=== PATIENT | male | born 1960 | race Two or more races ===

== ENCOUNTER → 2019-12-28 14:04 | Outpatient (BNVA) | payer MEDICARE, MEDICAID, SELFPAY | PROVIDERS: PCP Internal Medicine; Referring Provider Internal Medicine; Visit Provider Nurse Practitioner Family | DX: K58.2 Mixed irritable bowel syndrome (principal); K21.9 Gastro-esophageal reflux disease without esophagitis; K64.4 Residual hemorrhoidal skin tags; R14.0 Abdominal distension (gaseous) | CPT/HCPCS: 99214 ==

== ENCOUNTER 2020-02-08 14:23 | Outpatient (REF) | payer MEDICARE, MEDICAID, SELFPAY ==
--- NOTE | 2020-02-08 15:26 | XR_ITS ---
EXAMINATION: XR KNEE, RIGHT CLINICAL INFORMATION: Right knee pain. COMPARISON: None TECHNIQUE: Four views of the right knee. FINDINGS: Bones and soft tissues are normal. No fracture or joint effusion. Alignment is anatomic. Joint spaces are well maintained. No abnormal soft tissue calcification. XR/XR knee RT 4V IMPRESSION: Unremarkable right knee.
--- NOTE | 2020-02-08 15:26 | XR_ITS ---
EXAMINATION: XR KNEE, LEFT CLINICAL INFORMATION: Left knee pain. COMPARISON: None TECHNIQUE: Four views of the left knee. FINDINGS: Bones and soft tissues are normal. No fracture or joint effusion. Alignment is anatomic. Joint spaces are well maintained. No abnormal soft tissue calcification. XR/XR knee LT 4V IMPRESSION: Unremarkable left knee.
== END 2020-02-08 14:24 | disposition home or self-care (01) ==
LOC: HO.XRAY 14:23
PROVIDERS: PCP Internal Medicine; Referring Provider Internal Medicine; Visit Provider Student in an Organized Health Care Education/Training Program
DX: M19.012 Primary osteoarthritis, left shoulder (principal); M19.011 Primary osteoarthritis, right shoulder; M25.562 Pain in left knee; M25.561 Pain in right knee
CPT/HCPCS: 20610; 73564; 99212

== ENCOUNTER 2020-02-22 13:31 | Outpatient (REF) | payer MEDICARE, MEDICAID, SELFPAY ==
[2020-02-28 12:27] LABS: Testosterone, Free 51.9 pg/mL (35.0-155.0); Testosterone, Total 358 ng/dL (250-1100)
== END 2020-02-22 13:32 | disposition home or self-care (01) ==
LOC: HO.LAB 13:31
PROVIDERS: PCP Internal Medicine; Visit Provider Internal Medicine
DX: F11.90 Opioid use, unspecified, uncomplicated (principal); R61 Generalized hyperhidrosis; M54.5 Low back pain; G89.29 Other chronic pain; F41.8 Other specified anxiety disorders
CPT/HCPCS: 84402; 84403

== ENCOUNTER → 2020-04-11 13:51 | Outpatient (BNVA) | payer MEDICARE, MEDICAID, SELFPAY | PROVIDERS: PCP Internal Medicine; Visit Provider Nurse Practitioner | DX: Z13.89 Encounter for screening for other disorder (principal) | CPT/HCPCS: 99212 ==

== ENCOUNTER 2020-04-23 09:43 | Outpatient (REF) | payer MEDICARE, MEDICAID, SELFPAY ==
--- NOTE | 2020-04-23 09:47 | US_ITS ---
EXAMINATION: US ABDOMEN COMPLETE CLINICAL INFORMATION: Periumbilical pain. COMPARISON: Previous CT of the abdomen and pelvis March 2019 TECHNIQUE: Real-time imaging of the abdominal viscera. FINDINGS: PANCREAS: Normal. ABDOMINAL AORTA: The proximal, mid, and distal segments are normal in caliber. INFERIOR VENA CAVA: Visualized portions are normal. LIVER: Normal. The liver is normal in size. The liver contour is normal. Parenchymal echogenicity is normal. No focal hepatic lesion. There is no intrahepatic biliary duct dilatation seen. GALLBLADDER: There are gallstones in the gallbladder. The gallbladder is normal in size. The gallbladder wall is normal-appearing. There is no pericholecystic fluid. COMMON BILE DUCT: Normal in caliber measuring 0.3 cm in diameter. RIGHT KIDNEY: Normal. No hydronephrosis. No renal calculi or focal parenchymal lesions. The kidney measures 10.9 cm in maximum dimension. LEFT KIDNEY: There are 2 stones measuring 4 x 3 x 8 mm in the midpole and 3 x 3 x 5 mm in the lower pole. No hydronephrosis. No focal parenchymal lesions. The kidney measures 12.7 cm in maximum dimension. SPLEEN: Normal. The spleen measures 10.2 cm in maximum dimension. FREE FLUID: None. Ultrasound of the periumbilical region demonstrates a small umbilical hernia containing peristalsing bowel. US/US abdomen complete IMPRESSION: Gallstones. Left renal stones. Small umbilical hernia containing peristalsing bowel.
== END 2020-04-23 09:44 | disposition home or self-care (01) ==
LOC: HO.US 09:43
PROVIDERS: Visit Provider Nurse Practitioner
DX: R10.13 Epigastric pain (principal); R10.33 Periumbilical pain
CPT/HCPCS: 76700

== ENCOUNTER → 2020-05-02 14:15 | Outpatient (BNVA) | payer MEDICARE, MEDICAID, SELFPAY | PROVIDERS: PCP Internal Medicine; Visit Provider Nurse Practitioner | DX: Z76.89 Persons encountering health services in other specified circumstances (principal) | CPT/HCPCS: Q3014 ==

== ENCOUNTER 2020-05-13 08:29 | Outpatient (REF) | payer MEDICARE, MEDICAID, SELFPAY ==
[2020-05-13 09:54] LABS: Cholesterol 124 mg/dL; HDL Cholesterol 36 mg/dL; LDL Cholesterol Calculated 63 mg/dl; Triglycerides 125 mg/dL
[2020-05-13 10:13] LABS: Estimated Average Glucose 103 mg/dL; Hemoglobin A1c % 5.2 %
== END 2020-05-13 08:30 | disposition home or self-care (01) ==
LOC: HO.LAB 08:29
PROVIDERS: PCP Internal Medicine; Visit Provider Psychiatry & Neurology Psychiatry
DX: Z79.899 Other long term (current) drug therapy (principal)
CPT/HCPCS: 36415; 80061; 83036

== ENCOUNTER → 2020-06-12 12:27 | Outpatient (BNVA) | payer MEDICARE, MEDICAID, SELFPAY | PROVIDERS: PCP Internal Medicine; Referring Provider Internal Medicine; Visit Provider Student in an Organized Health Care Education/Training Program | DX: M19.012 Primary osteoarthritis, left shoulder (principal); M25.561 Pain in right knee; M25.562 Pain in left knee | CPT/HCPCS: 20610; 99212 ==

== ENCOUNTER 2020-06-16 15:28 | Outpatient (REF) | payer MEDICARE, MEDICAID, SELFPAY ==
--- NOTE | ~2020-06-16 | MR_ITS ---
EXAMINATION: MR KNEE WITHOUT CONTRAST, RIGHT CLINICAL INFORMATION: X-ray the right knee January 2020. COMPARISON: X-rays of the right knee most recent January 2020. TECHNIQUE: MRI of the knee without contrast was performed using routine sequences on a high-field scanner. FINDINGS: MENISCI: Medial Meniscus: Intact Lateral Meniscus: Intact LIGAMENTS: Cruciate: Intact Collateral: Intact EXTENSOR MECHANISM: Intact ARTICULAR CARTILAGE/BONE: Patellofemoral Compartment: There is a focal area of cartilage heterogeneity with associated subchondral cystic change in the central trochlea sulcus. This measures 9 mm craniocaudal and 11 mm transverse. There is some mild surrounding edema. There is mild heterogeneity of the medial trochlea. Overall mild Medial Compartment: Normal Lateral Compartment: Normal JOINT FLUID AND BURSAE: There is a slightly lobulated focus of abnormal signal within or just overlying the prepatellar bursa at the level of the lateral aspect of the proximal patella tendon. See sagittal image 21 series 4. See axial image 12 series 2. The periphery of this focus is low signal on both the T1 and T2-weighted sequences with mildly hyperintense signal on T1 and T2-weighted sequences. There is no immediately surrounding soft tissue abnormality. This area measures up to 16 mm transverse, 6 mm AP and 16 mm craniocaudal. Otherwise is minimal scattered edema in the subcutaneous soft tissues. MR/MR knee RT wo con IMPRESSION: 1. Patellofemoral arthrosis overall relatively mild and focal. 2. Abnormal signal abnormality focus within or just superficial to the prepatellar bursa. On the most recent radiographs there is no evidence of calcification or ossification. This finding is most likely posttraumatic likely representing a residual small hematoma. Less likely this reflects an area of dystrophic calcification or ossification which may have developed since the most recent x-ray January 2020.
== END 2020-06-16 15:29 | disposition home or self-care (01) ==
LOC: HO.MRI 15:28
PROVIDERS: Visit Provider Student in an Organized Health Care Education/Training Program
DX: M25.561 Pain in right knee (principal)
CPT/HCPCS: 73721

== ENCOUNTER 2020-07-11 09:37 | Emergency (ER) | payer MEDICARE, MEDICAID, SELFPAY ==
--- NOTE | ~2020-07-11 | XR_ITS ---
EXAMINATION: XR CHEST CLINICAL INFORMATION: Chest pain COMPARISON: Chest radiographs 04/19/2019, 04/04/2019 TECHNIQUE: Portable upright AP view of the chest is performed. FINDINGS: There is no pneumothorax or pleural reaction or effusion. No airspace consolidation or groundglass opacity. The heart is normal in size. The hilar and mediastinal contours and visualized bony structures are unremarkable. XR/XR chest 2V IMPRESSION: Unremarkable examination.
--- NOTE | ~2020-07-11 | CT_ITS ---
EXAMINATION: CT ANGIOGRAM OF THE CHEST WITH AND WITHOUT CONTRAST (CT PULMONARY ANGIOGRAM FOR PE) CLINICAL INFORMATION: Reason for Exam chest pain elevated ddimer r/o PE COMPARISON: 04/04/2019 TECHNIQUE: Prior to contrast administration, noncontrast localization images were obtained. Subsequently, multidetector volumetric imaging was performed from the thoracic inlet to below the diaphragms following the administration of 65 mL Omnipaque 350 intravenous contrast. No contrast reaction reported Sagittal, coronal, and MIP oblique sagittal reformatted images were obtained on the CT workstation, uploaded to PACS, and reviewed. This CT examination was performed using dose optimization techniques as appropriate, variously including the following: *Automated exposure control *Adjustment of mA and/or kV according to patient size (this includes techniques or standardized protocols for targeted exams where dose is matched to indication/reason for exam; i.e. extremities or head) *Use of iterative reconstruction technique Total exam dose-length product 454 mGy-cm FINDINGS: QUALITY OF STUDY/CONTRAST BOLUS: Suboptimal due to bolus timing. The concentration of contrast material within the main pulmonary arteries is relatively low. Much of the contrast bolus has already reached the distal descending thoracic aorta at the time of the scan. PULMONARY ARTERIES: No central or proximal lobar pulmonary emboli. THORACIC AORTA: No aneurysm or dissection. LUNG: No focal consolidation, nodules or masses. Subtle subpleural opacities in the posterior aspects of the lower lobes likely correspond to dependent atelectasis. Pleural parenchymal scarring is also possible. Central airways are clear. PLEURA: No pleural effusion or pneumothorax. MEDIASTINUM: Normal heart size. No pericardial effusion. No hilar or mediastinal lymphadenopathy. No evidence of septal bowing or right heart strain. CHEST WALL/AXILLA: No axillary or internal mammary lymphadenopathy. OSSEOUS STRUCTURES: No acute or suspicious osseous abnormality. [id number] multilevel degenerative disc disease. UPPER ABDOMEN: Unremarkable. No reflux of contrast into the hepatic veins to suggest elevated right heart pressures. CT/CT angio chest PE protocol IMPRESSION: No acute pulmonary findings. Assessment for pulmonary emboli is indeterminate distal to the lobar branches as a result of technical limitations of the study. A repeat attempt at the scanning can be attempted if there is a high clinical concern for pulmonary emboli. VTE: indeterminate
--- NOTE | ~2020-07-11 | US_ITS ---
EXAMINATION: US VENOUS ULTRASOUND WITH DOPPLER LOWER EXTREMITY, BILATERAL CLINICAL INFORMATION: elevated d-dimer, r/o dvt COMPARISON: 11/27/2019 TECHNIQUE: Ultrasound of the deep veins is performed from the hip to the calf with compression sonography and color and pulse Doppler assessment. Spectral analysis with color-flow imaging is performed. FINDINGS: RIGHT: There is normal venous compression and respiratory variation and augmented flow. The visualized common femoral vein, superficial femoral vein, profunda femoral vein, popliteal vein, and the trifurcation region shows no evidence of deep venous thrombosis. There is no significant popliteal fossa cyst. LEFT: There is normal venous compression and respiratory variation and augmented flow. The visualized common femoral vein, superficial femoral vein, profunda femoral vein, popliteal vein, and the trifurcation region shows no evidence of deep venous thrombosis. There is no significant popliteal fossa cyst. If the patient's symptoms persist, followup ultrasound in 5 days 7 days might be of value to exclude proximal propagation from a non-visualized calf vein. US/US venous duplex LE BI IMPRESSION: No DVT demonstrated in the bilateral lower extremities.
--- NOTE | ~2020-07-11 | NM_ITS ---
EXAMINATION: PULMONARY PERFUSION STUDY CLINICAL INFORMATION: Chest pain, elevated d-dimer. COMPARISON: No previous lung scan is available for comparison. CT angiogram of the chest dated 07/11/2020, the same date as this lung scan, is available for comparison. TECHNIQUE: Following the intravenous injection of 4.0 mCi Tc-99m MAA, an 8-view perfusion study was performed using a gamma scintillation camera. FINDINGS: No segmental perfusion defects are present. There is homogeneous distribution of activity bilaterally. There are no focal anatomic appearing perfusion defects present. NM/NM pul perfusion IMPRESSION: Normal radionuclide lung perfusion scan.
[2020-07-11 10:09] VITALS: BP 139/86; PULSE 87; RESP 18; TEMP 36.7; O2SAT 96; BMI 32.5
--- NOTE | 2020-07-11 11:28 | ECG_ITS ---
Test Reason : CHEST PAIN Blood Pressure : / mmHG Vent. Rate : 072 BPM Atrial Rate : 072 BPM P-R Int : 166 ms QRS Dur : 098 ms QT Int : 392 ms P-R-T Axes : 063 -03 038 degrees QTc Int : 429 ms Normal sinus rhythm Normal ECG No previous ECGs available Referred By: Sona Serrnao Electronically Signed By:SRIDHAR MEDEIROS MD
--- NOTE | 2020-07-11 11:47 | ED.CHESTPAIN ---
HPI - Chest Pain General Chief Complaint: Chest Pain Stated Complaint: Chest pain Time Seen by Provider: 07/11/20 11:24 Source: patient Mode of arrival: ambulatory Limitations: no limitations History of Present Illness HPI narrative: 59-year-old male with a past medical history of hypertension, former substance and alcohol abuse, IBS, obesity, depression, osteoarthritis, anxiety, insomnia, GERD, here with complaints of left-sided chest pain x3 days which radiates down the left arm with intermittent numbness as well as to his left upper back x3 days. Today continued symptoms now feeling dizzy and diaphoretic. Pain is worsened with deep breathing and movement. No shortness of breath, cough, leg swelling or pain. Patient has made a history of a superficial thrombophlebitis due to varicose veins which was treated with aspirin. No recent travel or sick contacts. Has not had his COVID vaccine. Related Data Home Medications Medication Instructions Recorded Confirmed aspirin 81 mg tablet,delayed 81 mg PO DAILY 02/08/20 06/16/20 release quetiapine 100 mg tablet 100 mg PO DAILY 02/08/20 06/16/20 Previous Rx's Medication Instructions Recorded pantoprazole 40 mg tablet,delayed 40 mg PO DAILY 30 Days #30 tab 04/11/20 release sennosides 8.6 mg capsule 17.2 mg PO BEDTIME 30 Days #60 cap 04/11/20 docusate sodium 100 mg capsule 100 mg PO BID 30 Days #60 cap 05/02/20 hydrocortisone 2.5 % topical cream See Rx Instructions WA BID PRN #30 05/02/20 with perineal applicator g [id number] 1 cap PO QID 30 Days #120 cap 05/02/20 24,000-76,000-120,000 unit capsule,delayed rel simethicone 180 mg capsule 180 mg PO QID PRN #120 cap 05/02/20 propranolol 20 mg tablet 20 mg PO BID #180 tab 05/05/20 clonidine HCl 0.1 mg tablet 0.1 mg PO BID PRN #180 tab 06/10/20 clonazepam 0.5 mg tablet 0.5 mg PO DAILY 30 Days #30 tab 06/13/20 clonazepam 1 mg tablet 1 mg PO DAILY PRN 30 Days #30 tab 06/15/20 zolpidem 12.5 mg tablet,extended 12.5 mg PO BEDTIME PRN 30 Days #30 06/15/20 release,multiphase tab diclofenac sodium 1 % topical gel 2 g TOPICAL QID #100 g 06/18/20 tizanidine 4 mg tablet 4 mg PO TID PRN 30 Days #90 tab 06/20/20 tamsulosin 0.4 mg capsule 0.4 mg PO DAILY #30 cap 07/02/20 tramadol 50 mg tablet See Rx Instructions PO BID 28 Days 07/02/20 #112 tab cyclobenzaprine 10 mg PO TID PRN #10 tab 07/11/20 naproxen 500 mg PO BID PRN #10 tab 07/11/20 prednisone 40 mg PO DAILY #10 tab 07/11/20 Allergies Allergy/AdvReac Type Severity Reaction Status Date / Time seafood Allergy Severe anaphylaxis Verified 07/11/20 10:13 duloxetine Allergy Intermediate nausea/vomiting/diarrhea, Verified 07/11/20 10:13 feeling shaky - withdrawal sympto gabapentin Allergy Intermediate confusion/memory Verified 07/11/20 10:13 loss/hallucination lactase [LACTASE] Allergy Intermediate NAUSEA Verified 07/11/20 10:13 Review of Systems Review of Systems: Yes all other systems are reviewed and are negative Constitutional: Constitutional: Reports no additional constitutional complaints, Denies body ache(s), Denies chills, Denies fever(s), Denies headache(s) and Denies weakness Eyes: Eyes: Reports no additional eye complaints and Denies change in vision ENT: Reports system reviewed and no additional complaints, except as documented, Denies dizziness, Denies headache(s), Denies nasal congestion, Denies nasal discharge and Denies neck pain Cardiovascular: Cardiovascular: Reports no additional cardiovascular complaints, Reports chest pain, Denies leg edema and Denies dyspnea Respiratory: Respiratory: Reports no additional respiratory complaints, Denies cough and Denies dyspnea Gastrointestinal: Gastrointestinal: Reports no additional gastrointestinal complaints, Denies abdominal pain, Denies diarrhea, Denies nausea and Denies vomiting Genitourinary: Genitourinary: Denies urinary incontinence Musculoskeletal: Musculoskeletal: Reports no additional musculoskeletal complaints, Reports back pain, Denies arthralgias, Denies joint swelling, Denies neck pain, Reports numbness and Denies tingling Integumentary/Breasts: Skin/Breast: Reports system reviewed and no additional complaints, except as docu and Denies rash Neurologic: Reports system reviewed and no additional complaints, except as documented, Denies Abnormal speech present, Denies dizziness, Denies headache(s), Reports numbness, Denies tingling and Denies weakness PMFSH Past Medical History Attestation statement: The following information was validated with the patient. Source: old records reviewed and nursing notes reviewed Medical History Constipation Depression Elevated blood pressure reading Excessive sweating IBS (irritable bowel syndrome) Overweight (BMI 25.0-29.9) Tubular adenoma of colon Surgical History H/O colonoscopy H/O esophagogastroduodenoscopy H/O inguinal hernia repair History of varicose vein ligation and stripping S/P tendon repair Status post pericardial cyst excision (~02/13/19) Family History Family History Father Stomach cancer Mother AIDS Sister NIDKENZIE (non-insulin dependent diabetes mellitus in young) Hypertension Social History Social History Household Members: Children Alcohol intake: never Smoking Status: Unknown if ever smoked Tobacco Type: Cigarette Years Smoked: quit greater than 10 years ago Use of substances other than those prescribed or required for medical reasons: No Advance Directives: Yes Advance Directives on File: Yes Advance Directives Date on File: 07/11/20 Physical Exam Vital Signs: Vital Signs: Last Vital Signs Temp 99.0 F 07/11/20 12:01 Pulse 77 07/11/20 14:26 Resp 14 07/11/20 15:12 BP 153/90 H 07/11/20 14:26 Pulse Ox 97 07/11/20 14:26 Body Mass Index 32.5 Const: General: cooperative, healthy appearing, comfortable and no acute distress Orientation/consciousness: patient oriented x3 Limitations: no limitations HENMT: Head: Yes normal to inspection Ears: hearing grossly normal bilaterally General nose exam: Normal external nose present Face and sinus: Yes normal facial exam Mouth: Normal oral and palatal mucosa present Throat: Yes posterior oropharynx normal Eyes: General: appearance normal, both eyes and all related structures Pupils: Equal, round and reactive pupils present Neck: Other: Left trapezius tenderness and palpable muscle spasm. No midline tenderness, step-offs or deformities Neck: Yes normal visual inspection Chest: Chest palpation & inspection: normal inspection of the chest Resp: Effort & Inspection: normal respiratory effort Auscultation: clear to auscultation bilaterally Cardio: Other: Left chest tender to palpate, worsen with left arm movement, deep breathing Rate: regular rate Rhythm: regular rhythm Peripheral pulses: Peripheral pulses 2+ throughout GI: Inspection: Yes normal to inspection Palpation (GI): Soft to palpation and nontender Auscultation: normal bowel sounds Back/Spine/Pelvis: Other: Left upper back pain with palpable muscle spasm. No midline tenderness. Thoracic/Lumbar Spine: thoracic and lumbar spine normal to inspection Skin: General skin exam: no rashes or lesions noted Neuro: General: patient oriented x3, no focal motor deficits and normal sensation to monofilament Cranial nerves: Yes CN's II-XII intact bilaterally, Yes Equal, round and reactive pupils present, Yes Bilaterally intact EOM present, Yes Nystagmus not present, Yes Normal facial strength present and Yes Midline tongue present Cognition (Neuro): normal cognition Speech: No Abnormal speech present Gait exam (Neuro): Normal gait present Motor exam (neuro): 5/5 motor strength present throughout Sensory Exam: Normal double simultaneous stimulation for sensation Extrem: General: Yes normal to inspection, Yes no pedal edema and Yes no calf tenderness Course Course Course Narrative: 59-year-old male here with pleuritic left-sided chest pain with associated left arm pain with numbness which radiates down left arm x3 days. Pain is persistent now having dizziness and diaphoresis. Will need labs, EKG, chest x-ray. 1345-Elevated d dimer. CTA ordered to r/o PE. 1456-CT indeterminate for PE. Will order V/Q scan and bilateral Doppler ultrasound 1700-V/Q scan negative for PE. Ultrasound negative for DVT. Pain is very musculoskeletal exam is likely more chest wall strain. There is also component of cervical radiculopathy on exam. Labs unremarkable including troponin. EKG shows no ischemic changes though less likely ACS. Pain is improved with Toradol here. Reviewed findings with the patient. Reviewed worrisome signs and symptoms of when to return to the emergency department. Comfortable discharge home. MDM - Chest Pain MDM Narrative Medical decision making narrative: pe, pneumo, asc, cervical radiculopathy, ms pain Less likely PE with negative VQ, no hypoxia/no tachycardia. Less likely pneumonia with negative imaging Less likely ACS with symptoms greater than 3 days with negative troponin and EKG Medical Records Data Attestation: I reviewed the patient's medical records. Lab Data Attestation: I reviewed the patient's lab results. Result diagrams: 07/11/20 12:30 07/11/20 12:30 Labs: Lab Results 07/11/20 07/11/20 07/11/20 Range/Units 12:30 12:30 12:30 WBC 7.0 (4.8-10.8) X10*3/uL RBC 5.32 (4.60-5.80) X10*6/uL Hgb 14.9 (14.0-18.0) g/dl Hct 44.9 (42-52) % MCV 84.4 (80-98) fL MCH 28.0 (27.0-33.0) pg MCHC 33.2 (31.0-36.0) g/dl RDW 12.9 (11.0-16.0) % Plt Count 250 (160-400) X10*3/uL MPV 10.4 (9.4-12.4) fL Immature Gran % (Auto) 0.1 (0.0-0.4) % Neut % (Auto) 53.3 (45-73) % Lymph % (Auto) 32.5 (20-40) % [place] % (Auto) 9.5 (2-11) % Eos % (Auto) 3.9 (0-4) % Baso % (Auto) 0.7 (0-2) % Lymph # (Auto) 2.3 (1.2-4.9) X10*3/uL [place] # (Auto) 0.7 (0.1-1.2) X10*3/uL Eos # (Auto) 0.3 (0.0-0.4) X10*3/uL Baso # (Auto) 0.1 (0.0-0.2) X10*3/uL Abs Immat Gran (auto) 0.01 (0.00-0.03) X10*3/uL Absolute Neuts (auto) 3.7 (2.0-8.3) X10*3/uL Absolute Nucleated RBC 0.000 (0.0-0.012) X10*3/uL Nucleated RBC % (auto) 0.0 (0.0-0.2) /100WBC PT (10.8-13.0) SEC INR (0.9-1.1) APTT (24.1-38.0) SEC D-Dimer NG/ML Sodium 138 (135-145) mmol/L Potassium 5.1 (3.3-5.1) mmol/L Chloride 104 (96-108) mmol/L Carbon Dioxide 27 (22-29) mmol/L Anion Gap 12 (12-20) BUN 11 (9-16) mg/dL Creatinine 0.89 (0.5-1.4) mg/dL Estim Creat Clear Calc 116.7 Estimated GFR > 60 Random Glucose 89 (60-115) mg/dL Calcium 9.0 (8.4-10.2) mg/dL Magnesium 2.2 (1.6-2.6) mg/dL Total Bilirubin 0.4 (0.0-1.0) mg/dL Direct Bilirubin < 0.2 (0.0-0.5) mg/dL AST 26 (5-37) U/L ALT 28 (0-40) U/L Alkaline Phosphatase 97 (39-117) U/L Troponin I High Sens < 3.5 (<3.5-35.0) ng/L Total Protein 7.2 (6.5-8.0) g/dL Albumin 4.0 (3.5-5.0) g/dL 07/11/20 Range/Units 12:30 WBC (4.8-10.8) X10*3/uL RBC (4.60-5.80) X10*6/uL Hgb (14.0-18.0) g/dl Hct (42-52) % MCV (80-98) fL MCH (27.0-33.0) pg MCHC (31.0-36.0) g/dl RDW (11.0-16.0) % Plt Count (160-400) X10*3/uL MPV (9.4-12.4) fL Immature Gran % (Auto) (0.0-0.4) % Neut % (Auto) (45-73) % Lymph % (Auto) (20-40) % [place] % (Auto) (2-11) % Eos % (Auto) (0-4) % Baso % (Auto) (0-2) % Lymph # (Auto) (1.2-4.9) X10*3/uL [place] # (Auto) (0.1-1.2) X10*3/uL Eos # (Auto) (0.0-0.4) X10*3/uL Baso # (Auto) (0.0-0.2) X10*3/uL Abs Immat Gran (auto) (0.00-0.03) X10*3/uL Absolute Neuts (auto) (2.0-8.3) X10*3/uL Absolute Nucleated RBC (0.0-0.012) X10*3/uL Nucleated RBC % (auto) (0.0-0.2) /100WBC PT 10.9 (10.8-13.0) SEC INR 0.9 (0.9-1.1) APTT 38.6 H (24.1-38.0) SEC D-Dimer 2551 NG/ML Sodium (135-145) mmol/L Potassium (3.3-5.1) mmol/L Chloride (96-108) mmol/L Carbon Dioxide (22-29) mmol/L Anion Gap (12-20) BUN (9-16) mg/dL Creatinine (0.5-1.4) mg/dL Estim Creat Clear Calc Estimated GFR Random Glucose (60-115) mg/dL Calcium (8.4-10.2) mg/dL Magnesium (1.6-2.6) mg/dL Total Bilirubin (0.0-1.0) mg/dL Direct Bilirubin (0.0-0.5) mg/dL AST (5-37) U/L ALT (0-40) U/L Alkaline Phosphatase (39-117) U/L Troponin I High Sens (<3.5-35.0) ng/L Total Protein (6.5-8.0) g/dL Albumin (3.5-5.0) g/dL Imaging Data Chest x-ray: Attestation: I personally reviewed and interpreted this imaging study as follows: Radiologist's impression: EXAMINATION: XR CHEST CLINICAL INFORMATION: Chest pain COMPARISON: Chest radiographs 04/19/2019, 04/04/2019 TECHNIQUE: Portable upright AP view of the chest is performed. FINDINGS: There is no pneumothorax or pleural reaction or effusion. No airspace consolidation or groundglass opacity. The heart is normal in size. The hilar and mediastinal contours and visualized bony structures are unremarkable. XR/XR chest 2V IMPRESSION: Unremarkable examination. VQ scan: Attestation: I personally reviewed and interpreted this imaging study as follows: Radiologist's impression: CLINICAL INFORMATION: Chest pain, elevated d-dimer. COMPARISON: No previous lung scan is available for comparison. CT angiogram of the chest dated 07/11/2020, the same date as this lung scan, is available for comparison. TECHNIQUE: Following the intravenous injection of 4.0 mCi Tc-99m MAA, an 8-view perfusion study was performed using a gamma scintillation camera. FINDINGS: No segmental perfusion defects are present. There is homogeneous distribution of activity bilaterally. There are no focal anatomic appearing perfusion defects present. NM/NM pul perfusion IMPRESSION: Normal radionuclide lung perfusion scan. CT scan - chest: Attestation: I personally reviewed and interpreted this imaging study as follows: Radiologist's impression: IMPRESSION: No acute pulmonary findings. Assessment for pulmonary emboli is indeterminate distal to the lobar branches as a result of technical limitations of the study. A repeat attempt at the scanning can be attempted if there is a high clinical concern for pulmonary emboli. VTE: indeterminate Venous US: Attestation: I personally reviewed and interpreted this imaging study as follows: Radiologist's impression: EXAMINATION: US VENOUS ULTRASOUND WITH DOPPLER LOWER EXTREMITY, BILATERAL CLINICAL INFORMATION: elevated d-dimer, r/o dvt COMPARISON: 11/27/2019 TECHNIQUE: Ultrasound of the deep veins is performed from the hip to the calf with compression sonography and color and pulse Doppler assessment. Spectral analysis with color-flow imaging is performed. FINDINGS: RIGHT: There is normal venous compression and respiratory variation and augmented flow. The visualized common femoral vein, superficial femoral vein, profunda femoral vein, popliteal vein, and the trifurcation region shows no evidence of deep venous thrombosis. There is no significant popliteal fossa cyst. LEFT: There is normal venous compression and respiratory variation and augmented flow. The visualized common femoral vein, superficial femoral vein, profunda femoral vein, popliteal vein, and the trifurcation region shows no evidence of deep venous thrombosis. There is no significant popliteal fossa cyst. If the patient's symptoms persist, followup ultrasound in 5 days 7 days might be of value to exclude proximal propagation from a non-visualized calf vein. US/US venous duplex LE BI IMPRESSION: No DVT demonstrated in the bilateral lower extremities. ECG Data ECG #1: Attestation: I personally reviewed and interpreted this ECG as follows: ECG interpretation date: 07/11/20 ECG interpretation time: 11:54 Interpretation: Normal sinus rhythm with a rate of 72, normal WA, normal QRS, QTC Discharge Plan Discharge Clinical Impression: Chest wall pain, Radiculopathy of arm Patient Disposition: Home, Self-Care Instructions: Cervical Radiculopathy (ED), Chest Wall Pain (ED) Additional Instructions: Heat or ice Gentle stretching Follow-up by the primary care on Tuesday if continuing to have symptoms Prescriptions: New naproxen 500 mg tablet 500 mg PO BID PRN (Reason: pain) Qty: 10 RF: 0 cyclobenzaprine 10 mg tablet 10 mg PO TID PRN (Reason: muscle spasm) Qty: 10 RF: 0 prednisone 20 mg tablet 40 mg PO DAILY Qty: 10 RF: 0 No Action propranolol 20 mg tablet 20 mg PO BID Qty: 180 RF: 1 clonidine HCl 0.1 mg tablet 0.1 mg PO BID PRN (Reason: for anxiety) Qty: 180 RF: 1 clonazepam 0.5 mg tablet 0.5 mg PO DAILY 30 Days Qty: 30 RF: 0 clonazepam 1 mg tablet 1 mg PO DAILY PRN (Reason: anxiety) 30 Days Qty: 30 RF: 0 zolpidem 12.5 mg tablet,ext release multiphase 12.5 mg PO BEDTIME PRN (Reason: insomnia) 30 Days Qty: 30 RF: 0 diclofenac sodium [Voltaren] 1 % gel 2 g topical QID Qty: 100 RF: 4 tizanidine 4 mg tablet 4 mg PO TID PRN (Reason: muscle spasticity) 30 Days Qty: 90 RF: 1 tamsulosin 0.4 mg capsule 0.4 mg PO DAILY Qty: 30 RF: 3 tramadol 50 mg tablet See Rx Instructions PO BID 28 Days Qty: 112 RF: 0 quetiapine [Seroquel] 100 mg tablet 100 mg PO DAILY RF: 0 aspirin 81 mg tablet,delayed release (DR/EC) 81 mg PO DAILY RF: 0 senna 8.6 mg capsule 17.2 mg PO BEDTIME 30 Days Qty: 60 RF: 6 pantoprazole [Protonix] 40 mg tablet,delayed release (DR/EC) 40 mg PO DAILY 30 Days Qty: 30 RF: 6 docusate sodium [DOK] 100 mg capsule 100 mg PO BID 30 Days Qty: 60 RF: 6 Creon 24,000-76,000 -120,000 unit capsule,delayed release(DR/EC) 1 cap PO QID 30 Days Qty: 120 RF: 6 simethicone [Gas Relief (simethicone)] 180 mg capsule 180 mg PO QID PRN (Reason: abdominal distention) Qty: 120 RF: 6 hydrocortisone [Anusol-HC] 2.5 % cream with perineal applicator See Rx Instructions WA BID PRN (Reason: hemorrhoids) Qty: 30 RF: 6 Referrals: Marcial David MD [Primary Care Provider] - 2 days Interventions: ED Discharge Assessment Last Done: 07/11/20 17:14 Discharge Date/Time: 07/11/20 17:14
[2020-07-11 12:01] VITALS: BP 132/90; PULSE 71; RESP 14; TEMP 37.2; O2SAT 96
--- NOTE | 2020-07-11 12:28 | PC.NURSE ---
Pt romeo pace, this rn unble to obtain labs/iv access. Another rn at bedside.
[2020-07-11 12:32] VITALS: RESP 16
[2020-07-11] MEDS: Cyclobenzaprine HCl 10 MG TABLET PO (12:32)
[2020-07-11] MEDS: Morphine Sulfate 4 MG/ML CARTRIDGE IVPUSH ×2 (12:32→15:12)
[2020-07-11 12:35] LABS: MANUAL DIFF FLAG NO
[2020-07-11 12:37] VITALS: PULSE 76
[2020-07-11 12:40] LABS: Basophils Absolute Auto 0.1 X10*3/uL (0.0-0.2); Basophils Percent Auto 0.7 % (0-2); Eosinophils Absolute Auto 0.3 X10*3/uL (0.0-0.4); Eosinophils Percent Auto 3.9 % (0-4); Hematocrit 44.9 % (42-52); Hemoglobin 14.9 g/dl (14.0-18.0); Imm Gran Abs Auto 0.01 X10*3/uL (0.00-0.03); Imm Gran Pct Auto 0.1 % (0.0-0.4); Lymphocytes Absolute Auto 2.3 X10*3/uL (1.2-4.9); Lymphocytes Percent Auto 32.5 % (20-40); Mean Corpuscular HGB Conc 33.2 g/dl (31.0-36.0); Mean Corpuscular Volume 84.4 fL (80-98); Mean Platelet Volume 10.4 fL (9.4-12.4); Monocytes Absolute Auto 0.7 X10*3/uL (0.1-1.2); Monocytes Percent Auto 9.5 % (2-11); Neutrophils Absolute Auto 3.7 X10*3/uL (2.0-8.3); Neutrophils Percent Auto 53.3 % (45-73); Platelet Count 250 X10*3/uL (160-400); Red Blood Count 5.32 X10*6/uL (4.60-5.80); Red Cell Distribution Width 12.9 % (11.0-16.0)
[2020-07-11 13:08] LABS: D Dimer 2551 NG/ML
[2020-07-11 13:18] LABS: Troponin-I High Sensitivity < 3.5 ng/L (<3.5-35.0)
[2020-07-11 13:19] LABS: Alanine Aminotransferase 28 U/L (0-40); Alkaline Phosphatase 97 U/L (39-117); Anion Gap 12 (12-20); Aspartate Amino Transferase 26 U/L (5-37); Bilirubin Direct < 0.2 mg/dL (0.0-0.5); Bilirubin Total 0.4 mg/dL (0.0-1.0); Blood Urea Nitrogen 11 mg/dL (9-16); Carbon Dioxide 27 mmol/L (22-29); Chloride 104 mmol/L (96-108); Creatinine Clr Calc Pharmacy 116.7; Estimated Glomerular Filt Rate > 60; Glucose Random 89 mg/dL (60-115); Magnesium 2.2 mg/dL (1.6-2.6); Potassium 5.1 mmol/L (3.3-5.1); Sodium 138 mmol/L (135-145); Total Protein 7.2 g/dL (6.5-8.0)
[2020-07-11 13:25] LABS: INTERNATIONAL NORM RATIO 0.9 (0.9-1.1); Prothrombin Time 10.9 SEC (10.8-13.0)
[2020-07-11 13:37] LABS: Partial Thromboplastin Time 38.6 SEC (24.1-38.0)
[2020-07-11] MEDS: iohexoL 350 MG/ML 100 ML INFUS..BTL IV (14:14)
[2020-07-11 14:26] VITALS: BP 153/90; PULSE 77; RESP 16; O2SAT 97
--- NOTE | 2020-07-11 14:42 | PC.NURSE ---
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
--- NOTE | 2020-07-11 14:43 | MHC.CM.ED ---
Received notification from BREANNE Hernandez that patient is requesting to complete a new HCP. New HCP completed, signed and witnessed. Original given to patient. Copy placed in chart. Continue to monitor for d/c needs.
[2020-07-11 15:12] VITALS: RESP 14
[2020-07-11] MEDS: Ketorolac Tromethamine 30 MG/ML VIAL IVPUSH (15:12)
== END 2020-07-11 17:14 | disposition home or self-care (01) ==
PROVIDERS: Nurse Practitioner Family; Emergency Provider Emergency Medicine; PCP Internal Medicine
DX: R07.89 Other chest pain (principal); M54.12 Radiculopathy, cervical region; I10 Essential (primary) hypertension; K21.9 Gastro-esophageal reflux disease without esophagitis; F11.20 Opioid dependence, uncomplicated; F10.21 Alcohol dependence, in remission; Z79.82 Long term (current) use of aspirin
CPT/HCPCS: 36415; 71046; 71275; 78580; 80048; 80076; 83735; 84484; 85025; 85379; 85610; 85730; 93005; 93970; 96374; 96375; 96376; 99284; 99285; A9540; J1885; J2270; Q9967

== ENCOUNTER 2020-07-23 19:40 | Emergency (ER) | payer MEDICARE, MEDICAID, SELFPAY ==
--- NOTE | ~2020-07-23 | XR_ITS ---
EXAMINATION: XR CHEST CLINICAL INFORMATION: Chest pain. COMPARISON: 07/11/2020 chest radiographs and chest CTA. TECHNIQUE: Frontal view of the chest was obtained. FINDINGS: Mild left basilar linear atelectasis versus scarring. Scattered mild parenchymal scarring as well without significant change. The lungs are clear. The heart and mediastinal structures are unremarkable. XR/XR chest 1V IMPRESSION: Stable chest with chronic changes. No acute cardiopulmonary process.
--- NOTE | ~2020-07-23 | US_ITS ---
EXAMINATION: US VENOUS WITH DOPPLER UPPER EXTREMITY, LEFT CLINICAL INFORMATION: Pain, mild swelling COMPARISON: None TECHNIQUE: Ultrasound of the left upper extremity is performed using compression sonography and color and pulse Doppler flow with assessment of augmentation of flow. There is also imaging and Doppler assessment of the jugular and subclavian veins. Spectral analysis with color-flow imaging is performed. FINDINGS: Respiratory variation, normal compression, and augmented flow are noted throughout the upper extremity including the axillary, brachial, cubital, and radial and ulnar veins. There is normal flow in the internal jugular and subclavian veins. There is no visible deep or superficial thrombophlebitis. If the patient's symptoms progress, a followup ultrasound in 5 -7 days might be of value to exclude proximal propagation from a nonvisualized distal arm vein. US/US venous duplex UE LT IMPRESSION: No DVT demonstrated in the left upper extremity.
--- NOTE | ~2020-07-23 | XR_ITS ---
EXAMINATION: XR ELBOW, LEFT CLINICAL INFORMATION: Pain without swelling COMPARISON: None TECHNIQUE: AP, lateral, and oblique views of the left elbow. FINDINGS: Osseous alignment is anatomic. No acute fracture is seen. No appreciable effusion. There is mild soft tissue swelling posteriorly. XR/XR elbow LT min 3V IMPRESSION: No acute osseous findings.
[2020-07-23 20:29] VITALS: BP 168/94; PULSE 86; RESP 18; TEMP 36.8; O2SAT 97; BMI 33.9
--- NOTE | 2020-07-23 22:26 | ECG_ITS ---
Test Reason : CHEST PAIN Blood Pressure : / mmHG Vent. Rate : 090 BPM Atrial Rate : 090 BPM P-R Int : 168 ms QRS Dur : 098 ms QT Int : 346 ms P-R-T Axes : 066 -10 040 degrees QTc Int : 423 ms Normal sinus rhythm Normal ECG When compared with ECG of 11-JUL-2020 11:54, No significant change was found Referred By: Radha Alas Electronically Signed By:ROGER BRUCE
[2020-07-23 22:56] LABS: MANUAL DIFF FLAG NO
[2020-07-23 22:58] LABS: Basophils Percent Auto 0.1 % (0-2); Eosinophils Percent Auto 0.3 % (0-4); Hematocrit 48.1 % (42-52); Hemoglobin 15.8 g/dl (14.0-18.0); Imm Gran Abs Auto 0.06 X10*3/uL (0.00-0.03); Imm Gran Pct Auto 0.4 % (0.0-0.4); Lymphocytes Absolute Auto 3.4 X10*3/uL (1.2-4.9); Lymphocytes Percent Auto 22.1 % (20-40); Mean Corpuscular HGB Conc 32.8 g/dl (31.0-36.0); Mean Corpuscular Hemoglobin 27.4 pg (27.0-33.0); Mean Corpuscular Volume 83.4 fL (80-98); Mean Platelet Volume 10.1 fL (9.4-12.4); Monocytes Absolute Auto 1.3 X10*3/uL (0.1-1.2); Monocytes Percent Auto 8.5 % (2-11); Neutrophils Absolute Auto 10.6 X10*3/uL (2.0-8.3); Neutrophils Percent Auto 68.6 % (45-73); Platelet Count 281 X10*3/uL (160-400); Red Blood Count 5.77 X10*6/uL (4.60-5.80); Red Cell Distribution Width 13.3 % (11.0-16.0); White Blood Count 15.5 X10*3/uL (4.8-10.8)
[2020-07-23] MEDS: Lidocaine HCl Viscous 2 % 15 ML SOLUTION 10 ML MUCOUS MEM (23:00)
[2020-07-23] MEDS: Magnesium Hydrox/Alum Hydrox 30 ML ORAL.SUSP PO (23:00)
--- NOTE | 2020-07-23 23:00 | ED.CHESTPAIN ---
HPI - Chest Pain General Chief Complaint: Chest Pain Stated Complaint: chest pain, arm numbness Time Seen by Provider: 07/23/20 22:26 Source: patient Mode of arrival: ambulatory History of Present Illness HPI narrative: 59-year-old male who presents with complaints left lateral chest wall pain that he states has been radiating into the left upper extremity since Tuesday and has completed 2 different courses steroids to control inflammation. Patient denies any fevers or chills, GI symptoms, or symptoms. Patient denies any association with respiration but states movement and lying on the left side bothers him a lot. Related Data Home Medications Medication Instructions Recorded Confirmed aspirin 81 mg tablet,delayed 81 mg PO DAILY 02/08/20 06/16/20 release quetiapine 100 mg tablet 100 mg PO DAILY 02/08/20 06/16/20 Previous Rx's Medication Instructions Recorded pantoprazole 40 mg tablet,delayed 40 mg PO DAILY 30 Days #30 tab 04/11/20 release sennosides 8.6 mg capsule 17.2 mg PO BEDTIME 30 Days #60 cap 04/11/20 docusate sodium 100 mg capsule 100 mg PO BID 30 Days #60 cap 05/02/20 hydrocortisone 2.5 % topical cream See Rx Instructions NC BID PRN #30 05/02/20 with perineal applicator g [id number] 1 cap PO QID 30 Days #120 cap 05/02/20 24,000-76,000-120,000 unit capsule,delayed rel simethicone 180 mg capsule 180 mg PO QID PRN #120 cap 05/02/20 propranolol 20 mg tablet 20 mg PO BID #180 tab 05/05/20 clonidine HCl 0.1 mg tablet 0.1 mg PO BID PRN #180 tab 06/10/20 clonazepam 0.5 mg tablet 0.5 mg PO DAILY 30 Days #30 tab 06/13/20 diclofenac sodium 1 % topical gel 2 g TOPICAL QID #100 g 06/18/20 tamsulosin 0.4 mg capsule 0.4 mg PO DAILY #30 cap 07/02/20 tramadol 50 mg tablet See Rx Instructions PO BID 28 Days 07/02/20 #112 tab clonazepam 1 mg tablet 1 mg PO DAILY PRN 30 Days #30 tab 07/14/20 zolpidem 12.5 mg tablet,extended 12.5 mg PO BEDTIME PRN 30 Days #30 07/14/20 release,multiphase tab cyclobenzaprine 10 mg tablet 10 mg PO TID PRN 10 Days #30 tab 07/20/20 naproxen 500 mg tablet 500 mg PO BID PRN 30 Days #60 tab 07/20/20 prednisone 20 mg tablet 40 mg PO DAILY 5 Days #10 tab 07/20/20 tizanidine 4 mg tablet 4 mg PO TID PRN 30 Days #90 tab 07/23/20 Allergies Allergy/AdvReac Type Severity Reaction Status Date / Time seafood Allergy Severe anaphylaxis Verified 07/18/20 01:18 duloxetine Allergy Intermediate nausea/vomiting/diarrhea, Verified 07/18/20 01:18 feeling shaky - withdrawal sympto gabapentin Allergy Intermediate confusion/memory Verified 07/18/20 01:18 loss/hallucination lactase [LACTASE] Allergy Intermediate NAUSEA Verified 07/18/20 01:18 Review of Systems Review of Systems: Pertinent positives and negatives as stated in HPI and 10 point review of systems is otherwise negative. [facility] Past Medical History Source: nursing notes reviewed Medical History Constipation Depression Elevated blood pressure reading Elevated d-dimer Excessive sweating IBS (irritable bowel syndrome) Left elbow tendinitis Left-sided chest wall pain Overweight (BMI 25.0-29.9) Tubular adenoma of colon Surgical History H/O colonoscopy H/O esophagogastroduodenoscopy H/O inguinal hernia repair History of varicose vein ligation and stripping S/P tendon repair Status post pericardial cyst excision (~02/13/19) Family History Family History Father Stomach cancer Mother AIDS Sister NIDDY (non-insulin dependent diabetes mellitus in young) Hypertension Social History Social History Household Members: Children Alcohol intake: never Smoking Status: Unknown if ever smoked Tobacco Type: Cigarette Years Smoked: quit greater than 10 years ago Advance Directives: Yes Advance Directives on File: Yes Advance Directives Date on File: 07/11/20 Physical Exam Vital Signs: Vital Signs: Last Vital Signs Temp 98.2 F 07/23/20 20:29 Pulse 86 07/23/20 20:29 Resp 18 07/23/20 20:29 BP 168/94 H 07/23/20 20: Pulse Ox 97 07/23/20 20:29 Body Mass Index 33.9 VITAL SIGNS: Reviewed. GENERAL: Well developed, well nourished, in no acute distress. HEAD: Normocephalic/atraumatic EYES: PERRLA, EOMI NOSE: Nares patent bilateral OROPHARYNX: no oral lesions noted, posterior pharynx clear NECK: Supple, no adenopathy LUNGS: Normal breath sounds. No adventitious sounds or accessory muscle use. SpO2<97>, no palpable chest wall tenderness CARDIOVASCULAR: Regular rate and rhythm without noted murmurs ABDOMEN: Soft, non-tender, non-distended with bowel sounds. LEFT UPPER EXTREMITY: There is no evidence of erythema, swelling, palpable cords and patient has full range of motion at the shoulder, elbow, wrist NEUROLOGIC: Alert and oriented x 4. Strength and sensation to light touch were grossly intact x 4. Course Course Course Narrative: 59-year-old male with history and clinical presentation suggestive of muscle spasm, or possible tendonitis/pinched nerve and patient had recent extensive workup which ruled out PE, cardiac ischemia, or pneumonia review of all investigations negative for any acute findings, venous duplex as well as x-rays obtained for further investigation but returned as negative and ESR is negative as well. Patient received combination analgesics and was informed of all results and instructed to follow-up with his primary care provider for further re-evaluation and possible physical therapy. MDM - Chest Pain Lab Data Result diagrams: 07/23/20 22:52 07/23/20 22:52 Labs: Lab Results 07/23/20 07/23/20 07/23/20 Range/Units 22:51 22:51 22:52 WBC 15.5 H (4.8-10.8) X10*3/uL RBC 5.77 (4.60-5.80) X10*6/uL Hgb 15.8 (14.0-18.0) g/dl Hct 48.1 (42-52) % MCV 83.4 (80-98) fL MCH 27.4 (27.0-33.0) pg MCHC 32.8 (31.0-36.0) g/dl RDW 13.3 (11.0-16.0) % Plt Count 281 (160-400) X10*3/uL MPV 10.1 (9.4-12.4) fL Immature Gran % (Auto) 0.4 (0.0-0.4) % Neut % (Auto) 68.6 (45-73) % Lymph % (Auto) 22.1 (20-40) % Glasscock % (Auto) 8.5 (2-11) % Eos % (Auto) 0.3 (0-4) % Baso % (Auto) 0.1 (0-2) % Lymph # (Auto) 3.4 (1.2-4.9) X10*3/uL Glasscock # (Auto) 1.3 H (0.1-1.2) X10*3/uL Eos # (Auto) 0.0 (0.0-0.4) X10*3/uL Baso # (Auto) 0.0 (0.0-0.2) X10*3/uL Abs Immat Gran (auto) 0.06 H (0.00-0.03) X10*3/uL Absolute Neuts (auto) 10.6 H (2.0-8.3) X10*3/uL Absolute Nucleated RBC 0.000 (0.0-0.012) X10*3/uL Nucleated RBC % (auto) 0.0 (0.0-0.2) /100WBC ESR (0-15) MM/HR PT 11.3 (10.8-13.0) SEC INR 1.0 (0.9-1.1) Sodium (135-145) mmol/L Potassium (3.3-5.1) mmol/L Chloride (96-108) mmol/L Carbon Dioxide (22-29) mmol/L Anion Gap (12-20) BUN (9-16) mg/dL Creatinine (0.5-1.4) mg/dL Estim Creat Clear Calc Estimated GFR Random Glucose (60-115) mg/dL Calcium (8.4-10.2) mg/dL Total Bilirubin (0.0-1.0) mg/dL AST (5-37) U/L ALT (0-40) U/L Alkaline Phosphatase (39-117) U/L Troponin I High Sens < 3.5 (<3.5-35.0) ng/L Total Protein (6.5-8.0) g/dL Albumin (3.5-5.0) g/dL Lipase (8-78) U/L 07/23/20 07/23/20 Range/Units 22:52 22:52 WBC (4.8-10.8) X10*3/uL RBC (4.60-5.80) X10*6/uL Hgb (14.0-18.0) g/dl Hct (42-52) % MCV (80-98) fL MCH (27.0-33.0) pg MCHC (31.0-36.0) g/dl RDW (11.0-16.0) % Plt Count (160-400) X10*3/uL MPV (9.4-12.4) fL Immature Gran % (Auto) (0.0-0.4) % Neut % (Auto) (45-73) % Lymph % (Auto) (20-40) % Glasscock % (Auto) (2-11) % Eos % (Auto) (0-4) % Baso % (Auto) (0-2) % Lymph # (Auto) (1.2-4.9) X10*3/uL Glasscock # (Auto) (0.1-1.2) X10*3/uL Eos # (Auto) (0.0-0.4) X10*3/uL Baso # (Auto) (0.0-0.2) X10*3/uL Abs Immat Gran (auto) (0.00-0.03) X10*3/uL Absolute Neuts (auto) (2.0-8.3) X10*3/uL Absolute Nucleated RBC (0.0-0.012) X10*3/uL Nucleated RBC % (auto) (0.0-0.2) /100WBC ESR 10 (0-15) MM/HR PT (10.8-13.0) SEC INR (0.9-1.1) Sodium 140 (135-145) mmol/L Potassium 4.0 D (3.3-5.1) mmol/L Chloride 103 (96-108) mmol/L Carbon Dioxide 28 (22-29) mmol/L Anion Gap 13 (12-20) BUN 14 (9-16) mg/dL Creatinine 0.97 (0.5-1.4) mg/dL Estim Creat Clear Calc 109.2 Estimated GFR > 60 Random Glucose 93 (60-115) mg/dL Calcium 9.3 (8.4-10.2) mg/dL Total Bilirubin 0.4 (0.0-1.0) mg/dL AST 15 D (5-37) U/L ALT 20 (0-40) U/L Alkaline Phosphatase 113 (39-117) U/L Troponin I High Sens (<3.5-35.0) ng/L Total Protein 7.6 (6.5-8.0) g/dL Albumin 4.4 (3.5-5.0) g/dL Lipase < 4 L (8-78) U/L ECG Data ECG #1: Attestation: I personally reviewed and interpreted this ECG as follows: Prior ECG tracings: available for review (07/11/2020 no acute changes on comparison) Interpretation: Normal sinus rhythm, HR -90, no evidence of acute ischemia, NC/QRS/QTC are within normal limits. Discharge Plan Discharge Clinical Impression: Tendinitis, Costochondritis Patient Disposition: Home, Self-Care Instructions: Tendinitis (ED), Costochondritis (ED) Additional Instructions: 1. Resume all home medications as prescribed. 2. Recommend using [id number] Tylenol/ibuprofen/lidocaine patch as needed for pain control. 3. Please follow up with the primary care provider for re-evaluation and possible referral. Do not hesitate to return to the emergency department should you experience any acute worsening of your symptoms. Prescriptions: No Action propranolol 20 mg tablet 20 mg PO BID Qty: 180 RF: 1 clonidine HCl 0.1 mg tablet 0.1 mg PO BID PRN (Reason: for anxiety) Qty: 180 RF: 1 clonazepam 0.5 mg tablet 0.5 mg PO DAILY 30 Days Qty: 30 RF: 0 diclofenac sodium [Voltaren] 1 % gel 2 g topical QID Qty: 100 RF: 4 tamsulosin 0.4 mg capsule 0.4 mg PO DAILY Qty: 30 RF: 3 tramadol 50 mg tablet See Rx Instructions PO BID 28 Days Qty: 112 RF: 0 clonazepam 1 mg tablet 1 mg PO DAILY PRN (Reason: anxiety) 30 Days Qty: 30 RF: 0 zolpidem 12.5 mg tablet,ext release multiphase 12.5 mg PO BEDTIME PRN (Reason: insomnia) 30 Days Qty: 30 RF: 0 naproxen 500 mg tablet 500 mg PO BID PRN (Reason: pain) 30 Days Qty: 60 RF: 1 prednisone 20 mg tablet 40 mg PO DAILY 5 Days Qty: 10 RF: 0 cyclobenzaprine 10 mg tablet 10 mg PO TID PRN (Reason: muscle spasm) 10 Days Qty: 30 RF: 0 tizanidine 4 mg tablet 4 mg PO TID PRN (Reason: muscle spasticity) 30 Days Qty: 90 RF: 1 quetiapine [Seroquel] 100 mg tablet 100 mg PO DAILY RF: 0 aspirin 81 mg tablet,delayed release (DR/EC) 81 mg PO DAILY RF: 0 senna 8.6 mg capsule 17.2 mg PO BEDTIME 30 Days Qty: 60 RF: 6 pantoprazole [Protonix] 40 mg tablet,delayed release (DR/EC) 40 mg PO DAILY 30 Days Qty: 30 RF: 6 docusate sodium [DOK] 100 mg capsule 100 mg PO BID 30 Days Qty: 60 RF: 6 Creon 24,000-76,000 -120,000 unit capsule,delayed release(DR/EC) 1 cap PO QID 30 Days Qty: 120 RF: 6 simethicone [Gas Relief (simethicone)] 180 mg capsule 180 mg PO QID PRN (Reason: abdominal distention) Qty: 120 RF: 6 hydrocortisone [Anusol-HC] 2.5 % cream with perineal applicator See Rx Instructions NC BID PRN (Reason: hemorrhoids) Qty: 30 RF: 6 Referrals: Marcial David MD [Primary Care Provider] - 2 days (Re-evaluation and treatment for patient's chronic chest wall/left upper extremity tendinitis.)
[2020-07-23 23:06] LABS: Prothrombin Time 11.3 SEC (10.8-13.0)
[2020-07-23 23:26] LABS: Alanine Aminotransferase 20 U/L (0-40); Albumin Level 4.4 g/dL (3.5-5.0); Alkaline Phosphatase 113 U/L (39-117); Anion Gap 13 (12-20); Aspartate Amino Transferase 15 U/L (5-37); Bilirubin Total 0.4 mg/dL (0.0-1.0); Blood Urea Nitrogen 14 mg/dL (9-16); Calcium 9.3 mg/dL (8.4-10.2); Carbon Dioxide 28 mmol/L (22-29); Chloride 103 mmol/L (96-108); Creatinine Clr Calc Pharmacy 109.2; Estimated Glomerular Filt Rate > 60; Glucose Random 93 mg/dL (60-115); Lipase < 4 U/L (8-78); Sodium 140 mmol/L (135-145); Total Protein 7.6 g/dL (6.5-8.0)
[2020-07-23 23:33] LABS: Troponin-I High Sensitivity < 3.5 ng/L (<3.5-35.0)
[2020-07-24] MEDS: Acetaminophen 325 MG TABLET 975 MG PO (00:59)
[2020-07-24] MEDS: Ketorolac Tromethamine 15 MG/ML VIAL IM (01:02)
[2020-07-24] MEDS: Lidocaine 4 % Patch ADH..PATCH 1 PATCH TRANSDERMA (01:52)
[2020-07-24 03:18] LABS: Erythrocyte Sedimentation Rate 10 MM/HR (0-15)
[2020-07-24 03:59] VITALS: BP 163/107; PULSE 91; RESP 15; O2SAT 97
== END 2020-07-24 04:11 | disposition home or self-care (01) ==
PROVIDERS: Emergency Provider Student in an Organized Health Care Education/Training Program; PCP Internal Medicine
DX: M94.0 Chondrocostal junction syndrome [Tietze] (principal); M77.8 Other enthesopathies, not elsewhere classified; M79.622 Pain in left upper arm
CPT/HCPCS: 36415; 71045; 73080; 80053; 83690; 84484; 85025; 85610; 85652; 93005; 93971; 96372; 99284; J1885

== ENCOUNTER 2020-08-06 14:00 | Outpatient (RCR) | payer MEDICARE, MEDICAID, SELFPAY ==
--- NOTE | 2020-07-02 15:06 | MHC.PT.EP ---
[facility] [place] Office [place] Office [place] Office [address] Esme Horn [address] [phone] F: [phone] F: [phone] F: [phone] F: [phone] Physical Therapy Plan of Care Date of Evaluation: 07/02/20 Date of Surgery: n/a Diagnosis: right knee pain Assessment: The patient arrived reporting right knee pain. He has a calcification in the patellar tendon that limits knee mobility. His MRI also showed bursitis in his knee. I used ionto today over the lateral patella tendon near the joint line. The patient has limited knee flexion ROM, strength, functional mobility. He also has significant back pain that limits his knee ROM. Pt was given initial mat exercises to promote improvement of knee ROM and strength. He is a good candidate for skilled PT. Frequency and Duration: The patient will be seen 2x/week x 4 weeks. Short Term Goals: 4 weeks. - to improve activity tolerance to help community ambulation distances demonstrated by tolerating at least 30 minutes of therapeutic activity with less than 3 resting breaks. Halfway Goals: 4 weeks - the patient will have no limiting pain in her knees during gait with community ambulation to show improved activity tolerance. 4 weeks - pt will have more quad control with TKE demonstrated by no medial collapse during a curb height step. 4 weeks -patient to be able to return to all functional movements and ADL's without limiting knee pain to show return to PLOF. Treatment Plan: Modalities to reduce pain, spasms and effusion. Manual therapy to restore motion and function. Therapeutic exercise to improve strength and flexibility. Neuromuscular re-education for posture and balance. Therapeutic activities to return to functional activities of daily living. Electronically signed by: Abby Puente PT DPT Please sign and return to therapist. Thank you for your referral.
--- NOTE | 2020-08-06 15:31 | MHC.PT.DC ---
[facility] [place] Office [place] [facility] [place] [facility] [address] Esme Horn [address] [phone] F: [phone] F: [phone] F: [phone] F: [phone] Physical Therapy Discharge Report Diagnosis: right knee pain Date of Surgery: n/a Date of Evaluation: 07/02/20 Date of Discharge: 08/06/20 Treatments to Date: 7 Cancellations to Date: 0 No Shows to Date: 0 Discharge Status: Achieved Goals Improved Function Independent with HEP Discharge Summary: Pt has reached maximum potential. His knee ROM has improved since initial evaluation although he still reports discomfort. He shows improved activity tolerance. He is d/c with his HEP and theraband. Electronically signed by: Abby Puente PT DPT Please sign and return to therapist. Thank you for your referral.
== END 2021-05-15 14:00 | disposition home or self-care (01) ==
LOC: HO.PT 14:00
PROVIDERS: PCP Internal Medicine; Visit Provider Student in an Organized Health Care Education/Training Program
DX: M25.561 Pain in right knee (principal)
CPT/HCPCS: 97033; 97110; 97140; 97162; 97530

== ENCOUNTER 2020-08-28 20:55 | Emergency (ER) | payer MEDICARE, MEDICAID, SELFPAY ==
--- NOTE | ~2020-08-28 | XR_ITS ---
EXAMINATION: XR ANKLE, RIGHT CLINICAL INFORMATION: Status post twisting injury. COMPARISON: None TECHNIQUE: AP, lateral, and mortise views of the right ankle. FINDINGS: The ankle mortise and subtalar joints are normal. There is no visible acute fracture, dislocation or subluxation seen. There is mild lateral malleolar soft tissue swelling. XR/XR ankle RT min 3V IMPRESSION: Mild lateral malleolar soft tissue swelling. No visible acute fracture or dislocation seen.
[2020-08-28 21:08] VITALS: BP 145/93; PULSE 105; RESP 18; TEMP 36.6; O2SAT 94; BMI 33.9
[2020-08-29 01:08] VITALS: BP 151/100; PULSE 93; O2SAT 96
--- NOTE | 2020-08-29 01:12 | ED_ITS ---
HPI - Extremity Injury (Lower) General Chief Complaint: Extremity Injury, Lower Stated Complaint: ANKLE INJ Time Seen by Provider: 08/29/20 01:12 Source: patient Mode of arrival: ambulatory History of Present Illness HPI Narrative: Patient is a 60-year-old male with a past medical history of IBS, depression and constipation who presents after twisting his ankle just prior to arrival. Patient states he was walking out of his sister's house to his car when he got to the grass, there is a divot in the grass and he twisted his right ankle outward. He was unable to ambulate on it immediately came to the emergency department. Do not apply ice or try to take any medications to make it feel better. Patient states it is painful and he lives on the 2nd floor and he would like a walking boot to help him ambulate up the stairs. Related Data Home Medications Medication Instructions Recorded Confirmed aspirin 81 mg tablet,delayed 81 mg PO DAILY 02/08/20 06/16/20 release quetiapine 100 mg tablet 100 mg PO DAILY 02/08/20 06/16/20 Previous Rx's Medication Instructions Recorded pantoprazole 40 mg tablet,delayed 40 mg PO DAILY 30 Days #30 tab 04/11/20 release sennosides 8.6 mg capsule 17.2 mg PO BEDTIME 30 Days #60 cap 04/11/20 docusate sodium 100 mg capsule 100 mg PO BID 30 Days #60 cap 05/02/20 hydrocortisone 2.5 % topical cream See Rx Instructions TN BID PRN #30 05/02/20 with perineal applicator g [id number] 1 cap PO QID 30 Days #120 cap 05/02/20 24,000-76,000-120,000 unit capsule,delayed rel simethicone 180 mg capsule 180 mg PO QID PRN #120 cap 05/02/20 propranolol 20 mg tablet 20 mg PO BID #180 tab 05/05/20 clonidine HCl 0.1 mg tablet 0.1 mg PO BID PRN #180 tab 06/10/20 diclofenac sodium 1 % topical gel 2 g TOPICAL QID #100 g 06/18/20 tamsulosin 0.4 mg capsule 0.4 mg PO DAILY #30 cap 07/02/20 cyclobenzaprine 10 mg tablet 10 mg PO TID PRN 10 Days #30 tab 07/20/20 naproxen 500 mg tablet 500 mg PO BID PRN 30 Days #60 tab 07/20/20 prednisone 20 mg tablet 40 mg PO DAILY 5 Days #10 tab 07/20/20 tizanidine 4 mg tablet 4 mg PO TID PRN 30 Days #90 tab 07/23/20 tramadol 50 mg tablet See Rx Instructions PO BID 28 Days 08/03/20 #112 tab clonazepam 0.5 mg tablet 0.5 mg PO DAILY 30 Days #30 tab 08/12/20 zolpidem 12.5 mg tablet,extended 12.5 mg PO BEDTIME PRN 30 Days #30 08/12/20 release,multiphase tab clonazepam 1 mg tablet 1 mg PO DAILY PRN 30 Days #30 tab 08/13/20 Allergies Allergy/AdvReac Type Severity Reaction Status Date / Time seafood Allergy Severe anaphylaxis Verified 07/18/20 01:18 duloxetine Allergy Intermediate nausea/vomiting/diarrhea, Verified 07/18/20 01:18 feeling shaky - withdrawal sympto gabapentin Allergy Intermediate confusion/memory Verified 07/18/20 01:18 loss/hallucination lactase [LACTASE] Allergy Intermediate NAUSEA Verified 07/18/20 01:18 Review of Systems Review of Systems: Yes all other systems are reviewed and are negative PMFSH Past Medical History Medical History Constipation Depression Elevated blood pressure reading Elevated d-dimer Excessive sweating IBS (irritable bowel syndrome) Left elbow tendinitis Left-sided chest wall pain Overweight (BMI 25.0-29.9) Tubular adenoma of colon Surgical History H/O colonoscopy H/O esophagogastroduodenoscopy H/O inguinal hernia repair History of varicose vein ligation and stripping S/P tendon repair Status post pericardial cyst excision (~02/13/19) Family History Family History Father Stomach cancer Mother AIDS Sister PALMER (non-insulin dependent diabetes mellitus in young) Hypertension Social History Social History Household Members: Children Alcohol intake: never Years Smoked: quit greater than 10 years ago Advance Directives: Yes Advance Directives on File: Yes Advance Directives Date on File: 07/11/20 Physical Exam Vital Signs: Vital Signs: Last Vital Signs Temp 97.8 F 08/28/20 21:08 Pulse 93 08/29/20 01:08 Resp 18 08/28/20 21:08 BP 151/100 H 08/29/20 01:08 Pulse Ox 96 08/29/20 01:08 Body Mass Index 33.9 Const: General: cooperative, healthy appearing, comfortable and no acute distress Nutritional Appearance: obese Orientation/consciousness: patient oriented x3 Limitations: no limitations HENMT: Head: Yes normal to inspection, Yes No palpable skull fracture present, Yes normocephalic and Yes atraumatic Eyes: General: appearance normal, both eyes and all related structures Neck: Neck: Yes normal visual inspection and Yes full ROM Neuro: General: patient oriented x3 Extrem: Other: Right lower extremity, swelling to lateral malleolus, slight ecchymosis on the area, no signs of infection noted, no lacerations. Full range of motion with pain, NVI at toes, no tenderness to palpation of the bones of the foot or toes. Course Course Course Narrative: 60-year-old male who twisted his right ankle, pain and swelling, x-ray negative for fracture or dislocation. Patient declined crutches and is asking for a walking boot as he lives on the 2nd floor. States he can ambulate safely with a walking boot. MDM - Extremity Injury (Lower) Medical Records Attestation: I reviewed the patient's medical records. Imaging Data right ankle x-ray: Attestation: I personally reviewed and interpreted this imaging study as follows: Radiologist's impression: [address] [id number] ReportSigned Patient: Paul EspitiaMR#: [id number]: 1960Acct:[id number]/Sex: 60 / MADM Date: 08/28/20Loc: EDAttending Dr: Ordering Physician: Generic ED Physician Date of Service: 08/28/20 Procedure(s): XR ankle RT min 3V Accession Number(s): [id number] cc: Generic ED Physician~ EXAMINATION: XR ANKLE, RIGHT CLINICAL INFORMATION: Status post twisting injury. COMPARISON: None TECHNIQUE: AP, lateral, and mortise views of the right ankle. FINDINGS: The ankle mortise and subtalar joints are normal. There is no visible acute fracture, dislocation or subluxation seen. There is mild lateral malleolar soft tissue swelling. XR/XR ankle RT min 3V IMPRESSION: Mild lateral malleolar soft tissue swelling. No visible acute fracture or dislocation seen. Dictated By:BETTE CHRIS MDSigned By:<Electronically signed by BETTE CHRIS MD in OV>08/28/202129 DD/ 20TD/TT: [employer] Tester: [facility] [place] Discharge Plan Discharge Clinical Impression: Right ankle sprain Qualifiers: Encounter type: initial encounter Involved ligament of ankle: calcaneofibular ligament Qualified Code(s): S93.411A - Sprain of calcaneofibular ligament of right ankle, initial encounter Patient Disposition: Home, Self-Care Instructions: Ankle Sprain (ED) Additional Instructions: As requested, I have given you a walking boot so you can ambulate more safely on your sprained ankle. Your ankle should feel little bit better each day please be sure to rest it, use ice, keep it wrapped with the Babak wrap and elevated it frequently. If your pain does not improve over the next 4-5 days, please follow-up with your primary care doctor next week. Prescriptions: No Action propranolol 20 mg tablet 20 mg PO BID Qty: 180 RF: 1 clonidine HCl 0.1 mg tablet 0.1 mg PO BID PRN (Reason: for anxiety) Qty: 180 RF: 1 diclofenac sodium [Voltaren] 1 % gel 2 g topical QID Qty: 100 RF: 4 tamsulosin 0.4 mg capsule 0.4 mg PO DAILY Qty: 30 RF: 3 naproxen 500 mg tablet 500 mg PO BID PRN (Reason: pain) 30 Days Qty: 60 RF: 1 prednisone 20 mg tablet 40 mg PO DAILY 5 Days Qty: 10 RF: 0 cyclobenzaprine 10 mg tablet 10 mg PO TID PRN (Reason: muscle spasm) 10 Days Qty: 30 RF: 0 tizanidine 4 mg tablet 4 mg PO TID PRN (Reason: muscle spasticity) 30 Days Qty: 90 RF: 1 tramadol 50 mg tablet See Rx Instructions PO BID 28 Days Qty: 112 RF: 0 zolpidem 12.5 mg tablet,ext release multiphase 12.5 mg PO BEDTIME PRN (Reason: insomnia) 30 Days Qty: 30 RF: 0 clonazepam 0.5 mg tablet 0.5 mg PO DAILY 30 Days Qty: 30 RF: 0 clonazepam 1 mg tablet 1 mg PO DAILY PRN (Reason: anxiety) 30 Days Qty: 30 RF: 0 quetiapine [Seroquel] 100 mg tablet 100 mg PO DAILY RF: 0 aspirin 81 mg tablet,delayed release (DR/EC) 81 mg PO DAILY RF: 0 senna 8.6 mg capsule 17.2 mg PO BEDTIME 30 Days Qty: 60 RF: 6 pantoprazole [Protonix] 40 mg tablet,delayed release (DR/EC) 40 mg PO DAILY 30 Days Qty: 30 RF: 6 docusate sodium [DOK] 100 mg capsule 100 mg PO BID 30 Days Qty: 60 RF: 6 Creon 24,000-76,000 -120,000 unit capsule,delayed release(DR/EC) 1 cap PO QID 30 Days Qty: 120 RF: 6 simethicone [Gas Relief (simethicone)] 180 mg capsule 180 mg PO QID PRN (Reason: abdominal distention) Qty: 120 RF: 6 hydrocortisone [Anusol-HC] 2.5 % cream with perineal applicator See Rx Instructions TN BID PRN (Reason: hemorrhoids) Qty: 30 RF: 6 Referrals: Marcial David MD [Primary Care Provider] - 3 days (ankle sprain)
[2020-08-29] MEDS: Ketorolac Tromethamine 30 MG/ML VIAL IM (01:21)
== END 2020-08-29 01:39 | disposition home or self-care (01) ==
PROVIDERS: Emergency Provider Emergency Medicine Emergency Medical Services; PCP Internal Medicine
DX: S93.411A Sprain of calcaneofibular ligament of right ankle, initial encounter (principal); X50.1XXA Overexertion from prolonged static or awkward postures, initial encounter; Y93.01 Activity, walking, marching and hiking; Y92.89 Other specified places as the place of occurrence of the external cause; Y99.9 Unspecified external cause status
CPT/HCPCS: 73610; 96372; 99283; 99284; J1885

== ENCOUNTER → 2020-09-02 15:16 | Outpatient (BNVA) | payer MEDICARE, MEDICAID, SELFPAY | PROVIDERS: PCP Internal Medicine; Visit Provider Student in an Organized Health Care Education/Training Program | DX: M19.011 Primary osteoarthritis, right shoulder (principal); R03.0 Elevated blood-pressure reading, without diagnosis of hypertension | CPT/HCPCS: 20610; 99212 ==

== ENCOUNTER → 2020-10-30 12:34 | Outpatient (BNVA) | payer MEDICARE, MEDICAID, SELFPAY | PROVIDERS: PCP Internal Medicine; Referring Provider Internal Medicine; Visit Provider Nurse Practitioner | DX: K58.2 Mixed irritable bowel syndrome (principal); K21.9 Gastro-esophageal reflux disease without esophagitis; K64.4 Residual hemorrhoidal skin tags; K42.9 Umbilical hernia without obstruction or gangrene; R14.0 Abdominal distension (gaseous); R10.33 Periumbilical pain; Z80.0 Family history of malignant neoplasm of digestive organs | CPT/HCPCS: 99212 ==

== ENCOUNTER → 2020-11-13 15:23 | Outpatient (BNVA) | payer MEDICARE, MEDICAID, SELFPAY | PROVIDERS: PCP Internal Medicine; Visit Provider Nurse Practitioner | CPT/HCPCS: Q3014 ==

== ENCOUNTER 2020-12-08 14:46 | Outpatient (REF) | payer MEDICARE, MEDICAID, SELFPAY ==
--- NOTE | ~2020-12-08 | US_ITS ---
EXAMINATION: US ABDOMEN LIMITED CLINICAL INFORMATION: Umbilical hernia without obstruction. COMPARISON: Ultrasound abdomen complete 04/23/2020. CT abdomen and pelvis 04/04/2019. TECHNIQUE: Real-time imaging of the abdominal wall in the umbilical area. FINDINGS: There is a 3.7 x 2.1 x 3.1 cm umbilical hernia. This has a 2.3 cm neck. US/US abdomen limited IMPRESSION: 3.7 x 2.1 x 3.1 cm umbilical hernia.
== END 2020-12-08 14:47 | disposition home or self-care (01) ==
LOC: HO.US 14:46
PROVIDERS: PCP Internal Medicine; Visit Provider Nurse Practitioner
DX: R10.33 Periumbilical pain (principal)
CPT/HCPCS: 76705

== ENCOUNTER → 2021-01-30 12:37 | Outpatient (BNVA) | payer MEDICARE, MEDICAID, SELFPAY | PROVIDERS: PCP Internal Medicine; Visit Provider Nurse Practitioner | DX: K80.20 Calculus of gallbladder without cholecystitis without obstruction (principal); K58.2 Mixed irritable bowel syndrome; K21.9 Gastro-esophageal reflux disease without esophagitis; D12.6 Benign neoplasm of colon, unspecified | CPT/HCPCS: Q3014 ==

== ENCOUNTER 2021-02-04 07:45 | Outpatient (REF) | payer MEDICARE, MEDICAID, SELFPAY ==
--- NOTE | ~2021-02-04 | XR_ITS ---
EXAMINATION: XR CHEST CLINICAL INFORMATION: Dyspnea COMPARISON: Previous chest x-ray July 2020 TECHNIQUE: 2 views of the chest were obtained. FINDINGS: The cardiac and mediastinal contours are stable. There is linear scarring or subsegmental atelectasis in the upper lungs. The lungs are otherwise clear. There is no pleural effusion or pneumothorax. There are degenerative changes of the spine. XR/XR chest 2V IMPRESSION: Linear scarring or subsegmental atelectasis in the bilateral upper lungs. No evidence for acute disease in the chest.
[2021-02-04 08:02] LABS: MANUAL DIFF FLAG NO
[2021-02-04 08:41] LABS: Basophils Percent Auto 0.6 % (0-2); Eosinophils Absolute Auto 0.4 X10*3/uL (0.0-0.4); Eosinophils Percent Auto 5.8 % (0-4); Hematocrit 47.2 % (42.0-52.0); Hemoglobin 15.3 g/dl (14.0-18.0); Imm Gran Abs Auto 0.01 X10*3/uL (0.00-0.03); Imm Gran Pct Auto 0.1 % (0.0-0.4); Lymphocytes Absolute Auto 2.5 X10*3/uL (1.2-4.9); Lymphocytes Percent Auto 36.8 % (20-40); Mean Corpuscular HGB Conc 32.4 g/dl (31.0-36.0); Mean Corpuscular Hemoglobin 26.6 pg (27.0-33.0); Mean Corpuscular Volume 81.9 fL (80.0-98.0); Mean Platelet Volume 10.6 fL (9.4-12.4); Monocytes Absolute Auto 0.7 X10*3/uL (0.1-1.2); Monocytes Percent Auto 10.3 % (2-11); Neutrophils Absolute Auto 3.1 x10*3/uL (2.0-8.3); Neutrophils Percent Auto 46.4 % (45-73); Platelet Count 253 X10*3/uL (160-400); Red Blood Count 5.76 X10*6/uL (4.60-5.80); Red Cell Distribution Width 12.7 % (11.0-16.0); White Blood Count 6.7 X10*3/uL (4.8-10.8)
[2021-02-04 08:45] LABS: Estimated Average Glucose 111 mg/dL; Hemoglobin A1C 148.3613 umol/L; Hemoglobin A1c % 5.5 %
[2021-02-04 08:47] LABS: Appearance Urine HAZY; Color Urine YELLOW; Glucose Urine UA NEG (NEG); Leukocyte Esterase Urine NEG (NEG); Nitrite Urine NEG (NEG); Specific Gravity - Urine >= 1.030 (1.005-1.025); Urine Blood NEG (NEG); Urine Ketones NEG (NEG); Urine Protein NEG (NEG-TRACE)
[2021-02-04 09:10] LABS: Alanine Aminotransferase 26 U/L (0-40); Alkaline Phosphatase 106 U/L (39-117); Anion Gap 10 (12-20); Aspartate Amino Transferase 18 U/L (5-37); Bilirubin Total 0.6 mg/dL (0.0-1.0); Blood Urea Nitrogen 10 mg/dL (9-16); Calcium 9.1 mg/dL (8.4-10.2); Carbon Dioxide 28 mmol/L (22-29); Chloride 105 mmol/L (96-108); Cholesterol 113 mg/dL; Estimated Glomerular Filt Rate > 60; Glucose Fasting 94 mg/dL (60-99); HDL Cholesterol 30 mg/dL; LDL Cholesterol Calculated 62 mg/dl; Potassium 4.4 mmol/L (3.3-5.1); Sodium 139 mmol/L (135-145); Triglycerides 106 mg/dL
[2021-02-04 09:24] LABS: Prostate Specific Antigen 2.25 ng/mL (<0.05-4.0)
[2021-02-10 09:22] LABS: Testosterone, Total 472 ng/dL (250-1100)
== END 2021-02-04 07:46 | disposition home or self-care (01) ==
LOC: HO.XRAY 07:45
PROVIDERS: PCP Internal Medicine; Visit Provider Internal Medicine
DX: Z12.5 Encounter for screening for malignant neoplasm of prostate (principal); R06.00 Dyspnea, unspecified; I10 Essential (primary) hypertension; E55.9 Vitamin D deficiency, unspecified; R73.9 Hyperglycemia, unspecified; N40.0 Benign prostatic hyperplasia without lower urinary tract symptoms; R53.83 Other fatigue; E78.00 Pure hypercholesterolemia, unspecified
CPT/HCPCS: 36415; 71046; 80053; 80061; 81003; 82306; 83036; 84153; 84403; 84443; 85025

== ENCOUNTER 2021-04-15 10:38 | Outpatient (REF) | payer MEDICARE, MEDICAID, SELFPAY ==
[2021-04-15 11:52] LABS: Alanine Aminotransferase 25 U/L (0-40); Albumin Level 4.1 g/dL (3.5-5.0); Alkaline Phosphatase 106 U/L (39-117); Aspartate Amino Transferase 17 U/L (5-37); Bilirubin Direct 0.2 mg/dL (0.0-0.5); Bilirubin Total 0.3 mg/dL (0.0-1.0); Total Protein 7.2 g/dL (6.5-8.0)
== END 2021-04-15 10:39 | disposition home or self-care (01) ==
LOC: HO.LAB 10:38
PROVIDERS: Absent Provider Internal Medicine; PCP Internal Medicine; Visit Provider Podiatrist
DX: B35.1 Tinea unguium (principal)
CPT/HCPCS: 36415; 80076

== ENCOUNTER → 2021-04-30 12:04 | Outpatient (BNVA) | payer MEDICARE, MEDICAID, SELFPAY | PROVIDERS: PCP Internal Medicine; Referring Provider Internal Medicine; Visit Provider Nurse Practitioner | DX: K58.2 Mixed irritable bowel syndrome (principal); K21.9 Gastro-esophageal reflux disease without esophagitis; K80.20 Calculus of gallbladder without cholecystitis without obstruction; R10.13 Epigastric pain; R19.7 Diarrhea, unspecified | CPT/HCPCS: 99212 ==

== ENCOUNTER 2021-05-01 12:54 | Outpatient (REF) | payer MEDICARE, MEDICAID, SELFPAY | END 2021-05-01 12:55 | disposition home or self-care (01) | LOC: HO.LNP 12:54 | PROVIDERS: Visit Provider Nurse Practitioner | DX: R10.13 Epigastric pain (principal); R19.7 Diarrhea, unspecified | CPT/HCPCS: 87045; 87046; 87338 ==

== ENCOUNTER → 2021-05-28 07:45 | Outpatient (REF) | payer MEDICARE, MEDICAID, SELFPAY ==
--- NOTE | ~2021-05-28 | NM_ITS ---
EXAMINATION: NM BILIARY TRACT WITH ORAL FATTY MEAL CLINICAL INFORMATION: Epigastric pain. COMPARISON: No previous biliary scan is available for comparison. CT scan of the abdomen and pelvis dated 04/04/2019 there is available for comparison. TECHNIQUE: Serial gamma scintillation camera images were obtained over the abdomen for a total observation period of 128 minutes following the intravenous administration of 5.0 mCi Tc-99m Mebrofenin. FINDINGS: There is good concentration of activity in the liver by 5 minutes post injection. Biliary activity is visualized by 10 minutes in the gallbladder is well visualized by 15 minutes. Some small bowel activity is visualized by 30 minutes. At 60 minutes post Mebrofenin injection, 8 ounces of Ensure-plus Brand was administered orally and an additional 60 minutes of images were obtained. There is only minimal gallbladder emptying following ingestion of the fatty meal. At the end of the study diffuse small bowel activity is visualized and there is almost complete clearance of activity from the liver but abnormal retention of activity in the gallbladder is noted. The calculated gallbladder ejection fraction is 30% (normal gallbladder ejection fraction using Ensure supplement orally is greater than 33%). NM/NM hepatobiliary wo pharm IMPRESSION: 1. Visualization of the gallbladder is evidence of a patent cystic duct and strong evidence against the diagnosis of acute cholecystitis. The common bile duct is patent. Liver function appears normal. 2. Poor gallbladder emptying and a low gallbladder ejection fraction are evidence of impaired gallbladder contractility and most likely due to chronic cholecystitis.
== END ==
LOC: HO.NUCMED 07:45
PROVIDERS: PCP Internal Medicine; Visit Provider Nurse Practitioner
DX: R10.13 Epigastric pain (principal)
CPT/HCPCS: 78226; A9537

== ENCOUNTER → 2021-07-30 13:34 | Outpatient (BNVA) | payer MEDICARE, MEDICAID, SELFPAY | PROVIDERS: PCP Internal Medicine; Referring Provider Internal Medicine; Visit Provider Nurse Practitioner | DX: K58.2 Mixed irritable bowel syndrome (principal); K21.9 Gastro-esophageal reflux disease without esophagitis; K81.1 Chronic cholecystitis; K64.4 Residual hemorrhoidal skin tags; R10.13 Epigastric pain | CPT/HCPCS: 99212 ==

== ENCOUNTER 2021-10-26 07:24 | Outpatient (REF) | payer MEDICARE, MEDICAID, SELFPAY ==
[2021-10-26 08:53] LABS: Anion Gap 16 (12-20); Blood Urea Nitrogen 12 mg/dL (9-16); Calcium 8.4 mg/dL (8.4-10.2); Carbon Dioxide 22 mmol/L (22-29); Chloride 105 mmol/L (96-108); Estimated Glomerular Filt Rate > 60; Glucose Fasting 111 mg/dL (60-99); Sodium 139 mmol/L (135-145)
== END 2021-10-26 07:25 | disposition home or self-care (01) ==
LOC: HO.LAB 07:24
PROVIDERS: PCP Internal Medicine; Visit Provider Nurse Practitioner Family
DX: Z13.1 Encounter for screening for diabetes mellitus (principal)
CPT/HCPCS: 36415; 80048

== ENCOUNTER 2021-10-28 15:11 | Outpatient (REF) | payer MEDICARE, MEDICAID, SELFPAY ==
[2021-10-28 15:37] LABS: Estimated Average Glucose 105 mg/dL; Hemoglobin A1c % 5.3 %
== END 2021-10-28 15:12 | disposition home or self-care (01) ==
LOC: HO.LAB 15:11
PROVIDERS: PCP Internal Medicine; Visit Provider Nurse Practitioner Family
DX: R73.01 Impaired fasting glucose (principal)
CPT/HCPCS: 36415; 83036

== ENCOUNTER 2021-12-07 07:37 | Outpatient (REF) | payer MEDICARE, MEDICAID, SELFPAY ==
[2021-12-07 07:44] LABS: MANUAL DIFF FLAG NO
[2021-12-07 08:15] LABS: Basophils Absolute Auto 0.1 X10*3/uL (0.0-0.2); Basophils Percent Auto 0.7 % (0-2); Eosinophils Absolute Auto 0.3 X10*3/uL (0.0-0.4); Eosinophils Percent Auto 4.6 % (0-4); Hematocrit 44.5 % (42.0-52.0); Hemoglobin 14.5 g/dl (14.0-18.0); Imm Gran Abs Auto 0.01 X10*3/uL (0.00-0.03); Imm Gran Pct Auto 0.1 % (0.0-0.4); Lymphocytes Absolute Auto 2.9 X10*3/uL (1.2-4.9); Lymphocytes Percent Auto 39.5 % (20-40); Mean Corpuscular HGB Conc 32.6 g/dl (31.0-36.0); Mean Corpuscular Hemoglobin 27.1 pg (27.0-33.0); Mean Platelet Volume 10.3 fL (9.4-12.4); Monocytes Absolute Auto 0.7 X10*3/uL (0.1-1.2); Monocytes Percent Auto 9.1 % (2-11); Neutrophils Absolute Auto 3.4 x10*3/uL (2.0-8.3); Platelet Count 231 X10*3/uL (160-400); Red Blood Count 5.36 X10*6/uL (4.60-5.80); Red Cell Distribution Width 13.1 % (11.0-16.0); White Blood Count 7.4 X10*3/uL (4.8-10.8)
[2021-12-07 08:16] LABS: Appearance Urine Clear; Color Urine Yellow; Glucose Urine UA Negative (Negative); Leukocyte Esterase Urine Trace (Negative); Nitrite Urine Negative (Negative); UMIC TRIGGER UACC YES; Urine Blood Negative (Negative); Urine Ketones Negative (Negative); Urine Protein Negative (Neg-Trace)
[2021-12-07 08:21] LABS: Bacteria Urine None Seen (None Seen); Hyaline Casts Urine 0-2 /LPF (0-2); RBC Urine 0-2 /HPF (0-2); Squamous Epithelial Cell Urine 0-2 /HPF (0-2); WBC Urine 0-5 /HPF (0-5)
[2021-12-07 08:43] LABS: Alanine Aminotransferase 19 U/L (0-40); Albumin Level 3.8 g/dL (3.5-5.0); Alkaline Phosphatase 104 U/L (39-117); Anion Gap 12 (12-20); Aspartate Amino Transferase 17 U/L (5-37); Bilirubin Total 0.6 mg/dL (0.0-1.0); Blood Urea Nitrogen 11 mg/dL (9-16); Carbon Dioxide 30 mmol/L (22-29); Chloride 104 mmol/L (96-108); Cholesterol 117 mg/dL; Estimated Glomerular Filt Rate > 60; Glucose Fasting 101 mg/dL (60-99); HDL Cholesterol 37 mg/dL; LDL Cholesterol Calculated 62 mg/dl; Potassium 4.7 mmol/L (3.3-5.1); Sodium 141 mmol/L (135-145); Total Protein 6.6 g/dL (6.5-8.0); Triglycerides 91 mg/dL
[2021-12-07 09:04] LABS: TSH reflex Free T4 1.25 uIU/mL (0.32-4.0); Vitamin D 25-OH Total 29.9 ng/mL (>30)
== END 2021-12-07 07:38 | disposition home or self-care (01) ==
LOC: HO.LAB 07:37
PROVIDERS: PCP Internal Medicine; Visit Provider Internal Medicine
DX: Z00.00 Encounter for general adult medical examination without abnormal findings (principal); I10 Essential (primary) hypertension; K81.1 Chronic cholecystitis; E66.9 Obesity, unspecified; E78.00 Pure hypercholesterolemia, unspecified; E55.9 Vitamin D deficiency, unspecified
CPT/HCPCS: 36415; 80053; 80061; 81001; 82306; 84443; 85025

== ENCOUNTER → 2021-12-08 07:01 | Outpatient (BNVA) | payer MEDICARE, MEDICAID, SELFPAY | PROVIDERS: PCP Internal Medicine; Visit Provider Student in an Organized Health Care Education/Training Program | DX: M19.011 Primary osteoarthritis, right shoulder (principal); M17.0 Bilateral primary osteoarthritis of knee | CPT/HCPCS: 20610; 99212 ==

== ENCOUNTER 2021-12-16 07:42 | Outpatient (REF) | payer MEDICARE, MEDICAID, SELFPAY ==
[2021-12-16 08:28] LABS: Estimated Average Glucose 105 mg/dL; Hemoglobin A1c % 5.3 %
[2021-12-16 09:05] LABS: Cholesterol 112 mg/dL; HDL Cholesterol 37 mg/dL; LDL Cholesterol Calculated 58 mg/dl; Triglycerides 88 mg/dL
[2021-12-16 09:23] LABS: Appearance Urine Clear; Color Urine Yellow; Glucose Urine UA Negative (Negative); Leukocyte Esterase Urine Trace (Negative); Nitrite Urine Negative (Negative); PH 7.5 (5.0-9.0); UMIC TRIGGER UACC YES; Urine Blood Negative (Negative); Urine Ketones Negative (Negative); Urine Protein Negative (Neg-Trace)
[2021-12-16 09:31] LABS: Bacteria Urine None Seen (None Seen); Hyaline Casts Urine 0-2 /LPF (0-2); RBC Urine 0-2 /HPF (0-2); Squamous Epithelial Cell Urine 0-2 /HPF (0-2); WBC Urine 0-5 /HPF (0-5)
== END 2021-12-16 07:43 | disposition home or self-care (01) ==
LOC: HO.LAB 07:42
PROVIDERS: PCP Internal Medicine; Visit Provider Nurse Practitioner
DX: Z79.899 Other long term (current) drug therapy (principal)
CPT/HCPCS: 36415; 80061; 81001; 83036

== ENCOUNTER → 2021-12-17 13:38 | Outpatient (BNVA) | payer MEDICARE, MEDICAID, SELFPAY | PROVIDERS: PCP Internal Medicine; Visit Provider Surgery | DX: K80.20 Calculus of gallbladder without cholecystitis without obstruction (principal) | CPT/HCPCS: 99202 ==

== ENCOUNTER → 2021-12-30 13:09 | Outpatient (BNVA) | payer MEDICARE, MEDICAID, SELFPAY | PROVIDERS: PCP Internal Medicine; Visit Provider Student in an Organized Health Care Education/Training Program | DX: M19.012 Primary osteoarthritis, left shoulder (principal); M19.011 Primary osteoarthritis, right shoulder; M17.0 Bilateral primary osteoarthritis of knee | CPT/HCPCS: 20610; 99212 ==

== ENCOUNTER 2022-01-01 09:26 | Outpatient (REF) | payer MEDICARE, MEDICAID, SELFPAY ==
--- NOTE | ~2022-01-01 | CT_ITS ---
EXAMINATION: CT ABDOMEN AND PELVIS WITH CONTRAST CLINICAL INFORMATION: Calculus of gallbladder without cholecystitis without obstruction. COMPARISON: None TECHNIQUE: Multidetector volumetric images were obtained from the superior aspect of the liver through the pubic symphysis following administration 85 mL of Omnipaque 350 intravenous contrast. Sagittal and coronal reformatted images were obtained on the technologist's workstation. Oral contrast: No. This CT examination was performed using dose optimization techniques as appropriate, variously including the following: *Automated exposure control *Adjustment of mA and/or kV according to patient size (this includes techniques or standardized protocols for targeted exams where dose is matched to indication/reason for exam; i.e. extremities or head) *Use of iterative reconstruction technique DLP: 568 mGy-cm FINDINGS: LUNG BASES: The lung bases are clear. The heart size is normal. LIVER, GALLBLADDER, AND BILIARY TREE: The liver is normal in size, shape, and attenuation. No focal hepatic lesion or biliary ductal dilatation is present. The gallbladder is unremarkable with no evidence of radiopaque gallstones, gallbladder wall thickening, or obvious pericholecystic inflammatory changes. PANCREAS: Unremarkable. SPLEEN: Unremarkable. ADRENAL GLANDS: Unremarkable. KIDNEYS AND URETERS: The kidneys are normal in size, shape, and attenuation. There is a 5 mm nonobstructive radiopaque calculus upper pole and a 2 mm calculus lower pole left kidney. No additional radiopaque calculi are seen. There is no caliectasis or hydronephrosis. The right kidney is unremarkable. BLADDER: Unremarkable. GASTROINTESTINAL TRACT: There is scattered stool and gas seen throughout the colon without distention. The small bowel loops are normal caliber. The appendix is normal caliber. No free air or free fluid. ABDOMINAL WALL: There is a small umbilical hernia containing fat. The neck is 2.5 cm wide. LYMPH NODES: Normal. VASCULAR: Unremarkable. PELVIC VISCERA: Small prostate gland with peripheral calcification is noted. OSSEOUS STRUCTURES: There are degenerative disc changes with vacuum disc phenomena and ventral spondylosis at every lumbar disc level. No visible acute fracture, dislocation or subluxation seen. CT/CT abdomen pelvis w IV con IMPRESSION: Nonobstructing left renal calculi. Mild constipation. Normal appendix. Degenerative disc changes with vacuum disc phenomena and ventral spondylosis at every lumbar disc level. Fleischner guidelines were followed.
[2022-01-01] MEDS: iohexoL 350 MG/ML 100 ML INFUS..BTL 85 ML IV (10:38)
== END 2022-01-01 09:27 | disposition home or self-care (01) ==
LOC: HO.CT 09:26
PROVIDERS: PCP Internal Medicine; Visit Provider Surgery
DX: K80.20 Calculus of gallbladder without cholecystitis without obstruction (principal)
CPT/HCPCS: 74177; Q9967

== ENCOUNTER → 2022-01-25 14:35 | Outpatient (BNVA) | payer MEDICARE, MEDICAID, SELFPAY | PROVIDERS: PCP Internal Medicine; Visit Provider Surgery | DX: R10.9 Unspecified abdominal pain (principal); G89.29 Other chronic pain | CPT/HCPCS: 99212 ==

== ENCOUNTER → 2022-01-29 13:32 | Outpatient (BNVA) | payer MEDICARE, MEDICAID, SELFPAY | PROVIDERS: PCP Internal Medicine; Referring Provider Internal Medicine; Visit Provider Nurse Practitioner | DX: K81.1 Chronic cholecystitis (principal); K58.2 Mixed irritable bowel syndrome; K21.9 Gastro-esophageal reflux disease without esophagitis; R19.7 Diarrhea, unspecified | CPT/HCPCS: 99212 ==

== ENCOUNTER 2022-02-04 05:40 | Emergency (ER) | payer MEDICARE, MEDICAID, SELFPAY ==
--- NOTE | ~2022-02-04 | CT_ITS ---
EXAMINATION: CT ABDOMEN AND PELVIS WITH CONTRAST CLINICAL INFORMATION: Nausea and vomiting, rule out hernia. COMPARISON: CT scan of the abdomen and pelvis dated 01/01/2022. TECHNIQUE: Multidetector volumetric images were obtained from the superior aspect of the liver through the pubic symphysis following administration 85 mL of Omnipaque 350 intravenous contrast. Sagittal and coronal reformatted images were obtained on the technologist's workstation. Oral contrast: No This CT examination was performed using dose optimization techniques as appropriate, variously including the following: *Automated exposure control *Adjustment of mA and/or kV according to patient size (this includes techniques or standardized protocols for targeted exams where dose is matched to indication/reason for exam; i.e. extremities or head) *Use of iterative reconstruction technique DLP: 823 mGy-cm FINDINGS: LUNG BASES: The visualized lung bases are unremarkable. LIVER, GALLBLADDER, AND BILIARY TREE: Unremarkable. PANCREAS: Unremarkable. SPLEEN: Unremarkable. ADRENAL GLANDS: Unremarkable. KIDNEYS AND URETERS: Left intrarenal calculi measuring up to 0.7 cm. Increased mild left ureterectasis without obstructing abnormality. No significant right renal or ureteral abnormality. BLADDER: Minimally distended with associated mild mural thickening, but no focal mural or intraluminal abnormality. GASTROINTESTINAL TRACT: The stomach, small bowel and appendix are unremarkable. The colon and rectum are unremarkable. ABDOMINAL WALL: Small to moderate fat-containing umbilical hernia with probable involvement omentum. Mid ileal loops are seen subjacent to the neck. Small fat-containing inguinal hernias, right greater than left LYMPH NODES: No lymphadenopathy. VASCULAR: Unremarkable. PELVIC VISCERA: Mild prostatomegaly. OSSEOUS STRUCTURES: Mild to moderate multilevel degenerative changes in the thoracolumbar spine. Mild lumbar levoscoliosis. No suspicious abnormality. CT/CT abdomen pelvis w IV con IMPRESSION: 1. Small to moderate fat-containing umbilical hernia with probable involvement of the omentum. Mid ileal loops are seen subjacent to the neck of the hernia without evidence for obstruction. Small fat-containing inguinal hernias, right greater than left without significant change. 2. Nonobstructing left intrarenal calculi. Increased mild left ureterectasis without obstructing abnormality. This could represent sequelae of previous obstructing calculus which is not visualized.
[2022-02-04 05:54] VITALS: BP 156/91; PULSE 73; RESP 18; TEMP 36.8; O2SAT 97; BMI 31.8
--- NOTE | 2022-02-04 06:07 | PC.NURSE ---
Pt states he has tests remaining prior to scheduling cholecystectomy. He was unable to make his last appt d/t being sick wih a cold. Onset of n/v/d today. Pt c/o pain due to umbilical hernia increasing in intensity. Pt states he had chest pain two days ago. CT [place] [facility] [place]
--- NOTE | 2022-02-04 06:20 | ECG_ITS ---
Test Reason : abd pain Blood Pressure : / mmHG Vent. Rate : 067 BPM Atrial Rate : 067 BPM P-R Int : 180 ms QRS Dur : 092 ms QT Int : 388 ms P-R-T Axes : 077 -14 028 degrees QTc Int : 409 ms Normal sinus rhythm Intra-ventricular conduction delay Otherwise normal ECG When compared with ECG of 23-JUL-2020 20:26, No significant change was found Heart rate has decreased Referred By: Brandon Oden Electronically Signed By:JOSE RUFF MD
[2022-02-04 06:35] LABS: Basophils Percent Auto 0.4 % (0-2); Eosinophils Absolute Auto 0.3 X10*3/uL (0.0-0.4); Eosinophils Percent Auto 3.6 % (0-4); Hematocrit 45.5 % (42.0-52.0); Hemoglobin 14.8 g/dl (14.0-18.0); Imm Gran Abs Auto 0.02 X10*3/uL (0.00-0.03); Imm Gran Pct Auto 0.3 % (0.0-0.4); Lymphocytes Absolute Auto 2.2 X10*3/uL (1.2-4.9); MANUAL DIFF FLAG NO; Mean Corpuscular HGB Conc 32.5 g/dl (31.0-36.0); Mean Corpuscular Hemoglobin 26.9 pg (27.0-33.0); Mean Corpuscular Volume 82.7 fL (80.0-98.0); Mean Platelet Volume 10.2 fL (9.4-12.4); Monocytes Absolute Auto 0.7 X10*3/uL (0.1-1.2); Monocytes Percent Auto 9.9 % (2-11); Neutrophils Absolute Auto 4.1 x10*3/uL (2.0-8.3); Neutrophils Percent Auto 55.8 % (45-73); Platelet Count 241 X10*3/uL (160-400); Red Cell Distribution Width 13.3 % (11.0-16.0); White Blood Count 7.3 X10*3/uL (4.8-10.8)
[2022-02-04 06:55] LABS: Alanine Aminotransferase 31 U/L (0-40); Albumin Level 4.1 g/dL (3.5-5.0); Alkaline Phosphatase 90 U/L (39-117); Anion Gap 12 (12-20); Aspartate Amino Transferase 21 U/L (5-37); Bilirubin Total 0.5 mg/dL (0.0-1.0); Blood Urea Nitrogen 12 mg/dL (9-16); Calcium 9.5 mg/dL (8.4-10.2); Carbon Dioxide 29 mmol/L (22-29); Chloride 105 mmol/L (96-108); Creatinine Clr Calc Pharmacy 122.3; Estimated Glomerular Filt Rate > 60; Glucose Random 97 mg/dL (60-115); Potassium 4.8 mmol/L (3.3-5.1); Sodium 141 mmol/L (135-145)
[2022-02-04 06:57] LABS: Troponin-I High Sensitivity < 3.5 ng/L (<3.5-35.0)
[2022-02-04] MEDS: iohexoL 350 MG/ML 100 ML INFUS..BTL IV (08:09)
[2022-02-04 08:25] VITALS: BP 142/79; PULSE 70; RESP 14; O2SAT 97
[2022-02-04] MEDS: ondansetron HCL 4 MG/2 ML VIAL IVPUSH (08:27)
[2022-02-04] MEDS: 0.9 % Sodium Chloride 1,000 ML 999 ML IV (08:27)
[2022-02-04 08:46] LABS: Appearance Urine Clear; Color Urine Yellow; Glucose Urine UA Negative (Negative); Leukocyte Esterase Urine Negative (Negative); Nitrite Urine Negative (Negative); Specific Gravity - Urine 1.015 (1.005-1.025); Urine Blood Negative (Negative); Urine Ketones Negative (Negative); Urine Protein Negative (Neg-Trace)
[2022-02-04 08:48] LABS: Prothrombin Time 11.8 SEC (10.0-13.1)
[2022-02-04] MEDS: Ketorolac Tromethamine 15 MG/ML VIAL IVPUSH (08:55)
[2022-02-04 08:57] LABS: COVID-19 Test Negative (Negative); IDNOW Serial# 16C4AD1C
[2022-02-04 09:01] LABS: IDNOW Serial# BCCEAD1C; Influenza A Negative (Negative); Influenza B2 Negative (Negative)
[2022-02-04 10:25] LABS: Lipase 9 U/L (8-78)
--- NOTE | 2022-02-04 10:46 | ED_ITS ---
HPI - Abdominal Pain General Chief Complaint: Abdominal Pain Stated Complaint: stomach pain Time Seen by Provider: 02/04/22 06:11 Source: patient Mode of arrival: ambulatory Limitations: no limitations History of Present Illness HPI narrative: 59-year-old male who presents emergency department for evaluation of abdominal pain. The patient states that he has been having abdominal pain for approximately 3-4 months. He states that his doctors are concerned that his gallbladder has been causing his pain. The patient states that he has had multiple tests without a clear etiology for his pain. He states that at midnight he began to feel ill. He had nausea and had multiple episodes of vomiting. He also states that he had 1 large watery diarrheal stool. He states that after vomiting his abdominal pain got worse. He also developed new abdominal pain in his umbilical area. He states that he has a pill hernia and that the area where he has is hernia is not painful. He describes his pain is a constant, tightness which is 10/10. He is also complaining of pain any points to his right upper and epigastric pain. He states this is pain these have for 3 months and this also got worse since midnight. He denied fever but he states he did have chills. He denied chest pain shortness of breath. He states that did not look at his emesis so he does not know if there is any blood in either. Related Data Home Medications Medication Instructions Recorded Confirmed prazosin 2 mg capsule 2 mg PO BID 09/17/20 01/25/22 bupropion HCl 150 mg 24 hr tablet, 150 mg PO QAM 07/30/21 01/25/22 extended release ropinirole 0.25 mg tablet 0.25 mg PO BEDTIME 10/22/21 01/25/22 clonazepam 1 mg tablet 1 mg PO BEDTIME PRN anxiety 12/08/21 01/25/22 quetiapine 100 mg tablet (Seroquel) 100 mg PO BEDTIME 12/08/21 01/25/22 ropinirole 0.5 mg tablet 0.5 mg PO BEDTIME 12/17/21 01/25/22 tamsulosin 0.4 mg capsule 0.4 mg PO DAILY 01/29/22 Previous Rx's Medication Instructions Recorded propranolol 20 mg tablet 20 mg PO BID #180 tabs 03/30/21 [id number] 1 cap PO QID #120 caps 07/30/21 24,000-76,000-120,000 unit capsule,delayed rel (Creon) pantoprazole 40 mg tablet,delayed 40 mg PO DAILY 30 days #30 tabs 07/30/21 release (Protonix) losartan 25 mg tablet 25 mg PO DAILY 90 days #90 tabs 08/05/21 sennosides 8.6 mg tablet (senna) 8.6 mg PO BEDTIME PRN for 08/14/21 constipation #30 tabs ondansetron 4 mg disintegrating 4 mg PO Q8H PRN nausea and 08/18/21 tablet vomiting 30 days #90 tabs simethicone 180 mg capsule (Gas 180 mg PO QID PRN abdominal 10/05/21 Relief (simethicone)) distention #120 caps tizanidine 4 mg tablet 4 mg PO TID PRN muscle spasticity 11/12/21 30 days #90 tabs amitriptyline 25 mg tablet 25 mg PO BEDTIME 30 days #30 tabs 12/03/21 acetaminophen 500 mg tablet 500 mg PO TID PRN pain 30 days #90 12/08/21 tabs diclofenac sodium 1 % topical gel 2 g topical BID #100 grams 12/08/21 hydrocortisone 2.5 % topical cream 1 appl MI BID hemorrhoids #30 grams 12/17/21 with perineal applicator (Proctosol HC) clonidine HCl 0.1 mg tablet 0.1 mg PO BID PRN for anxiety #180 12/23/21 tabs aspirin 81 mg tablet,delayed 81 mg PO DAILY #30 tabs 01/19/22 release docusate sodium 100 mg capsule 100 mg PO BID #60 caps 01/20/22 sucralfate 1 gram tablet (Carafate) 2 g PO QNOON #60 tabs 01/29/22 clonazepam 0.5 mg tablet 0.5 mg PO DAILY 30 days #30 tabs 02/01/22 clonazepam 1 mg tablet 1 mg PO DAILY PRN anxiety 30 days 02/01/22 #30 tabs tramadol 50 mg tablet See Rx Instructions PO BID pain 28 02/01/22 days #112 tabs zolpidem 12.5 mg tablet,extended 12.5 mg PO BEDTIME #30 tabs 02/01/22 release,multiphase Allergies Allergy/AdvReac Type Severity Reaction Status Date / Time seafood Allergy Severe anaphylaxis Verified 02/04/22 05:56 duloxetine Allergy Intermediate nausea/vomiting/diarrhea, Verified 02/04/22 05:56 feeling shaky - withdrawal sympto gabapentin Allergy Intermediate confusion/memory Verified 02/04/22 05:56 loss/hallucination lactase [LACTASE] Allergy Intermediate NAUSEA Verified 02/04/22 05:56 Review of Systems Review of Systems Yes all other systems are reviewed and are negative [facility] Past Medical History [facility] Narrative: Social history: He denies tobacco use. He denies alcohol use. He states that he smokes marijuana once or twice a month. Medical History Abdominal pain Benign essential hypertension Chronic abdominal pain Constipation Depression Elevated blood pressure reading Elevated d-dimer Excessive sweating IBS (irritable bowel syndrome) Left elbow tendinitis Left-sided chest wall pain Obesity (BMI 30-39.9) Overweight (BMI 25.0-29.9) Primary osteoarthritis of shoulders, bilateral Primary osteoarthritis, left shoulder Primary osteoarthritis, right shoulder Tubular adenoma of colon Surgical History H/O colonoscopy H/O esophagogastroduodenoscopy H/O inguinal hernia repair History of varicose vein ligation and stripping S/P tendon repair Status post pericardial cyst excision (~02/13/19) Family History Family History Father Stomach cancer Mental health problem Mother AIDS Sister NIDDY (non-insulin dependent diabetes mellitus in young) Hypertension Other Substance abuse Social History Social History Household Members: Children Housing: Apartment Alcohol intake: never Patient Tobacco Use Status: Former Tobacco user Cigarettes Per Day: 40 Years Smoked: quit greater than 10 years ago Smoked in Last 30 Days: No e-Cigarette/Vaping Use: Never Used Second Hand Smoke Exposure: No Use of substances other than those prescribed or required for medical reasons: No Advance Directives: Yes Advance Directives on File: Yes Advance Directives Date on File: 07/11/20 Current occupational status: disabled Cognitive needs: No Hearing needs: No Vision needs: Yes Physical Exam ED Vital Signs: Vital Signs - 24 hr 02/04/22 05:54 02/04/22 08:25 Temperature 98.2 F Pulse Rate 73 70 Respiratory Rate 18 14 Blood Pressure 156/91 H 142/79 H Pulse Oximetry 97 97 Oxygen Delivery Method Room Air Room Air BMI result Body Mass Index 31.8 Const General: cooperative and no acute distress Orientation/consciousness: oriented to person and oriented to place Limitations: no limitations HENMT Head: Yes normal to inspection, Yes normocephalic and Yes atraumatic Ears: external ears normal General nose exam: Normal external nose present Face and sinus: Yes normal facial exam Mouth: Normal oral and palatal mucosa present Throat: Yes posterior oropharynx normal Eyes General: appearance normal, both eyes and all related structures Pupils: Equal, round and reactive pupils present Neck Neck: Yes normal visual inspection, Yes no lymphadenopathy, Yes trachea midline and Yes supple Chest Chest palpation & inspection: normal inspection of the chest and normal palpation of entire chest wall Resp Effort & Inspection: normal respiratory effort and able to speak in complete sentences Auscultation: clear to auscultation bilaterally Cardio Rate: regular rate Rhythm: regular rhythm Heart sounds: S1 normal heart sound present, S2 normal heart sound present and no murmurs GI Inspection: Yes normal to inspection Palpation (GI): Soft to palpation, Tenderness to palpation present (GI) in the RUQ (moderate) and periumbilically (moderate) and no guarding Auscultation: normal bowel sounds General: Yes no CVA tenderness Back/Spine/Pelvis Back: no CVA tenderness Skin General skin exam: no rashes or lesions noted Neuro General: oriented to person and oriented to place Cranial nerves: Yes CN's II-XII intact bilaterally and Yes Equal, round and reactive pupils present Cognition (Neuro): normal cognition Motor exam (neuro): 5/5 motor strength present throughout Extrem General: Yes normal to inspection Psych Appearance: grossly normal Speech and movement: Normal speech and movement present Affect: normal affect Attitude: cooperative Thought process: Normal thought process present Thought content: Normal thought content present Course Course Course Narrative: 61-year-old male who presents emergency department for evaluation of nausea and vomiting which started at midnight and abdominal pain. Patient has abdominal pain for 3-5 months which is being evaluated by his provider's patient states that this pain got worse after vomiting but also had increased pain in his umbilical area. Physical exam did reveal right upper quadrant epigastric and umbilical pain with small umbilical hernia which was soft and reducible. Patient's laboratory evaluation was unremarkable. CT scan of the abdomen pelvis revealed a fat containing umbilical hernia with no evidence of incarceration or obstruction. Patient was treated Toradol and Zofran IV with improvement of his pain. He was given printed and verbal instructions discharged home Medications Administered Discontinued Medications Generic Name Dose Route Start Last Admin Trade Name Jeffq PRN Reason Stop Dose Admin Sodium Chloride 1,000 mls @ 999 mls/hr 02/04/22 06:50 02/04/22 09:53 Ns IV 02/04/22 07:50 Infused .Q1H1M STA Infusion Iohexol 100 ml 02/04/22 08:08 02/04/22 08:09 Iohexol 350 Mg/Ml 100 Ml Infus..Btl IV 02/04/22 08:09 100 ml ONCE ONE Administration Ketorolac Tromethamine 15 mg 02/04/22 08:38 02/04/22 08:55 Ketorolac Tromethamine 15 Mg/Ml Vial IVPUSH 02/04/22 08:39 15 mg ONCE STA Administration Ondansetron HCl 4 mg 02/04/22 06:50 02/04/22 08:27 Ondansetron Hcl 4 Mg/2 Ml Vial IVPUSH 02/04/22 06:51 4 mg ONCE ONE Administration MDM - Abdominal Pain Medical Records Attestation: I reviewed the patient's medical records. Lab Data Attestation: I reviewed the patient's lab results. Result diagrams: 02/04/22 06:27 02/04/22 06:27 Labs: Lab Results 02/04/22 02/04/22 02/04/22 Range/Units 06:27 06:27 06:30 WBC 7.3 (4.8-10.8) X10*3/uL RBC 5.50 (4.60-5.80) X10*6/uL Hgb 14.8 (14.0-18.0) g/dl Hct 45.5 (42.0-52.0) % MCV 82.7 (80.0-98.0) fL MCH 26.9 L (27.0-33.0) pg MCHC 32.5 (31.0-36.0) g/dl RDW 13.3 (11.0-16.0) % Plt Count 241 (160-400) X10*3/uL MPV 10.2 (9.4-12.4) fL Immature Gran % (Auto) 0.3 (0.0-0.4) % Neut % (Auto) 55.8 (45-73) % Lymph % (Auto) 30.0 (20-40) % [place] % (Auto) 9.9 (2-11) % Eos % (Auto) 3.6 (0-4) % Baso % (Auto) 0.4 (0-2) % Lymph # (Auto) 2.2 (1.2-4.9) X10*3/uL [place] # (Auto) 0.7 (0.1-1.2) X10*3/uL Eos # (Auto) 0.3 (0.0-0.4) X10*3/uL Baso # (Auto) 0.0 (0.0-0.2) X10*3/uL Abs Immat Gran (auto) 0.02 (0.00-0.03) X10*3/uL Absolute Neuts (auto) 4.1 (2.0-8.3) x10*3/uL Absolute Nucleated RBC 0.000 (0.0-0.012) X10*3/uL Nucleated RBC % (auto) 0.0 (0.0-0.2) /100WBC PT (10.0-13.1) SEC INR (0.9-1.1) APTT (26.0-36.4) SEC Sodium 141 (135-145) mmol/L Potassium 4.8 (3.3-5.1) mmol/L Chloride 105 (96-108) mmol/L Carbon Dioxide 29 (22-29) mmol/L Anion Gap 12 (12-20) BUN 12 (9-16) mg/dL Creatinine 0.82 (0.5-1.4) mg/dL Estim Creat Clear Calc 122.3 Estimated GFR > 60 Random Glucose 97 (60-115) mg/dL Calcium 9.5 (8.4-10.2) mg/dL Total Bilirubin 0.5 (0.0-1.0) mg/dL AST 21 (5-37) U/L ALT 31 (0-40) U/L Alkaline Phosphatase 90 (39-117) U/L Troponin I High Sens < 3.5 (<3.5-35.0) ng/L Total Protein 7.0 (6.5-8.0) g/dL Albumin 4.1 (3.5-5.0) g/dL Lipase (8-78) U/L Urine Color Urine Appearance Urine pH (5.0-9.0) Ur Specific [place] (1.005-1.025) Urine Protein (Neg-Trace) mg/dL Urine Glucose (UA) (Negative) mg/dL Urine Ketones (Negative) mg/dL Urine Blood (Negative) Urine Nitrite (Negative) Ur Leukocyte Esterase (Negative) COVID-19 (PHILL) (Negative) COVID-19 Clin Com Influenza Type A (SUSIE) (Negative) Influenza Type B (SUSIE) (Negative) Influenza A & B Note 02/04/22 02/04/22 02/04/22 Range/Units 08:30 08:32 08:32 WBC (4.8-10.8) X10*3/uL RBC (4.60-5.80) X10*6/uL Hgb (14.0-18.0) g/dl Hct (42.0-52.0) % MCV (80.0-98.0) fL MCH (27.0-33.0) pg MCHC (31.0-36.0) g/dl RDW (11.0-16.0) % Plt Count (160-400) X10*3/uL MPV (9.4-12.4) fL Immature Gran % (Auto) (0.0-0.4) % Neut % (Auto) (45-73) % Lymph % (Auto) (20-40) % [place] % (Auto) (2-11) % Eos % (Auto) (0-4) % Baso % (Auto) (0-2) % Lymph # (Auto) (1.2-4.9) X10*3/uL [place] # (Auto) (0.1-1.2) X10*3/uL Eos # (Auto) (0.0-0.4) X10*3/uL Baso # (Auto) (0.0-0.2) X10*3/uL Abs Immat Gran (auto) (0.00-0.03) X10*3/uL Absolute Neuts (auto) (2.0-8.3) x10*3/uL Absolute Nucleated RBC (0.0-0.012) X10*3/uL Nucleated RBC % (auto) (0.0-0.2) /100WBC PT 11.8 (10.0-13.1) SEC INR 1.0 (0.9-1.1) APTT 31.0 (26.0-36.4) SEC Sodium (135-145) mmol/L Potassium (3.3-5.1) mmol/L Chloride (96-108) mmol/L Carbon Dioxide (22-29) mmol/L Anion Gap (12-20) BUN (9-16) mg/dL Creatinine (0.5-1.4) mg/dL Estim Creat Clear Calc Estimated GFR Random Glucose (60-115) mg/dL Calcium (8.4-10.2) mg/dL Total Bilirubin (0.0-1.0) mg/dL AST (5-37) U/L ALT (0-40) U/L Alkaline Phosphatase (39-117) U/L Troponin I High Sens (<3.5-35.0) ng/L Total Protein (6.5-8.0) g/dL Albumin (3.5-5.0) g/dL Lipase 9 (8-78) U/L Urine Color Yellow Urine Appearance Clear Urine pH 7.0 (5.0-9.0) Ur Specific [place] 1.015 (1.005-1.025) Urine Protein Negative (Neg-Trace) mg/dL Urine Glucose (UA) Negative (Negative) mg/dL Urine Ketones Negative (Negative) mg/dL Urine Blood Negative (Negative) Urine Nitrite Negative (Negative) Ur Leukocyte Esterase Negative (Negative) COVID-19 (PHILL) (Negative) COVID-19 Clin Com Influenza Type A (SUSIE) (Negative) Influenza Type B (SUSIE) (Negative) Influenza A & B Note 02/04/22 02/04/22 Range/Units 08:36 08:36 WBC (4.8-10.8) X10*3/uL RBC (4.60-5.80) X10*6/uL Hgb (14.0-18.0) g/dl Hct (42.0-52.0) % MCV (80.0-98.0) fL MCH (27.0-33.0) pg MCHC (31.0-36.0) g/dl RDW (11.0-16.0) % Plt Count (160-400) X10*3/uL MPV (9.4-12.4) fL Immature Gran % (Auto) (0.0-0.4) % Neut % (Auto) (45-73) % Lymph % (Auto) (20-40) % [place] % (Auto) (2-11) % Eos % (Auto) (0-4) % Baso % (Auto) (0-2) % Lymph # (Auto) (1.2-4.9) X10*3/uL [place] # (Auto) (0.1-1.2) X10*3/uL Eos # (Auto) (0.0-0.4) X10*3/uL Baso # (Auto) (0.0-0.2) X10*3/uL Abs Immat Gran (auto) (0.00-0.03) X10*3/uL Absolute Neuts (auto) (2.0-8.3) x10*3/uL Absolute Nucleated RBC (0.0-0.012) X10*3/uL Nucleated RBC % (auto) (0.0-0.2) /100WBC PT (10.0-13.1) SEC INR (0.9-1.1) APTT (26.0-36.4) SEC Sodium (135-145) mmol/L Potassium (3.3-5.1) mmol/L Chloride (96-108) mmol/L Carbon Dioxide (22-29) mmol/L Anion Gap (12-20) BUN (9-16) mg/dL Creatinine (0.5-1.4) mg/dL Estim Creat Clear Calc Estimated GFR Random Glucose (60-115) mg/dL Calcium (8.4-10.2) mg/dL Total Bilirubin (0.0-1.0) mg/dL AST (5-37) U/L ALT (0-40) U/L Alkaline Phosphatase (39-117) U/L Troponin I High Sens (<3.5-35.0) ng/L Total Protein (6.5-8.0) g/dL Albumin (3.5-5.0) g/dL Lipase (8-78) U/L Urine Color Urine Appearance Urine pH (5.0-9.0) Ur Specific [place] (1.005-1.025) Urine Protein (Neg-Trace) mg/dL Urine Glucose (UA) (Negative) mg/dL Urine Ketones (Negative) mg/dL Urine Blood (Negative) Urine Nitrite (Negative) Ur Leukocyte Esterase (Negative) COVID-19 (PHILL) Negative (Negative) COVID-19 Clin Com See Note Influenza Type A (SUSIE) Negative (Negative) Influenza Type B (SUSIE) Negative (Negative) Influenza A & B Note See Note Discharge Plan Discharge Clinical Impression: Abdominal pain Patient Disposition: Home, Self-Care Instructions: Abdominal Pain (ED) Additional Instructions: Your blood work today was normal. The CT scan of your abdomen pelvis without IV contrast revealed a normal- appearing gallbladder and liver. You do have a umbilical (bellybutton) hernia which contains fat only which is reassuring. There is no intestine/bowel in the hernia. Most likely, from your vomiting, more fat got pushed out into the hernia this caused your pain. Take ibuprofen 200 mg pills, 2 pills every 6 hours as needed for pain. Apply ice to her belly button for 15 minutes 4 to 6 times a day that should reduce the pain as well. Follow-up with your doctor in 2 days. Please return to the emergency department if your symptoms get worse or if you develop any symptoms that are concerning to you. Prescriptions: No Action propranolol 20 mg tablet 20 mg PO BID Qty: 180 1RF losartan 25 mg tablet 25 mg PO DAILY 90 Days Qty: 90 1RF sennosides [senna] 8.6 mg tablet 8.6 mg PO BEDTIME PRN (Reason: for constipation) Qty: 30 0RF simethicone [Gas Relief (simethicone)] 180 mg capsule 180 mg PO QID PRN (Reason: abdominal distention) Qty: 120 6RF tizanidine 4 mg tablet 4 mg PO TID PRN (Reason: muscle spasticity) 30 Days Qty: 90 2RF amitriptyline 25 mg tablet 25 mg PO BEDTIME 30 Days Qty: 30 2RF hydrocortisone [Proctosol HC] 2.5 % cream with perineal applicator 1 appl MI BID Qty: 30 6RF clonidine HCl 0.1 mg tablet 0.1 mg PO BID PRN (Reason: for anxiety) Qty: 180 0RF aspirin 81 mg tablet,delayed release (DR/EC) 81 mg PO DAILY Qty: 30 3RF docusate sodium 100 mg capsule 100 mg PO BID Qty: 60 0RF Hold Instructions: Doctor's Order clonazepam 0.5 mg tablet 0.5 mg PO DAILY 30 Days Qty: 30 1RF Rx Instructions: Take 1 tablet orally daily in the MORNING zolpidem 12.5 mg tablet,ext release multiphase 12.5 mg PO BEDTIME Qty: 30 1RF tramadol 50 mg tablet See Rx Instructions PO BID 28 Days Qty: 112 0RF Rx Instructions: 1 to 2 tablets PO 2 times a day; clonazepam 1 mg tablet 1 mg PO DAILY PRN (Reason: anxiety) 30 Days Qty: 30 1RF prazosin 2 mg capsule 2 mg PO BID ondansetron 4 mg tablet,disintegrating 4 mg PO Q8H PRN (Reason: nausea and vomiting) 30 Days Qty: 90 1RF ropinirole 0.25 mg tablet 0.25 mg PO BEDTIME quetiapine [Seroquel] 100 mg tablet 100 mg PO BEDTIME bupropion HCl 150 mg tablet extended release 24 hr 150 mg PO QAM Creon 24,000-76,000 -120,000 unit capsule,delayed release(DR/EC) 1 cap PO QID Qty: 120 6RF Hold Instructions: Doctor's Order pantoprazole [Protonix] 40 mg tablet,delayed release (DR/EC) 40 mg PO DAILY 30 Days Qty: 30 6RF tamsulosin 0.4 mg capsule 0.4 mg PO DAILY sucralfate [Carafate] 1 gram tablet 2 g PO QNOON Qty: 60 3RF clonazepam 1 mg tablet 1 mg PO BEDTIME PRN (Reason: anxiety) acetaminophen 500 mg tablet 500 mg PO TID PRN (Reason: pain) 30 Days Qty: 90 2RF diclofenac sodium 1 % gel 2 g topical BID Qty: 100 4RF Rx Instructions: Apply 2 g to painful joint twice daily as needed. ropinirole 0.5 mg tablet 0.5 mg PO BEDTIME Interventions: ED Discharge Assessment Last Done: 02/04/22 11:11 Discharge Date/Time: 02/04/22 11:13
== END 2022-02-04 11:13 | disposition home or self-care (01) ==
PROVIDERS: Emergency Provider Emergency Medicine Emergency Medical Services; PCP Internal Medicine
DX: R10.9 Unspecified abdominal pain (principal); R11.2 Nausea with vomiting, unspecified; R07.89 Other chest pain; Z79.899 Other long term (current) drug therapy; Z87.891 Personal history of nicotine dependence; Z20.822 Contact with and (suspected) exposure to COVID-19
CPT/HCPCS: 36415; 74177; 80053; 81003; 83690; 84484; 85025; 85610; 85730; 87502; 87635; 93005; 96361; 96374; 96375; 99284; 99285; J1885; J2405; Q9967

== ENCOUNTER 2022-02-11 14:15 | Emergency (ER) | payer MEDICARE, MEDICAID, SELFPAY ==
--- NOTE | ~2022-02-11 | CT_ITS ---
EXAMINATION: CT ANGIOGRAM OF THE CHEST WITH AND WITHOUT CONTRAST (CT PULMONARY ANGIOGRAM FOR PE) CLINICAL INFORMATION: SOB, chest pain, elevated DDIMER COMPARISON: Chest x-ray 02/11/2022. CTA chest 07/11/2020 TECHNIQUE: Prior to contrast administration, noncontrast localization images were obtained. Subsequently, multidetector volumetric imaging was performed from the thoracic inlet to below the diaphragms following the administration of 75 mL Omnipaque 350 intravenous contrast. No contrast reaction reported Sagittal, coronal, and MIP oblique sagittal reformatted images were obtained on the CT workstation, uploaded to PACS, and reviewed. This CT examination was performed using dose optimization techniques as appropriate, variously including the following: *Automated exposure control *Adjustment of mA and/or kV according to patient size (this includes techniques or standardized protocols for targeted exams where dose is matched to indication/reason for exam; i.e. extremities or head) *Use of iterative reconstruction technique Total exam dose-length product 375 mGy-cm FINDINGS: QUALITY OF STUDY/CONTRAST BOLUS: Suboptimal. There is contrast underfilling in the lower lobes and extensive respiratory motion artifact. PULMONARY ARTERIES: No central pulmonary embolus seen. Unfortunately, because of contrast underfilling and extensive respiratory motion artifact, there is limited evaluation for segmental and subsegmental pulmonary emboli. THORACIC AORTA: No aneurysm or dissection. LUNG: There is diffuse mosaic lung attenuation. The findings are worsened from the prior CTA 07/11/2020. Central bronchial wall thickening. No focal consolidation or mass. PLEURA: No pleural effusion or pneumothorax. MEDIASTINUM: Mild cardiomegaly. No pericardial effusion. No hilar or mediastinal lymphadenopathy. No evidence of septal bowing or right heart strain. CHEST WALL/AXILLA: No axillary or internal mammary lymphadenopathy. OSSEOUS STRUCTURES: No acute or suspicious osseous abnormality. UPPER ABDOMEN: Unremarkable. No reflux of contrast into the hepatic veins to suggest elevated right heart pressures. CT/CT angio chest PE protocol IMPRESSION: The study is significantly limited by patient respiratory motion artifact. No central pulmonary embolus seen. Consider lower extremity duplex examinations and/or perfusion scintigraphy as clinically indicated. Diffuse mosaic lung attenuation and central bronchial wall thickening consistent with small airways disease. The findings are worsened since the 2020 CTA. VTE: indeterminate
--- NOTE | ~2022-02-11 | XR_ITS ---
EXAMINATION: XR CHEST CLINICAL INFORMATION: Chest pain COMPARISON: None TECHNIQUE: Frontal view of the chest was obtained. FINDINGS: The lungs are well-expanded and clear of acute process. The heart size and pulmonary vascularity is normal. There is mild spondylosis dorsal spine. No aggressive lytic or sclerotic process seen XR/XR chest 1V IMPRESSION: Unremarkable chest examination.
--- NOTE | ~2022-02-11 | US_ITS ---
EXAMINATION: US VENOUS ULTRASOUND WITH DOPPLER LOWER EXTREMITY, BILATERAL CLINICAL INFORMATION: Positive d-dimer COMPARISON: Left lower extremity venous duplex on 08/03/2020 TECHNIQUE: Ultrasound of the deep veins is performed from the hip to the calf with compression sonography and color and pulse Doppler assessment. Spectral analysis with color-flow imaging is performed. FINDINGS: RIGHT: There is normal venous compression and respiratory variation and augmented flow. The visualized common femoral vein, superficial femoral vein, profunda femoral vein, popliteal vein, and the trifurcation region shows no evidence of deep venous thrombosis. There is no significant popliteal fossa cyst. LEFT: There is normal venous compression and respiratory variation and augmented flow. The visualized common femoral vein, superficial femoral vein, profunda femoral vein, popliteal vein, and the trifurcation region shows no evidence of deep venous thrombosis. There is no significant popliteal fossa cyst. If the patient's symptoms persist, followup ultrasound in 5 days 7 days might be of value to exclude proximal propagation from a non-visualized calf vein. US/US venous duplex LE BI IMPRESSION: No DVT demonstrated in the bilateral lower extremities.
--- NOTE | 2022-02-11 14:16 | ECG_ITS ---
Test Reason : chest pain Blood Pressure : / mmHG Vent. Rate : 109 BPM Atrial Rate : 109 BPM P-R Int : 164 ms QRS Dur : 094 ms QT Int : 322 ms P-R-T Axes : 051 -22 046 degrees QTc Int : 433 ms Sinus tachycardia Left axis deviation Borderline ECG When compared with ECG of 04-FEB-2022 06:20, Vent. rate has increased BY 42 BPM Referred By: Generic ED Physician Electronically Signed By:JOSE RUFF MD
[2022-02-11 14:17] VITALS: BP 154/108; PULSE 108; RESP 18; TEMP 36.6; O2SAT 100; BMI 30.2
--- NOTE | 2022-02-11 14:23 | ED_ITS ---
HPI - Chest Pain General Chief Complaint: Chest Pain <MIKAYLA Jones - Last Filed: 02/11/22 16:16> Stated Complaint: CP, headache <MIKAYLA Jones - Last Filed: 02/11/22 16:16> Time Seen by Provider: 02/11/22 14:23 <MIKAYLA Jones - Last Filed: 02/11/22 16:16> Source: patient <MIKAYLA Jones - Last Filed: 02/11/22 16:16> Mode of arrival: ambulatory <MIKAYLA Jones - Last Filed: 02/11/22 16:16> Limitations: no limitations <MIKAYLA Jones - Last Filed: 02/11/22 16:16> History of Present Illness HPI narrative: 61-year-old male with history of anxiety, GERD, irritable bowel syndrome, polyarthralgia, gallstones, osteoarthritis, who presents to the ER for evaluation of intermittent central chest pains, SOB, headache that started yesterday along with and dizziness that started today. He states his blood pressure has been elevated and he has been taking it several times per day. Readings anywhere from 130-170s systolic. He reports the chest pains are intermittent, and described as sharp and aching. Worse with exertion during which he is also experiencing SOB/ALCALA. His dizziness is worse with movement and position changes. No fevers, no chills, no N/V/D or abdominal pain. He denies weakness, numbness or tingling, no LE edema. He has been more anxious about his BP. <MIKAYLA Jones - Last Filed: 02/11/22 16:16> MD complaint: chest pain and other (headache, dizziness) <MIKAYLA Jones - Last Filed: 02/11/22 16:16> Onset (ago): day(s) <MIKAYLA Jones - Last Filed: 02/11/22 16:16> Prior episodes: Yes <MIKAYLA Jones - Last Filed: 02/11/22 16:16> Onset: during exertion <MIKAYLA Jones Last Filed: 02/11/22 16:16> Pain location: parasternal <MIKAYLA Jones - Last Filed: 02/11/22 16:16> Pain radiation: none <MIKAYLA Jones - Last Filed: 02/11/22 16:16> Severity: moderate <MIKAYLA Jones - Last Filed: 02/11/22 16:16> Quality: aching, sharp and shooting <MIKAYLA Jones - Last Filed: 02/11/22 16:16> Relieving factors: nothing <MIKAYLA Jones - Last Filed: 02/11/22 16:16> Exacerbating factors: nothing <MIKAYLA Jones - Last Filed: 02/11/22 16:16> Context: recent illness <MIKAYLA Jones - Last Filed: 02/11/22 16:16> Associated symptoms: dyspnea <MIKAYLA Jones - Last Filed: 02/11/22 16:16> Treatment prior to arrival: none <MIKAYLA Jones - Last Filed: 02/11/22 16:16> Risk Factors Coronary artery disease risk factors: hypertension <MIKAYLA Jones - Last Filed: 02/11/22 16:16> Thoracic aortic dissection risk factors: none <MIKAYLA Jones - Last Filed: 02/11/22 16:16> Related Data Home Medications: Home Medications Medication Instructions Recorded Confirmed prazosin 2 mg capsule 2 mg PO BID 09/17/20 01/25/22 bupropion HCl 150 mg 24 hr tablet, 150 mg PO QAM 07/30/21 01/25/22 extended release ropinirole 0.25 mg tablet 0.25 mg PO BEDTIME 10/22/21 01/25/22 clonazepam 1 mg tablet 1 mg PO BEDTIME PRN anxiety 12/08/21 01/25/22 quetiapine 100 mg tablet (Seroquel) 100 mg PO BEDTIME 12/08/21 01/25/22 ropinirole 0.5 mg tablet 0.5 mg PO BEDTIME 12/17/21 01/25/22 tamsulosin 0.4 mg capsule 0.4 mg PO DAILY 01/29/22 Previous Rx's Medication Instructions Recorded propranolol 20 mg tablet 20 mg PO BID #180 tabs 03/30/21 [id number] 1 cap PO QID #120 caps 07/30/21 24,000-76,000-120,000 unit capsule,delayed rel (Creon) pantoprazole 40 mg tablet,delayed 40 mg PO DAILY 30 days #30 tabs 07/30/21 release (Protonix) losartan 25 mg tablet 25 mg PO DAILY 90 days #90 tabs 08/05/21 sennosides 8.6 mg tablet (senna) 8.6 mg PO BEDTIME PRN for 08/14/21 constipation #30 tabs ondansetron 4 mg disintegrating 4 mg PO Q8H PRN nausea and 08/18/21 tablet vomiting 30 days #90 tabs simethicone 180 mg capsule (Gas 180 mg PO QID PRN abdominal 10/05/21 Relief (simethicone)) distention #120 caps tizanidine 4 mg tablet 4 mg PO TID PRN muscle spasticity 11/12/21 30 days #90 tabs amitriptyline 25 mg tablet 25 mg PO BEDTIME 30 days #30 tabs 12/03/21 acetaminophen 500 mg tablet 500 mg PO TID PRN pain 30 days #90 12/08/21 tabs diclofenac sodium 1 % topical gel 2 g topical BID #100 grams 12/08/21 hydrocortisone 2.5 % topical cream 1 appl [place] BID hemorrhoids #30 grams 12/17/21 with perineal applicator (Proctosol HC) clonidine HCl 0.1 mg tablet 0.1 mg PO BID PRN for anxiety #180 12/23/21 tabs aspirin 81 mg tablet,delayed 81 mg PO DAILY #30 tabs 01/19/22 release docusate sodium 100 mg capsule 100 mg PO BID #60 caps 01/20/22 sucralfate 1 gram tablet (Carafate) 2 g PO QNOON #60 tabs 01/29/22 clonazepam 0.5 mg tablet 0.5 mg PO DAILY 30 days #30 tabs 02/01/22 clonazepam 1 mg tablet 1 mg PO DAILY PRN anxiety 30 days 02/01/22 #30 tabs tramadol 50 mg tablet See Rx Instructions PO BID pain 28 02/01/22 days #112 tabs zolpidem 12.5 mg tablet,extended 12.5 mg PO BEDTIME #30 tabs 02/01/22 release,multiphase <MIKAYLA Jones - Last Filed: 02/11/22 16:16> Allergies/Adverse Reactions: Allergies Allergy/AdvReac Type Severity Reaction Status Date / Time seafood Allergy Severe anaphylaxis Verified 02/04/22 05:56 duloxetine Allergy Intermediate nausea/vomiting/diarrhea, Verified 02/04/22 05:56 feeling shaky - withdrawal sympto gabapentin Allergy Intermediate confusion/memory Verified 02/04/22 05:56 loss/hallucination lactase [LACTASE] Allergy Intermediate NAUSEA Verified 02/04/22 05:56 <MIKAYLA Jones - Last Filed: 02/11/22 16:16> Review of Systems Review of Systems: Constitutional: No Fever, No Chills ENT/Mouth: No sore throat, No Rhinorrhea, No Swallowing Difficulty Eyes: No Eye Pain, No Swelling, No Redness, No vision changes Cardiovascular: + Chest Pain, + SOB, No Orthopnea, No Edema Respiratory: No Cough, No Sputum, No Wheezing, + dyspnea Gastrointestinal: No Nausea, No Vomiting, No Diarrhea, No abdominal Pain Genitourinary: No Dysuria, No Urinary Frequency, No Hematuria Musculoskeletal: No joint pain, No Myalgias Skin: No Skin Lesions, No rash Neuro: No Weakness, No Numbness, +Dizziness, + Headache Psych: + Anxiety/Panic, No Depression Heme/Lymph: No Bruising, No Lymphadenopathy Endocrine: No Polyuria, No Polydipsia <MIKAYLA Jones - Last Filed: 02/11/22 16:16> [facility] Past Medical History Medical History: Medical History Abdominal pain Benign essential hypertension Chronic abdominal pain Constipation Depression Elevated blood pressure reading Elevated d-dimer Excessive sweating IBS (irritable bowel syndrome) Left elbow tendinitis Left-sided chest wall pain Obesity (BMI 30-39.9) Overweight (BMI 25.0-29.9) Primary osteoarthritis of shoulders, bilateral Primary osteoarthritis, left shoulder Primary osteoarthritis, right shoulder Tubular adenoma of colon <MIKAYLA Jones Last Filed: 02/11/22 16:16> Surgical History: Surgical History H/O colonoscopy H/O esophagogastroduodenoscopy H/O inguinal hernia repair History of varicose vein ligation and stripping S/P tendon repair Status post pericardial cyst excision (~02/13/19) <MIKAYLA Jones - Last Filed: 02/11/22 16:16> Family History Family History: Family History Father Stomach cancer Mental health problem Mother AIDS Sister PALMER (non-insulin dependent diabetes mellitus in young) Hypertension Other Substance abuse <MIKAYLA Jones - Last Filed: 02/11/22 16:16> Social History Social History: Social History Household Members: Children Housing: Apartment Alcohol intake: never Patient Tobacco Use Status: Former Tobacco user Cigarettes Per Day: 40 Years Smoked: quit greater than 10 years ago Smoked in Last 30 Days: No e-Cigarette/Vaping Use: Never Used Second Hand Smoke Exposure: No Use of substances other than those prescribed or required for medical reasons: No Advance Directives: Yes Advance Directives on File: Yes Advance Directives Date on File: 07/11/20 Current occupational status: disabled Cognitive needs: No Hearing needs: No Vision needs: Yes <MIKAYLA Jones - Last Filed: 02/11/22 16:16> Physical Exam Vital Signs: Vital Signs: Last Vital Signs Temp 98.3 F 02/11/22 14:30 Pulse 102 H 02/11/22 14:37 Resp 15 02/11/22 14:30 BP 134/96 H 02/11/22 14:37 Pulse Ox 100 02/11/22 14:30 O2 Del Method 02/11/22 14:30 BMI result Body Mass Index 30.2 <MIKAYLA Jones - Last Filed: 02/11/22 16:16> Vital Signs: Last Vital Signs Temp 98.3 F 02/11/22 14:30 Pulse 102 H 02/11/22 14:37 Resp 15 02/11/22 14:30 BP 134/96 H 02/11/22 14:37 Pulse Ox 100 02/11/22 14:30 O2 Del Method 02/11/22 14:30 BMI result Body Mass Index 30.2 <MIKAYLA Deleon - Last Filed: 02/11/22 17:44> Appearance: Alert. Oriented X3. No acute distress. Eyes: Pupils equal, round and reactive to light. EOMI, no nystagmus ENT: Pharynx normal. Neck: Normal inspection. Neck supple. CVS: Normal heart rate and rhythm. Pulses normal. No anterior chest wall tenderness. Respiratory: No respiratory distress. Breath sounds normal. Abdomen: Soft and nontender. +BS x4 Skin: Skin warm and dry. Normal skin color. Normal skin turgor. No rashes. Extremities: No lower extremity edema. No calf tenderness. Neuro: Oriented X 3. No motor deficit. No sensory deficit. <MIKAYLA Jones - Last Filed: 02/11/22 16:16> Course Course Course Narrative: 61 yo male with history of obesity, GERD, depression/anxiety, osteoarthritis,HTN, polyarthralgia who is presenting with headaches and intermi ttent chest pains that started yesterday, worse with exertion. Had some dizziness with position changes and exertion today. BP has been elevated at home. On arrival to the ER BP 150/108 w/ HR 108. SpO2 100% on RA. Exam unremarkable. EKG without STEMI. Will check basic labs, trop and ddimer. No current chest pain at this time. <MIKAYLA Jones - Last Filed: 02/11/22 16:16> Reevaluation(s) Reevaluation #1: Orthostatic VS are negative. CBC normal. CMP normal. Troponin <3.5 but DDIMER 2037 (was 2500 in the past). Will get CTA chest to r/o PE. Pt updated on plan of care. VSS. <MIKAYLA Jones - Last Filed: 02/11/22 16:16> Reevaluation #2: IV infiltrated 30cc of contrast. ice applied. CTA pending. <MIKAYLA Jones - Last Filed: 02/11/22 16:16> Reevaluation #3: I took over care for this patient, CTA was obtained which showed no large pulmonary embolism however scan was limited secondary to motion. Small airway disease noted on CTA. I also added a lower extremity duplex that showed no signs of DVT. Therefore low suspicion for PE and DVT. Upon my evaluation patient with nonfocal neuro exam. Cerebellar intact. Normal pewvwm-di-dmsp, ttoj-hr-pgeh, steady tandem gait normal coordination. Negative pronator drift. Extraocular movements intact. Patient feeling better. To note patient's blood pressure was noted to be elevated he takes Cozaar 25 mg p.o. daily, he will receive his medication prior to discharge Discussed this case my attending who agrees with my diagnosis and treatment plan. At this time patient will be discharged home. <MIKAYLA Deleon - Last Filed: 02/11/22 17:44> Medications Administered Discontinued Medications Generic Name Dose Route Start Last Admin Trade Name Freq PRN Reason Stop Dose Admin Iohexol 100 ml 02/11/22 16:12 02/11/22 16:12 Iohexol 350 Mg/Ml 100 Ml Infus..Btl IV 02/11/22 16:13 75 ml ONCE ONE Administration <MIKAYLA Jones - Last Filed: 02/11/22 16:16> Medications Administered Discontinued Medications Generic Name Dose Route Start Last Admin Trade Name Freq PRN Reason Stop Dose Admin Iohexol 100 ml 02/11/22 16:12 02/11/22 16:12 Iohexol 350 Mg/Ml 100 Ml Infus..Btl IV 02/11/22 16:13 75 ml ONCE ONE Administration <MIKAYLA Deleon - Last Filed: 02/11/22 17:44> MDM - Chest Pain Medical Records Data Attestation: I reviewed the patient's medical records. <MIKAYLA Jones - Last Filed: 02/11/22 16:16> Lab Data Attestation: I reviewed the patient's lab results. <MIKAYLA Jones - Last Filed: 02/11/22 16:16> Result diagrams: : 02/11/22 14:56 02/11/22 14:56 <MIKAYLA Jones - Last Filed: 02/11/22 16:16> Labs: Lab Results 02/11/22 02/11/22 02/11/22 Range/Units 14:56 14:56 14:56 WBC 9.8 (4.8-10.8) X10*3/uL RBC 5.69 (4.60-5.80) X10*6/uL Hgb 15.4 (14.0-18.0) g/dl Hct 45.9 (42.0-52.0) % MCV 80.7 (80.0-98.0) fL MCH 27.1 (27.0-33.0) pg MCHC 33.6 (31.0-36.0) g/dl RDW 13.2 (11.0-16.0) % Plt Count 258 (160-400) X10*3/uL MPV 10.2 (9.4-12.4) fL Immature Gran % (Auto) 0.2 (0.0-0.4) % Neut % (Auto) 58.4 (45-73) % Lymph % (Auto) 29.8 (20-40) % [place] % (Auto) 8.7 (2-11) % Eos % (Auto) 2.5 (0-4) % Baso % (Auto) 0.4 (0-2) % Lymph # (Auto) 2.9 (1.2-4.9) X10*3/uL [place] # (Auto) 0.9 (0.1-1.2) X10*3/uL Eos # (Auto) 0.2 (0.0-0.4) X10*3/uL Baso # (Auto) 0.0 (0.0-0.2) X10*3/uL Abs Immat Gran (auto) 0.02 (0.00-0.03) X10*3/uL Absolute Neuts (auto) 5.7 (2.0-8.3) x10*3/uL Absolute Nucleated RBC 0.000 (0.0-0.012) X10*3/uL Nucleated RBC % (auto) 0.0 (0.0-0.2) /100WBC D-Dimer High Sensitivty NG/ML Sodium 140 (135-145) mmol/L Potassium 4.2 (3.3-5.1) mmol/L Chloride 104 (96-108) mmol/L Carbon Dioxide 23 (22-29) mmol/L Anion Gap 17 (12-20) BUN 12 (9-16) mg/dL Creatinine 0.88 (0.5-1.4) mg/dL Estim Creat Clear Calc 111.1 Estimated GFR > 60 Random Glucose 80 (60-115) mg/dL Calcium 9.1 (8.4-10.2) mg/dL Magnesium 2.1 (1.6-2.6) mg/dL Total Bilirubin 0.5 (0.0-1.0) mg/dL Direct Bilirubin 0.2 (0.0-0.5) mg/dL AST 18 (5-37) U/L ALT 21 (0-40) U/L Alkaline Phosphatase 87 (39-117) U/L Troponin I High Sens < 3.5 (<3.5-35.0) ng/L Total Protein 7.2 (6.5-8.0) g/dL Albumin 4.3 (3.5-5.0) g/dL COVID-19 (PHILL) (Negative) COVID-19 Clin Com 02/11/22 02/11/22 Range/Units 14:56 14:56 WBC (4.8-10.8) X10*3/uL RBC (4.60-5.80) X10*6/uL Hgb (14.0-18.0) g/dl Hct (42.0-52.0) % MCV (80.0-98.0) fL MCH (27.0-33.0) pg MCHC (31.0-36.0) g/dl RDW (11.0-16.0) % Plt Count (160-400) X10*3/uL MPV (9.4-12.4) fL Immature Gran % (Auto) (0.0-0.4) % Neut % (Auto) (45-73) % Lymph % (Auto) (20-40) % [place] % (Auto) (2-11) % Eos % (Auto) (0-4) % Baso % (Auto) (0-2) % Lymph # (Auto) (1.2-4.9) X10*3/uL [place] # (Auto) (0.1-1.2) X10*3/uL Eos # (Auto) (0.0-0.4) X10*3/uL Baso # (Auto) (0.0-0.2) X10*3/uL Abs Immat Gran (auto) (0.00-0.03) X10*3/uL Absolute Neuts (auto) (2.0-8.3) x10*3/uL Absolute Nucleated RBC (0.0-0.012) X10*3/uL Nucleated RBC % (auto) (0.0-0.2) /100WBC D-Dimer High Sensitivty 2038 NG/ML Sodium (135-145) mmol/L Potassium (3.3-5.1) mmol/L Chloride (96-108) mmol/L Carbon Dioxide (22-29) mmol/L Anion Gap (12-20) BUN (9-16) mg/dL Creatinine (0.5-1.4) mg/dL Estim Creat Clear Calc Estimated GFR Random Glucose (60-115) mg/dL Calcium (8.4-10.2) mg/dL Magnesium (1.6-2.6) mg/dL Total Bilirubin (0.0-1.0) mg/dL Direct Bilirubin (0.0-0.5) mg/dL AST (5-37) U/L ALT (0-40) U/L Alkaline Phosphatase (39-117) U/L Troponin I High Sens (<3.5-35.0) ng/L Total Protein (6.5-8.0) g/dL Albumin (3.5-5.0) g/dL COVID-19 (PHILL) Negative (Negative) COVID-19 Clin Com See Note <MIKAYLA Jones - Last Filed: 02/11/22 16:16> Lab Results 02/11/22 02/11/22 02/11/22 Range/Units 14:56 14:56 14:56 WBC 9.8 (4.8-10.8) X10*3/uL RBC 5.69 (4.60-5.80) X10*6/uL Hgb 15.4 (14.0-18.0) g/dl Hct 45.9 (42.0-52.0) % MCV 80.7 (80.0-98.0) fL MCH 27.1 (27.0-33.0) pg MCHC 33.6 (31.0-36.0) g/dl RDW 13.2 (11.0-16.0) % Plt Count 258 (160-400) X10*3/uL MPV 10.2 (9.4-12.4) fL Immature Gran % (Auto) 0.2 (0.0-0.4) % Neut % (Auto) 58.4 (45-73) % Lymph % (Auto) 29.8 (20-40) % [place] % (Auto) 8.7 (2-11) % Eos % (Auto) 2.5 (0-4) % Baso % (Auto) 0.4 (0-2) % Lymph # (Auto) 2.9 (1.2-4.9) X10*3/uL [place] # (Auto) 0.9 (0.1-1.2) X10*3/uL Eos # (Auto) 0.2 (0.0-0.4) X10*3/uL Baso # (Auto) 0.0 (0.0-0.2) X10*3/uL Abs Immat Gran (auto) 0.02 (0.00-0.03) X10*3/uL Absolute Neuts (auto) 5.7 (2.0-8.3) x10*3/uL Absolute Nucleated RBC 0.000 (0.0-0.012) X10*3/uL Nucleated RBC % (auto) 0.0 (0.0-0.2) /100WBC D-Dimer High Sensitivty NG/ML Sodium 140 (135-145) mmol/L Potassium 4.2 (3.3-5.1) mmol/L Chloride 104 (96-108) mmol/L Carbon Dioxide 23 (22-29) mmol/L Anion Gap 17 (12-20) BUN 12 (9-16) mg/dL Creatinine 0.88 (0.5-1.4) mg/dL Estim Creat Clear Calc 111.1 Estimated GFR > 60 Random Glucose 80 (60-115) mg/dL Calcium 9.1 (8.4-10.2) mg/dL Magnesium 2.1 (1.6-2.6) mg/dL Total Bilirubin 0.5 (0.0-1.0) mg/dL Direct Bilirubin 0.2 (0.0-0.5) mg/dL AST 18 (5-37) U/L ALT 21 (0-40) U/L Alkaline Phosphatase 87 (39-117) U/L Troponin I High Sens < 3.5 (<3.5-35.0) ng/L Total Protein 7.2 (6.5-8.0) g/dL Albumin 4.3 (3.5-5.0) g/dL COVID-19 (PHILL) (Negative) COVID-19 Clin Com 02/11/22 02/11/22 Range/Units 14:56 14:56 WBC (4.8-10.8) X10*3/uL RBC (4.60-5.80) X10*6/uL Hgb (14.0-18.0) g/dl Hct (42.0-52.0) % MCV (80.0-98.0) fL MCH (27.0-33.0) pg MCHC (31.0-36.0) g/dl RDW (11.0-16.0) % Plt Count (160-400) X10*3/uL MPV (9.4-12.4) fL Immature Gran % (Auto) (0.0-0.4) % Neut % (Auto) (45-73) % Lymph % (Auto) (20-40) % [place] % (Auto) (2-11) % Eos % (Auto) (0-4) % Baso % (Auto) (0-2) % Lymph # (Auto) (1.2-4.9) X10*3/uL [place] # (Auto) (0.1-1.2) X10*3/uL Eos # (Auto) (0.0-0.4) X10*3/uL Baso # (Auto) (0.0-0.2) X10*3/uL Abs Immat Gran (auto) (0.00-0.03) X10*3/uL Absolute Neuts (auto) (2.0-8.3) x10*3/uL Absolute Nucleated RBC (0.0-0.012) X10*3/uL Nucleated RBC % (auto) (0.0-0.2) /100WBC D-Dimer High Sensitivty 2038 NG/ML Sodium (135-145) mmol/L Potassium (3.3-5.1) mmol/L Chloride (96-108) mmol/L Carbon Dioxide (22-29) mmol/L Anion Gap (12-20) BUN (9-16) mg/dL Creatinine (0.5-1.4) mg/dL Estim Creat Clear Calc Estimated GFR Random Glucose (60-115) mg/dL Calcium (8.4-10.2) mg/dL Magnesium (1.6-2.6) mg/dL Total Bilirubin (0.0-1.0) mg/dL Direct Bilirubin (0.0-0.5) mg/dL AST (5-37) U/L ALT (0-40) U/L Alkaline Phosphatase (39-117) U/L Troponin I High Sens (<3.5-35.0) ng/L Total Protein (6.5-8.0) g/dL Albumin (3.5-5.0) g/dL COVID-19 (PHILL) Negative (Negative) COVID-19 Clin Com See Note <MIKAYLA Deleon - Last Filed: 02/11/22 17:44> ECG Data ECG #1: Attestation: I personally reviewed and interpreted this ECG as follows: <MIKAYLA Jones - Last Filed: 02/11/22 16:16> ECG interpretation date: 02/11/22 <MIKAYLA Jones - Last Filed: 02/11/22 16:16> ECG interpretation time: 14:29 <MIKAYLA Jones - Last Filed: 02/11/22 16:16> Prior ECG tracings: available for review <MIKAYLA Jones - Last Filed: 02/11/22 16:16> Interpretation: Sinus tachycardia, heart rate 109 bpm, normal [place] interval, normal QTc, no ST segment elevations or depressions <MIKAYLA Jones Last Filed: 02/11/22 16:16> Discharge Plan Discharge Clinical Impression: Chest pain, Hypertension <MIKAYLA Jones Last Filed: 02/11/22 16:16> Patient Disposition: Still a Patient <MIKAYLA Jones Last Filed: 02/11/22 16:16> Instructions: Chest Pain (DC), Hypertension (ED) <MIKAYLA Jones - Last Filed: 02/11/22 16:16> Additional Instructions: Your lab workup today was normal. Your EKG did not show any strain on your heart. Your chest x-ray was normal. Your CT scan did not show any blood clots. Recommend following up with your doctor next week. If you develop new or worsening symptoms call 911 or come back to the ER for f urther evaluation. CT/CT angio chest PE protocol IMPRESSION: The study is significantly limited by patient respiratory motion artifact. No central pulmonary embolus seen. Consider lower extremity duplex examinations and/or perfusion scintigraphy as clinically indicated. ? Diffuse mosaic lung attenuation and central bronchial wall thickening consistent with small airways disease. The findings are worsened since the 2020 CTA. ? VTE: indeterminate US/US venous duplex LE BI IMPRESSION: No DVT demonstrated in the bilateral lower extremities. <MIKAYLA Jones - Last Filed: 02/11/22 16:16> Prescriptions: No Action propranolol 20 mg tablet 20 mg PO BID Qty: 180 1RF losartan 25 mg tablet 25 mg PO DAILY 90 Days Qty: 90 1RF sennosides [senna] 8.6 mg tablet 8.6 mg PO BEDTIME PRN (Reason: for constipation) Qty: 30 0RF simethicone [Gas Relief (simethicone)] 180 mg capsule 180 mg PO QID PRN (Reason: abdominal distention) Qty: 120 6RF tizanidine 4 mg tablet 4 mg PO TID PRN (Reason: muscle spasticity) 30 Days Qty: 90 2RF amitriptyline 25 mg tablet 25 mg PO BEDTIME 30 Days Qty: 30 2RF hydrocortisone [Proctosol HC] 2.5 % cream with perineal applicator 1 appl [place] BID Qty: 30 6RF clonidine HCl 0.1 mg tablet 0.1 mg PO BID PRN (Reason: for anxiety) Qty: 180 0RF aspirin 81 mg tablet,delayed release (DR/EC) 81 mg PO DAILY Qty: 30 3RF docusate sodium 100 mg capsule 100 mg PO BID Qty: 60 0RF Hold Instructions: Doctor's Order clonazepam 0.5 mg tablet 0.5 mg PO DAILY 30 Days Qty: 30 1RF Rx Instructions: Take 1 tablet orally daily in the MORNING zolpidem 12.5 mg tablet,ext release multiphase 12.5 mg PO BEDTIME Qty: 30 1RF tramadol 50 mg tablet See Rx Instructions PO BID 28 Days Qty: 112 0RF Rx Instructions: 1 to 2 tablets PO 2 times a day; clonazepam 1 mg tablet 1 mg PO DAILY PRN (Reason: anxiety) 30 Days Qty: 30 1RF prazosin 2 mg capsule 2 mg PO BID ondansetron 4 mg tablet,disintegrating 4 mg PO Q8H PRN (Reason: nausea and vomiting) 30 Days Qty: 90 1RF ropinirole 0.25 mg tablet 0.25 mg PO BEDTIME quetiapine [Seroquel] 100 mg tablet 100 mg PO BEDTIME bupropion HCl 150 mg tablet extended release 24 hr 150 mg PO QAM Creon 24,000-76,000 -120,000 unit capsule,delayed release(DR/EC) 1 cap PO QID Qty: 120 6RF Hold Instructions: Doctor's Order pantoprazole [Protonix] 40 mg tablet,delayed release (DR/EC) 40 mg PO DAILY 30 Days Qty: 30 6RF tamsulosin 0.4 mg capsule 0.4 mg PO DAILY sucralfate [Carafate] 1 gram tablet 2 g PO QNOON Qty: 60 3RF clonazepam 1 mg tablet 1 mg PO BEDTIME PRN (Reason: anxiety) acetaminophen 500 mg tablet 500 mg PO TID PRN (Reason: pain) 30 Days Qty: 90 2RF diclofenac sodium 1 % gel 2 g topical BID Qty: 100 4RF Rx Instructions: Apply 2 g to painful joint twice daily as needed. ropinirole 0.5 mg tablet 0.5 mg PO BEDTIME <MIKAYLA Jones - Last Filed: 02/11/22 16:16> Referrals: Marcial David MD [Primary Care Provider] - <MIKAYLA Jones - Last Filed: 02/11/22 16:16>
[2022-02-11 14:30] VITALS: BP 148/87; PULSE 100; RESP 15; TEMP 36.8; O2SAT 100
[2022-02-11 14:32] VITALS: BP 130/84; PULSE 102
[2022-02-11 14:36] VITALS: BP 143/92; PULSE 96
[2022-02-11 14:37] VITALS: BP 134/96; PULSE 102
[2022-02-11 15:03] LABS: MANUAL DIFF FLAG NO
[2022-02-11 15:05] LABS: Basophils Percent Auto 0.4 % (0-2); Eosinophils Absolute Auto 0.2 X10*3/uL (0.0-0.4); Eosinophils Percent Auto 2.5 % (0-4); Hematocrit 45.9 % (42.0-52.0); Hemoglobin 15.4 g/dl (14.0-18.0); Imm Gran Abs Auto 0.02 X10*3/uL (0.00-0.03); Imm Gran Pct Auto 0.2 % (0.0-0.4); Lymphocytes Absolute Auto 2.9 X10*3/uL (1.2-4.9); Lymphocytes Percent Auto 29.8 % (20-40); Mean Corpuscular HGB Conc 33.6 g/dl (31.0-36.0); Mean Corpuscular Hemoglobin 27.1 pg (27.0-33.0); Mean Corpuscular Volume 80.7 fL (80.0-98.0); Mean Platelet Volume 10.2 fL (9.4-12.4); Monocytes Absolute Auto 0.9 X10*3/uL (0.1-1.2); Monocytes Percent Auto 8.7 % (2-11); Neutrophils Absolute Auto 5.7 x10*3/uL (2.0-8.3); Neutrophils Percent Auto 58.4 % (45-73); Platelet Count 258 X10*3/uL (160-400); Red Blood Count 5.69 X10*6/uL (4.60-5.80); Red Cell Distribution Width 13.2 % (11.0-16.0); White Blood Count 9.8 X10*3/uL (4.8-10.8)
[2022-02-11 15:12] LABS: D Dimer High Sensitivity 2038 NG/ML
--- NOTE | 2022-02-11 15:14 | PC.NURSE ---
pt alert and oriented, skin appropriate for ethnicity, pt reports intermitted midsternal chest pain that is resolved at this time, but feeling dizzy like he was on the boat since yesterday, all nuro's intact vs stable and sinus to tachy sinus on the monitor.
[2022-02-11 15:16] LABS: COVID-19 Test Negative (Negative); IDNOW Serial# 16C4AD1C
[2022-02-11 15:30] LABS: Alanine Aminotransferase 21 U/L (0-40); Albumin Level 4.3 g/dL (3.5-5.0); Alkaline Phosphatase 87 U/L (39-117); Anion Gap 17 (12-20); Aspartate Amino Transferase 18 U/L (5-37); Bilirubin Direct 0.2 mg/dL (0.0-0.5); Bilirubin Total 0.5 mg/dL (0.0-1.0); Blood Urea Nitrogen 12 mg/dL (9-16); Calcium 9.1 mg/dL (8.4-10.2); Carbon Dioxide 23 mmol/L (22-29); Chloride 104 mmol/L (96-108); Creatinine Clr Calc Pharmacy 111.1; Estimated Glomerular Filt Rate > 60; Glucose Random 80 mg/dL (60-115); Magnesium 2.1 mg/dL (1.6-2.6); Potassium 4.2 mmol/L (3.3-5.1); Sodium 140 mmol/L (135-145); Total Protein 7.2 g/dL (6.5-8.0)
[2022-02-11 15:36] LABS: Troponin-I High Sensitivity < 3.5 ng/L (<3.5-35.0)
[2022-02-11] MEDS: iohexoL 350 MG/ML 100 ML INFUS..BTL IV (16:12)
[2022-02-11] MEDS: Losartan Potassium 25 MG TABLET PO (17:52)
[2022-02-11 18:26] VITALS: BP 146/88; PULSE 78
== END 2022-02-11 18:34 | disposition still patient (30) ==
PROVIDERS: Physician Assistant; Emergency Provider Emergency Medicine; PCP Internal Medicine
DX: R07.9 Chest pain, unspecified (principal); I10 Essential (primary) hypertension; R79.1 Abnormal coagulation profile; R06.02 Shortness of breath; Z20.822 Contact with and (suspected) exposure to COVID-19; F41.9 Anxiety disorder, unspecified; E66.9 Obesity, unspecified; Z68.30 Body mass index [BMI] 30.0-30.9, adult; Z79.899 Other long term (current) drug therapy; Z87.891 Personal history of nicotine dependence
CPT/HCPCS: 36415; 71045; 71275; 80048; 80076; 83735; 84484; 85025; 85379; 87635; 93005; 93970; 99284; 99285; Q9967

== ENCOUNTER 2022-02-22 06:47 | Outpatient (REF) | payer MEDICARE, MEDICAID, SELFPAY ==
[2022-02-22 07:35] LABS: C Reactive Protein 0.71 mg/dL (< or = 0.50)
[2022-02-25 13:44] LABS: Transglutaminase Ab IgG <1.0 U/mL; Transglutaminase IgA <1.0 U/mL
== END 2022-02-22 06:48 | disposition home or self-care (01) ==
LOC: HO.LAB 06:47
PROVIDERS: PCP Internal Medicine; Visit Provider Nurse Practitioner
DX: R19.7 Diarrhea, unspecified (principal)
CPT/HCPCS: 36415; 86003; 86140; 86364

== ENCOUNTER → 2022-02-23 14:58 | Outpatient (BNVA) | payer MEDICARE, MEDICAID, SELFPAY | PROVIDERS: PCP Internal Medicine; Referring Provider Internal Medicine; Visit Provider Nurse Practitioner | DX: K81.1 Chronic cholecystitis (principal); K58.2 Mixed irritable bowel syndrome; K21.9 Gastro-esophageal reflux disease without esophagitis; R11.2 Nausea with vomiting, unspecified; R14.0 Abdominal distension (gaseous) | CPT/HCPCS: 99212 ==

== ENCOUNTER 2022-03-03 06:59 | Outpatient (REF) | payer MEDICARE, MEDICAID, SELFPAY ==
--- NOTE | ~2022-03-03 | US_ITS ---
EXAMINATION: US ABDOMEN LIMITED CLINICAL INFORMATION: Unspecified abdominal pain. COMPARISON: CT abdomen and pelvis 02/04/2022. Ultrasound abdomen limited 12/08/2020. Ultrasound abdomen complete 04/23/2020. TECHNIQUE: Real-time imaging of the right upper quadrant abdominal viscera. FINDINGS: PANCREAS: Normal. LIVER: The liver is normal in size. The liver contour is normal. Liver echotexture is slightly increased. No focal hepatic lesion. There is no intrahepatic biliary duct dilatation seen. GALLBLADDER: The gallbladder is physiologically distended. Multiple mobile gallstones are present. No evidence of gallbladder wall thickening or pericholecystic fluid. COMMON BILE DUCT: Normal in caliber measuring 0.3 cm in diameter. RIGHT KIDNEY: Normal. No hydronephrosis. No renal calculi or focal parenchymal lesions. The kidney measures 11.2 cm in maximum dimension. FREE FLUID: None. US/US abdomen limited IMPRESSION: Gallstones. Slightly echogenic liver.
== END 2022-03-03 07:00 | disposition home or self-care (01) ==
LOC: HO.US 06:59
PROVIDERS: Visit Provider Surgery
DX: R10.9 Unspecified abdominal pain (principal)
CPT/HCPCS: 76705

== ENCOUNTER → 2022-03-09 13:23 | Outpatient (BNVA) | payer MEDICARE, MEDICAID, SELFPAY | PROVIDERS: PCP Internal Medicine; Visit Provider Student in an Organized Health Care Education/Training Program | DX: M17.0 Bilateral primary osteoarthritis of knee (principal) | CPT/HCPCS: 20610; 99212 ==

== ENCOUNTER → 2022-03-10 10:40 | Outpatient (BNVA) | payer MEDICARE, MEDICAID, SELFPAY | PROVIDERS: PCP Internal Medicine; Visit Provider Surgery | DX: K42.9 Umbilical hernia without obstruction or gangrene (principal); K80.20 Calculus of gallbladder without cholecystitis without obstruction | CPT/HCPCS: 99212 ==

== ENCOUNTER 2022-04-13 07:39 | Day surgery (SDC) | payer MEDICARE, MEDICAID, SELFPAY ==
[2022-03-31 09:20] VITALS: BMI 30.9
--- NOTE | 2022-04-12 09:21 | P.CONAN_ITS ---
Documented by User: Ailyn Jalloh NP 04/12/22 09:28 HPI - Anesthesia Eval Consult details Narrative: 61yo M for Hernia Repair Umbilical possible mesh Plan for lap padilla after recovery from hernia repair. [facility] Active Problems Active Problems: All Active Problems (Updated 03/22/22 @ 22:59 by Marcial David MD) Anxiety (Acute) Insomnia (Acute) GERD (gastroesophageal reflux disease) (Acute) Lumbar degenerative disc disease (Acute) Depression with anxiety (Acute) Chronic low back pain (Acute) Abdominal bloating (Acute) Family history of gastric cancer (Acute) External hemorrhoid (Acute) Bilateral anterior knee pain (Acute) Irritable bowel syndrome with both constipation and diarrhea (Acute) Umbilical pain (Acute) Encounter for Medicare annual wellness exam (Acute) Tubular adenoma of colon (Acute) Umbilical hernia (Acute) Gallstones (Acute) Polyarthralgia (Acute) Fatigue (Acute) Hyperglycemia (Acute) Dyspepsia (Acute) Chronic cholecystitis (Acute) Pain, dental (Acute) Screening for diabetes mellitus (Acute) Elevated fasting glucose (Acute) Annual physical exam (Acute) Bilateral primary osteoarthritis of knee (Acute) Diarrhea (Acute) Nausea and vomiting (Acute) Acute lumbar myofascial strain (Acute) Gallstones (Acute) Umbilical hernia (Acute) Abdominal pain (Acute) Primary osteoarthritis, left shoulder (Acute) Obesity (BMI 30-39.9) (Acute) Primary osteoarthritis of shoulders, bilateral (Acute) Benign essential hypertension (Acute) Elevated d-dimer (Acute) Left-sided chest wall pain (Acute) Left elbow tendinitis (Acute) Elevated blood pressure reading (Acute) Overweight (BMI 25.0-29.9) (Acute) Depression (Acute) Excessive sweating (Acute) Past Medical History Medical History Abdominal pain Benign essential hypertension Chronic abdominal pain Constipation Depression Elevated blood pressure reading Elevated d-dimer Excessive sweating Gallstones IBS (irritable bowel syndrome) Left elbow tendinitis Left-sided chest wall pain Obesity (BMI 30-39.9) Overweight (BMI 25.0-29.9) Primary osteoarthritis of shoulders, bilateral Primary osteoarthritis, left shoulder Primary osteoarthritis, right shoulder Tubular adenoma of colon Umbilical hernia Family History Family History Father Stomach cancer Mental health problem Mother AIDS Sister PALMER (non-insulin dependent diabetes mellitus in young) Hypertension Other Substance abuse Surgical History Surgical History H/O colonoscopy H/O esophagogastroduodenoscopy H/O inguinal hernia repair History of varicose vein ligation and stripping S/P tendon repair Status post pericardial cyst excision (~02/13/19) Social History Social History Household Members: Children Housing: Apartment Are you a primary specialist wound care to a significant other at home: No Do you presently have visiting nurse or other home services: Yes ([employer]) Alcohol intake: never Patient Tobacco Use Status: Former Tobacco user Quit Date: 2006 Tobacco use type: Cigarette Cigarettes Per Day: 40 Years Smoked: quit greater than 10 years ago e-Cigarette/Vaping Use: Never Used Second Hand Smoke Exposure: No Use of substances other than those prescribed or required for medical reasons: Yes Substance Use Frequency: Occasionally Have you been hit, kicked, punched, or otherwise hurt by someone within the past year? If so, by whom?: No Are you DNR?: No Advance Directives: Yes Advance Directives Information Provided: Yes Advance Directives on File: Yes Advance Directives Date on File: 07/11/20 Recently lost weight without trying: No Eating poorly because of decreased appetite: No Nutrition Risks: No Nutritional Risk Poor oral hygiene: Yes (no teeth-upper/missing teeth-lower (no dentures)) Current occupational status: disabled Cognitive needs: No Hearing needs: No Vision needs: Yes Meds Allergies Allergy/AdvReac Type Severity Reaction Status Date / Time seafood Allergy Severe anaphylaxis Verified 03/17/22 14:16 duloxetine Allergy Intermediate N/V, Verified 03/31/22 08:43 diarrhea, shakiness, withdrawal symptoms gabapentin Allergy Intermediate confusion/memory Verified 03/17/22 14:16 loss/hallucination lactase [LACTASE] Allergy Intermediate Nausea Verified 03/31/22 08:43 Home Medications Medication Instructions Recorded Confirmed Last Taken Type bupropion HCl 150 mg 24 hr tablet, 150 mg PO QAM 05/12/22 01/11/23 01/22/23 History extended release quetiapine 50 mg tablet 50 mg PO BID 02/23/22 03/31/22 04/12/22 History Exam Exam Date and Time: April 12, 2022 0921 Height,Weight and Vital Signs: Height 6 ft Weight 103.419 kg Pertinent Lab Results Pertinent Lab Results: Laboratory Tests 02/11/22 02/11/22 14:56 14:56 WBC 9.8 Hgb 15.4 Hct 45.9 Plt Count 258 Sodium 140 Potassium 4.2 Chloride 104 Carbon Dioxide 23 BUN 12 Creatinine 0.88 Narrative Narrative: EKG 01/2022 Vent. Rate : 109 BPM ? ? Atrial Rate : 109 BPM ?? P-R Int : 164 ms? QRS Dur : 094 ms ? ? QT Int : 322 ms ? ? ? P-R-T Axes : 051 -22 046 degrees ?? QTc Int : 433 ms ? Sinus tachycardia Left axis deviation Borderline ECG When compared with ECG of 04-FEB-2022 06:20, Vent. rate has increased BY? 42 BPM Assessment and Plan Assessment Anesthesia Assessment: Chart Reviewed Documented by User: Kevin Katz MD 04/13/22 08:39 PMFSH Past Medical History Medical History Abdominal pain Benign essential hypertension Chronic abdominal pain Constipation Depression Elevated blood pressure reading Elevated d-dimer Excessive sweating Gallstones IBS (irritable bowel syndrome) Left elbow tendinitis Left-sided chest wall pain Obesity (BMI 30-39.9) Overweight (BMI 25.0-29.9) Primary osteoarthritis of shoulders, bilateral Primary osteoarthritis, left shoulder Primary osteoarthritis, right shoulder Tubular adenoma of colon Umbilical hernia Family History Family History Father Stomach cancer Mental health problem Mother AIDS Sister NIDDY (non-insulin dependent diabetes mellitus in young) Hypertension Other Substance abuse Family history of problems with anesthesia: No Surgical History Surgical History H/O colonoscopy H/O esophagogastroduodenoscopy H/O inguinal hernia repair History of varicose vein ligation and stripping S/P tendon repair Status post pericardial cyst excision (~02/13/19) History of Problems with Anesthesia: No Social History Social History Household Members: Children Housing: Apartment Are you a primary specialist wound care to a significant other at home: No Do you presently have visiting nurse or other home services: Yes ([employer]) Alcohol intake: never Patient Tobacco Use Status: Former Tobacco user Quit Date: 2006 Tobacco use type: Cigarette Cigarettes Per Day: 40 Years Smoked: quit greater than 10 years ago e-Cigarette/Vaping Use: Never Used Second Hand Smoke Exposure: No Use of substances other than those prescribed or required for medical reasons: Yes Substance Use Frequency: Occasionally Have you been hit, kicked, punched, or otherwise hurt by someone within the past year? If so, by whom?: No Are you DNR?: No Advance Directives: Yes Advance Directives Information Provided: Yes Advance Directives on File: Yes Advance Directives Date on File: 07/11/20 Recently lost weight without trying: No Eating poorly because of decreased appetite: No Nutrition Risks: No Nutritional Risk Poor oral hygiene: Yes (no teeth-upper/missing teeth-lower (no dentures)) Current occupational status: disabled Cognitive needs: No Hearing needs: No Vision needs: Yes Meds Allergies Allergy/AdvReac Type Severity Reaction Status Date / Time seafood Allergy Severe anaphylaxis Verified 03/17/22 14:16 duloxetine Allergy Intermediate N/V, Verified 03/31/22 08:43 diarrhea, shakiness, withdrawal symptoms gabapentin Allergy Intermediate confusion/memory Verified 03/17/22 14:16 loss/hallucination lactase [LACTASE] Allergy Intermediate Nausea Verified 03/31/22 08:43 Home Medications Medication Instructions Recorded Confirmed Last Taken Type bupropion HCl 150 mg 24 hr tablet, 150 mg PO QAM 07/30/21 03/31/22 04/11/22 History extended release quetiapine 50 mg tablet 50 mg PO BID 02/23/22 03/31/22 04/12/22 History Exam Airway Mallampati Class: III TM Dist: >3cm Neck ROM: Limited Loose/Missing/Broken Teeth: No Heart: rrr Lungs: cta Assessment and Plan Final Anesthetic Review Family History of Problems with Anesthesia: No History of Problems with Anesthesia: No NPO: Yes ASA Class: III Final Preanesthetic Review: No Changes in Pt Med Stat, Meds/Allgs Chart Reviewed, Consent Obtained/Reviewed and Anes Risks/Benef Reviewed Patient Risk: Intermediate Procedure Risk: Low Anesthetic Plan Anesthetic Plan: GA and Agree w/ Assess. and Plan Disposition: Standard PACU
[2022-04-13] VITALS (13 sets, daily range): BP systolic 123–150; BP diastolic 73–89; PULSE 54–71; RESP 7–20; TEMP 36.4–36.8; O2SAT 89–99
[2022-04-13] MEDS: Lactated Ringers 1,000 ML 100 ML IVCONT (08:24)
--- NOTE | 2022-04-13 09:25 | P.OP_ITS ---
Operative Note Operative Note Date of Service: 04/13/22 Narrative: Preop diagnosis: Umbilical hernia Postop diagnosis: Umbilical hernia, reducible partially Procedure: Repair of umbilical hernia with Ventralex mesh Surgeon: Seun Saenz MD legal administrative assistant: MIKAYLA Dee The patient is a 61-year-old male the partially reducible umbilical hernia. He wanted to proceed with repair. He understood the technique of repair with mesh. He was aware of the risks, benefits, and alternatives. He was brought to the operating room and placed supine under general anesthesia via laryngeal mask airway. The abdomen is prepped and draped in the usual sterile fashion. A surgical time-out was done. The patient received cefazolin 2 g IV preoperatively I infiltrated the planned line of incision with lidocaine 1%. The hernia was seen in the mostly in the infraumbilical margin. I made a curvilinear transverse incision in the umbilical margin using a blade 15. This was carried down with electrocautery through the full-thickness of the skin subcutaneous fat. The hernia was then visualized. This was fat containing. I did sharp dissection to separate the entire umbilicus off of the hernia. I then proceeded to continue to sharply dissect the hernia contents off of the rest of the subcutaneous layer down to the fascial defect. I proceeded to divide bands tethering the hernia contents to the fascial edge until I was able to completely reduce the hernia. The fascial defect was about 0.5 cm in diameter. There were clear margins around the fascia so I positioned the small-sized Ventralex mesh under the fascia. This was flattened. I secured the Prolene st raps of the mesh to the fascial layer with Prolene 2 suture. The Prolene straps were then trimmed flush on the fascial level I closed the fascia with a [id number] Maxon 1 stitch. I irrigated. The umbilicus was tacked down to the fascia to recreate the dimple. Subcutaneous layer was reapposed with Dexon 3-0 interrupted sutures. Skin closure was achieved with Dexon 4-0 subcuticular running sutures. The area was infiltrated with Marcaine 0.5 % for postop analgesia. Dressings were applied. The procedure was completed The patient tolerated procedure well. There were no immediate complications. Initial and final counts of sponges and instruments were correct. Estimated blood loss was less than 5 cc. The patient was extubated without difficulty and transferred to the recovery room with stable vital signs.
[2022-04-13] MEDS: Acetaminophen 325 MG TABLET 650 MG PO (10:15)
[2022-04-13] MEDS: fentaNYL citrate/PF 100 MCG/2 ML VIAL 25 MCG IVPUSH ×3 (10:16→10:30)
[2022-04-13] MEDS: oxyCODONE HCl Immed Release 5 MG TABLET PO (10:26)
== END 2022-04-13 11:35 | disposition home or self-care (01) ==
PROVIDERS: PCP Internal Medicine; Visit Provider Surgery
PROC: (CPT 49591; principal; 2022-04-13 10:00)
DX: K42.9 Umbilical hernia without obstruction or gangrene (principal); K58.9 Irritable bowel syndrome, unspecified; K59.00 Constipation, unspecified; I10 Essential (primary) hypertension; K80.20 Calculus of gallbladder without cholecystitis without obstruction; E66.9 Obesity, unspecified; Z68.31 Body mass index [BMI] 31.0-31.9, adult; Z79.82 Long term (current) use of aspirin; Z79.899 Other long term (current) drug therapy; Z88.8 Allergy status to other drugs, medicaments and biological substances; Z87.891 Personal history of nicotine dependence
CPT/HCPCS: 49591; C1781; J0690; J1100; J1885; J2405; J2795; J3010

== ENCOUNTER → 2022-04-20 14:35 | Outpatient (BNVA) | payer MEDICARE, MEDICAID, SELFPAY | PROVIDERS: PCP Internal Medicine; Referring Provider Internal Medicine; Visit Provider Nurse Practitioner | DX: K21.9 Gastro-esophageal reflux disease without esophagitis (principal); K58.2 Mixed irritable bowel syndrome; R14.0 Abdominal distension (gaseous); K80.10 Calculus of gallbladder with chronic cholecystitis without obstruction; R11.2 Nausea with vomiting, unspecified; Z79.899 Other long term (current) drug therapy | CPT/HCPCS: 99212 ==

== ENCOUNTER → 2022-04-26 09:22 | Outpatient (BNVA) | payer MEDICARE, MEDICAID, SELFPAY | PROVIDERS: PCP Internal Medicine; Visit Provider Surgery | DX: Z13.89 Encounter for screening for other disorder (principal) | CPT/HCPCS: 99212 ==

== ENCOUNTER 2022-06-02 12:28 | Outpatient (REF) | payer MEDICARE, MEDICAID, SELFPAY ==
--- NOTE | ~2022-06-02 | XR_ITS ---
EXAMINATION: XR SHOULDER, RIGHT CLINICAL INFORMATION: Right shoulder pain, osteoarthritis COMPARISON: None available. TECHNIQUE: AP external rotation, Grashey, scapular Y, and axillary views of the right shoulder. FINDINGS: There is a moderate subacromial spur. No fracture. Glenohumeral and acromioclavicular alignment is anatomic with normal joint space. No abnormal soft tissue calcifications. XR/XR shoulder RT min 2V IMPRESSION: Moderate subacromial spur. Joint spaces are otherwise well-maintained
--- NOTE | ~2022-06-02 | XR_ITS ---
EXAMINATION: XR SHOULDER, LEFT CLINICAL INFORMATION: Left shoulder pain, osteoarthritis COMPARISON: None available. TECHNIQUE: AP external rotation, Grashey, scapular Y, and axillary views of the left shoulder. FINDINGS: The bones and soft tissues are normal. No fracture. Glenohumeral and acromioclavicular alignment is anatomic with normal joint space. No abnormal soft tissue calcifications. XR/XR shoulder LT min 2V IMPRESSION: Normal left shoulder.
== END 2022-06-02 12:29 | disposition home or self-care (01) ==
LOC: HO.XRAY 12:28
PROVIDERS: PCP Internal Medicine; Visit Provider Student in an Organized Health Care Education/Training Program
DX: M19.011 Primary osteoarthritis, right shoulder (principal); M19.012 Primary osteoarthritis, left shoulder
CPT/HCPCS: 20610; 73030; 99212

== ENCOUNTER 2022-07-20 14:11 | Outpatient (AMB) | payer MEDICARE, MEDICAID, SELFPAY ==
[2022-07-20 14:12] VITALS: BP 124/80; PULSE 76; O2SAT 98
--- NOTE | 2022-07-20 14:12 | MHC.PC.OV ---
Vital Signs 07/20/22 14:12 Height 6 ft Weight 221 lb 8 oz BMI 30.0 BP 124/80 Blood Pressure Location Lt brachial Position Sitting Pulse 76 Pulse Source Pulse Oximeter Pulse Oximetry (%) 98 Oxygen Delivery Method Room Air Intake Visit Reasons: HTN, OA, chronic low back pain, GERD Intake Note: Patient is here to follow up on HTN, OA, chronic low back pain, and GERD. Automated Teller Manager Required: No Accompanied by: Self / Same As Patient Allergies seafood Allergy (Severe, Verified 05/04/23 15:31) Anaphylaxis duloxetine Allergy (Intermediate, Verified 05/04/23 15:31) N/V, diarrhea, shakiness, withdrawal symptoms gabapentin Allergy (Intermediate, Verified 05/04/23 15:31) confusion/memory loss/hallucination lactase [LACTASE] Allergy (Intermediate, Verified 05/04/23 15:31) Nausea Medication List - Last Reconciled 07/20/22 by Marcial David MD acetaminophen 500 mg PO TID PRN amitriptyline 25 mg PO BEDTIME 30 days aspirin 81 mg PO DAILY bupropion HCl 150 mg PO QAM clonazepam 0.5 mg PO DAILY 30 days clonazepam 1 mg PO BEDTIME PRN clonidine HCl 0.1 mg PO BID PRN 90 days diclofenac sodium 1% 2 grams topical BID docusate sodium 100 mg PO BID hydrocortisone 2.5% (Proctosol HC) 1 appl MA BID ksohox-tliiygys-urczlir 24,000-76,000 -120,000 unit (Creon) 1 cap PO QID losartan 25 mg PO DAILY 90 days pantoprazole (Protonix) 40 mg PO DAILY 30 days quetiapine 50 mg PO BID sennosides (senna) 17.2 mg (2 x 8.6 mg) PO BEDTIME simethicone (Gas Relief (simethicone)) 180 mg PO QID PRN sucralfate (Carafate) 2 grams (2 x 1 gram) PO QNOON 90 days tizanidine 4 mg PO TID PRN 30 days tramadol 1 to 2 tablets PO 2 times a day; 28 days zolpidem ER 12.5 mg PO BEDTIME Tobacco use date assessed: 07/20/22 HPI HTN, OA, chronic low back pain, GERD HPI Details Patient comes in today for his follow up visit States that he is now seeing a Dr. Dietrcih at [facility] for his chronic low back pain States that he has received 1 injection into his lower back this year so far Relates that he has noticed that his blood pressure seems to be higher often in the afternoon lately (more or less around 2 pm) States that he has been taking his blood pressure medication (Losartan 25 mg) daily regularly around 7 am in the morning He continues to experiencing on and off brief sensations of palpitations at times in the afternoon lately; he denies any chest pains or increased SOB He denies any headaches or dizziness No nausea/vomiting, no abdominal pain No change in bowel habits noted Needs his Ondansetron Rx refilled today [facility] Medical History (Updated 05/08/23 @ 18:42 by Marcial David MD) Bilateral knee pain Umbilical hernia (04/13/22) Gallstones Diarrhea Chronic abdominal pain Abdominal pain Screening for diabetes mellitus Obesity (BMI 30-39.9) Chronic cholecystitis Dyspepsia Primary osteoarthritis of shoulders, bilateral Benign essential hypertension Encounter for Medicare annual wellness exam Elevated d-dimer Left-sided chest wall pain Left elbow tendinitis Overweight (BMI 25.0-29.9) Excessive sweating Primary osteoarthritis, right shoulder Primary osteoarthritis, left shoulder Constipation Tubular adenoma of colon Surgical History Hx laparoscopic cholecystectomy (~10/08/22) Hx of umbilical hernia repair History of incision and drainage H/O esophagogastroduodenoscopy H/O colonoscopy Status post pericardial cyst excision (~02/13/19) History of varicose vein ligation and stripping H/O inguinal hernia repair S/P tendon repair Family History Father Stomach cancer Mental health problem Mother AIDS Sister NIDDY (non-insulin dependent diabetes mellitus in young) Hypertension Other Substance abuse Social History Household Members: Children Housing: Apartment Are you a primary critical care clinical nurse specialist to a significant other at home: No Do you presently have visiting nurse or other home services: Yes ([employer]) Alcohol intake: never Patient Tobacco Use Status: Former Tobacco user Quit Date: 13 years ago Tobacco use type: Cigarette Cigarettes Per Day: 40 Years Smoked: quit greater than 10 years ago e-Cigarette/Vaping Use: Never Used Second Hand Smoke Exposure: No Advance Directives Date on File: 07/11/20 Current occupational status: disabled Cognitive needs: No Hearing needs: No Vision needs: Yes Questionnaire PHQ-9 Over the last 2 weeks, how often have you been bothered by any of the following problems? 1. Little interest or pleasure in doing things: several days 2. Feeling down, depressed, or hopeless: several days 3. Trouble falling or staying asleep, or sleeping too much: several days 4. Feeling tired or having little energy: several days 5. Poor appetite or overeating: several days 6. Feeling bad about yourself - or that you are a failure or have let yourself or your family down: not at all 7. Trouble concentrating on things, such as reading the newspaper or watching television: several days 8. Moving or speaking so slowly that other people could have noticed. Or the opposite - being so fidgety or restless that you have been moving around a lot more than usual: not at all 9. Thoughts that you would be better off or of hurting yourself in some way: not at all Total score: 6 Depression Screening Interpretation: Positive (on Rx) Depression Screening Follow-up: Existing condition and In treatment 86447 - PHQ-9 Billing: Yes Source: Developed by Drs. Bro Guillermo, Dimple Lawson, Bulmaro Tavares and colleagues, with an educational sofie from [employer]. Thrive Questionnaire Declines Thrive assessment: No Date Thrive assessed: 07/20/22 I am a: Patient What is your living situation today?: I have a steady place to live Within the past 12 months, did the food you bought not last and you didn't have the money to get more?: Never true Within the past 12 months, did you worry whether your food would run out before you got money to buy more?: Never true Do you have trouble paying for medicines?: No Do you have trouble getting transportation to medical appointments?: No Do you have trouble paying your heating and electricity bill?: No Do you have trouble taking care of your child, family member or friend?: No Do you have trouble with day-to-day activities such as bathing, preparing meals, shopping, managing finances, etc.?: No Are you currently unemployed and looking for a job?: No Are you interested in more education?: No Currently or been in a relationship where the following occur: no concerns reported AUDIT C Alcohol Use Questionnaire (AUDIT-C) 1. How often do you have a drink containing alcohol?: Never 3. How often do you have six or more drinks on one occasion?: Never Total Score: 0 Score Reviewed/Action Taken: Yes GANESH-7 AMB Questionnaire GANESH-7 Date GANESH - 7 assessed: 07/20/22 Feeling nervous, anxious, or on edge: 0 = Not at all Not being able to stop or control worryin = Not at all Worrying too much about different things: 0 = Not at all Trouble relaxin = Not at all Being so restless that it is hard to sit still: 0 = Not at all Becoming easily annoyed or irritable: 0 = Not at all Feeling afraid as if something awful might happen: 0 = Not at all Total GANESH-7 score (0-4 normal; 5-9 mild; 10-14 moderate; 15-21 severe): 0 Source: Developed by Drs. Bro Guillermo, Dimple Lawson, Bulmaro Tavares and colleagues, with an educational sofie from [employer]. Review of Systems Const Reports difficulty sleeping (Rx helping), Reports fatigue, Denies fever(s) and Denies headache(s) ENT Denies dysphagia, Denies dizziness, Denies otalgia, Denies headache(s), Denies neck pain, Denies odynophagia and Denies sore throat Card Denies chest pain, Denies palpitations and Reports dyspnea on exertion (mild) Resp Denies cough, Reports dyspnea on exertion (mild) and Denies wheezing GI Denies abdominal pain, Denies constipation (improved with Rx), Denies dysphagia, Denies heartburn, Reports loose stools (occasionally), Denies nausea, Denies odynophagia and Denies vomiting Denies dysuria and Denies urinary frequency Musc Reports back pain (chronic ), Reports arthralgias (involving multiple joints, including both shoulders ; over R knee lately) and Denies neck pain Neuro Denies dizziness and Denies headache(s) Psych Reports anxiety and Reports depression Endo Reports fatigue and Denies palpitations Aller/Immun Denies wheezing Physical exam (Primary Care) Vital Signs: Last Vital Signs Pulse 76 07/20/22 14:12 BP 124/80 07/20/22 14:12 Pulse Ox 98 07/20/22 14:12 Oxygen Delivery Method Room Air 07/20/22 14:12 BMI result Body Mass Index 30.0 Tobacco/Smoking Status: Tobacco use Status Tobacco use date assessed 07/20/22 07/20/22 14:20 Patient Tobacco Use Status Former Tobacco user 07/20/22 14:20 Tobacco use type Cigarette 07/20/22 14:20 e-Cigarette/Vaping Use Never Used 07/20/22 14:20 PHQ-9: PHQ-9 Score PHQ-9: Total score 6 07/20/22 14:52 Depression Screening Interpretation: Positive (on Rx) Depression Screening Follow-up: Existing condition and In treatment Thrive Assessment: Date of Thrive Assessment Date Thrive assessed 07/20/22 07/20/22 14:20 Currently or been in a relationship where the following occur: no concerns reported Const General: no acute distress and alert HENMT Ears: TM's normal bilaterally and EAC's normal Throat: Yes posterior oropharynx normal and Yes tonsils normal (no TP congestion) Neck Neck: Yes no lymphadenopathy and Yes supple Thyroid: Thyroid normal Resp Auscultation: clear to auscultation bilaterally, no rales and no wheezes Cardio Rate: regular rate Rhythm: regular rhythm Heart sounds: no murmurs GI Palpation (GI): Soft to palpation and nontender Auscultation: normal bowel sounds Back/Spine/Pelvis Cervical Spine: No Cervical spine tenderness Thoracic/Lumbar Spine: lumbar spinal tenderness Skin Rashes: no rashes Extrem General: Yes no clubbing, cyanosis or edema Right lower extremity: knee Details: tenderness; no swelling Left lower extremity: knee Details: tenderness; no swelling Assessment and Plan Assessment & Plan (1) Palpitations: Code(s): R00.2 - Palpitations Plan: Will send him for some labs RENALDO for further evaluation Patient is scheduled for a Holter monitor and echocardiogram in a couple of weeks for further evaluation (2) Chronic cholecystitis: Code(s): K81.1 - Chronic cholecystitis Plan: HIDA scan done last year confirmed diagnosis of chronic cholecystitis He will be undergoing laparoscopic cholecystectomy with Dr. Saenz in September 2022 (3) Lumbar degenerative disc disease: Code(s): M51.36 - Other intervertebral disc degeneration, lumbar region Plan: Reinforced activity and weight lifting restrictions Continue Tizanidine 4 mg 3 times a day as needed, Acetaminophen 500 mg TID PRN, Tramadol 50 mg TID PRN and Lidocaine 4% cream apply to painful area on lower back as needed He is now following up with [facility] for his chronic low back pain and is receiving back injections PRN (4) Benign essential hypertension: Code(s): I10 - Essential (primary) hypertension Plan: Reinforced low sodium diet - goal is systolic BP of at least 120 to 130 mm or less Continue Losartan 25 mg QD (5) Primary osteoarthritis of shoulders, bilateral: Code(s): M19.011 - Primary osteoarthritis, right shoulder; M19.012 - Primary osteoarthritis, left shoulder Plan: Follow up with rheumatology in [place] as scheduled; was seeing Dr. Pitt at [facility] in the past until she left the practice last year (6) GERD (gastroesophageal reflux disease): Code(s): K21.9 - Gastro-esophageal reflux disease without esophagitis Qualifiers: Esophagitis presence: without esophagitis Qualified Code(s): K21.9 - Gastro-esophageal reflux disease without esophagitis Plan: Dietary restrictions reinforced Continue Pantoprazole 40 mg QD (7) Irritable bowel syndrome with both constipation and diarrhea: Code(s): K58.2 - Mixed irritable bowel syndrome Plan: Continue Docusate 100 mg BID PRN and Creon QID Follow up with GI as scheduled Stool culture and test for H. pylori done last year came back negative Rx for Ondansetron refilled - to be taken PRN for nausea/vomiting (8) Insomnia: Code(s): G47.00 - Insomnia, unspecified Qualifiers: Insomnia type: unspecified Qualified Code(s): G47.00 - Insomnia, unspecified Plan: Sleep hygiene reinforced Continue Zolpidem ER 12.5 mg Q HS PRN; is also on Quetiapine, which helps with his sleep as well (9) Anxiety: Code(s): F41.9 - Anxiety disorder, unspecified Plan: Continue Clonazepam 1 mg once a day at bedtime as needed, Clonazepam 0.5 mg once a day in AM, Propranolol 20 mg BID and Clonidine 0.1 mg BID PRN (10) Depression: Code(s): F32.9 - Major depressive disorder, single episode, unspecified Qualifiers: Depression Type: major depressive disorder Major depression recurrence: recurrent Active/Remission status: currently active Major depression episode severity: unspecified Qualified Code(s): F33.9 - Major depressive disorder, recurrent, unspecified Plan: Continue Wellbutrin XL 300 mg Q AM, Prazosin 2 mg BID (to help with his nightmares) and Quetiapine 200 mg Q HS Follow-up with Psychiatry as scheduled (11) Obesity (BMI 30-39.9): Code(s): E66.9 - Obesity, unspecified Plan: Reinforced diet/exercise as tolerated/lose weight Plan Follow up in 3 months Orders: Orders Lipid Panel 07/22/22 E78.00 - Pure hypercholesterolemia, unspecified, R00.2 - Palpitations TSH reflex Free T4 07/22/22 E78.00 - Pure hypercholesterolemia, unspecified, R00.2 - Palpitations Magnesium 07/22/22 E83.42 - Hypomagnesemia, R00.2 - Palpitations CA echo transthoracic complete 07/20/22 R00.2 - Palpitations ECG 3 day holter monitor 07/20/22 R00.2 - Palpitations Complete Blood Count Auto Diff 07/22/22 I10 - Essential (primary) hypertension, R00.2 - Palpitations Comprehensive [place]. Panel Fast 07/22/22 E78.00 - Pure hypercholesterolemia, unspecified, R00.2 - Palpitations UA CC w/rflx Micro + Cult 07/22/22 R30.0 - Dysuria, R00.2 - Palpitations Vitamin D 25-OH Total 07/22/22 E55.9 - Vitamin D deficiency, unspecified, R00.2 - Palpitations Medications: Refilled ondansetron 4 mg PO Q8H PRN 90 tabs 1RF nausea and vomiting 30 days Coding Level of Care Code Est Pt Level 4 (72212) Diagnoses Palpitations R00.2 Chronic cholecystitis K81.1 Lumbar degenerative disc disease M51.36 Benign essential hypertension I10 Primary osteoarthritis of shoulders, bilateral M19.011; M19.012 Gastroesophageal reflux disease without esophagitis K21.9 Esophagitis presence: without esophagitis Irritable bowel syndrome with both constipation and diarrhea K58.2 Insomnia, unspecified type G47.00 Insomnia type: unspecified Anxiety F41.9 Episode of recurrent major depressive disorder, unspecified depression episode severity F33.9 Depression Type: major depressive disorder Major depression recurrence: recurrent Active/Remission status: currently active Major depression episode severity: unspecified Obesity (BMI 30-39.9) E66.9
== END 2022-07-20 15:07 | disposition home or self-care (01) ==
LOC: HO.HMGH 14:11
PROVIDERS: PCP Internal Medicine; Visit Provider Internal Medicine
DX: R00.2 Palpitations (principal); K81.1 Chronic cholecystitis; M51.36 Other intervertebral disc degeneration, lumbar region; I10 Essential (primary) hypertension; M19.011 Primary osteoarthritis, right shoulder; M19.012 Primary osteoarthritis, left shoulder; K21.9 Gastro-esophageal reflux disease without esophagitis; K58.2 Mixed irritable bowel syndrome; G47.00 Insomnia, unspecified; F41.9 Anxiety disorder, unspecified; F33.9 Major depressive disorder, recurrent, unspecified; E66.9 Obesity, unspecified
CPT/HCPCS: 99214

== ENCOUNTER 2022-07-22 06:51 | Outpatient (REF) | payer MEDICARE, MEDICAID, SELFPAY ==
[2022-07-22 07:06] LABS: MANUAL DIFF FLAG NO
[2022-07-22 07:21] LABS: Basophils Percent Auto 0.3 % (0-2); Eosinophils Percent Auto 0.4 % (0-4); Hematocrit 46.1 % (42.0-52.0); Hemoglobin 15.2 g/dl (14.0-18.0); Imm Gran Abs Auto 0.03 X10*3/uL (0.00-0.03); Imm Gran Pct Auto 0.3 % (0.0-0.4); Lymphocytes Absolute Auto 2.4 X10*3/uL (1.2-4.9); Lymphocytes Percent Auto 24.9 % (20-40); Mean Corpuscular Hemoglobin 27.5 pg (27.0-33.0); Mean Corpuscular Volume 83.5 fL (80.0-98.0); Mean Platelet Volume 10.4 fL (9.4-12.4); Monocytes Absolute Auto 0.7 X10*3/uL (0.1-1.2); Monocytes Percent Auto 7.2 % (2-11); Neutrophils Absolute Auto 6.5 x10*3/uL (2.0-8.3); Neutrophils Percent Auto 66.9 % (45-73); Platelet Count 265 X10*3/uL (160-400); Red Blood Count 5.52 X10*6/uL (4.60-5.80); Red Cell Distribution Width 13.3 % (11.0-16.0); White Blood Count 9.6 X10*3/uL (4.8-10.8)
[2022-07-22 08:00] LABS: Anion Gap 11 (12-20)
[2022-07-22 08:03] LABS: Appearance Urine Clear; Color Urine Yellow; Glucose Urine UA Negative (Negative); Leukocyte Esterase Urine Negative (Negative); Nitrite Urine Negative (Negative); Specific Gravity - Urine 1.015 (1.005-1.025); Urine Blood Negative (Negative); Urine Ketones Negative (Negative); Urine Protein Negative (Neg-Trace)
[2022-07-22 09:03] LABS: Alanine Aminotransferase 20 U/L (0-40); Albumin Level 4.1 g/dL (3.5-5.0); Alkaline Phosphatase 92 U/L (39-117); Aspartate Amino Transferase 14 U/L (5-37); Bilirubin Total 0.4 mg/dL (0.0-1.0); Blood Urea Nitrogen 12 mg/dL (9-16); Calcium 9.3 mg/dL (8.4-10.2); Carbon Dioxide 27 mmol/L (22-29); Chloride 109 mmol/L (96-108); Cholesterol 119 mg/dL; Estimated Glomerular Filt Rate > 60; Glucose Fasting 100 mg/dL (60-99); HDL Cholesterol 41 mg/dL; LDL Cholesterol Calculated 63 mg/dl; Magnesium 2.3 mg/dL (1.6-2.6); Potassium 4.4 mmol/L (3.3-5.1); Sodium 143 mmol/L (135-145); TSH reflex Free T4 0.34 uIU/mL (0.32-4.0); Total Protein 6.7 g/dL (6.5-8.0); Triglycerides 75 mg/dL; Vitamin D 25-OH Total 30.2 ng/mL (>30)
== END 2022-07-22 06:52 | disposition home or self-care (01) ==
LOC: HO.LAB 06:51
PROVIDERS: PCP Internal Medicine; Visit Provider Internal Medicine
DX: E78.00 Pure hypercholesterolemia, unspecified (principal); R00.2 Palpitations; E55.9 Vitamin D deficiency, unspecified; E83.42 Hypomagnesemia; I10 Essential (primary) hypertension; R30.0 Dysuria
CPT/HCPCS: 36415; 80053; 80061; 81003; 82306; 83735; 84443; 85025

== ENCOUNTER → 2022-08-02 12:22 | Outpatient (REF) | payer MEDICARE, MEDICAID, SELFPAY ==
--- NOTE | 2022-08-02 12:26 | HM_ITS ---
Conclusion: 1. Patient was monitored for total period of 3 days and 1 hour 2. Baseline was normal sinus rhythm with average heart rate of 85 beats per minute 3. No significant pauses or bradycardia noted 4. Total of 3328 PVCs accounting for 0.9% total beats account for occasional PVCs 5. Patient reported multiple events, chest tightness as well as palpitation that correlated either with sinus rhythm or sinus tachycardia with PVCs MTDD
--- NOTE | 2022-08-02 12:26 | CA_ITS ---
Transthoracic Echocardiogram Patient (Last, First, Middle): Paul Espitia, Gender: Male Date of : 1960 Age: 61 Procedure Date: 08/02/2022 Procedure Type: Transthoracic Echocardiogram Location: OP Height: 182.88 cm Weight: 99.79 kg BSA: 2.22 m2 Heart Rate: bpm BP: 144 / 90 mmHg Preschool Principal: BANDAR Referring MD: Marcial David MD Symptoms: R00.2 - Palpitations Study Quality: Adequate with contrast ECG Rhythm: Sinus Conclusions: - The left ventricular systolic function is normal. The calculated ejection fraction is 60% by biplane method. - No obvious valvular pathology seen on this study. Findings Procedure Information Contrast agent, definity, is being given per protocol without apparent complications. Left Ventricle Normal left ventricular cavity size. There is normal left ventricular wall thickness. The left ventricular systolic function is normal. The calculated ejection fraction is 60% by biplane method. There is no evidence of regional wall motion abnormalities. Diastolic function is normal for age. There is mild septal asymmetric hypertrophy. Right Ventricle Mildly increased right ventricular cavity size. There is normal right ventricular systolic function. Atria Both atria are normal in size. Aortic Valve There is a normal trileaflet aortic valve. There is no aortic valve stenosis. There is no aortic valve regurgitation. Mitral Valve The mitral valve appears normal. There is no mitral valve regurgitation. There is no mitral valve stenosis. Pulmonic Valve The pulmonic valve is likely normal. Tricuspid Valve There is trace tricuspid valve regurgitation. There is no evidence of pulmonary hypertension. Great Vessels The asc aorta is normal in size. Venous The inferior vena cava is normal in size and collapses greater than 50% with inspiration. Pericardium/Pleural There is no evidence of pericardial effusion. Prior Study Comparison No prior study available for comparison. Recommendations, Care & Conclusions No obvious valvular pathology seen on this study. Measurements 2D Linear Measurements IVSd: 1.12 0.6-0.9/0.6-1.0 cm LVIDd: 5.34 3.9-5.3/4.2-5.9 cm LVIDd Index: 2.41 2.4-3.2/2.2-3.1 cm/m2 LVIDs: 3.68 2.0-3.6 cm LVPWd: 1.07 0.7-1.1 cm LA Diam: 3.50 2.7-3.8/3.0-4.0 cm LAIDs Index: 1.58 1.5-2.3 cm/m2 LV Mass: 285.67 67-162/88-224 g LV Mass Index: 128.68 43-95/49-115 g/m2 LVOT Diam: 2.40 3.0+(-)1.3 cm 2D Systolic Function EF 4C: 63.50 >55% EF 2C: 56.20 >55% EF BiP: 60.00 >55% Mitral Valve MV Pk E: 0.42 MV PK A: 0.71 MV Decel Time: 489.00 E/A: 0.60 E'Lateral: 10.10 E'Medial: 8.59 E/E' Med: 4.80 E/E' Lat: 4.10 PHT: 143.00 MVA PHT: 1.54 Decel [place]: 0.85 Aortic Valve AoV Pk [place]: 1.16 AoV Mn [place]: 0.86 AoV VTI: 0.26 AoV Pk Grad: 5.00 Aov Mn Grad: 3.00 [place] Cont.VTI: 3.38 LVOT LVOT Pk [place]: 0.90 LVOT Mn [place]: 0.57 LVOT VTI: 0.20 LVOT Pk Grad: 3.00 LVOT Mn Grad: 2.00 LVOT Diam: 2.40 LVOT Area: 4.52 Diastolic Function MV Pk E: 0.42 MV Pk A: 0.71 E/A: 0.60 E'Medial: 8.59 E/E' Med: 4.80 E' Laterial: 10.10 E/E' Lat: 4.10 Right Ventricle TAPSE (mm): 20.70 TVS' [place]: 10.70 Tricuspid Valve TR Pk [place]: 1.90 TR Pk Grad: 14.00 RA Press: 3.00 RVSP: 17.00 Great Vessels Aorta Sinus of Valsalva: 3.80 2.0-3.[address] [place]: 2.79 1.7-3.4 cm Ao Asc: 3.40 2.1-3.4 cm Updated in Other Vendor System with Status of Final Evens Obando MD electronically signed on 08/03/2022 1:14:54 PM with status of Final
== END ==
LOC: HO.CARD 12:22
PROVIDERS: PCP Internal Medicine; Visit Provider Internal Medicine
DX: R00.2 Palpitations (principal)
CPT/HCPCS: 93242; 93306; Q9957

== ENCOUNTER 2022-09-13 10:25 | Outpatient (REF) | payer MEDICARE, MEDICAID, SELFPAY | END 2022-09-13 10:26 | disposition home or self-care (01) | LOC: HO.LNP 10:25 | PROVIDERS: PCP Internal Medicine; Visit Provider Surgery | DX: K64.5 Perianal venous thrombosis (principal); Z79.899 Other long term (current) drug therapy | CPT/HCPCS: 10140; 46320; 88304; 99202 ==

== ENCOUNTER → 2022-09-22 10:54 | Outpatient (BNVA) | payer MEDICARE, MEDICAID, SELFPAY | PROVIDERS: PCP Internal Medicine; Visit Provider Surgery | DX: K64.5 Perianal venous thrombosis (principal) ==

== ENCOUNTER 2022-10-06 10:51 | Outpatient (AMB) | payer MEDICARE, MEDICAID, SELFPAY ==
[2022-10-06 10:53] VITALS: BMI 28.5
--- NOTE | 2022-10-06 10:53 | MHC.OFFVIS ---
Intake Vital Signs 10/06/22 10:53 Height 6 ft Weight 210 lb BMI 28.5 Intake Visit Reasons: symptomatic gallstones Intake Note: This patient presents for an assessment for symptomatic gallstones. Patient c/o; RUQ pain, describes nausea and vomiting, denies diarrhea, avoiding fatty foods. Industrial Relations Manager Required: No Accompanied by: Self / Same As Patient Allergies seafood Allergy (Severe, Verified 10/08/22 09:27) Anaphylaxis duloxetine Allergy (Intermediate, Verified 10/08/22 09:27) N/V, diarrhea, shakiness, withdrawal symptoms gabapentin Allergy (Intermediate, Verified 10/08/22 09:27) confusion/memory loss/hallucination lactase [LACTASE] Allergy (Intermediate, Verified 10/08/22 09:27) Nausea Medication List - Last Reconciled 10/06/22 by Seun Saenz MD acetaminophen 500 mg PO TID PRN amitriptyline 25 mg PO BEDTIME 30 days aspirin 81 mg PO DAILY bupropion HCl 150 mg PO QAM clonazepam 1 mg PO BEDTIME PRN clonazepam 0.5 mg PO DAILY 30 days clonidine HCl 0.1 mg PO BID PRN 90 days diclofenac sodium 1% 2 grams topical BID docusate sodium 100 mg PO BID hydrocodone-acetaminophen 5-325 mg 1 tab PO Q4-6H PRN hydrocodone-acetaminophen 5-325 mg 1 tab PO Q4-6H PRN hydrocodone-acetaminophen 5-325 mg 1 tab PO Q4-6H PRN hydrocortisone 2.5% (Proctosol HC) 1 appl [place] BID [id number] 24,000-76,000 -120,000 unit (Creon) 1 cap PO QID 90 days losartan 25 mg PO DAILY 90 days ondansetron 4 mg PO Q8H PRN 30 days pantoprazole (Protonix) 40 mg PO DAILY 30 days quetiapine 50 mg PO BID sennosides (senna) 17.2 mg (2 x 8.6 mg) PO BEDTIME simethicone (Gas Relief (simethicone)) 180 mg PO QID PRN sucralfate (Carafate) 2 grams (2 x 1 gram) PO QNOON 90 days tizanidine 4 mg PO TID PRN 30 days tramadol 1 to 2 tablets PO 2 times a day; 28 days zolpidem ER 12.5 mg PO BEDTIME HPI symptomatic gallstones HPI Details 62-year-old male with known gallstones, here to schedule for cholecystectomy. He had an ultrasound done last February, showing gallstones without cholecystitis. He describes a long history of chronic vague abdominal pain. He at that time, he had an umbilical hernia which she wanted repaired before any gallbladder surgery. He says that he seems to be having more symptoms for the past 6 months. He describes periodic right sided abdominal pain along with nausea with meals. He wants to proceed with cholecystectomy. He also had surgery for a thrombosed hemorrhoid about 3 weeks ago. He said that this is healing well. FORMERLY [facility] Medical History Abdominal pain Benign essential hypertension Chronic abdominal pain Chronic back pain Constipation Depression Elevated blood pressure reading Elevated d-dimer Excessive sweating Gallstones IBS (irritable bowel syndrome) Left elbow tendinitis Left-sided chest wall pain Obesity (BMI 30-39.9) Overweight (BMI 25.0-29.9) Primary osteoarthritis of shoulders, bilateral Primary osteoarthritis, left shoulder Primary osteoarthritis, right shoulder Tubular adenoma of colon Umbilical hernia Umbilical hernia (04/13/22) Surgical History H/O colonoscopy H/O esophagogastroduodenoscopy H/O inguinal hernia repair History of varicose vein ligation and stripping S/P tendon repair Status post pericardial cyst excision (~02/13/19) Family History Father Stomach cancer Mental health problem Mother AIDS Sister NIDKENZIE (non-insulin dependent diabetes mellitus in young) Hypertension Other Substance abuse Social History Household Members: Children Housing: Apartment Are you a primary emergency care tech to a significant other at home: No Do you presently have visiting nurse or other home services: Yes ([facility]) Alcohol intake: never Patient Tobacco Use Status: Former Tobacco user Quit Date: 2006 Tobacco use type: Cigarette Cigarettes Per Day: 40 Years Smoked: quit greater than 10 years ago e-Cigarette/Vaping Use: Never Used Second Hand Smoke Exposure: No Are you DNR?: No Advance Directives: No Advance Directives Information Provided: Yes Advance Directives Date on File: 07/11/20 Nutrition Risks: No Nutritional Risk Current occupational status: disabled Cognitive needs: No Hearing needs: No Vision needs: Yes Review of Systems Const Denies chills and Denies fever(s) Card Denies chest pain, Denies dyspnea and Denies dyspnea on exertion Resp Denies cough, Denies dyspnea and Denies dyspnea on exertion GI Denies hematochezia and Denies change in bowel habits Denies hematuria and Denies difficulty urinating Musc Reports back pain, Reports arthralgias and Reports limited range of motion Neuro Denies focal weakness and Denies convulsions Psych Denies depression and Denies mood swings Physical Exam Vital Signs: BMI result Body Mass Index 28.5 Const Other: Walks with a cane General: comfortable and no acute distress Orientation/consciousness: patient oriented x3 Neck Neck: Yes no lymphadenopathy Resp Auscultation: clear to auscultation bilaterally Cardio Rhythm: regular rhythm GI Palpation (GI): Soft to palpation, nontender and no guarding Neuro General: patient oriented x3 Assessment & Plan Assessment & Plan (1) Gallstones: Comment: On 04/2020 ultrasound no signs of cholecystitis patient currently asymptomatic Code(s): K80.20 - Calculus of gallbladder without cholecystitis without obstruction Plan: I explained him the technique of laparoscopic cholecystectomy and possible open cholecystectomy. I reviewed with him the risks including but not limited to bleeding, infections, injury to other organs including bowel, liver, bile ducts, bile leak, retained stones, as well as the benefits and alternatives. He understands the risks of anesthesia as well. He has given consent. I also explained to him what to expect postoperatively. Coding Level of Care Code Est Pt Level 3 (21490) Diagnoses Gallstones K80.20
== END 2022-10-06 11:16 | disposition home or self-care (01) ==
PROVIDERS: PCP Internal Medicine; Visit Provider Surgery
DX: K80.20 Calculus of gallbladder without cholecystitis without obstruction (principal)
CPT/HCPCS: 99213

== ENCOUNTER → 2022-10-06 10:51 | Outpatient (BNVA) | payer MEDICARE, MEDICAID, SELFPAY | PROVIDERS: PCP Internal Medicine; Visit Provider Surgery | DX: K80.20 Calculus of gallbladder without cholecystitis without obstruction (principal); R10.31 Right lower quadrant pain | CPT/HCPCS: 99212 ==

== ENCOUNTER 2022-10-08 08:26 | Day surgery (SDC) | payer MEDICARE, MEDICAID, SELFPAY ==
[2022-10-08] VITALS (8 sets, daily range): BP systolic 122–169; BP diastolic 67–98; PULSE 61–79; RESP 11–18; TEMP 36.2–36.7; O2SAT 90–98; BMI 28.5
--- NOTE | 2022-10-08 09:00 | PC.NURSE ---
Patient stated that he didn't have a ride home and wanted to stay over. Dr. Saenz spoke with patient and spoke with patient's daughter, Allison, who stated that she is picking him up today. Patient also stated that daughter is his ROLL UP HELPER.
[2022-10-08] MEDS: Lactated Ringers 1,000 ML 100 ML IVCONT (09:07)
--- NOTE | 2022-10-08 09:20 | P.CONAN_ITS ---
Documented by User: Ailyn Jalloh NP 10/07/22 11:52 HPI - Anesthesia Eval Consult details Narrative: 62yo M for Cholecystectomy Laparoscopic, possible open s/p umbilical hernia repair 03/2022 with GA-LMA 5 PMFSH Active Problems Active Problems: All Active Problems (Updated 10/06/22 @ 11:10 by Seun Saenz MD) Chronic back pain (Acute) Thrombosed external hemorrhoids (Acute) Palpitations (Acute) Anxiety (Acute) Insomnia (Acute) GERD (gastroesophageal reflux disease) (Acute) Lumbar degenerative disc disease (Acute) Depression with anxiety (Acute) Chronic low back pain (Acute) Abdominal bloating (Acute) Family history of gastric cancer (Acute) External hemorrhoid (Acute) Bilateral anterior knee pain (Acute) Irritable bowel syndrome with both constipation and diarrhea (Acute) Umbilical pain (Acute) Encounter for Medicare annual wellness exam (Acute) Tubular adenoma of colon (Acute) Umbilical hernia (Acute) Gallstones (Acute) Polyarthralgia (Acute) Fatigue (Acute) Hyperglycemia (Acute) Dyspepsia (Acute) Chronic cholecystitis (Acute) Pain, dental (Acute) Screening for diabetes mellitus (Acute) Elevated fasting glucose (Acute) Annual physical exam (Acute) Bilateral primary osteoarthritis of knee (Acute) Diarrhea (Acute) Nausea and vomiting (Acute) Acute lumbar myofascial strain (Acute) Gallstones (Acute) Umbilical hernia (Acute) Abdominal pain (Acute) Primary osteoarthritis, left shoulder (Acute) Obesity (BMI 30-39.9) (Acute) Primary osteoarthritis of shoulders, bilateral (Acute) Benign essential hypertension (Acute) Elevated d-dimer (Acute) Left-sided chest wall pain (Acute) Left elbow tendinitis (Acute) Elevated blood pressure reading (Acute) Overweight (BMI 25.0-29.9) (Acute) Depression (Acute) Excessive sweating (Acute) Past Medical History Medical History Abdominal pain Benign essential hypertension Chronic abdominal pain Chronic back pain Constipation Depression Elevated blood pressure reading Elevated d-dimer Excessive sweating Gallstones IBS (irritable bowel syndrome) Left elbow tendinitis Left-sided chest wall pain Obesity (BMI 30-39.9) Overweight (BMI 25.0-29.9) Primary osteoarthritis of shoulders, bilateral Primary osteoarthritis, left shoulder Primary osteoarthritis, right shoulder Tubular adenoma of colon Umbilical hernia Umbilical hernia (04/13/22) Family History Family History Father Stomach cancer Mental health problem Mother AIDS Sister PALMER (non-insulin dependent diabetes mellitus in young) Hypertension Other Substance abuse Family history of problems with anesthesia: No Surgical History Surgical History H/O colonoscopy H/O esophagogastroduodenoscopy H/O inguinal hernia repair History of varicose vein ligation and stripping S/P tendon repair Status post pericardial cyst excision (~02/13/19) History of Problems with Anesthesia: No Social History Social History Household Members: Children Housing: Apartment Are you a primary assistant child care teacher to a significant other at home: No Do you presently have visiting nurse or other home services: Yes ([employer]) Alcohol intake: never Patient Tobacco Use Status: Former Tobacco user Quit Date: 2006 Tobacco use type: Cigarette Cigarettes Per Day: 40 Years Smoked: quit greater than 10 years ago e-Cigarette/Vaping Use: Never Used Second Hand Smoke Exposure: No Are you DNR?: No Advance Directives: No Advance Directives Information Provided: Yes Advance Directives Date on File: 07/11/20 Nutrition Risks: No Nutritional Risk Current occupational status: disabled Cognitive needs: No Hearing needs: No Vision needs: Yes Meds Allergies Allergy/AdvReac Type Severity Reaction Status Date / Time seafood Allergy Severe Anaphylaxis Verified 10/08/22 09:27 duloxetine Allergy Intermediate N/V, Verified 10/08/22 09:27 diarrhea, shakiness, withdrawal symptoms gabapentin Allergy Intermediate confusion/memory Verified 10/08/22 09:27 loss/hallucination lactase [LACTASE] Allergy Intermediate Nausea Verified 10/08/22 09:27 Home Medications Medication Instructions Recorded Confirmed Last Taken Type bupropion HCl 150 mg 24 hr tablet, 150 mg PO QAM 07/30/21 10/06/22 04/11/22 History extended release quetiapine 50 mg tablet 50 mg PO BID 02/23/22 10/06/22 04/12/22 History Exam Exam Date and Time: October 07, 2022 114 Pertinent Lab Results Pertinent Lab Results: Laboratory Tests 07/22/22 07/22/22 07:05 07:05 WBC 9.6 Hgb 15.2 Hct 46.1 Plt Count 265 Sodium 143 Potassium 4.4 Chloride 109 H Carbon Dioxide 27 BUN 12 Creatinine 0.78 Narrative Narrative: EKG 01/2022 Vent. Rate : 109 BPM ? ? Atrial Rate : 109 BPM ?? P-R Int : 164 ms? QRS Dur : 094 ms ? ? QT Int : 322 ms ? ? ? P-R-T Axes : 051 -22 046 degrees ?? QTc Int : 433 ms ? Sinus tachycardia Left axis deviation Borderline ECG When compared with ECG of 04-FEB-2022 06:20, Vent. rate has increased BY? 42 BPM ECHO 07/2022 Conclusions: - The left ventricular systolic function is normal.? The ? calculated ejection fraction is 60% by biplane method. ? - No obvious valvular pathology seen on this study.? Holter 07/2022 Conclusion: 1. Patient was monitored for total period of 3 days and 1 hour 2. Baseline was normal sinus rhythm with average heart rate of 85 beats per minute 3.? No significant pauses or bradycardia noted 4. Total of 3328 PVCs accounting for 0.9% total beats account for occasional PVCs 5. Patient reported multiple events, chest tightness as well as palpitation that correlated either with sinus rhythm or sinus tachycardia with PVCs? Assessment and Plan Assessment Anesthesia Assessment: Chart Reviewed Final Anesthetic Review Family History of Problems with Anesthesia: No History of Problems with Anesthesia: No Documented by User: Roya Tinajero DO 10/08/22 09:33 HPI - Anesthesia Eval Consult details Narrative: 62 yo M for Cholecystectomy Laparoscopic, possible open s/p umbilical hernia repair 03/2022 with GA-LMA 5 PMFSH Past Medical History Medical History Abdominal pain Benign essential hypertension Chronic abdominal pain Chronic back pain Constipation Depression Elevated blood pressure reading Elevated d-dimer Excessive sweating Gallstones IBS (irritable bowel syndrome) Left elbow tendinitis Left-sided chest wall pain Obesity (BMI 30-39.9) Overweight (BMI 25.0-29.9) Primary osteoarthritis of shoulders, bilateral Primary osteoarthritis, left shoulder Primary osteoarthritis, right shoulder Tubular adenoma of colon Umbilical hernia Umbilical hernia (04/13/22) Family History Family History Father Stomach cancer Mental health problem Mother AIDS Sister PALMER (non-insulin dependent diabetes mellitus in young) Hypertension Other Substance abuse Family history of problems with anesthesia: No Surgical History Surgical History H/O colonoscopy H/O esophagogastroduodenoscopy H/O inguinal hernia repair History of varicose vein ligation and stripping S/P tendon repair Status post pericardial cyst excision (~02/13/19) History of Problems with Anesthesia: No Social History Social History Household Members: Children Housing: Apartment Are you a primary assistant child care teacher to a significant other at home: No Do you presently have visiting nurse or other home services: Yes ([employer]) Alcohol intake: never Patient Tobacco Use Status: Former Tobacco user Quit Date: 2006 Tobacco use type: Cigarette Cigarettes Per Day: 40 Years Smoked: quit greater than 10 years ago e-Cigarette/Vaping Use: Never Used Second Hand Smoke Exposure: No Are you DNR?: No Advance Directives: No Advance Directives Information Provided: Yes Advance Directives Date on File: 07/11/20 Nutrition Risks: No Nutritional Risk Current occupational status: disabled Cognitive needs: No Hearing needs: No Vision needs: Yes Meds Allergies Allergy/AdvReac Type Severity Reaction Status Date / Time seafood Allergy Severe Anaphylaxis Verified 10/08/22 09:27 duloxetine Allergy Intermediate N/V, Verified 10/08/22 09:27 diarrhea, shakiness, withdrawal symptoms gabapentin Allergy Intermediate confusion/memory Verified 10/08/22 09:27 loss/hallucination lactase [LACTASE] Allergy Intermediate Nausea Verified 10/08/22 09:27 Home Medications Medication Instructions Recorded Confirmed Last Taken Type bupropion HCl 150 mg 24 hr tablet, 150 mg PO QAM 07/30/21 10/06/22 04/11/22 History extended release quetiapine 50 mg tablet 50 mg PO BID 02/23/22 10/06/22 04/12/22 History Exam Exam Date and Time: October 08, 2022 0930 Height,Weight and Vital Signs: Height 6 ft Weight 95.254 kg Airway Mallampati Class: II TM Dist: >3cm Neck ROM: Full Loose/Missing/Broken Teeth: Yes (a few missing teeth but nothing loose or chipped) Heart: S1S2 Lungs: CTAB Assessment and Plan Assessment Anesthesia Assessment: Anesthesia Plan Discussed and Chart Reviewed Final Anesthetic Review Family History of Problems with Anesthesia: No History of Problems with Anesthesia: No NPO: Yes ASA Class: II Final Preanesthetic Review: No Changes in Pt Med Stat, Meds/Allgs Chart Reviewed, Consent Obtained/Reviewed and Anes Risks/Benef Reviewed Patient Risk: Low Procedure Risk: Low Anesthetic Plan Anesthetic Plan: GA and Agree w/ Assess. and Plan Disposition: Standard PACU
--- NOTE | 2022-10-08 09:38 | MHC.SHP ---
Pre-Procedural Eval Section A Date of Service: 10/08/22 The patient is an INPATIENT: No The History & Physical has been completed within 30 days and I have reviewed it.: Yes Section B Chief Complaint: Calculus of gallbladder without cholecystitis with Allergies: Allergies Allergy/AdvReac Type Severity Reaction Status Date / Time seafood Allergy Severe Anaphylaxis Verified 10/08/22 09:27 duloxetine Allergy Intermediate N/V, Verified 10/08/22 09:27 diarrhea, shakiness, withdrawal symptoms gabapentin Allergy Intermediate confusion/memory Verified 10/08/22 09:27 loss/hallucination lactase [LACTASE] Allergy Intermediate Nausea Verified 10/08/22 09:27 Plan I have reviewed the history and physical and performed a pertinent physical examination on my patient. No changes have occurred unless specified. Time Spent With Patient Time: Total time managing care of this patient today ____ minutes.
--- NOTE | 2022-10-08 10:49 | W.PM.OPN ---
Operative Note Operative Note Date of Service: 10/08/22 Narrative: Preop diagnosis: Gallstones Postop diagnosis: gallstones Procedure: Laparoscopic cholecystectomy Surgeon: Seun Saenz MD pediatric physical therapy assistant: MIKAYLA Dee Patient is a 62-year-old male with periodic right-sided abdominal pain with note of gallstones on imaging studies. His symptoms were suggestive of gallbladder disease and he wanted to proceed with laparoscopic cholecystectomy. He he understood the planned procedure as well as the risks, benefits, and alternatives. He was brought to the operating room and placed supine under general anesthesia via endotracheal tube. The abdomen was prepped and draped in the usual sterile fashion. A surgical time-out was done. The patient received Cefotan 2 g IV preoperatively I made a short supraumbilical incision using blade 15. This was carried down through the full-thickness of the skin and subcutaneous fat down to the fascia. The fascia was incised. The peritoneum was entered. Through this incision on a Geoffrey port was introduced. Pneumoperitoneum was introduced to a pressure of 15 mm hg. From here on the rest of the procedure was done under vision with a mm 0 degree laparoscope. With laparoscopic visualization, I proceeded to then insert a 5/12 mm port in the epigastric area below the subcostal margin. Two 5 mm ports introduced a small incisions below the subcostal margin along the anterior axillary line and the midclavicular line. Graspers were placed through these working ports. The patient was placed in head-up and [id number] position. The gallbladder was seen. The fundus was grasped with a grasper and retracted cephalad. I was able to apply a grasper towards the pouch to retract this laterally. At this point therefore the gallbladder was being retracted in a cephalad and lateral fashion to put the area of the cystic duct on stretch. The gallbladder was not inflamed I proceeded to then gently dissect the neck using the [place] dissector to off the peritoneal lining. By doing so was able to identify the cystic duct. This was further dissected. We were able to clearly define the confluence of the cystic duct with the neck of the gallbladder. We were able to achieve a critical view of the hepatocystic thick triangle and there were no other tubular structures in the area. The cystic artery was seen adjacent to the cystic duct. We applied clips on the cystic duct with 2 clips being applied distally and the cystic duct was transected between clips with Endo scissors. Clips were applied on the cystic artery and this was transected between clips with Endo scissors as well. With traction on the gallbladder away from the liver bed I proceeded to then dissect through the hilum using the electrocautery spatula. I incised the peritoneum of the gallbladder wall and carefully define a plane of dissection between the gallbladder wall and the liver bed. This was achieved using a combination of blunt dissection with the tip of the spatula and electrocautery. We the gallbladder from the liver bed along this well-defined plane all with the fundus until the entire gallbladder was completely . The gallbladder was retrieved through an endobag through the umbilical incision. I reinserted all ports and re-insufflated. I examined all 4 quadrants. There was no other pathology or any evidence of any bowel injury . There was no evidence of any bile leak. There was note of some spillage of bile from the gallbladder a small tear. With therefore irrigated and suction other again fluid until this was clear. Once hemostasis was confirmed, I proceeded then desufflate through the port sites. I removed all ports under vision with the laparoscope. The umbilical port was removed last. The fascia of the umbilical incision was closed with [id number] Dexon 0 stitch. Skin closure was achieved on all incisions using Dexon 4-0 subcuticular running sutures. Steri-Strips and dressings were applied. All incisions were infiltrated with Marcaine 0.5% for postop analgesia. The procedure was then completed The patient tolerated procedure well. There were no immediate complications. Initial and final counts of sponges and instruments were correct. Estimated blood loss was about 15 cc. The patient was extubated without difficulty and transferred to the recovery room with stable vital signs.
[2022-10-08] MEDS: Acetaminophen 1,000 MG/100 ML PIGGYBACK 400 MG IV (11:04)
[2022-10-08] MEDS: ondansetron HCL 4 MG/2 ML VIAL IVPUSH (11:14)
[2022-10-08] MEDS: oxyCODONE HCl Immed Release 5 MG TABLET 10 MG PO (11:15)
[2022-10-08] MEDS: fentaNYL citrate/PF 100 MCG/2 ML VIAL 50 MCG IVPUSH ×2 (11:18→11:35)
== END 2022-10-08 13:08 | disposition home or self-care (01) ==
PROVIDERS: PCP Internal Medicine; Visit Provider Surgery
PROC: 0FT44ZZ Resection of Gallbladder, Percutaneous Endoscopic Approach (ICD-10-PCS; CPT 47562; principal; 2022-10-08 10:40)
DX: K80.10 Calculus of gallbladder with chronic cholecystitis without obstruction (principal); I10 Essential (primary) hypertension; Z88.8 Allergy status to other drugs, medicaments and biological substances
CPT/HCPCS: 47562; 88304; J0131; J2405; J3010

== ENCOUNTER → 2022-10-08 08:26 | Outpatient (BNV) | payer MEDICARE, MEDICAID, SELFPAY | PROVIDERS: PCP Internal Medicine; Visit Provider Surgery | DX: K80.20 Calculus of gallbladder without cholecystitis without obstruction (principal) | CPT/HCPCS: 47562 ==

== ENCOUNTER 2022-10-15 13:52 | Outpatient (AMB) | payer MEDICARE, MEDICAID, SELFPAY ==
--- NOTE | 2022-10-15 13:58 | A.OFFVIS_ITS ---
Intake Vital Signs 10/15/22 14:05 Height 6 ft Weight 206 lb 12.697 oz BMI 28.0 BP 130/86 Blood Pressure Location Rt brachial Position Sitting Pulse 86 Intake Visit Reasons: 6 month follow up Intake Note: This patient presents today in 6 months follow up. CC: Patient reports he underwent cholecystectomy last Tuesday. He reports mild nausea but otherwise reports feeling well. Denies having any GI symptoms today. Audio Experience Expert Required: No Accompanied by: Self / Same As Patient Allergies seafood Allergy (Severe, Verified 10/28/22 15:30) Anaphylaxis duloxetine Allergy (Intermediate, Verified 10/28/22 15:30) N/V, diarrhea, shakiness, withdrawal symptoms gabapentin Allergy (Intermediate, Verified 10/28/22 15:30) confusion/memory loss/hallucination lactase [LACTASE] Allergy (Intermediate, Verified 10/28/22 15:30) Nausea HPI 6 month follow up HPI Details Assessment & Plan (1) GERD (gastroesophageal reflux disease): ?Code(s): K21.9 - Gastro-esophageal reflux disease without esophagitis ?Qualifiers: ?Esophagitis presence:?without esophagitis? Qualified Code(s):?K21.9 - Ga stro-esophageal reflux disease without esophagitis ?Plan: He just had umbilical hernia surgery 04/13! He is having some discomfort r/t this, he shows me the well healing scar. He is considering having a padilla with his surgeon. He wants to watch and wait for now as he has had some relief with the hernia surgery. He is doing well on the carafate for the diarrhea. He did not tolerate the reglan, he seemed to have some possible EPS, but these resolved with cessation of the medicine. BUT, he also has some similar sx with his seroquel and his psych tx'ed this with requip - not the best choice for a pt struggling with chronic nausea. He continues on the creon and the simethicone and his omeprazole. He will still have some diarrhea with greasy foods, but he feels he can live with this. ROV 6 mos. (2) Irritable bowel syndrome with both constipation and diarrhea: ?Code(s): K58.2 - Mixed irritable bowel syndrome (3) Abdominal bloating: ?Code(s): R14.0 - Abdominal distension (gaseous) (4) Gallstones: ?Comment: On 04/2020 ultrasound no signs of cholecystitis patient currently asymptomatic ?Code(s): K80.20 - Calculus of gallbladder without cholecystitis without obstruction (5) Chronic cholecystitis: ?Code(s): K81.1 - Chronic cholecystitis (6) Nausea and vomiting: ?Code(s): R11.2 - Nausea with vomiting, unspecified ? ? ? Medications: Changed From sennosides (senna) 8.6 mg? PO BEDTIME PRN 30 tabs 0RF f or constipation K58.2 - Mixed irri table bowel syndro me ? To sennosides (senna) 17.2 mg (2 x 8.6 m g) PO BEDTIME 30 t abs 6RF for consti pation K58.2 - Mixed irri table bowel syndro me ? Refilled gxefwd-zfigrftf-sw ylase 24,000-76,00 0 -120,000 unit (C reon) 1 cap? PO QID 120 caps 6RF K58.9 - Irritable bowel syndrome wit hout diarrhea ? sucralfate (Carafa te) 2 grams (2 x 1 gra m) PO QNOON 60 tab s 6RF R19.7 - Diarrhea, unspecified ? simethicone (Gas R elief (simethicone )) 180 mg? PO QID PRN 120 caps 6RF abdo yanni distention R14.0 - Abdominal distension (gaseou s) ? CORRESPONDENCE On 04/29/22 @ 10:44 Fabiana Thacker Wrote To Rosen Please cancel GES order per your conversation w/Pt. Correlated CRP for in the past without any elevated sed rate rheumatoid factor etc.. Consider fecal calprotectin for his diarrhea going forward; although colonoscopy in 2018 with biopsies did not show any concerning abnormality ? TODAY'S VISIT HE had his GB out just last week with Dr. Saenz. He is feeling much better overall, since his umbilical hernia surgery and his padilla. With this he is eating better and is taking better care of himself, losing weight, and having more energy. He has no more vomiting, and only am nausea that is nothing like it was before. HE also had hemorrhoid surgery that was quite successful. He is requesting to decrease the potency of some of his medications, and we will do this. He is now agreeable to having his colonoscopy scheduled. He denies any cardiac or respiratory problems. There are no prior problems with anesthesia or sedation. NO ID problems He has a history of tubular adenoma from his 2018 colonoscopy. I will see him in 6 months and after the colonoscopy. [facility] Medical History Abdominal pain Annual physical exam Benign essential hypertension Chronic abdominal pain Chronic cholecystitis Constipation Diarrhea Dyspepsia Elevated d-dimer Encounter for Medicare annual wellness exam Excessive sweating Gallstones Left elbow tendinitis Left-sided chest wall pain Obesity (BMI 30-39.9) Overweight (BMI 25.0-29.9) Primary osteoarthritis of shoulders, bilateral Primary osteoarthritis, left shoulder Primary osteoarthritis, right shoulder Screening for diabetes mellitus Tubular adenoma of colon Umbilical hernia (04/13/22) Surgical History H/O colonoscopy H/O esophagogastroduodenoscopy H/O inguinal hernia repair History of incision and drainage History of varicose vein ligation and stripping Hx laparoscopic cholecystectomy (~10/08/22) Hx of umbilical hernia repair S/P tendon repair Status post pericardial cyst excision (~02/13/19) Family History Father Stomach cancer Mental health problem Mother AIDS Sister PALMER (non-insulin dependent diabetes mellitus in young) Hypertension Other Substance abuse Social History Household Members: Children Housing: Apartment Are you a primary long term care pharmacist to a significant other at home: No Do you presently have visiting nurse or other home services: Yes ([employer]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) Alcohol intake: never Patient Tobacco Use Status: Former Tobacco user Quit Date: 2006 Tobacco use type: Cigarette Cigarettes Per Day: 40 Years Smoked: quit greater than 10 years ago e-Cigarette/Vaping Use: Never Used Second Hand Smoke Exposure: No Advance Directives Date on File: 07/11/20 Current occupational status: disabled Cognitive needs: No Hearing needs: No Vision needs: Yes Review of Systems Const Denies fatigue, Denies fever(s), Denies night sweats, Denies poor appetite and Denies weight loss ENT Reports Normal hearing present, Denies dental pain, Denies dysphagia, Denies hearing loss, Denies mouth pain, Denies odynophagia, Denies throat swelling, Denies tongue swelling and Reports other (Dentition adequate) Card Reports no additional complaints Resp Reports no additional complaints GI Denies abdominal pain, Denies melena, Reports bloating, Denies hematochezia, Denies constipation, Denies GI cramping, Denies dysphagia, Denies excessive flatus, Denies early satiety, Reports heartburn, Reports diarrhea, Denies nausea, Denies odynophagia, Denies vomiting and Denies hematemesis Skin/Breast Denies pruritus, Denies lesions, Denies rash and Denies jaundice Neuro Reports Normal hearing present and Denies Abnormal speech present Endo Denies fatigue Aller/Immun Denies throat swelling and Denies tongue swelling Physical Exam Vital Signs: Last Vital Signs Pulse 86 10/15/22 14:05 BP 130/86 10/15/22 14:05 BMI result Body Mass Index 28.0 Const General: cooperative, no acute distress, well developed and well groomed Nutritional Appearance: well nourished and obese centrally obese Orientation/consciousness: oriented to person, oriented to place and oriented to time Limitations: No language barrier and ambulation with cane HEENT Head: Yes normocephalic and Yes atraumatic Eyes General: appearance normal, both eyes and all related structures Pupils: Equal, round and reactive pupils present Neck Neck: Yes normal visual inspection and Yes no lymphadenopathy Thyroid: Thyroid normal Resp Effort & Inspection: normal respiratory effort and able to speak in complete sentences Auscultation: clear to auscultation bilaterally Cardio Rate: regular rate Rhythm: regular rhythm Heart sounds: Normal, physiologic split S2 sound present Peripheral pulses: radial pulses present and posterior tibial pulses present GI Inspection: No distended, No Abdominal panniculus present and Yes obesity Palpation (GI): Soft to palpation, nontender, no guarding, not rigid and No hepatosplenomegaly present Percussion: Yes normal to percussion Auscultation: normal bowel sounds Rectal Exam - Male: Yes deferred Abdomen image: 1. well healing surgical scars 2. 3. 4. 5. old well healed surgical scars 6. 7. dependent bruising 8. Skin General skin exam: no rashes or lesions noted, turgor normal, skin not dry, no jaundice, No spider nevi and no striae Rashes: no rashes Nails: normal Neuro General: oriented to person, oriented to place and oriented to time Cranial nerves: Yes Equal, round and reactive pupils present and Yes Normal hearing present Speech: No Abnormal speech present Extrem General: Yes normal to inspection, No clubbing, No cyanosis and No edema Psych Appearance: grossly normal and well kempt Mental Status: mental status grossly normal Speech and movement: Normal speech and movement present Affect: normal affect Attitude: cooperative Thought process: Normal thought process present and not confabulating Thought content: Normal thought content present Insight: Fair insight present (Psych) Judgement: Fair judgement present (Psych) Assessment & Plan Assessment & Plan (1) GERD (gastroesophageal reflux disease): Code(s): K21.9 - Gastro-esophageal reflux disease without esophagitis Qualifiers: Esophagitis presence: without esophagitis Qualified Code(s): K21.9 - Gastro-esophageal reflux disease without esophagitis Plan: HE had his GB out just last week with Dr. Saenz. He is feeling much better overall, since his umbilical hernia surgery and his padilla. With this he is eating better and is taking better care of himself, losing weight, and having more energy. He has no more vomiting, and only am nausea that is nothing like it was before. HE also had hemorrhoid surgery that was quite successful. He is requesting to decrease the potency of some of his medications, and we will do this. He is now agreeable to having his colonoscopy scheduled. He denies any cardiac or respiratory problems. There are no prior problems with anesthesia or sedation. NO ID problems He has a history of tubular adenoma from his 2018 colonoscopy. I will see him in 6 months and after the colonoscopy. (2) Irritable bowel syndrome with both constipation and diarrhea: Code(s): K58.2 - Mixed irritable bowel syndrome (3) Gallstones: Comment: On 04/2020 ultrasound no signs of cholecystitis patient currently asymptomatic Code(s): K80.20 - Calculus of gallbladder without cholecystitis without obstruction (4) Tubular adenoma of colon: Comment: None on scope in 2018 repeat 5 years Code(s): D12.6 - Benign neoplasm of colon, unspecified (5) Nausea and vomiting: Code(s): R11.2 - Nausea with vomiting, unspecified (6) Pre-op examination: Code(s): Z01.818 - Encounter for other preprocedural examination Medications: New rleetd-sdbykeyq-khmoyuf 12,000-38,000 -60,000 unit (Creon) administer with meals and/or snacks 1 cap PO QID 120 caps 6RF pantoprazole 20 mg PO DAILY 30 tabs 6RF peg 3350-electrolytes 236-22.74-6.74 -5.86 gram (Golytely) until fecal effluent is clear; do not exceed a total volume of 2,000 mL 240 mL PO Q10M 4,000 mL 0RF 1 day Z12.11 - Encounter for screening for malignant neoplasm of colon Refilled simethicone (Gas Relief (simethicone)) 180 mg PO QID PRN 120 caps 6RF abdominal distention R14.0 - Abdominal distension (gaseous) sennosides (senna) 17.2 mg (2 x 8.6 mg) PO BEDTIME 30 tabs 6RF for constipation K58.2 - Mixed irritable bowel syndrome docusate sodium 100 mg PO BID 180 caps 1RF K58.2 - Mixed irritable bowel syndrome Discontinued pantoprazole Discontinued Reason: Doctor's Order 40 mg PO DAILY 30 days 30 tabs 6RF K 21.9 - Gastro-esophageal reflux disease without esophagitis ovoarv-ahgadryq-ihvqlpg 24,000-76,000 -120,000 unit Discontinued Reason: Doctor's Order 1 cap PO QID 90 days 360 caps 3RF K58.9 - Irritable bowel syndrome without diarrhea Coding Level of Care Code Est Pt Level 4 (34750) Diagnoses GERD (gastroesophageal reflux disease) K21.9 Esophagitis presence: without esophagitis Irritable bowel syndrome with both constipation and diarrhea K58.2 Gallstones K80.20 Tubular adenoma of colon D12.6 Nausea and vomiting R11.2 Pre-op examination Z01.818
[2022-10-15 14:05] VITALS: BP 130/86; PULSE 86; BMI 28.0
== END 2022-10-15 14:37 | disposition home or self-care (01) ==
PROVIDERS: Visit Provider Nurse Practitioner
DX: K21.9 Gastro-esophageal reflux disease without esophagitis (principal); K58.2 Mixed irritable bowel syndrome; K80.20 Calculus of gallbladder without cholecystitis without obstruction; D12.6 Benign neoplasm of colon, unspecified; R11.2 Nausea with vomiting, unspecified; Z01.818 Encounter for other preprocedural examination
CPT/HCPCS: 99214

== ENCOUNTER → 2022-10-15 13:52 | Outpatient (BNVA) | payer MEDICARE, MEDICAID, SELFPAY | PROVIDERS: Visit Provider Nurse Practitioner | DX: K80.20 Calculus of gallbladder without cholecystitis without obstruction (principal); K21.9 Gastro-esophageal reflux disease without esophagitis; K58.2 Mixed irritable bowel syndrome; R11.2 Nausea with vomiting, unspecified; D12.6 Benign neoplasm of colon, unspecified; Z90.49 Acquired absence of other specified parts of digestive tract | CPT/HCPCS: 99212 ==

== ENCOUNTER 2022-10-21 09:28 | Outpatient (AMB) | payer MEDICARE, MEDICAID, SELFPAY ==
--- NOTE | 2022-10-21 09:29 | A.OFFVIS_ITS ---
Intake Vital Signs 10/21/22 09:36 Height 6 ft Weight 206 lb 12.697 oz BMI 28.0 BP 128/74 Blood Pressure Location Lt brachial Position Sitting Intake Visit Reasons: S/P lap padilla Intake Note: This patient presents for a post-op assessment status post laparoscopic cholecystectomy. Patient c/o; reports symptoms have improved status post lap padilla. 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 He tolerated procedure well. He currently denies significant complaints. He has good oral intake. [facility] Medical History Abdominal pain Annual physical exam Benign essential hypertension Chronic abdominal pain Chronic cholecystitis Constipation Diarrhea Dyspepsia Elevated d-dimer Encounter for Medicare annual wellness exam Excessive sweating Gallstones Left elbow tendinitis Left-sided chest wall pain Obesity (BMI 30-39.9) Overweight (BMI 25.0-29.9) Primary osteoarthritis of shoulders, bilateral Primary osteoarthritis, left shoulder Primary osteoarthritis, right shoulder Screening for diabetes mellitus Tubular adenoma of colon Umbilical hernia (04/13/22) Surgical History H/O colonoscopy H/O esophagogastroduodenoscopy H/O inguinal hernia repair History of varicose vein ligation and stripping S/P tendon repair Status post pericardial cyst excision (~02/13/19) Family History Father Stomach cancer Mental health problem Mother AIDS Sister PALMER (non-insulin dependent diabetes mellitus in young) Hypertension Other Substance abuse Social History Household Members: Children Housing: Apartment Are you a primary career development director to a significant other at home: No Do you presently have visiting nurse or other home services: Yes ([facility]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) Alcohol intake: never Patient Tobacco Use Status: Former Tobacco user Quit Date: 2006 Tobacco use type: Cigarette Cigarettes Per Day: 40 Years Smoked: quit greater than 10 years ago e-Cigarette/Vaping Use: Never Used Second Hand Smoke Exposure: No Advance Directives Date on File: 07/11/20 Current occupational status: disabled Cognitive needs: No Hearing needs: No Vision needs: Yes Review of Systems Const Denies chills and Denies fever(s) Card Denies chest pain, Denies dyspnea and Denies dyspnea on exertion Resp Denies cough, Denies dyspnea and Denies dyspnea on exertion GI Denies hematochezia and Denies change in bowel habits Denies hematuria and Denies difficulty urinating Musc Reports abnormal gait, Reports back pain and Reports limited range of motion Neuro Reports abnormal gait, Denies focal weakness and Denies convulsions Psych Denies depression and Denies mood swings Physical Exam Const Other: Using a cane General: comfortable and no acute distress Eyes Other: Anicteric Resp Effort & Inspection: normal respiratory effort GI Other: All incisions are well healed Palpation (GI): Soft to palpation, not firm, nontender and no guarding Assessment & Plan Assessment & Plan (1) Gallstones: Comment: On 04/2020 ultrasound no signs of cholecystitis patient currently asymptomatic Code(s): K80.20 - Calculus of gallbladder without cholecystitis without obstruction Plan: Status post laparoscopic cholecystectomy. He is doing very well postopera tively. All incisions are well healed. He says he feels well overall. He was advised to avoid any lifting more than 20 lb for at least 3 more weeks. He can follow up on a p.r.n. basis. Coding Level of Care Code Global (12613) Diagnoses Gallstones K80.20
[2022-10-21 09:36] VITALS: BP 128/74; BMI 28.0
== END 2022-10-21 09:41 | disposition home or self-care (01) ==
PROVIDERS: PCP Internal Medicine; Visit Provider Surgery
DX: K80.20 Calculus of gallbladder without cholecystitis without obstruction (principal)
CPT/HCPCS: 99024

== ENCOUNTER → 2022-10-21 09:28 | Outpatient (BNVA) | payer MEDICARE, MEDICAID, SELFPAY | PROVIDERS: PCP Internal Medicine; Visit Provider Surgery ==

== ENCOUNTER 2022-10-22 14:55 | Outpatient (AMB) | payer MEDICARE, MEDICAID, SELFPAY ==
[2022-10-22 14:59] VITALS: BP 177/80; PULSE 80; TEMP 36.7; BMI 28.4
--- NOTE | 2022-10-22 14:59 | A.OFFVIS_ITS ---
Intake Vital Signs 10/22/22 14:59 Height 6 ft Weight 209 lb 10.554 oz BMI 28.4 BP 177/80 H Blood Pressure Location Rt brachial Position Sitting Pulse 80 Pulse Source Pulse Oximeter Temp 98.1 F Temp Source Skin Intake Visit Reasons: OA/injection Intake Note: * Pt seen today for OA follow up. * Reports 3 surgical procedures in the last month. (Hernia repair, I&D for hemorrhoids, gallbladder) * C/o bl shoulder pain, right knee pain * Last injections bl shoulders 06/02/22 [employer] Principal Required: No Accompanied by: Self / Same As Patient Allergies seafood Allergy (Severe, Verified 10/22/22 15:08) Anaphylaxis duloxetine Allergy (Intermediate, Verified 10/22/22 15:08) N/V, diarrhea, shakiness, withdrawal symptoms gabapentin Allergy (Intermediate, Verified 10/22/22 15:08) confusion/memory loss/hallucination lactase [LACTASE] Allergy (Intermediate, Verified 10/22/22 15:08) Nausea Medication List - Last Reconciled 10/22/22 by Madina Millard MD acetaminophen 500 mg PO TID PRN amitriptyline 25 mg PO BEDTIME 30 days aspirin 81 mg PO DAILY bupropion HCl 100 mg PO QAM clonazepam 1 mg PO BEDTIME PRN clonazepam 0.5 mg PO DAILY 30 days clonidine HCl 0.1 mg PO BID PRN 90 days diclofenac sodium 1% 2 grams topical BID docusate sodium 100 mg PO BID hydrocodone-acetaminophen 5-325 mg 1 tab PO Q4-6H PRN hydrocodone-acetaminophen 5-325 mg 1 tab PO Q4-6H PRN hydrocodone-acetaminophen 5-325 mg 1 tab PO Q4-6H PRN hydrocortisone 2.5% (Proctosol HC) 1 appl RI BID ibuprofen 600 mg PO Q6H PRN elxlca-njwjxknx-vvdskaq 12,000-38,000 -60,000 unit (Creon) 1 cap PO QID losartan 25 mg PO DAILY 90 days ondansetron 4 mg PO Q8H PRN 30 days oxycodone 5 mg PO Q4H PRN oxycodone-acetaminophen 5-325 mg (Percocet) 1 tab PO Q4-6H PRN pantoprazole 20 mg PO DAILY peg 3350-electrolytes 236-22.74-6.74 -5.86 gram (Golytely) 240 mL PO Q10M 1 day quetiapine 50 mg PO BID sennosides (senna) 17.2 mg (2 x 8.6 mg) PO BEDTIME simethicone (Gas Relief (simethicone)) 180 mg PO QID PRN sucralfate 2 grams (2 x 1 gram) PO DAILY tizanidine 4 mg PO TID PRN 30 days tramadol 1 to 2 tablets PO 2 times a day; 28 days zolpidem ER 12.5 mg PO BEDTIME HPI HPI Comments History of Present Illness Details 62-year-old male with a generalized OA presents for bilateral shoulder pain. He received bilateral shoulder cortisone injection back in 05/2022 with good relief of his symptoms. He states that his shoulder pain especially on the right side is starting to come back. He had gallbladder surgery about 3 weeks ago and he was told by his surgeon that the inflation that occurs during the operation can cause some shoulder pain. He stated that the shoulder pain is worse now. Would like to repeat the injections. He stated that his knees are doing well since the injections that were done last year. [facility] Medical History Abdominal pain Annual physical exam Benign essential hypertension Chronic abdominal pain Chronic cholecystitis Constipation Diarrhea Dyspepsia Elevated d-dimer Encounter for Medicare annual wellness exam Excessive sweating Gallstones Left elbow tendinitis Left-sided chest wall pain Obesity (BMI 30-39.9) Overweight (BMI 25.0-29.9) Primary osteoarthritis of shoulders, bilateral Primary osteoarthritis, left shoulder Primary osteoarthritis, right shoulder Screening for diabetes mellitus Tubular adenoma of colon Umbilical hernia (04/13/22) Surgical History H/O colonoscopy H/O esophagogastroduodenoscopy H/O inguinal hernia repair History of incision and drainage History of varicose vein ligation and stripping Hx of cholecystectomy Hx of umbilical hernia repair S/P tendon repair Status post pericardial cyst excision (~02/13/19) Family History Father Stomach cancer Mental health problem Mother AIDS Sister NIDKENZIE (non-insulin dependent diabetes mellitus in young) Hypertension Other Substance abuse Social History Household Members: Children Housing: Apartment Are you a primary intensive care specialist to a significant other at home: No Do you presently have visiting nurse or other home services: Yes ([facility]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) Alcohol intake: never Patient Tobacco Use Status: Former Tobacco user Quit Date: 2006 Tobacco use type: Cigarette Cigarettes Per Day: 40 Years Smoked: quit greater than 10 years ago e-Cigarette/Vaping Use: Never Used Second Hand Smoke Exposure: No Advance Directives Date on File: 07/11/20 Current occupational status: disabled Cognitive needs: No Hearing needs: No Vision needs: Yes Review of Systems Musc Reports arthralgias and Reports limited range of motion Physical Exam Vital Signs: Last Vital Signs Temp 98.1 F 10/22/22 14:59 Pulse 80 10/22/22 14:59 BP 177/80 H 10/22/22 14:59 BMI result Body Mass Index 28.4 Const General: cooperative and comfortable Nutritional Appearance: obese Orientation/consciousness: patient oriented x3 Limitations: ambulation with cane HEENT Head: Yes normocephalic and Yes atraumatic Resp Effort & Inspection: normal respiratory effort and able to speak in complete sentences Neuro General: patient oriented x3 Extrem Other: Bilateral limited shoulder abduction, more pronounced on the right side Office Procedures Joint Injection/Drain Joint Injection/Drain Primary Site: left shoulder Secondary Site: right shoulder Prep: site was prepped using sterile technique and ethochloride spray was applied Injected: 40 mg of, Kenalog and other (2 mL of 1% lidocaine) Approach Used: posterolateral Procedure: The patient tolerated the procedure well Coding Details: With the patient's consent the left shoulder was prepped with ChloraPrep and alcohol. Under a topical ethyl chloride spray the left shoulder joint was inje cted with 40 mg of triamcinolone and 2 cc of 1% lidocaine. The patient tolerated the procedure without any acute adverse effects. With the patient's consent the right shoulder was prepped with ChloraPrep and alcohol. Under a topical ethyl chloride spray the right shoulder joint was injected with 40 mg of triamcinolone and 2 cc of 1% lidocaine. The patient tolerated the procedure without any acute adverse effects. 63442 - Large joint Procedure code (CPT) selection complete Assessment & Plan Assessment & Plan (1) Primary osteoarthritis of shoulders, bilateral: Code(s): M19.011 - Primary osteoarthritis, right shoulder; M19.012 - Primary osteoarthritis, left shoulder Plan: 62-year-old male with generalized osteoarthritis presents for bilateral shoulder pain. Requesting cortisone injections. Previous injection 06/10 did provide significant relief. With patient's consent both shoulders were injected with Kenalog in clinic today. Advised patient to start doing physical therapy to regain range of motion as soon as he feels some relief from the injection. Orders: Orders PT Evaluation and Treatment Today M19.011 - Primary osteoarthritis, right shoulder, M19.012 - Primary osteoarthritis, left shoulder AMB Joint Injection/Aspiration Today M19.011 - Primary osteoarthritis, right shoulder, M19.012 - Primary osteoarthritis, left shoulder Coding Level of Care Code Est Pt Level 3 (04702) Diagnoses Primary osteoarthritis of shoulders, bilateral M19.011; M19.012 CPT Codes Coding - Large joint: 82545 - Large joint ([id number])
== END 2022-10-22 15:45 | disposition home or self-care (01) ==
PROVIDERS: PCP Internal Medicine; Visit Provider Student in an Organized Health Care Education/Training Program
DX: M19.011 Primary osteoarthritis, right shoulder (principal); M19.012 Primary osteoarthritis, left shoulder
CPT/HCPCS: 20610; 99213

== ENCOUNTER → 2022-10-22 14:55 | Outpatient (BNVA) | payer MEDICARE, MEDICAID, SELFPAY | PROVIDERS: PCP Internal Medicine; Visit Provider Student in an Organized Health Care Education/Training Program | DX: M19.011 Primary osteoarthritis, right shoulder (principal); M19.012 Primary osteoarthritis, left shoulder | CPT/HCPCS: 20610; 99212 ==

== ENCOUNTER 2022-10-25 14:29 | Outpatient (AMB) | payer MEDICARE, MEDICAID, SELFPAY ==
[2022-10-25 14:36] VITALS: BP 140/90; PULSE 68; O2SAT 97; BMI 28.0
--- NOTE | 2022-10-25 14:36 | MHC.PC.OV ---
Vital Signs 10/25/22 14:36 Height 6 ft Weight 206 lb 6 oz BMI 28.0 BP 140/90 H Blood Pressure Location Lt brachial Position Sitting Pulse 68 Pulse Source Pulse Oximeter Pulse Oximetry (%) 97 Oxygen Delivery Method Room Air Intake Visit Reasons: palpitations, HTN, anxiety, low back pain Lathe Hand Required: No Accompanied by: Self / Same As Patient Allergies seafood Allergy (Severe, Verified 10/25/22 15:22) Anaphylaxis duloxetine Allergy (Intermediate, Verified 10/25/22 15:22) N/V, diarrhea, shakiness, withdrawal symptoms gabapentin Allergy (Intermediate, Verified 10/25/22 15:22) confusion/memory loss/hallucination lactase [LACTASE] Allergy (Intermediate, Verified 10/25/22 15:22) Nausea Medication List - Last Reconciled 10/25/22 by Marcial David MD acetaminophen 500 mg PO TID PRN amitriptyline 25 mg PO BEDTIME 30 days aspirin 81 mg PO DAILY bupropion HCl 100 mg PO QAM clonazepam 1 mg PO BEDTIME PRN clonazepam 0.5 mg PO DAILY 30 days clonidine HCl 0.1 mg PO BID PRN 90 days diclofenac sodium 1% 2 grams topical BID docusate sodium 100 mg PO BID hydrocodone-acetaminophen 5-325 mg 1 tab PO Q4-6H PRN hydrocodone-acetaminophen 5-325 mg 1 tab PO Q4-6H PRN hydrocodone-acetaminophen 5-325 mg 1 tab PO Q4-6H PRN hydrocortisone 2.5% (Proctosol HC) 1 appl ND BID ibuprofen 600 mg PO Q6H PRN gtbkhr-[id number]-ukqhwel 12,000-38,000 -60,000 unit (Creon) 1 cap PO QID losartan 25 mg PO DAILY 90 days ondansetron 4 mg PO Q8H PRN 30 days oxycodone 5 mg PO Q4H PRN oxycodone-acetaminophen 5-325 mg (Percocet) 1 tab PO Q4-6H PRN pantoprazole 20 mg PO DAILY peg 3350-electrolytes 236-22.74-6.74 -5.86 gram (Golytely) 240 mL PO Q10M 1 day quetiapine 50 mg PO BID sennosides (senna) 17.2 mg (2 x 8.6 mg) PO BEDTIME simethicone (Gas Relief (simethicone)) 180 mg PO QID PRN sucralfate 2 grams (2 x 1 gram) PO DAILY tizanidine 4 mg PO TID PRN 30 days tramadol 1 to 2 tablets PO 2 times a day; 28 days zolpidem ER 12.5 mg PO BEDTIME Tobacco use date assessed: 10/25/22 Dental Screening Dental Screen Date: 10/25/22 Did you have a dental visit in the last 12 months?: Yes Did you have a dental problem in the last 6 months where you did not have access to dental care?: No Was dental information given to patient?: Patient has dentist HPI palpitations, HTN, anxiety, low back pain HPI Details Patient comes in today for his follow up visit States that he feels okay and that his previous GI symptoms of recurrent nausea, bloating, vomiting and abdominal pain and cramping have all improved significantly since he had his gall bladder surgery with Dr. Saenz last month Reports (+) occasional SOB but states that he was advised by Dr. Saenz that is normal following GI surgery and that his symptoms should gradually resolve over the next few weeks He denies any headaches or dizziness Denies any chest pains Reports (+) on and off loose stools but states that this is mostly related to his recent GB surgery States that his chronic low back pain and joint pains remain adequately controlled on his current Rx Needs his Zolpidem Rx refilled today [facility] Medical History Abdominal pain Annual physical exam Benign essential hypertension Chronic abdominal pain Chronic cholecystitis Constipation Diarrhea Dyspepsia Elevated d-dimer Encounter for Medicare annual wellness exam Excessive sweating Gallstones Left elbow tendinitis Left-sided chest wall pain Obesity (BMI 30-39.9) Overweight (BMI 25.0-29.9) Primary osteoarthritis of shoulders, bilateral Primary osteoarthritis, left shoulder Primary osteoarthritis, right shoulder Screening for diabetes mellitus Tubular adenoma of colon Umbilical hernia (04/13/22) Surgical History (Updated 10/25/22 @ 15:40 by Marcial David MD) H/O colonoscopy H/O esophagogastroduodenoscopy H/O inguinal hernia repair History of incision and drainage History of varicose vein ligation and stripping Hx laparoscopic cholecystectomy (~10/08/22) Hx of umbilical hernia repair S/P tendon repair Status post pericardial cyst excision (~02/13/19) Family History Father Stomach cancer Mental health problem Mother AIDS Sister PALMER (non-insulin dependent diabetes mellitus in young) Hypertension Other Substance abuse Social History Household Members: Children Housing: Apartment Are you a primary nurse wound care to a significant other at home: No Do you presently have visiting nurse or other home services: Yes ([employer]) Alcohol intake: never Patient Tobacco Use Status: Former Tobacco user Quit Date: 2006 Tobacco use type: Cigarette Cigarettes Per Day: 40 Years Smoked: quit greater than 10 years ago e-Cigarette/Vaping Use: Never Used Second Hand Smoke Exposure: No Advance Directives Date on File: 07/11/20 Current occupational status: disabled Cognitive needs: No Hearing needs: No Vision needs: Yes Questionnaire PHQ-9 Over the last 2 weeks, how often have you been bothered by any of the following problems? 1. Little interest or pleasure in doing things: several days 2. Feeling down, depressed, or hopeless: several days 3. Trouble falling or staying asleep, or sleeping too much: several days 4. Feeling tired or having little energy: several days 5. Poor appetite or overeating: several days 6. Feeling bad about yourself - or that you are a failure or have let yourself or your family down: not at all 7. Trouble concentrating on things, such as reading the newspaper or watching television: several days 8. Moving or speaking so slowly that other people could have noticed. Or the opposite - being so fidgety or restless that you have been moving around a lot more than usual: not at all 9. Thoughts that you would be better off or of hurting yourself in some way: not at all Total score: 6 Depression Screening Interpretation: Positive (on Rx) Depression Screening Follow-up: Existing condition and In treatment 01003 - PHQ-9 Billing: Yes Source: Developed by Drs. Bro Guillermo, Dimple Lawson, Bulmaro Tavares and colleagues, with an educational sofie from [employer]. Thrive Questionnaire Date Thrive assessed: 10/25/22 I am a: Patient What is your living situation today?: I have a steady place to live Within the past 12 months, did the food you bought not last and you didn't have the money to get more?: Never true Within the past 12 months, did you worry whether your food would run out before you got money to buy more?: Never true Do you have trouble paying for medicines?: No Do you have trouble getting transportation to medical appointments?: No Do you have trouble paying your heating and electricity bill?: No Do you have trouble taking care of your child, family member or friend?: No Do you have trouble with day-to-day activities such as bathing, preparing meals, shopping, managing finances, etc.?: No Are you currently unemployed and looking for a job?: No Are you interested in more education?: No Please select the resources that you would like help with: None Currently or been in a relationship where the following occur: no concerns reported AUDIT C Alcohol Use Questionnaire (AUDIT-C) 1. How often do you have a drink containing alcohol?: Never 3. How often do you have six or more drinks on one occasion?: Never Total Score: 0 Score Reviewed/Action Taken: Yes GANESH-7 AMB Questionnaire GANESH-7 Date GANESH - 7 assessed: 10/25/22 Feeling nervous, anxious, or on edge: 0 = Not at all Not being able to stop or control worryin = Not at all Worrying too much about different things: 0 = Not at all Trouble relaxin = Not at all Being so restless that it is hard to sit still: 0 = Not at all Becoming easily annoyed or irritable: 0 = Not at all Feeling afraid as if something awful might happen: 0 = Not at all Total GANESH-7 score (0-4 normal; 5-9 mild; 10-14 moderate; 15-21 severe): 0 Source: Developed by Drs. Bro Guillermo, Dimple Lawson, Bulmaro Tavares and colleagues, with an educational sofie from [employer]. Review of Systems Const Denies chills, Reports difficulty sleeping (Rx helping), Reports fatigue, Denies fever(s) and Denies headache(s) ENT Denies dysphagia, Denies dizziness, Denies headache(s), Denies neck pain, Denies odynophagia and Denies sore throat Card Denies chest pain, Denies palpitations and Reports dyspnea on exertion (mild) Resp Denies chest congestion, Denies cough, Reports dyspnea on exertion (mild) and Denies wheezing GI Denies abdominal pain, Denies constipation (improved with Rx), Denies dysphagia, Denies heartburn, Reports loose stools (occasionally), Denies nausea, Denies odynophagia and Denies vomiting Denies dysuria, Denies nocturia and Denies urinary frequency Musc Reports back pain (chronic but increased significantly lately - see HPI), Reports arthralgias (involving multiple joints), Denies neck pain and Reports stiffness Neuro Denies dizziness and Denies headache(s) Psych Reports anxiety and Reports depression Endo Reports fatigue and Denies palpitations Aller/Immun Denies wheezing Physical exam (Primary Care) Vital Signs: Last Vital Signs Pulse 68 10/25/22 14:36 BP 140/90 H 10/25/22 14:36 Pulse Ox 97 10/25/22 14:36 Oxygen Delivery Method Room Air 10/25/22 14:36 BMI result Body Mass Index 28.0 Tobacco/Smoking Status: Tobacco use Status Tobacco use date assessed 10/25/22 10/25/22 14:44 Patient Tobacco Use Status Former Tobacco user 10/25/22 14:44 Tobacco use type Cigarette 10/25/22 14:44 e-Cigarette/Vaping Use Never Used 10/25/22 14:44 PHQ-9: PHQ-9 Score PHQ-9: Total score 6 10/25/22 14:44 Depression Screening Interpretation: Positive (on Rx) Depression Screening Follow-up: Existing condition and In treatment Thrive Assessment: Date of Thrive Assessment Date Thrive assessed 10/25/22 10/25/22 14:44 Currently or been in a relationship where the following occur: no concerns reported Const General: no acute distress and alert HENMT Ears: TM's normal bilaterally and EAC's normal Throat: Yes posterior oropharynx normal and Yes tonsils normal (no TP congestion noted) Neck Neck: Yes no lymphadenopathy and Yes supple Resp Auscultation: clear to auscultation bilaterally, no rales and no wheezes Cardio Rate: regular rate Rhythm: regular rhythm Heart sounds: no murmurs GI Palpation (GI): Soft to palpation and nontender Auscultation: normal bowel sounds General: Yes no CVA tenderness Back/Spine/Pelvis Back: no CVA tenderness Thoracic/Lumbar Spine: paraspinal muscle tenderness bilaterally in the upper lumbar, in the mid lumbar and in the lower lumbar and lumbar spinal tenderness Extrem General: Yes no clubbing, cyanosis or edema Right lower extremity: knee Details: tenderness; no swelling Left lower extremity: knee Details: tenderness; no swelling Assessment and Plan Assessment & Plan (1) Chronic cholecystitis: Code(s): K81.1 - Chronic cholecystitis Plan: S/P laparoscopic cholecystectomy a few weeks ago on 10/08/[address] Saenz States that his surgery went well and that all of his previous GI symptoms have since improved/resolved with his surgery (2) Lumbar degenerative disc disease: Code(s): M51.36 - Other intervertebral disc degeneration, lumbar region Plan: Reinforced activity and weight lifting restrictions Continue Tizanidine 4 mg 3 times a day as needed, Acetaminophen 500 mg TID PRN, Lidocaine 4% cream apply to painful area on lower back as needed and Tramadol 50 mg TID PRN (3) Benign essential hypertension: Code(s): I10 - Essential (primary) hypertension Plan: Reinforced low sodium diet - goal is systolic BP of at least 120 to 130 mm or less Continue Losartan 25 mg QD (4) Primary osteoarthritis of shoulders, bilateral: Code(s): M19.011 - Primary osteoarthritis, right shoulder; M19.012 - Primary osteoarthritis, left shoulder Plan: Follow up with rheumatology in [place] as scheduled; [place] [facility] [place] left the practice last year (5) GERD (gastroesophageal reflux disease): Code(s): K21.9 - Gastro-esophageal reflux disease without esophagitis Qualifiers: Esophagitis presence: without esophagitis Qualified Code(s): K21.9 - Gastro-esophageal reflux disease without esophagitis Plan: Dietary restrictions reinforced Continue Pantoprazole 20 mg daily (6) Irritable bowel syndrome with both constipation and diarrhea: Code(s): K58.2 - Mixed irritable bowel syndrome Plan: Continue Docusate 100 mg BID PRN and Creon QID Follow up with GI as scheduled Stool culture and test for H. pylori done last year came back negative (7) Insomnia: Code(s): G47.00 - Insomnia, unspecified Qualifiers: Insomnia type: unspecified Qualified Code(s): G47.00 - Insomnia, unspecified Plan: Sleep hygiene reinforced Continue Zolpidem ER 12.5 mg Q HS PRN; is also on Quetiapine, which helps with his sleep as well (8) Anxiety: Code(s): F41.9 - Anxiety disorder, unspecified Plan: Continue Clonazepam 1 mg once a day at bedtime as needed, Clonazepam 0.5 mg once a day in AM, Propranolol 20 mg BID and Clonidine 0.1 mg BID PRN (9) Depression: Code(s): F32.9 - Major depressive disorder, single episode, unspecified Qualifiers: Depression Type: major depressive disorder Major depression recurrence: recurrent Active/Remission status: currently active Major depression episode severity: unspecified Qualified Code(s): F33.9 - Major depressive disorder, recurrent, unspecified Plan: Continue Wellbutrin XL 300 mg Q AM, Prazosin 2 mg BID (to help with his nightmares) and Quetiapine 200 mg Q HS Follow-up with Psychiatry as scheduled (10) Overweight (BMI 25.0-29.9): Code(s): E66.3 - Overweight Plan: Reinforced diet/exercise as tolerated/lose weight Plan To return in 3 months for his next annual physical examination Is instructed to get his labs done prior to his appointment for his annual PE Orders: Orders Comprehensive [place]. Panel Fast 3 Months E78.00 - Pure hypercholesterolemia, unspecified Lipid Panel 3 Months E78.00 - Pure hypercholesterolemia, unspecified Prostate Specific Antigen 3 Months N40.0 - Benign prostatic hyperplasia without lower urinary tract symptoms TSH reflex Free T4 3 Months E78.00 - Pure hypercholesterolemia, unspecified Vitamin D 25-OH Total 3 Months E55.9 - Vitamin D deficiency, unspecified Complete Blood Count Auto Diff 3 Months I10 - Essential (primary) hypertension UA CC w/rflx Micro + Cult 3 Months R30.0 - Dysuria Medications: Refilled zolpidem ER 12.5 mg PO BEDTIME 30 tabs 1RF Coding Level of Care Code Est Pt Level 3 (46356) Diagnoses Chronic cholecystitis K81.1 Lumbar degenerative disc disease M51.36 Benign essential hypertension I10 Primary osteoarthritis of shoulders, bilateral M19.011; M19.012 GERD (gastroesophageal reflux disease) K21.9 Esophagitis presence: without esophagitis Irritable bowel syndrome with both constipation and diarrhea K58.2 Insomnia G47.00 Insomnia type: unspecified Anxiety F41.9 Depression F33.9 Depression Type: major depressive disorder Major depression recurrence: recurrent Active/Remission status: currently active Major depression episode severity: unspecified Overweight (BMI 25.0-29.9) E66.3
== END 2022-10-25 15:33 | disposition home or self-care (01) ==
PROVIDERS: Visit Provider Internal Medicine
DX: I10 Essential (primary) hypertension (principal); K21.9 Gastro-esophageal reflux disease without esophagitis; K58.2 Mixed irritable bowel syndrome; F41.9 Anxiety disorder, unspecified; F33.9 Major depressive disorder, recurrent, unspecified; K81.1 Chronic cholecystitis; M51.36 Other intervertebral disc degeneration, lumbar region; M19.011 Primary osteoarthritis, right shoulder; M19.012 Primary osteoarthritis, left shoulder; G47.00 Insomnia, unspecified; E66.3 Overweight
CPT/HCPCS: 99213

== ENCOUNTER 2022-10-28 14:25 | Outpatient (AMB) | payer MEDICARE, MEDICAID, SELFPAY ==
--- NOTE | 2022-10-28 14:26 | AM.OFFVISMDC ---
Intake Vital Signs 10/28/22 14:27 Height 6 ft Weight 202 lb BMI 27.4 BP 130/90 H Blood Pressure Location Lt brachial Position Sitting Pulse 81 Pulse Source Pulse Oximeter Temp Source Skin Pulse Oximetry (%) 99 Oxygen Delivery Method Room Air Intake Visit Reasons: SWV- G0439 Intake Note: Patient is here for an Annual Wellness Visit. 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 Required: No Allergies seafood Allergy (Severe, Verified 10/28/22 15:30) Anaphylaxis duloxetine Allergy (Intermediate, Verified 10/28/22 15:30) N/V, diarrhea, shakiness, withdrawal symptoms gabapentin Allergy (Intermediate, Verified 10/28/22 15:30) confusion/memory loss/hallucination lactase [LACTASE] Allergy (Intermediate, Verified 10/28/22 15:30) Nausea Medication List - Last Reconciled 10/28/22 by LEONARDO Peoples acetaminophen 500 mg PO TID PRN amitriptyline 25 mg PO BEDTIME 30 days aspirin 81 mg PO DAILY bupropion HCl 100 mg PO QAM clonazepam 1 mg PO BEDTIME PRN clonazepam 0.5 mg PO DAILY 30 days clonidine HCl 0.1 mg PO BID PRN 90 days diclofenac sodium 1% 2 grams topical BID docusate sodium 100 mg PO BID hydrocodone-acetaminophen 5-325 mg 1 tab PO Q4-6H PRN hydrocodone-acetaminophen 5-325 mg 1 tab PO Q4-6H PRN hydrocodone-acetaminophen 5-325 mg 1 tab PO Q4-6H PRN hydrocortisone 2.5% (Proctosol HC) 1 appl [place] BID ibuprofen 600 mg PO Q6H PRN ptdwxf-hjwquxty-jxymxgv 12,000-38,000 -60,000 unit (Creon) 1 cap PO QID losartan 25 mg PO DAILY 90 days ondansetron 4 mg PO Q8H PRN 30 days oxycodone 5 mg PO Q4H PRN oxycodone-acetaminophen 5-325 mg (Percocet) 1 tab PO Q4-6H PRN pantoprazole 20 mg PO DAILY peg 3350-electrolytes 236-22.74-6.74 -5.86 gram (Golytely) 240 mL PO Q10M 1 day quetiapine 50 mg PO BID sennosides (senna) 17.2 mg (2 x 8.6 mg) PO BEDTIME simethicone (Gas Relief (simethicone)) 180 mg PO QID PRN sucralfate 2 grams (2 x 1 gram) PO DAILY tizanidine 4 mg PO TID PRN 30 days tramadol 1 to 2 tablets PO 2 times a day; 28 days zolpidem ER 12.5 mg PO BEDTIME Fall Risk Assessment Fall risk assessment: No Falls in past year Date Fall Risk Assessed: 10/28/22 HPI SWV- G0439 HPI Details Patient is a 62-year-old male presents today for subsequent wellness visit. Patient of Dr. David. Today we discussed patient's need for prostate cancer screening, patient has order which was placed by his PCP. Up-to-date with immunizations. Scheduled for colonoscopy 12/[address] Andersen. [place] of care was reviewed with the patient and he was provided with a screening schedule. Healthcare proxy and MOLST forms on file. In addition, patient reports that he had gallbladder removal surgery 09/2022 and since then he has been having intermittent diarrhea, he did stop all of his constipation medications for now, reports following bland diet, reports diarrhea for the past 2-3 days, did not use anything for diarrhea. Patient reports that he will call GI provider about this. Patient also can try kugx-ska-brkgezn Imodium p.r.n.. Signs and symptoms reviewed when to notify provider or go to the emergency department. Patient agreed with the plan. [facility] Medical History Abdominal pain Annual physical exam Benign essential hypertension Chronic abdominal pain Chronic cholecystitis Constipation Diarrhea Dyspepsia Elevated d-dimer Encounter for Medicare annual wellness exam Excessive sweating Gallstones Left elbow tendinitis Left-sided chest wall pain Obesity (BMI 30-39.9) Overweight (BMI 25.0-29.9) Primary osteoarthritis of shoulders, bilateral Primary osteoarthritis, left shoulder Primary osteoarthritis, right shoulder Screening for diabetes mellitus Tubular adenoma of colon Umbilical hernia (04/13/22) Surgical History H/O colonoscopy H/O esophagogastroduodenoscopy H/O inguinal hernia repair History of incision and drainage History of varicose vein ligation and stripping Hx laparoscopic cholecystectomy (~10/08/22) Hx of umbilical hernia repair S/P tendon repair Status post pericardial cyst excision (~02/13/19) Family History Father Stomach cancer Mental health problem Mother AIDS Sister PALMER (non-insulin dependent diabetes mellitus in young) Hypertension Other Substance abuse Social History Household Members: Children Housing: Apartment Are you a primary day care home provider to a significant other at home: No Do you presently have visiting nurse or other home services: Yes ([employer]SE COUNSEL[employer]) Alcohol intake: never Patient Tobacco Use Status: Former Tobacco user Quit Date: 2006 Tobacco use type: Cigarette Cigarettes Per Day: 40 Years Smoked: quit greater than 10 years ago e-Cigarette/Vaping Use: Never Used Second Hand Smoke Exposure: No Advance Directives Date on File: 07/11/20 Current occupational status: disabled Cognitive needs: No Hearing needs: No Vision needs: Yes Questionnaire Medicare Wellness Checkup What [age] your [age]?: 65-69 (61) What gender do you identify with?: male During the past 4 weeks, how much have you been bothered by emotional problems such as feeling anxious, depressed, irritable, sad or downhearted, and blue?: moderately During the past 4 weeks, has your physical & emotional health limited your social activities with family, friends, neighbors, or groups?: quite a bit During the past 4 weeks, how much bodily pain have you generally had?: severe pain During the past 4 weeks, was someone available to help you if you needed & wanted help?: yes, some During the past 4 weeks, what was the hardest physical activity you could do for at least 2 minutes?: very light Can you get to places out of walking distance without help? (For eg., can you travel alone on buses, taxis or drive your car?): No Can you go shopping for groceries or clothes without someone's help?: No Can you prepare your own meals?: No Can you do your housework without help?: No Because of any health problems, do you need the help of another person with your personal care needs such as eating, bathing, dressing or getting around the house?: Yes Can you handle your own money without help?: Yes During the past 4 weeks, how would you rate your health in general?: good During the past 4 weeks how have things been going for you?: good & bad parts about equal Are you having difficulties driving your car?: sometimes Do you always fasten your seat belt when you are in a car?: yes, usually During past 4 weeks, have you been bothered by the following: sometimes: Falling or dizzy when standing up, Sexual problems?, Trouble eating well?, Teeth or denture problems? and Problems using the telephone? and often: Tiredness or fatigue? Have you fallen 2 or more times in the past year?: Yes Are you afraid of falling?: Yes Are you a smoker?: no During the past 4 weeks, how many drinks of wine, beer, or other alcoholic beverages did you have?: no alcohol at all Do you exercise for about 20 minutes 3 or more times a week?: yes, some of the time Have you been given information to help with the following?: yes: Keeping track of your medications? How often do you have trouble taking medicines the way you have been told to take them?: I always take medicine as prescribed How confident are you that you can control & manage most of your health problems?: somewhat confident What is your race?: or origin or descent Mini Mental State Exam (MMSE) Orientation What is the (year) (season) (date) (day) (month)?: year, season, date, day and month Score Score: 5 Activity of Daily Living Bathing - sponge bath, tub bath or shower: receives help in bathing only one body part (such as back or leg) Dressing - getting clothes from closets & drawers, including inner/outer garments & fasteners.: gets clothes & gets dressed without help, except for help tying shoes Toileting - going to the 'toilet room' for urine/bowel elimination & cleaning self/arranging clothes: goes to toilet room, cleans self, arranges clothes without help Transfer: moves in & out of bed and chair without help (may use support object) Continence: controls urination/bowel movements completely by self Feeding: feeds self without help Total Score: 0 Information obtained from: patient Using telephone: independent Traveling: needs assistance Shopping: needs assistance Preparing meals: needs assistance Housework: needs assistance Taking medicine: independent Managing money: independent PHQ-9 Over the last 2 weeks, how often have you been bothered by any of the following problems? 1. Little interest or pleasure in doing things: several days 2. Feeling down, depressed, or hopeless: several days 3. Trouble falling or staying asleep, or sleeping too much: several days 4. Feeling tired or having little energy: several days 5. Poor appetite or overeating: several days 6. Feeling bad about yourself - or that you are a failure or have let yourself or your family down: several days 7. Trouble concentrating on things, such as reading the newspaper or watching television: several days 8. Moving or speaking so slowly that other people could have noticed. Or the opposite - being so fidgety or restless that you have been moving around a lot more than usual: several days 9. Thoughts that you would be better off or of hurting yourself in some way: not at all Total score: 8 Depression Screening Interpretation: Positive (on Rx) Depression Screening Follow-up: Existing condition and In treatment 81627 - PHQ-9 Billing: Yes Source: Developed by Drs. Bro Guillermo, Dimple Lawson, Bulmaro Tavares and colleagues, with an educational sofie from [employer]. GANESH-7 AMB Questionnaire GANESH-7 Date GANESH - 7 assessed: 10/25/22 Feeling nervous, anxious, or on edge: 0 = Not at all Not being able to stop or control worryin = Not at all Worrying too much about different things: 0 = Not at all Trouble relaxin = Not at all Being so restless that it is hard to sit still: 0 = Not at all Becoming easily annoyed or irritable: 0 = Not at all Feeling afraid as if something awful might happen: 0 = Not at all Total GANESH-7 score (0-4 normal; 5-9 mild; 10-14 moderate; 15-21 severe): 0 Source: Developed by Drs. Bro Guillermo, Bulmaro Gottlieb and colleagues, with an educational sofie from [employer]. GANESH-7 Assessment Billing GANESH-7 Assessment Tool: GANESH-7 Assessment 11908 AUDIT C Alcohol Use Questionnaire (AUDIT-C) 1. How often do you have a drink containing alcohol?: Never 3. How often do you have six or more drinks on one occasion?: Never Total Score: 0 Score Reviewed/Action Taken: No Thrive Questionnaire Date Thrive assessed: 10/25/22 Review of Systems GI Reports as per [facility] Physical Exam Vital Signs: Last Vital Signs Pulse 81 10/28/22 14:27 BP 130/90 H 10/28/22 14:27 Pulse Ox 99 10/28/22 14:27 Oxygen Delivery Method Room Air 10/28/22 14:27 BMI result Body Mass Index 27.4 Const General: cooperative and no acute distress Orientation/consciousness: patient oriented x3 HEENT Other: Whisper test: pass Resp Effort & Inspection: normal respiratory effort Auscultation: clear to auscultation bilaterally Cardio Rate: regular rate Rhythm: regular rhythm Heart sounds: S1 normal heart sound present and S2 normal heart sound present GI Other: Abdominal surgical incisions are healed Auscultation: normal bowel sounds Neuro Other: Balance: Normal Get up and walk: unable to Romberg: negative Tandem gait: unable to General: patient oriented x3 Assessment & Plan Assessment & Plan (1) Primary osteoarthritis of shoulders, bilateral: Code(s): M19.011 - Primary osteoarthritis, right shoulder; M19.012 - Primary osteoarthritis, left shoulder Plan: Continue to follow-up with rheumatology (2) Polyarthralgia: Code(s): M25.50 - Pain in unspecified joint Plan: Continue to follow-up with rheumatology (3) Benign essential hypertension: Code(s): I10 - Essential (primary) hypertension Plan: Continue current treatment Low-sodium diet (4) Encounter for Medicare annual wellness exam: Code(s): Z00.00 - Encounter for general adult medical examination without abnormal findings (5) Irritable bowel syndrome with both constipation and diarrhea: Code(s): K58.2 - Mixed irritable bowel syndrome Plan: Continue current treatment Continue to follow-up with gastroenterology Signs and symptoms reviewed when to notify provider or go to the emergency department Patient agreed with the plan (6) Depression: Code(s): F32.9 - Major depressive disorder, single episode, unspecified Qualifiers: Depression Type: major depressive disorder Major depression recurrence: recurrent Active/Remission status: currently active Major depression episode severity: unspecified Qualified Code(s): F33.9 - Major depressive disorder, recurrent, unspecified Plan: Continue current treatment (7) Anxiety: Code(s): F41.9 - Anxiety disorder, unspecified Plan: Continue current treatment (8) Insomnia: Code(s): G47.00 - Insomnia, unspecified Qualifiers: Insomnia type: unspecified Qualified Code(s): G47.00 - Insomnia, unspecified Plan: Continue current treatment (9) GERD (gastroesophageal reflux disease): Code(s): K21.9 - Gastro-esophageal reflux disease without esophagitis Qualifiers: Esophagitis presence: without esophagitis Qualified Code(s): K21.9 - Gastro-esophageal reflux disease without esophagitis Plan: Continue current treatment Avoid GERD trigger foods Do not lay down 2-3 hours after evening meal Continue to follow-up with gastroenterology (10) Chronic low back pain: Code(s): M54.5 - Low back pain; G89.29 - Other chronic pain Plan: Patient is on tramadol p.r.n., tizanidine p.r.n. and Tylenol p.r.n. - he takes this medications as prescribed Plan Keep appointment with PCP as scheduled or follow-up sooner as needed Quality Reporting (2019) Fall Risk Screening ([facility] 139) Last assessed Fall Risk: 10/28/22 Fall risk assessment: No Falls in past year Depression/Bipolar (159/160/161/177) PHQ-9: Total score: 8 Coding Level of Care Code Medicare Subsequent (G0439) Diagnoses Primary osteoarthritis of shoulders, bilateral M19.011; M19.012 Polyarthralgia M25.50 Benign essential hypertension I10 Encounter for Medicare annual wellness exam Z00.00 Irritable bowel syndrome with both constipation and diarrhea K58.2 Depression F33.9 Depression Type: major depressive disorder Major depression recurrence: recurrent Active/Remission status: currently active Major depression episode severity: unspecified Anxiety F41.9 Insomnia G47.00 Insomnia type: unspecified GERD (gastroesophageal reflux disease) K21.9 Esophagitis presence: without esophagitis Chronic low back pain M54.5; G89.29 CPT Codes Advance Care Planning - Advance Care Planning discussion: On file, no changes ([id number]) Advance Care Planning - Time spent: 1-15 minutes, on File ([id number]) Additional Codes GANESH-7 Assessment Billing - GANESH-7 Assessment Tool: GANESH-7 Assessment [id number] ([id number]) Advance Care Planning Advance Care Planning discussion: On file, no changes Date of discussion: 10/28/22 Who was present: pt and political anthropologist Forms completed: None Time spent: 1-15 minutes, on File Actual minutes spent: 1 Did not discuss due to Cultural/Spiritual beliefs: No
[2022-10-28 14:27] VITALS: BP 130/90; PULSE 81; O2SAT 99; BMI 27.4
== END 2022-10-28 15:55 | disposition home or self-care (01) ==
PROVIDERS: Visit Provider Nurse Practitioner Family
DX: Z00.00 Encounter for general adult medical examination without abnormal findings (principal); I10 Essential (primary) hypertension; K58.2 Mixed irritable bowel syndrome; F33.9 Major depressive disorder, recurrent, unspecified; M19.011 Primary osteoarthritis, right shoulder; M19.012 Primary osteoarthritis, left shoulder; M25.50 Pain in unspecified joint; F41.9 Anxiety disorder, unspecified; G47.00 Insomnia, unspecified; K21.9 Gastro-esophageal reflux disease without esophagitis; M54.50 Low back pain, unspecified; G89.29 Other chronic pain
CPT/HCPCS: 1123F; G0439

== ENCOUNTER 2023-01-25 08:35 | Day surgery (SDC) | payer MEDICARE, MEDICAID, SELFPAY ==
[2023-01-21 15:08] VITALS: BMI 27.4
--- NOTE | 2023-01-24 10:35 | P.CONAN_ITS ---
Documented by User: Ailyn Jalloh NP 01/24/23 10:38 HPI - Anesthesia Eval Consult details Narrative: 62yo M for Colonoscopy s/p lap padilla 09/2022 with GA-ETT 7 PMFSH Active Problems Active Problems: All Active Problems (Updated 11/04/22 @ 14:29 by MARVIN Solis) Pre-op examination (Acute) Thrombosed external hemorrhoids (Acute) Palpitations (Acute) Acute lumbar myofascial strain (Acute) Nausea and vomiting (Acute) Bilateral primary osteoarthritis of knee (Acute) Pain, dental (Acute) Hyperglycemia (Acute) Fatigue (Acute) Polyarthralgia (Acute) Gallstones (Acute) Umbilical hernia (Acute) Tubular adenoma of colon (Acute) Irritable bowel syndrome with both constipation and diarrhea (Acute) Family history of gastric cancer (Acute) Abdominal bloating (Acute) Chronic low back pain (Acute) Depression with anxiety (Acute) Lumbar degenerative disc disease (Acute) GERD (gastroesophageal reflux disease) (Acute) Insomnia (Acute) Primary osteoarthritis, left shoulder (Acute) Obesity (BMI 30-39.9) (Acute) Primary osteoarthritis of shoulders, bilateral (Acute) Benign essential hypertension (Acute) Elevated d-dimer (Acute) Left-sided chest wall pain (Acute) Left elbow tendinitis (Acute) Overweight (BMI 25.0-29.9) (Acute) Excessive sweating (Acute) Past Medical History Medical History Umbilical hernia (04/13/22) Gallstones Diarrhea Chronic abdominal pain Abdominal pain Annual physical exam Screening for diabetes mellitus Obesity (BMI 30-39.9) Chronic cholecystitis Dyspepsia Primary osteoarthritis of shoulders, bilateral Benign essential hypertension Encounter for Medicare annual wellness exam Elevated d-dimer Left-sided chest wall pain Left elbow tendinitis Overweight (BMI 25.0-29.9) Excessive sweating Primary osteoarthritis, right shoulder Primary osteoarthritis, left shoulder Constipation Tubular adenoma of colon Family History Family History Father Stomach cancer Mental health problem Mother AIDS Sister NIDDY (non-insulin dependent diabetes mellitus in young) Hypertension Other Substance abuse Family history of problems with anesthesia: No Surgical History Surgical History Hx laparoscopic cholecystectomy (~10/08/22) Hx of umbilical hernia repair History of incision and drainage H/O esophagogastroduodenoscopy H/O colonoscopy Status post pericardial cyst excision (~02/13/19) History of varicose vein ligation and stripping H/O inguinal hernia repair S/P tendon repair History of Problems with Anesthesia: No Social History Social History Household Members: Children Housing: Apartment Are you a primary career counselor to a significant other at home: No Do you presently have visiting nurse or other home services: Yes ([employer]) Alcohol intake: never Patient Tobacco Use Status: Former Tobacco user Quit Date: 13 years ago Tobacco use type: Cigarette Cigarettes Per Day: 40 Years Smoked: quit greater than 10 years ago e-Cigarette/Vaping Use: Never Used Second Hand Smoke Exposure: No Use of substances other than those prescribed or required for medical reasons: No Are you DNR?: No Advance Directives: No Advance Directives Information Provided: Yes Advance Directives Date on File: 07/11/20 Current occupational status: disabled Cognitive needs: No Hearing needs: No Vision needs: Yes Meds Allergies Allergy/AdvReac Type Severity Reaction Status Date / Time seafood Allergy Severe Anaphylaxis Verified 01/25/23 09:38 duloxetine Allergy Intermediate N/V, Verified 01/25/23 09:38 diarrhea, shakiness, withdrawal symptoms gabapentin Allergy Intermediate confusion/memory Verified 01/25/23 09:38 loss/hallucination lactase [LACTASE] Allergy Intermediate Nausea Verified 01/25/23 09:38 Home Medications Medication Instructions Recorded Confirmed Last Taken Type quetiapine 50 mg tablet 50 mg PO BID 02/23/22 01/21/23 04/12/22 History bupropion HCl 100 mg tablet,12 hr 100 mg PO QAM 10/22/22 01/21/23 Unknown History sustained-release hydrocodone 5 mg-acetaminophen 325 1 tab PO Q4-6H PRN pain 10/22/22 10/28/22 Unknown History mg tablet Exam Exam Date and Time: January 24, 2023 1035 Height,Weight and Vital Signs: Height 6 ft Weight 91.626 kg Pertinent Lab Results Pertinent Lab Results: Laboratory Tests 07/22/22 07:05 WBC 9.6 Hgb 15.2 Hct 46.1 Plt Count 265 Sodium 143 Potassium 4.4 Chloride 109 H Carbon Dioxide 27 BUN 12 Creatinine 0.78 Narrative Narrative: EKG 01/2022 Vent. Rate : 109 BPM ? ? Atrial Rate : 109 BPM ?? P-R Int : 164 ms? QRS Dur : 094 ms ? ? QT Int : 322 ms ? ? ? P-R-T Axes : 051 -22 046 degrees ?? QTc Int : 433 ms ? Sinus tachycardia Left axis deviation Borderline ECG When compared with ECG of 04-FEB-2022 06:20, Vent. rate has increased BY? 42 BPM ECHO 07/2022 Conclusions: - The left ventricular systolic function is normal.? The ? calculated ejection fraction is 60% by biplane method. ? - No obvious valvular pathology seen on this study.? Holter 07/2022 Conclusion: 1. Patient was monitored for total period of 3 days and 1 hour 2. Baseline was normal sinus rhythm with average heart rate of 85 beats per minute 3.? No significant pauses or bradycardia noted 4. Total of 3328 PVCs accounting for 0.9% total beats account for occasional PVCs 5. Patient reported multiple events, chest tightness as well as palpitation that correlated either with sinus rhythm or sinus tachycardia with PVCs? Assessment and Plan Assessment Anesthesia Assessment: Chart Reviewed Final Anesthetic Review Family History of Problems with Anesthesia: No History of Problems with Anesthesia: No Documented by User: Sushila Macias MD 01/25/23 10:08 [facility] Active Problems Active Problems: All Active Problems (Updated 01/25/23 @ 09:53 by Sushila Macias MD) Pre-op examination (Acute) Thrombosed external hemorrhoids (Acute) Palpitations (Acute) Acute lumbar myofascial strain (Acute) Nausea and vomiting (Acute) Bilateral primary osteoarthritis of knee (Acute) Pain, dental (Acute) Hyperglycemia (Acute) Fatigue (Acute) Polyarthralgia (Acute) Gallstones (Acute) Umbilical hernia (Acute) Tubular adenoma of colon (Acute) Irritable bowel syndrome with both constipation and diarrhea (Acute) Family history of gastric cancer (Acute) Abdominal bloating (Acute) Chronic low back pain (Acute) Depression with anxiety (Acute) Lumbar degenerative disc disease (Acute) GERD (gastroesophageal reflux disease) (Acute) Insomnia (Acute) Primary osteoarthritis, left shoulder (Acute) Obesity (BMI 30-39.9) (Acute) Primary osteoarthritis of shoulders, bilateral (Acute) Benign essential hypertension (Acute) Elevated d-dimer (Acute) Left-sided chest wall pain (Acute) Left elbow tendinitis (Acute) Overweight (BMI 25.0-29.9) (Acute) Excessive sweating (Acute) Denies ZHEN Past Medical History Medical History Umbilical hernia (04/13/22) Gallstones Diarrhea Chronic abdominal pain Abdominal pain Annual physical exam Screening for diabetes mellitus Obesity (BMI 30-39.9) Chronic cholecystitis Dyspepsia Primary osteoarthritis of shoulders, bilateral Benign essential hypertension Encounter for Medicare annual wellness exam Elevated d-dimer Left-sided chest wall pain Left elbow tendinitis Overweight (BMI 25.0-29.9) Excessive sweating Primary osteoarthritis, right shoulder Primary osteoarthritis, left shoulder Constipation Tubular adenoma of colon Family History Family History Father Stomach cancer Mental health problem Mother AIDS Sister PALMER (non-insulin dependent diabetes mellitus in young) Hypertension Other Substance abuse Surgical History Surgical History Hx laparoscopic cholecystectomy (~10/08/22) Hx of umbilical hernia repair History of incision and drainage H/O esophagogastroduodenoscopy H/O colonoscopy Status post pericardial cyst excision (~02/13/19) History of varicose vein ligation and stripping H/O inguinal hernia repair S/P tendon repair Social History Social History Household Members: Children Housing: Apartment Are you a primary career counselor to a significant other at home: No Do you presently have visiting nurse or other home services: Yes ([employer]) Alcohol intake: never Patient Tobacco Use Status: Former Tobacco user Quit Date: 13 years ago Tobacco use type: Cigarette Cigarettes Per Day: 40 Years Smoked: quit greater than 10 years ago e-Cigarette/Vaping Use: Never Used Second Hand Smoke Exposure: No Use of substances other than those prescribed or required for medical reasons: No Are you DNR?: No Advance Directives: No Advance Directives Information Provided: Yes Advance Directives Date on File: 07/11/20 Current occupational status: disabled Cognitive needs: No Hearing needs: No Vision needs: Yes Meds Allergies Allergy/AdvReac Type Severity Reaction Status Date / Time seafood Allergy Severe Anaphylaxis Verified 01/25/23 09:38 duloxetine Allergy Intermediate N/V, Verified 01/25/23 09:38 diarrhea, shakiness, withdrawal symptoms gabapentin Allergy Intermediate confusion/memory Verified 01/25/23 09:38 loss/hallucination lactase [LACTASE] Allergy Intermediate Nausea Verified 01/25/23 09:38 Home Medications Medication Instructions Recorded Confirmed Last Taken Type quetiapine 50 mg tablet 50 mg PO BID 02/23/22 01/21/23 04/12/22 History bupropion HCl 100 mg tablet,12 hr 100 mg PO QAM 10/22/22 01/21/23 Unknown History sustained-release hydrocodone 5 mg-acetaminophen 325 1 tab PO Q4-6H PRN pain 10/22/22 10/28/22 Unknown History mg tablet Exam Height,Weight and Vital Signs: Height 6 ft Weight 91.626 kg Vital Signs Temp Pulse Resp BP Pulse Ox O2 Del Method 01/25/23 09:39 96.7 F L 64 16 131/78 96 Room Air Airway Mallampati Class: II TM Dist: >3cm Neck ROM: Full Partial: Upper Loose/Missing/Broken Teeth: Yes (Some missing teeth. Denies broken or loose teeth) Heart: RRR Lungs: CTAB Assessment and Plan Assessment Anesthesia Assessment: Anesthesia Plan Discussed Final Anesthetic Review NPO: Yes ASA Class: II Final Preanesthetic Review: No Changes in Pt Med Stat, Meds/Allgs Chart Reviewed, Consent Obtained/Reviewed and Anes Risks/Benef Reviewed Patient Risk: Low Procedure Risk: Low Assessment/Block/Sedation in SS: Assess/Block/Sedation-SS Anesthetic Plan Anesthetic Plan: MAC: Disposition: Standard PACU
[2023-01-25 09:18] VITALS: BMI 28.5
[2023-01-25 09:39] VITALS: BP 131/78; PULSE 64; RESP 16; TEMP 35.9; O2SAT 96
--- NOTE | 2023-01-25 09:52 | MHC.SHP ---
Pre-Procedural Eval Section A Date of Service: 01/25/23 Section B Chief Complaint: screening Relevant Family History (Specify if Yes): No Relevant Social History: None Present Medications: see Short Stay Collaborative assessment Medical History: Significant History (Abdominal pain Annual physical exam Benign essential hypertension Chronic abdominal pain Chronic cholecystitis Constipation Diarrhea Dyspepsia Elevated d-dimer Encounter for Medicare annual wellness exam Excessive sweating Gallstones Left elbow tendinitis Left-sided chest wall pain Obesity (BMI 30-3) History of Previous Operations: Relevant previous surgery/procedure and date(s) (H/O colonoscopy H/O esophagogastroduodenoscopy H/O inguinal hernia repair History of incision and drainage History of varicose vein ligation and stripping Hx laparoscopic cholecystectomy (~10/08/22) Hx of umbilical hernia repair S/P tendon repair Status post pericardial cyst excision (~02/13/19)) Allergies: Allergies Allergy/AdvReac Type Severity Reaction Status Date / Time seafood Allergy Severe Anaphylaxis Verified 01/25/23 09:38 duloxetine Allergy Intermediate N/V, Verified 01/25/23 09:38 diarrhea, shakiness, withdrawal symptoms gabapentin Allergy Intermediate confusion/memory Verified 01/25/23 09:38 loss/hallucination lactase [LACTASE] Allergy Intermediate Nausea Verified 01/25/23 09:38 Review of Systems Sugical H&P ROS: Negative: Constitution, Cardiovascular, Respiratory, Neurological, Psychiatric, Hem-Onc, Allergic/Immunologic, Gastrointestinal, Genitourinary, Musculoskeletal, Integumentary, Endocrine and Eyes/Ears/Nose/Throat Exam Surgical H&P Exam: Normal: HEENT, Normal: Heart, Normal: Lungs, Normal: Extremities, Normal: Abdomen, Normal: Skin and Normal: Neurological Plan Diagnosis/Plan: Unchanged I have reviewed the history and physical and performed a pertinent physical examination on my patient. No changes have occurred unless specified. Time Spent With Patient Time: Total time managing care of this patient today ____ minutes.
[2023-01-25] MEDS: Lactated Ringers 1,000 ML 100 ML IVCONT (09:55)
--- NOTE | 2023-01-25 11:09 | P.OP_ITS ---
Operative Note Operative Note Date of Service: 01/25/23 Narrative: Operative Information Procedure Description: Colonoscopy Indication: screening Anesthesia: MAC COLONOSCOPY Instrument: Olympus variable stiffness ADULT scope 190L Colonoscopy Monitoring: Vital signs and clinical assessment, continuous EKG monitoring, Pulse oximetry, Carbon Dioxide monitoring and blood pressure monitoring were done throughout the procedure. Colon withdrawal time was 20 minutes. Procedure: The patient was placed in the left lateral decubitis position and pre-procedure medications were administered. After a digital rectal examination of the ano-rectum, the video colonoscope was inserted into the rectum and advanced through the colon to the cecum/TI. The colonoscope was slowly withdrawn in a retrograde panoramic fashion and the colon mucosa was carefully examined including a retroflexed view of the rectum. Findings and interventions are described below. Procedure Difficulty: easy Findings: Melanosis coli noted Terminal Ileum-normal Cecum:normal Ascending Colon: normal Transverse Colon -normal Descending Colon:normal Sigmoid Colon: normal Rectum: Retroflexion with small to medium internal hemorrhoids, grade I Anorectum - normal Colon preparation: [place] Bowel Preparation Scale Right colon; 2 Transverse colon: 2 Left colon; 3 (0 = Unprepared colon segment with mucosa not seen due to solid stool that cannot be cleared. 1 = Portion of mucosa of the colon segment seen, but other areas of the colon segment not well seen due to staining, residual stool and/or opaque liquid. 2 = Minor amount of residual staining, small fragments of stool and/or opaque liquid, but mucosa of colon segment seen well. 3 = Entire mucosa of colon segment seen well with no residual staining, small fragments of stool or opaque liquid) Impression and Post Procedure Diagnosis: melanosis coli internal hemorrhoids Plan: High fiber diet leaflet Avoid straining at stool, epsom salts and sitz bath, anusol supps or cream Repeat Colonoscopy in 10 years or earlier if clinically indicated Above findings were reviewed with the patient and relevant handouts were provided if indicated.
[2023-01-25 11:14] VITALS: BP 95/56; PULSE 59; RESP 16; TEMP 36.7; O2SAT 93
[2023-01-25 11:29] VITALS: BP 128/76; PULSE 55; RESP 16; TEMP 36.7; O2SAT 98
== END 2023-01-25 12:55 | disposition home or self-care (01) ==
PROVIDERS: PCP Internal Medicine; Visit Provider Internal Medicine Gastroenterology
PROC: 0DJD8ZZ Inspection of Lower Intestinal Tract, Via Natural or Artificial Opening Endoscopic (ICD-10-PCS; CPT 45378; principal; 2023-01-25 11:10)
DX: Z12.11 Encounter for screening for malignant neoplasm of colon (principal); K63.89 Other specified diseases of intestine; K64.0 First degree hemorrhoids; Z86.010 Personal history of colon polyps; Z80.0 Family history of malignant neoplasm of digestive organs; K58.2 Mixed irritable bowel syndrome; K21.9 Gastro-esophageal reflux disease without esophagitis; I10 Essential (primary) hypertension; Z90.49 Acquired absence of other specified parts of digestive tract; Z87.891 Personal history of nicotine dependence
CPT/HCPCS: G0105

== ENCOUNTER → 2023-01-25 08:35 | Outpatient (BNV) | payer MEDICARE, MEDICAID, SELFPAY | PROVIDERS: PCP Internal Medicine; Visit Provider Internal Medicine Gastroenterology | DX: Z12.11 Encounter for screening for malignant neoplasm of colon (principal); Z86.010 Personal history of colon polyps; K63.89 Other specified diseases of intestine; K64.0 First degree hemorrhoids | CPT/HCPCS: G0105 ==

== ENCOUNTER 2023-01-28 08:05 | Outpatient (REF) | payer MEDICARE, MEDICAID, SELFPAY ==
[2023-01-28 08:26] LABS: MANUAL DIFF FLAG NO
[2023-01-28 09:13] LABS: Basophils Absolute Auto 0.1 X10*3/uL (0.0-0.2); Basophils Percent Auto 0.8 % (0-2); Eosinophils Absolute Auto 0.4 X10*3/uL (0.0-0.4); Eosinophils Percent Auto 6.5 % (0-4); Hematocrit 43.7 % (42.0-52.0); Hemoglobin 14.4 g/dl (14.0-18.0); Imm Gran Abs Auto 0.01 X10*3/uL (0.00-0.03); Imm Gran Pct Auto 0.2 % (0.0-0.4); Lymphocytes Absolute Auto 3.1 X10*3/uL (1.2-4.9); Lymphocytes Percent Auto 49.4 % (20-40); Mean Corpuscular Hemoglobin 27.9 pg (27.0-33.0); Mean Corpuscular Volume 84.5 fL (80.0-98.0); Mean Platelet Volume 10.7 fL (9.4-12.4); Monocytes Absolute Auto 0.5 X10*3/uL (0.1-1.2); Monocytes Percent Auto 8.2 % (2-11); Neutrophils Absolute Auto 2.2 x10*3/uL (2.0-8.3); Neutrophils Percent Auto 34.9 % (45-73); Platelet Count 207 X10*3/uL (160-400); Red Blood Count 5.17 X10*6/uL (4.60-5.80); Red Cell Distribution Width 12.8 % (11.0-16.0); White Blood Count 6.2 X10*3/uL (4.8-10.8)
[2023-01-28 09:53] LABS: Alanine Aminotransferase 13 U/L (0-40); Albumin Level 3.9 g/dL (3.5-5.0); Alkaline Phosphatase 68 U/L (39-117); Anion Gap 8 (12-20); Aspartate Amino Transferase 16 U/L (5-37); Bilirubin Total 0.4 mg/dL (0.0-1.0); Blood Urea Nitrogen 9 mg/dL (9-16); Calcium 8.9 mg/dL (8.4-10.2); Carbon Dioxide 30 mmol/L (22-29); Chloride 106 mmol/L (96-108); Cholesterol 106 mg/dL (<200); Estimated Glomerular Filt Rate > 60; Glucose Fasting 82 mg/dL (60-99); HDL Cholesterol 32 mg/dL (>40); LDL Cholesterol Calculated 56 mg/dL (<100); Potassium 4.3 mmol/L (3.3-5.1); Sodium 140 mmol/L (135-145); Total Protein 6.7 g/dL (6.5-8.0); Triglycerides 92 mg/dL (<150)
[2023-01-28 10:05] LABS: Prostate Specific Antigen 2.49 ng/mL (<0.05-4.0)
[2023-01-28 10:11] LABS: Appearance Urine Clear; Color Urine Yellow; Glucose Urine UA Negative (Negative); Leukocyte Esterase Urine Negative (Negative); Nitrite Urine Negative (Negative); Urine Blood Negative (Negative); Urine Ketones Negative (Negative); Urine Protein Negative (Neg-Trace)
[2023-01-28 10:12] LABS: TSH reflex Free T4 1.22 uIU/mL (0.32-4.0); Vitamin D 25-OH Total 39.2 ng/mL (>30)
== END 2023-01-28 08:06 | disposition home or self-care (01) ==
LOC: HO.LAB 08:05
PROVIDERS: PCP Internal Medicine; Visit Provider Internal Medicine
DX: E55.9 Vitamin D deficiency, unspecified (principal); R30.0 Dysuria; E78.00 Pure hypercholesterolemia, unspecified; I10 Essential (primary) hypertension; N40.0 Benign prostatic hyperplasia without lower urinary tract symptoms; Z12.5 Encounter for screening for malignant neoplasm of prostate
CPT/HCPCS: 36415; 80053; 80061; 81003; 82306; 84153; 84443; 85025

== ENCOUNTER 2023-02-01 14:23 | Outpatient (AMB) | payer MEDICARE, MEDICAID, SELFPAY ==
[2023-02-01 14:35] VITALS: BP 140/92; PULSE 72; O2SAT 96; BMI 27.9
--- NOTE | 2023-02-01 14:35 | MHC.PC.OV ---
Vital Signs 02/01/23 14:35 Height 6 ft Weight 205 lb 6 oz BMI 27.9 BP 140/92 H Blood Pressure Location Lt brachial Position Sitting Pulse 72 Pulse Source Pulse Oximeter Pulse Oximetry (%) 96 Oxygen Delivery Method Room Air Intake Visit Reasons: pe Flue Lining Dipper Required: No Accompanied by: Self / Same As Patient Allergies seafood Allergy (Severe, Verified 02/08/23 11:29) Anaphylaxis duloxetine Allergy (Intermediate, Verified 02/08/23 11:29) N/V, diarrhea, shakiness, withdrawal symptoms gabapentin Allergy (Intermediate, Verified 02/08/23 11:29) confusion/memory loss/hallucination lactase [LACTASE] Allergy (Intermediate, Verified 02/08/23 11:29) Nausea Medication List - Last Reconciled 02/01/23 by Marcial David MD acetaminophen 500 mg PO TID PRN aspirin 81 mg PO DAILY clonazepam 0.5 mg PO DAILY 30 days clonazepam 1 mg PO BEDTIME PRN clonidine HCl 0.1 mg PO BID PRN 90 days diclofenac sodium 1% 2 grams topical BID docusate sodium 100 mg PO BID hydrocortisone 2.5% 1 appl SD BID [id number] 12,000-38,000 -60,000 unit (Creon) 1 cap PO QID losartan 25 mg PO DAILY 90 days pantoprazole 20 mg PO DAILY quetiapine 50 mg PO BID sennosides (senna) 17.2 mg (2 x 8.6 mg) PO BEDTIME simethicone (Gas Relief (simethicone)) 180 mg PO QID PRN sucralfate 2 grams (2 x 1 gram) PO DAILY tizanidine 4 mg PO TID PRN 30 days tramadol 1 to 2 tablets PO 2 times a day; 28 days Tobacco use date assessed: 02/01/23 Dental Screening Dental Screen Date: 02/01/23 Did you have a dental visit in the last 12 months?: Yes Did you have a dental problem in the last 6 months where you did not have access to dental care?: No Was dental information given to patient?: Patient has dentist HPI pe HPI Details Patient comes in today for his annual physical examination States that he is still experiencing frequent bilateral shoulder pain - relates that he has been experiencing his shoulder pains since his gallbladder surgery over a month ago He has been going to physical therapy for his shoulders for a while now and his last session is coming up in a few days Patient feels like PT have helped a lot with his shoulders but not completely He denies any headaches or dizziness Denies any chest pains, no SOB No nausea/vomiting, no abdominal pain No change in bowel habits noted He denies any acute urinary symptoms States that his chronic low back pain and joint pains remain adequately controlled on his current Rx Had his follow up labs done a few days ago - to discuss his results Had his screening/repeat colonoscopy last done on 01/25/23 - (+) melanosis coli and internal hemorrhoids - was recommended to get his repeat colonoscopy in 10 years (2032) [facility] Medical History Umbilical hernia (04/13/22) Gallstones Diarrhea Chronic abdominal pain Abdominal pain Screening for diabetes mellitus Obesity (BMI 30-39.9) Chronic cholecystitis Dyspepsia Primary osteoarthritis of shoulders, bilateral Benign essential hypertension Encounter for Medicare annual wellness exam Elevated d-dimer Left-sided chest wall pain Left elbow tendinitis Overweight (BMI 25.0-29.9) Excessive sweating Primary osteoarthritis, right shoulder Primary osteoarthritis, left shoulder Constipation Tubular adenoma of colon Surgical History Hx laparoscopic cholecystectomy (~10/08/22) Hx of umbilical hernia repair History of incision and drainage H/O esophagogastroduodenoscopy H/O colonoscopy Status post pericardial cyst excision (~02/13/19) History of varicose vein ligation and stripping H/O inguinal hernia repair S/P tendon repair Family History Father Stomach cancer Mental health problem Mother AIDS Sister NIDKENZIE (non-insulin dependent diabetes mellitus in young) Hypertension Other Substance abuse Social History Household Members: Children Housing: Apartment Are you a primary care analyst to a significant other at home: No Do you presently have visiting nurse or other home services: Yes ([employer]) Alcohol intake: never Patient Tobacco Use Status: Former Tobacco user Quit Date: 13 years ago Tobacco use type: Cigarette Cigarettes Per Day: 40 Years Smoked: quit greater than 10 years ago e-Cigarette/Vaping Use: Never Used Second Hand Smoke Exposure: No Advance Directives Date on File: 07/11/20 Current occupational status: disabled Cognitive needs: No Hearing needs: No Vision needs: Yes Questionnaire PHQ-9 Over the last 2 weeks, how often have you been bothered by any of the following problems? 1. Little interest or pleasure in doing things: several days 2. Feeling down, depressed, or hopeless: several days 3. Trouble falling or staying asleep, or sleeping too much: several days 4. Feeling tired or having little energy: several days 5. Poor appetite or overeating: several days 6. Feeling bad about yourself - or that you are a failure or have let yourself or your family down: several days 7. Trouble concentrating on things, such as reading the newspaper or watching television: several days 8. Moving or speaking so slowly that other people could have noticed. Or the opposite - being so fidgety or restless that you have been moving around a lot more than usual: several days 9. Thoughts that you would be better off or of hurting yourself in some way: not at all Total score: 8 Depression Screening Interpretation: Positive (on Rx) Depression Screening Follow-up: Existing condition and In treatment Depression Screening Done: Yes 32037 - PHQ-9 Billing: Yes Source: Developed by Drs. Bro Guillermo, Dimple Lawson, Bulmaro Tavares and colleagues, with an educational sofie from [employer]. Thrive Questionnaire Date Thrive assessed: 02/01/23 I am a: Patient What is your living situation today?: I have a steady place to live Within the past 12 months, did the food you bought not last and you didn't have the money to get more?: Never true Within the past 12 months, did you worry whether your food would run out before you got money to buy more?: Never true Do you have trouble paying for medicines?: No Do you have trouble getting transportation to medical appointments?: No Do you have trouble paying your heating and electricity bill?: No Do you have trouble taking care of your child, family member or friend?: No Do you have trouble with day-to-day activities such as bathing, preparing meals, shopping, managing finances, etc.?: No Are you currently unemployed and looking for a job?: No Are you interested in more education?: No Please select the resources that you would like help with: None Currently or been in a relationship where the following occur: no concerns reported AUDIT C Alcohol Use Questionnaire (AUDIT-C) 1. How often do you have a drink containing alcohol?: Never 3. How often do you have six or more drinks on one occasion?: Never Total Score: 0 Score Reviewed/Action Taken: Yes GANESH-7 AMB Questionnaire GANESH-7 Date GANESH - 7 assessed: 02/01/23 Feeling nervous, anxious, or on edge: 0 = Not at all Not being able to stop or control worryin = Not at all Worrying too much about different things: 0 = Not at all Trouble relaxin = Not at all Being so restless that it is hard to sit still: 0 = Not at all Becoming easily annoyed or irritable: 0 = Not at all Feeling afraid as if something awful might happen: 0 = Not at all Total GANESH-7 score (0-4 normal; 5-9 mild; 10-14 moderate; 15-21 severe): 0 Source: Developed by Drs. Bro Guillermo, Dimple Lawson, Bulmaro Tavares and colleagues, with an educational sofie from [employer]. GANESH-7 Assessment Billing GANESH-7 Assessment Tool: GANESH-7 Assessment 46244 Review of Systems Const Denies chills, Reports difficulty sleeping (Rx helping), Reports fatigue, Denies fever(s) and Denies headache(s) Eyes Denies blurry vision, Denies change in vision, Denies irritation and Denies itchy eyes ENT Denies dysphagia, Denies dizziness, Denies otalgia, Denies headache(s), Denies neck pain, Denies odynophagia and Denies sore throat Card Denies chest pain, Denies palpitations and Reports dyspnea on exertion (mild) Resp Denies chest congestion, Denies cough, Reports dyspnea on exertion (mild) and Denies wheezing GI Denies abdominal pain, Denies constipation (improved with Rx), Denies dysphagia, Denies heartburn, Reports loose stools (occasionally), Denies nausea, Denies odynophagia and Denies vomiting Denies dysuria, Denies nocturia and Denies urinary frequency Musc Reports back pain (chronic but increased significantly lately - see HPI), Reports arthralgias (involving multiple joints, especially over both shoulders lately) and Denies neck pain Skin/Breast Denies change in pigmentation, Denies lesions, Denies rash and Denies unusual bruising Neuro Denies dizziness and Denies headache(s) Psych Reports anxiety and Reports depression Endo Reports fatigue and Denies palpitations Aller/Immun Denies itchy eyes and Denies wheezing Physical exam (Primary Care) Vital Signs: Last Vital Signs Pulse 72 02/01/23 14:35 BP 140/92 H 02/01/23 14:35 Pulse Ox 96 02/01/23 14:35 Oxygen Delivery Method Room Air 02/01/23 14:35 BMI result Body Mass Index 27.9 Tobacco/Smoking Status: Tobacco use Status Tobacco use date assessed 02/01/23 02/01/23 14:37 Patient Tobacco Use Status Former Tobacco user 02/01/23 14:37 Tobacco use type Cigarette 02/01/23 14:37 e-Cigarette/Vaping Use Never Used 02/01/23 14:37 PHQ-9: PHQ-9 Score PHQ-9: Total score 8 02/01/23 15:43 Depression Screening Interpretation: Positive (on Rx) Depression Screening Follow-up: Existing condition and In treatment Thrive Assessment: Date of Thrive Assessment Date Thrive assessed 02/01/23 02/01/23 14:37 Currently or been in a relationship where the following occur: no concerns reported Const General: no acute distress, alert and awake Orientation/consciousness: patient oriented x3 HENMT Head: Yes normocephalic and Yes atraumatic Ears: external ears normal, TM's normal bilaterally and EAC's normal General nose exam: No nasal discharge present Face and sinus: Yes normal facial exam and Yes sinuses nontender Teeth and gingiva: dentition normal Throat: Yes posterior oropharynx normal and Yes tonsils normal (no TP congestion) Eyes Eyelids: Yes eyelids normal Conjunctivae: conjunctivae normal Pupils: Equal, round and reactive pupils present EOM: EOMs intact bilaterally Neck Neck: Yes no lymphadenopathy and Yes supple Thyroid: Thyroid normal Resp Auscultation: clear to auscultation bilaterally, no rales and no wheezes Cardio Rate: regular rate Rhythm: regular rhythm Heart sounds: no murmurs GI Palpation (GI): Soft to palpation, nontender and No hepatosplenomegaly present Auscultation: normal bowel sounds General: Yes no CVA tenderness Back/Spine/Pelvis Back: no CVA tenderness Cervical Spine: No Cervical spine tenderness Thoracic/Lumbar Spine: lumbar spinal tenderness Skin Lesions: no lesions Rashes: no rashes Neuro General: patient oriented x3, moves all extremities, no focal motor deficits and CN's II-XI intact bilaterally Cranial nerves: Yes Equal, round and reactive pupils present Cognition (Neuro): normal cognition Gait exam (Neuro): Normal gait present Extrem General: Yes no clubbing, cyanosis or edema Right lower extremity: knee Details: tenderness; no swelling Left lower extremity: knee Details: tenderness; no swelling Results Reviewed Results Reviewed: Laboratory Tests 04/15/21 01/28/23 01/28/23 10:56 08:19 08:19 WBC Hgb Hct Plt Count Sodium Potassium Creatinine Estimated GFR Fasting Glucose Calcium AST 17 ALT 25 Triglycerides Cholesterol LDL Cholesterol, Calc HDL Cholesterol Prostate Specific Ag 25-OH Vitamin D Total TSH Ur Specific [place] 1.010 Urine Protein Negative Urine Glucose (UA) Negative Urine Blood Negative 01/28/23 01/28/23 01/28/23 08:25 08:25 08:25 WBC 6.2 Hgb 14.4 Hct 43.7 Plt Count 207 Sodium 140 Potassium 4.3 Creatinine 0.82 Estimated GFR > 60 Fasting Glucose 82 Calcium 8.9 AST 16 ALT 13 Triglycerides 92 Cholesterol 106 LDL Cholesterol, Calc 56 HDL Cholesterol 32 L Prostate Specific Ag 2.49 25-OH Vitamin D Total 39.2 TSH 1.22 Ur Specific [place] Urine Protein Urine Glucose (UA) Urine Blood Assessment and Plan Assessment & Plan (1) Annual physical exam: Code(s): Z00.00 - Encounter for general adult medical examination without abnormal findings Plan: Results of his labs done a few days ago reviewed and discussed with patient He had his repeat colonoscopy done last week on 01/25/23 - was recommended to get a repeat colonoscopy in 10 yrs (2032) (2) Chronic cholecystitis: Code(s): K81.1 - Chronic cholecystitis Plan: S/P laparoscopic cholecystectomy a few months ago on 10/08/[address] Saenz States that his surgery went well and that all of his previous GI symptoms have since improved/resolved with his surgery (3) Primary osteoarthritis of shoulders, bilateral: Code(s): M19.011 - Primary osteoarthritis, right shoulder; M19.012 - Primary osteoarthritis, left shoulder Plan: States that his shoulders have been bothering him since he had his cholecystectomy in September 2022 Has been going to physical therapy for his shoulders - states that PT has helped somewhat Will send him for repeat x-rays of both shoulders for further evaluation Follow up with rheumatology in [place] as scheduled; was seeing Dr. Pitt at [facility] in the past until she left the practice a couple of years ago (4) Lumbar degenerative disc disease: Code(s): M51.36 - Other intervertebral disc degeneration, lumbar region Plan: Reinforced activity and weight lifting restrictions Continue Tizanidine 4 mg 3 times a day as needed, Acetaminophen 500 mg TID PRN, Lidocaine 4% cream apply to painful area on lower back as needed and Tramadol 50 mg TID PRN (5) Benign essential hypertension: Code(s): I10 - Essential (primary) hypertension Plan: Reinforced low sodium diet - goal is systolic BP of at least 120 to 130 mm or less Continue Losartan 25 mg QD (6) GERD (gastroesophageal reflux disease): Code(s): K21.9 - Gastro-esophageal reflux disease without esophagitis Qualifiers: Esophagitis presence: without esophagitis Qualified Code(s): K21.9 - Gastro-esophageal reflux disease without esophagitis Plan: Dietary restrictions reinforced Continue Pantoprazole 20 mg QD (7) Irritable bowel syndrome with both constipation and diarrhea: Code(s): K58.2 - Mixed irritable bowel syndrome Plan: Continue Docusate 100 mg BID PRN and Creon QID Follow up with GI as scheduled Stool culture and test for H. pylori done last year came back negative (8) Insomnia: Code(s): G47.00 - Insomnia, unspecified Qualifiers: Insomnia type: unspecified Qualified Code(s): G47.00 - Insomnia, unspecified Plan: Sleep hygiene reinforced Continue Zolpidem ER 12.5 mg Q HS PRN; is also on Quetiapine, which helps with his sleep as well (9) Anxiety: Code(s): F41.9 - Anxiety disorder, unspecified Plan: Continue Clonazepam 1 mg once a day at bedtime as needed, Clonazepam 0.5 mg once a day in AM, Propranolol 20 mg BID and Clonidine 0.1 mg BID PRN (10) Depression: Code(s): F32.9 - Major depressive disorder, single episode, unspecified Qualifiers: Active/Remission status: currently active Depression Type: major depressive disorder Major depression episode severity: unspecified Major depression recurrence: recurrent Qualified Code(s): F33.9 - Major depressive disorder, recurrent, unspecified Plan: Continue Wellbutrin XL 300 mg Q AM, Prazosin 2 mg BID (to help with his nightmares) and Quetiapine 200 mg Q HS Follow-up with Psychiatry as scheduled (11) Overweight (BMI 25.0-29.9): Code(s): E66.3 - Overweight Plan: Reinforced diet/exercise as tolerated/lose weight Plan Follow up in 3 months Orders: Orders XR shoulder LT min 2V 02/01/23 M25.512 - Pain in left shoulder XR shoulder RT min 2V 02/01/23 M25.511 - Pain in right shoulder Coding Level of Care Code Est Pt Prev Care 40-64y(60742) Diagnoses Annual physical exam Z00.00 Chronic cholecystitis K81.1 Primary osteoarthritis of shoulders, bilateral M19.011; M19.012 Lumbar degenerative disc disease M51.36 Benign essential hypertension I10 Gastroesophageal reflux disease without esophagitis K21.9 Esophagitis presence: without esophagitis Irritable bowel syndrome with both constipation and diarrhea K58.2 Insomnia, unspecified type G47.00 Insomnia type: unspecified Anxiety F41.9 Episode of recurrent major depressive disorder, unspecified depression episode severity F33.9 Active/Remission status: currently active Depression Type: major depressive disorder Major depression episode severity: unspecified Major depression recurrence: recurrent Overweight (BMI 25.0-29.9) E66.3 Additional Codes GANESH-7 Assessment Billing - GANESH-7 Assessment Tool: GANESH-7 Assessment [id number] ([id number])
== END 2023-02-01 16:02 | disposition home or self-care (01) ==
PROVIDERS: PCP Internal Medicine; Visit Provider Internal Medicine
DX: Z00.00 Encounter for general adult medical examination without abnormal findings (principal); K81.1 Chronic cholecystitis; M19.011 Primary osteoarthritis, right shoulder; F33.9 Major depressive disorder, recurrent, unspecified; M19.012 Primary osteoarthritis, left shoulder; M51.36 Other intervertebral disc degeneration, lumbar region; I10 Essential (primary) hypertension; K21.9 Gastro-esophageal reflux disease without esophagitis; K58.2 Mixed irritable bowel syndrome; G47.00 Insomnia, unspecified; F41.9 Anxiety disorder, unspecified; E66.3 Overweight
CPT/HCPCS: 99396

== ENCOUNTER 2023-02-03 14:00 | Outpatient (RCR) | payer MEDICARE, MEDICAID, SELFPAY ==
--- NOTE | 2022-12-11 12:58 | MHC.PT.EP ---
[facility] [place] Office [place] Office [place] Office [address] Esme Horn [address] [phone] F: [phone] F: [phone] F: [phone] F: [phone] Physical Therapy Plan of Care Date of Evaluation: 12/09/22 Date of Surgery: N/A Diagnosis: Primary osteoarthritis, right shoulder Primary osteoarthritis, left shoulder Assessment: Pt is a pleasant 62yo M who presents to PT with B shoulder pain, L>R for ~6 months. Pt presents to PT with current impairments in pain, decreased ROM, decreased strength, soft tissue restrictions, and impaired posture. He is limited functionally by laying on shoulder, getting dressed, overhead ADLs, lifting, and driving. He is an excellent candidate for skilled PT in order to address current impairments to facilitate return to PLOF. He is recommended to be seen 2x/week for 4 weeks and will be reassessed at that time. Frequency and Duration: The patient will be seen 2x/week for 4 weeks Short Term Goals: Pt will be I with HEP to promote self management of symptoms Pt will increase B shoulder flexion by at least 10 degrees Bell Staff Goals: Pt will achieve full ROM and strength all planes of B shoulders Pt will perform overhead ADLs with minimal to no compensation Pt will demonstrate improvements in function as evidenced by statistically significant improvement in SPADI outcome measure Treatment Plan: Modalities to reduce pain, spasms and effusion. Manual therapy to restore motion and function. Therapeutic exercise to improve strength and flexibility. Neuromuscular re-education for posture and balance. Therapeutic activities to return to functional activities of daily living. Electronically signed by: Karen Manriquez, PT, DPT Please sign and return to therapist. Thank you for your referral.
--- NOTE | 2023-08-11 16:15 | MHC.PT.DC ---
[facility] [place] Office [place] Office [place] Office [address] Esme Horn [address] [phone] F: [phone] F: [phone] F: [phone] F: [phone] Physical Therapy Discharge Report Diagnosis: Primary osteoarthritis, right shoulder Primary osteoarthritis, left shoulder Date of Surgery: N/A Date of Evaluation: 12/09/22 Date of Discharge: 08/11/23 Treatments to Date: 9 Cancellations to Date: No Shows to Date: Discharge Status: Independent with HEP Discharge Summary: Pt was seen for PT from 12/09/22-02/03/23. His last attended appointment for this PT POC was 02/03/23. He is being D/C from this PT POC From last PT note on 02/03/23 by RC: pt reported overall feeling the same. He did not have any concerns regarding his HEP. He saw his doctor who recommended more PT; however, discussed w/ pt he seems to have plateaued and should continue at home until he sees is/it project manager who may do an injection. If he has less pain or feels he is ready to progress his HEP that would be an appropriate time to return to PT. He is D/C'd from this POC. Electronically signed by: Karen Manriquez, PT, DPT Please sign and return to therapist. Thank you for your referral.
== END 2023-08-11 16:15 | disposition home or self-care (01) ==
LOC: HO.PT 14:00
PROVIDERS: PCP Internal Medicine; Visit Provider Student in an Organized Health Care Education/Training Program
DX: M19.011 Primary osteoarthritis, right shoulder (principal); M19.012 Primary osteoarthritis, left shoulder
CPT/HCPCS: 97110; 97140; 97162

== ENCOUNTER 2023-02-08 11:18 | Outpatient (AMB) | payer MEDICARE, MEDICAID, SELFPAY ==
--- NOTE | 2023-02-08 11:22 | MHC.OFFVIS ---
Intake Vital Signs 02/08/23 11:24 Height 6 ft Weight 207 lb 3.752 oz BMI 28.1 BP 142/95 H Blood Pressure Location Lt brachial Position Sitting Pulse 109 H Intake Visit Reasons: S/P [place]; Dr. Andersen Intake Note: Patient presents to in office visit today in colonoscopy follow up. CC: He underwent colonoscopy on 01/25/[address] Andersen. Patient report he has been doing well. Cis Coordinator Required: No Accompanied by: Self / Same As Patient Allergies seafood Allergy (Severe, Verified 02/08/23 11:29) Anaphylaxis duloxetine Allergy (Intermediate, Verified 02/08/23 11:29) N/V, diarrhea, shakiness, withdrawal symptoms gabapentin Allergy (Intermediate, Verified 02/08/23 11:29) confusion/memory loss/hallucination lactase [LACTASE] Allergy (Intermediate, Verified 02/08/23 11:29) Nausea HPI S/P [place]; Dr. Andersen HPI Details Assessment & Plan (1) GERD (gastroesophageal reflux disease): Code(s): K21.9 - Gastro-esophageal reflux disease without esophagitis Qualifiers: Esophagitis presence: without esophagitis Qualified Code(s): K21.9 - Gastro-esophageal reflux disease without esophagitis Plan: HE had his GB out just last week with Dr. Saenz. He is feeling much better overall, since his umbilical hernia surgery and his padilla. With this he is eating better and is taking better care of himself, losing weight, and having more energy. He has no more vomiting, and only am nausea that is nothing like it was before. HE also had hemorrhoid surgery that was quite successful. He is requesting to decrease the potency of some of his medications, and we will do this. He is now agreeable to having his colonoscopy scheduled. He denies any cardiac or respiratory problems. There are no prior problems with anesthesia or sedation. NO ID problems He has a history of tubular adenoma from his 2018 colonoscopy. I will see him in 6 months and after the colonoscopy. (2) Irritable bowel syndrome with both constipation and diarrhea: Code(s): K58.2 - Mixed irritable bowel syndrome (3) Gallstones: Comment: On 04/2020 ultrasound no signs of cholecystitis patient currently asymptomatic Code(s): K80.20 - Calculus of gallbladder without cholecystitis without obstruction (4) Tubular adenoma of colon: Comment: None on scope in 2018 repeat 5 years Code(s): D12.6 - Benign neoplasm of colon, unspecified (5) Nausea and vomiting: Code(s): R11.2 - Nausea with vomiting, unspecified (6) Pre-op examination: Code(s): Z01.818 - Encounter for other preprocedural examination Medications: New ycfhgj-zqjdyyyg-rx ylase 12,000-38,00 0 -60,000 unit (Cr chong) administer with meals and/or snacks 1 cap PO QID 120 c aps 6RF pantoprazole 20 mg PO DAILY 30 tabs 6RF peg 3350-electroly treasure 236-22.74-6.74 -5.86 gram (Golyt khushbu) until feca l effluent is nadeem r; do not exceed a total volume of 2 ,000 mL 240 mL PO Q10M 4,0 00 mL 0RF 1 day Z12.11 - Encounter for screening for malignant neoplas m of colon Refilled simethicone (Gas R elief (simethicone )) 180 mg PO QID PRN 120 caps 6RF abdom inal distention R14.0 - Abdominal distension (gaseou s) sennosides (senna) 17.2 mg (2 x 8.6 m g) PO BEDTIME 30 t abs 6RF for consti pation K58.2 - Mixed irri table bowel syndro me docusate sodium 100 mg PO BID 180 caps 1RF K58.2 - Mixed irri table bowel syndro me Discontinued pantoprazole Di scontinued Reason: Doctor's Order 40 mg PO DAILY 30 days 30 tabs 6RF K21.9 - Gastro-eso phageal reflux dis ease without esoph agitis xyvjtp-xthpacud-el ylase 24,000-76,00 0 -120,000 unit Discontinued Reas on: Doctor's Orde r 1 cap PO QID 90 d ays 360 caps 3RF K58.9 - Irritable bowel syndrome wit hout diarrhea colonoscopy 11/07/23 Findings: Melanosis coli noted Terminal Ileum-normal Cecum:normal Ascending Colon: normal Transverse Colon -normal Descending Colon:normal Sigmoid Colon: normal Rectum: Retroflexion with small to medium internal hemorrhoids, grade I Anorectum - normal Impression and Post Procedure Diagnosis: melanosis coli internal hemorrhoids Plan: High fiber diet leaflet Avoid straining at stool, epsom salts and sitz bath, anusol supps or cream Repeat Colonoscopy in 10 years or earlier if clinically indicated On 04/29/22 @ 10:44 Fabiana Thacker Wrote To Rosen,June Please cancel GES order per your conversation w/Pt. ? TODAY'S VISIT (Correlated CRP for in the past without any elevated sed rate rheumatoid factor etc.. Consider fecal calprotectin for his diarrhea going forward; although colonoscopy in 2018 with biopsies did not show any concerning abnormality no did the 2022 scope). The procedure needs to be repeated in 5 years due to his history of tubular adenoma in 2018. The diarrhea has resolved. he knows that greasy foods provokes it. 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 He will have occasional CIC and he uses 1 senna prn which is fine. He continues on the simethicone for bloating. He has a hx of hemorrhoidectomy and has some residual roids which resolve well with proctosol cream. His son has Crohns and his dtr is doing poorly with GI problems as well and he asks me to see her. We will try to get a referral from her PCP. 07/12/1997, PCP [address], [place], [place] [facility] Medical History Umbilical hernia (04/13/22) Gallstones Diarrhea Chronic abdominal pain Abdominal pain Screening for diabetes mellitus Obesity (BMI 30-39.9) Chronic cholecystitis Dyspepsia Primary osteoarthritis of shoulders, bilateral Benign essential hypertension Encounter for Medicare annual wellness exam Elevated d-dimer Left-sided chest wall pain Left elbow tendinitis Overweight (BMI 25.0-29.9) Excessive sweating Primary osteoarthritis, right shoulder Primary osteoarthritis, left shoulder Constipation Tubular adenoma of colon Surgical History Hx laparoscopic cholecystectomy (~10/08/22) Hx of umbilical hernia repair History of incision and drainage H/O esophagogastroduodenoscopy H/O colonoscopy Status post pericardial cyst excision (~02/13/19) History of varicose vein ligation and stripping H/O inguinal hernia repair S/P tendon repair Family History Father Stomach cancer Mental health problem Mother AIDS Sister PALMER (non-insulin dependent diabetes mellitus in young) Hypertension Other Substance abuse Household Members: Children Housing: Apartment Are you a primary resident care coordinator to a significant other at home: No Do you presently have visiting nurse or other home services: Yes ([facility]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) Alcohol intake: never Patient Tobacco Use Status: Former Tobacco user Quit Date: 13 years ago Tobacco use type: Cigarette Cigarettes Per Day: 40 Years Smoked: quit greater than 10 years ago e-Cigarette/Vaping Use: Never Used Second Hand Smoke Exposure: No Advance Directives Date on File: 07/11/20 Current occupational status: disabled Cognitive needs: No Hearing needs: No Vision needs: Yes Review of Systems Const Denies fatigue, Denies fever(s), Denies night sweats, Denies poor appetite and Denies weight loss Eyes Reports requires corrective lenses ENT Reports Normal hearing present, Denies dental pain, Denies dysphagia, Denies hearing loss, Denies mouth pain, Denies odynophagia, Denies throat swelling, Denies tongue swelling and Reports other (Dentition adequate) GI Denies abdominal pain, Denies melena, Denies bloating, Denies hematochezia, Denies constipation, Denies GI cramping, Denies dysphagia, Denies excessive flatus, Denies early satiety, Denies heartburn, Denies diarrhea, Denies nausea, Denies odynophagia, Denies vomiting and Denies hematemesis Skin/Breast Denies pruritus, Denies lesions, Denies rash and Denies jaundice Neuro Reports Normal hearing present and Denies Abnormal speech present Endo Denies fatigue Aller/Immun Denies throat swelling and Denies tongue swelling Physical Exam Vital Signs: Last Vital Signs Pulse 109 H 02/08/23 11:24 BP 142/95 H 02/08/23 11:24 BMI result Body Mass Index 28.1 Const General: cooperative, no acute distress, well developed and well groomed Nutritional Appearance: well nourished, obese and overweight Orientation/consciousness: oriented to person, oriented to place and oriented to time Limitations: No language barrier, ambulation with cane, ambulation with walker and wheelchair HEENT Head: Yes normocephalic and Yes atraumatic Eyes General: appearance normal, both eyes and all related structures Pupils: Equal, round and reactive pupils present Neck Neck: Yes normal visual inspection and Yes no lymphadenopathy Thyroid: Thyroid normal Resp Effort & Inspection: normal respiratory effort and able to speak in complete sentences Auscultation: clear to auscultation bilaterally Cardio Rate: regular rate Rhythm: regular rhythm Heart sounds: Normal, physiologic split S2 sound present Peripheral pulses: radial pulses present and posterior tibial pulses present GI Inspection: No distended and No Abdominal panniculus present Palpation (GI): Soft to palpation, nontender, no guarding, not rigid, No hepatosplenomegaly present and Hepatosplenomegaly present Percussion: Yes normal to percussion Auscultation: normal bowel sounds Rectal Exam - Male: Yes deferred Skin General skin exam: no rashes or lesions noted, turgor normal, skin not dry, no jaundice, No spider nevi and no striae Rashes: no rashes Nails: normal Neuro General: oriented to person, oriented to place and oriented to time Cranial nerves: Yes Equal, round and reactive pupils present and Yes Normal hearing present Speech: No Abnormal speech present Extrem General: Yes normal to inspection, No clubbing, No cyanosis and No edema Psych Thought process: Normal thought process present and not confabulating Thought content: Normal thought content present Insight: Good insight present (Psych) Judgement: Good judgement present (Psych) Assessment & Plan Assessment & Plan (1) Tubular adenoma of colon: Comment: None on scope in 2018 repeat 5 years Code(s): D12.6 - Benign neoplasm of colon, unspecified (2) Irritable bowel syndrome with both constipation and diarrhea: Code(s): K58.2 - Mixed irritable bowel syndrome (3) Family history of gastric cancer: Comment: father Code(s): Z80.0 - Family history of malignant neoplasm of digestive organs (4) GERD (gastroesophageal reflux disease): Code(s): K21.9 - Gastro-esophageal reflux disease without esophagitis Qualifiers: Esophagitis presence: without esophagitis Qualified Code(s): K21.9 - Gastro-esophageal reflux disease without esophagitis Plan (Correlated CRP for in the past without any elevated sed rate rheumatoid factor etc.. Consider fecal calprotectin for his diarrhea going forward; although colonoscopy in 2018 with biopsies did not show any concerning abnormality no did the 2022 scope). The procedure needs to be repeated in 5 years due to his history of tubular adenoma in 2018. The diarrhea has resolved. he knows that greasy foods provokes it. 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 He will have occasional CIC and he uses 1 senna prn which is fine. He continues on the simethicone for bloating. He has a hx of hemorrhoidectomy and has some residual roids which resolve well with proctosol cream. His son has Crohns and his dtr is doing poorly with GI problems as well and he asks me to see her. We will try to get a referral from her PCP. 07/12/1997, PCP [address] [facility], [place], [place] ROV 6 months Medications: Refilled hydrocortisone 2.5% 1 appl ND BID 30 grams 12RF K64.4 - Residual hemorrhoidal skin tags kxyzkf-fxndudnj-vkjmqnh 12,000-38,000 -60,000 unit (Creon) administer with meals and/or snacks 1 cap PO QID 120 caps 6RF pantoprazole 20 mg PO DAILY 30 tabs 6RF simethicone (Gas Relief (simethicone)) 180 mg PO QID PRN 120 caps 6RF abdominal distention R14.0 - Abdominal distension (gaseous) sucralfate 2 grams (2 x 1 gram) PO DAILY 180 tabs 2RF R19.7 - Diarrhea, unspecified docusate sodium 100 mg PO BID 180 caps 6RF K58.2 - Mixed irritable bowel syndrome sennosides (senna) 17.2 mg (2 x 8.6 mg) PO BEDTIME 30 tabs 6RF for constipation K58.2 - Mixed irritable bowel syndrome Coding Level of Care Code Est Pt Level 3 (74855) Diagnoses Tubular adenoma of colon D12.6 Irritable bowel syndrome with both constipation and diarrhea K58.2 Family history of gastric cancer Z80.0 Gastroesophageal reflux disease without esophagitis K21.9 Esophagitis presence: without esophagitis
[2023-02-08 11:24] VITALS: BP 142/95; PULSE 109; BMI 28.1
== END 2023-02-08 12:53 | disposition home or self-care (01) ==
PROVIDERS: PCP Internal Medicine; Visit Provider Nurse Practitioner
DX: D12.6 Benign neoplasm of colon, unspecified (principal); K58.2 Mixed irritable bowel syndrome; Z80.0 Family history of malignant neoplasm of digestive organs; K21.9 Gastro-esophageal reflux disease without esophagitis
CPT/HCPCS: 99213

== ENCOUNTER → 2023-02-08 11:18 | Outpatient (BNVA) | payer MEDICARE, MEDICAID, SELFPAY | PROVIDERS: PCP Internal Medicine; Visit Provider Nurse Practitioner | DX: K21.9 Gastro-esophageal reflux disease without esophagitis (principal); K58.2 Mixed irritable bowel syndrome; D12.6 Benign neoplasm of colon, unspecified; Z80.0 Family history of malignant neoplasm of digestive organs | CPT/HCPCS: 99212 ==

== ENCOUNTER 2023-04-08 13:54 | Outpatient (AMB) | payer MEDICARE, MEDICAID, SELFPAY ==
--- NOTE | 2023-04-08 13:56 | MHC.OFFVIS ---
Intake Vital Signs 04/08/23 14:02 Height 6 ft Weight 207 lb 3.752 oz BMI 28.1 BP 146/90 H Blood Pressure Location Rt brachial Position Sitting Pulse 67 Intake Visit Reasons: 6 month follow up Intake Note: Patient presents to in office visit today in 6 months follow up. CC: Patient states he is feeling better but sometimes still gets some nausea and diarrhea. He has been watching his diet and avoiding greasy foods, and red meats. Core Machine Operator Required: No Accompanied by: Self / Same As Patient Allergies seafood Allergy (Severe, Verified 02/08/23 11:29) Anaphylaxis duloxetine Allergy (Intermediate, Verified 02/08/23 11:29) N/V, diarrhea, shakiness, withdrawal symptoms gabapentin Allergy (Intermediate, Verified 02/08/23 11:29) confusion/memory loss/hallucination lactase [LACTASE] Allergy (Intermediate, Verified 02/08/23 11:29) Nausea HPI 6 month follow up HPI Details Assessment & Plan (1) Tubular adenoma of colon: Comment: None on scope in 2018 repeat 5 years Code(s): D12.6 - Benign neoplasm of colon, unspecified (2) Irritable bowel syndrome with both constipation and diarrhea: Code(s): K58.2 - Mixed irritable bowel syndrome (3) Family history of gastric cancer: Comment: father Code(s): Z80.0 - Family history of malignant neoplasm of digestive organs (4) GERD (gastroesophageal reflux disease): Code(s): K21.9 - Gastro-esophageal reflux disease without esophagitis Qualifiers: Esophagitis presence: without esophagitis Qualified Code(s): K21.9 - Gastro-esophageal reflux disease without esophagitis Plan (Correlated CRP for in the past without any elevated sed rate rheumatoid factor etc.. Consider fecal calprotectin for his diarrhea going forward; although colonoscopy in 2018 with biopsies did not show any concerning abnormality no did the 2022 scope). The procedure needs to be repeated in 5 years due to his history of tubular adenoma in 2018. The diarrhea has resolved. he knows that greasy foods provokes it. 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 He will have occasional CIC and he uses 1 senna prn which is fine. He continues on the simethicone for bloating. He has a hx of hemorrhoidectomy and has some residual roids which resolve well with proctosol cream. His son has Crohns and his dtr is doing poorly with GI problems as well and he asks me to see her. We will try to get a referral from her PCP. 07/12/1997, PCP [address] [facility], [place], [place] ROV 6 months Medications: Refilled hydrocortisone 2.5 % [address] BID 30 grams 12RF K64.4 - Residual h emorrhoidal skin t ags kfwxzn-xtjtwygg-pd ylase 12,000-38,00 0 -60,000 unit (Cr chong) administer with meals and/or snacks 1 cap PO QID 120 caps 6RF pantoprazole 20 mg PO DAILY 30 tabs 6RF simethicone (Gas R elief (simethicone )) 180 mg PO QID PRN 120 caps 6RF abdo yanni distention R14.0 - Abdominal distension (gaseou s) sucralfate 2 grams (2 x 1 gra m) PO DAILY 180 ta bs 2RF R19.7 - Diarrhea, unspecified docusate sodium 100 mg PO BID 180 caps 6RF K58.2 - Mixed irri table bowel syndro me sennosides (senna) 17.2 mg (2 x 8.6 m g) PO BEDTIME 30 t abs 6RF for consti pation K58.2 - Mixed irri table bowel syndro me CORRESPONDENCE On 04/29/22 @ 10:44 Fabiana Thacker Wrote To Rosen,June Please cancel GES order per your conversation w/Pt. Correlated CRP for in the past without any elevated sed rate rheumatoid factor etc.. Consider fecal calprotectin for his diarrhea going forward; although colonoscopy in 2018 with biopsies did not show any concerning abnormality? TODAY'S VISIT We had to change him from [facility] to [facility] r/t insurance preferences. He was confused by this and I explain this to him. 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 He continues on his protonix, carafate, simethicone and prn senna and colace. His is moving his bowels well. He now feels that his body is beginning to settle down after my GB surgery. This is likely true. He has an occasional feeling of nausea that is transient. This is probably from bile being over produced and I tell him that if he needs to he can take Carafate when this happens he just needs to be careful not to dose with other medicines since it can block absorption. ROV 6 mos. I also see his daughter and he passes a message to me that she had an allergic reaction to the amoxicillin component of her H pylori therapy. [facility] Medical History Umbilical hernia (04/13/22) Gallstones Diarrhea Chronic abdominal pain Abdominal pain Screening for diabetes mellitus Obesity (BMI 30-39.9) Chronic cholecystitis Dyspepsia Primary osteoarthritis of shoulders, bilateral Benign essential hypertension Encounter for Medicare annual wellness exam Elevated d-dimer Left-sided chest wall pain Left elbow tendinitis Overweight (BMI 25.0-29.9) Excessive sweating Primary osteoarthritis, right shoulder Primary osteoarthritis, left shoulder Constipation Tubular adenoma of colon Surgical History Hx laparoscopic cholecystectomy (~10/08/22) Hx of umbilical hernia repair History of incision and drainage H/O esophagogastroduodenoscopy H/O colonoscopy Status post pericardial cyst excision (~02/13/19) History of varicose vein ligation and stripping H/O inguinal hernia repair S/P tendon repair Family History Father Stomach cancer Mental health problem Mother AIDS Sister PALMER (non-insulin dependent diabetes mellitus in young) Hypertension Other Substance abuse Social History Household Members: Children Housing: Apartment Are you a primary care management associate to a significant other at home: No Do you presently have visiting nurse or other home services: Yes (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) Alcohol intake: never Patient Tobacco Use Status: Former Tobacco user Quit Date: 13 years ago Tobacco use type: Cigarette Cigarettes Per Day: 40 Years Smoked: quit greater than 10 years ago e-Cigarette/Vaping Use: Never Used Second Hand Smoke Exposure: No Advance Directives Date on File: 07/11/20 Current occupational status: disabled Cognitive needs: No Hearing needs: No Vision needs: Yes Review of Systems Const Denies fatigue, Denies fever(s), Denies night sweats, Denies poor appetite and Denies weight loss ENT Reports Normal hearing present, Denies dental pain, Denies dysphagia, Denies hearing loss, Denies mouth pain, Denies odynophagia, Denies throat swelling, Denies tongue swelling and Reports other (Dentition adequate) Card Reports no additional complaints Resp Reports no additional complaints GI Denies abdominal pain, Denies melena, Reports bloating, Denies hematochezia, Denies constipation, Reports GI cramping, Denies dysphagia, Denies excessive flatus, Denies early satiety, Reports heartburn, Denies diarrhea, Reports loose stools, Reports nausea, Denies odynophagia, Denies vomiting and Denies hematemesis Skin/Breast Denies pruritus, Denies lesions, Denies rash and Denies jaundice Neuro Reports Normal hearing present and Denies Abnormal speech present Endo Denies fatigue Aller/Immun Denies throat swelling and Denies tongue swelling Physical Exam Vital Signs: Last Vital Signs Pulse 67 04/08/23 14:02 BP 146/90 H 04/08/23 14:02 BMI result Body Mass Index 28.1 Const General: cooperative, no acute distress, well developed and well groomed Nutritional Appearance: average body habitus and well nourished Orientation/consciousness: oriented to person, oriented to place and oriented to time Limitations: No language barrier HEENT Head: Yes normocephalic and Yes atraumatic Eyes General: appearance normal, both eyes and all related structures Pupils: Equal, round and reactive pupils present Neck Neck: Yes normal visual inspection and Yes no lymphadenopathy Thyroid: Thyroid normal Resp Effort & Inspection: normal respiratory effort and able to speak in complete sentences Auscultation: clear to auscultation bilaterally Cardio Rate: regular rate Rhythm: regular rhythm Heart sounds: Normal, physiologic split S2 sound present Peripheral pulses: radial pulses present and posterior tibial pulses present GI Inspection: No distended and No Abdominal panniculus present Palpation (GI): Soft to palpation, nontender, no guarding, not rigid and No hepatosplenomegaly present Percussion: Yes normal to percussion Auscultation: normal bowel sounds Rectal Exam - Male: Yes deferred Skin General skin exam: no rashes or lesions noted, turgor normal, skin not dry, no jaundice, No spider nevi and no striae Rashes: no rashes Nails: normal Neuro General: oriented to person, oriented to place and oriented to time Cranial nerves: Yes Equal, round and reactive pupils present and Yes Normal hearing present Speech: No Abnormal speech present Extrem General: Yes normal to inspection, No clubbing, No cyanosis and No edema Psych Appearance: grossly normal and well kempt Mental Status: mental status grossly normal Speech and movement: Normal speech and movement present Affect: normal affect Attitude: cooperative Thought process: Normal thought process present and not confabulating Thought content: Normal thought content present Insight: Fair insight present (Psych) Judgement: Fair judgement present (Psych) Assessment & Plan Assessment & Plan (1) Irritable bowel syndrome with both constipation and diarrhea: Code(s): K58.2 - Mixed irritable bowel syndrome (2) GERD (gastroesophageal reflux disease): Code(s): K21.9 - Gastro-esophageal reflux disease without esophagitis Qualifiers: Esophagitis presence: without esophagitis Qualified Code(s): K21.9 - Gastro-esophageal reflux disease without esophagitis (3) Abdominal bloating: Code(s): R14.0 - Abdominal distension (gaseous) (4) Tubular adenoma of colon: Comment: 01/2023 SCOPE=NEG, REPEAT 5 YEARS; None on scope in 2018 repeat 5 years Code(s): D12.6 - Benign neoplasm of colon, unspecified Plan We had to change him from [facility] to [employer] r/t insurance preferences. He was confused by this and I explain this to him. 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 He continues on his protonix, carafate, simethicone and prn senna and colace. His is moving his bowels well. He now feels that his body is beginning to settle down after my GB surgery. This is likely true. He has an occasional feeling of nausea that is transient. This is probably from bile being over produced and I tell him that if he needs to he can take Carafate when this happens he just needs to be careful not to dose with other medicines since it can block absorption. ROV 6 mos. I also see his daughter and he passes a message to me that she had an allergic reaction to the amoxicillin component of her H pylori therapy. Coding Level of Care Code Est Pt Level 3 (25331) Diagnoses Irritable bowel syndrome with both constipation and diarrhea K58.2 Gastroesophageal reflux disease without esophagitis K21.9 Esophagitis presence: without esophagitis Abdominal bloating R14.0 Tubular adenoma of colon D12.6
[2023-04-08 14:02] VITALS: BP 146/90; PULSE 67; BMI 28.1
== END 2023-04-08 14:48 | disposition home or self-care (01) ==
PROVIDERS: PCP Internal Medicine; Visit Provider Nurse Practitioner
DX: K58.2 Mixed irritable bowel syndrome (principal); K21.9 Gastro-esophageal reflux disease without esophagitis; R14.0 Abdominal distension (gaseous); D12.6 Benign neoplasm of colon, unspecified
CPT/HCPCS: 99213

== ENCOUNTER → 2023-04-08 13:54 | Outpatient (BNVA) | payer MEDICARE, MEDICAID, SELFPAY | PROVIDERS: PCP Internal Medicine; Visit Provider Nurse Practitioner | DX: K58.2 Mixed irritable bowel syndrome (principal); K21.9 Gastro-esophageal reflux disease without esophagitis; R14.0 Abdominal distension (gaseous); D12.6 Benign neoplasm of colon, unspecified | CPT/HCPCS: 99212 ==

== ENCOUNTER 2023-05-04 15:04 | Outpatient (AMB) | payer MEDICARE, MEDICAID, SELFPAY ==
--- NOTE | 2023-05-04 15:10 | MHC.PC.OV ---
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 Required: No Accompanied by: Self / Same As Patient Allergies seafood Allergy (Severe, Verified 05/04/23 15:31) Anaphylaxis duloxetine Allergy (Intermediate, Verified 05/04/23 15:31) N/V, diarrhea, shakiness, withdrawal symptoms gabapentin Allergy (Intermediate, Verified 05/04/23 15:31) confusion/memory loss/hallucination lactase [LACTASE] Allergy (Intermediate, Verified 05/04/23 15:31) Nausea Medication List - Last Reconciled 05/04/23 by Macrial David MD acetaminophen 500 mg PO TID PRN aspirin 81 mg PO DAILY clonazepam 1 mg PO BEDTIME PRN clonazepam 0.5 mg PO DAILY 30 days clonidine HCl 0.1 mg PO BID PRN 90 days diclofenac sodium 1% 2 grams topical BID docusate sodium 100 mg PO BID hydrocortisone 2.5% 1 appl MD BID uyhcuv-vcvmennb-ycotaab 12,000-38,000 -60,000 unit (Creon) 1 cap PO QID lthjac-kirbijwn-ljlivlb 25,000-79,000- 105,000 unit (Zenpep) 2 caps PO BID losartan 25 mg PO DAILY 90 days pantoprazole 20 mg PO DAILY quetiapine 50 mg PO BID ropinirole 0.5 mg PO BEDTIME sennosides (senna) 17.2 mg (2 x 8.6 mg) PO BEDTIME simethicone (Gas Relief (simethicone)) 180 mg PO QID PRN sucralfate 2 grams (2 x 1 gram) PO DAILY tizanidine 4 mg PO TID PRN 30 days tramadol 1 to 2 tablets PO 2 times a day; 28 days Tobacco use date assessed: 05/04/23 Dental Screening Dental Screen Date: 05/04/23 Did you have a dental visit in the last 12 months?: Yes Did you have a dental problem in the last 6 months where you did not have access to dental care?: No Was dental information given to patient?: Patient has dentist HPI 3mlth f/u HPI Details Patient comes in today for his follow up visit States that he feels okay He denies any headaches or dizziness Denies any chest pains, no increased SOB No nausea/vomiting, no abdominal pain No change in bowel habits noted States that his chronic pains remain adequately controlled on his current Rx although both of his knees have been bothering him a lot (pain) lately Needs a few of his Rx refilled and states that he would like to try lowering his Tizanidine dose as the 4 mg dose makes him feel a little drowsy often when he takes it Would also like to get Rx for a raised toilet seat to help him avoid aggravating his lower back when he is using the bathroom [facility] Medical History (Updated 05/08/23 @ 18:42 by Marcial David MD) Bilateral knee pain Umbilical hernia (04/13/22) Gallstones Diarrhea Chronic abdominal pain Abdominal pain Screening for diabetes mellitus Obesity (BMI 30-39.9) Chronic cholecystitis Dyspepsia Primary osteoarthritis of shoulders, bilateral Benign essential hypertension Encounter for Medicare annual wellness exam Elevated d-dimer Left-sided chest wall pain Left elbow tendinitis Overweight (BMI 25.0-29.9) Excessive sweating Primary osteoarthritis, right shoulder Primary osteoarthritis, left shoulder Constipation Tubular adenoma of colon Surgical History Hx laparoscopic cholecystectomy (~10/08/22) Hx of umbilical hernia repair History of incision and drainage H/O esophagogastroduodenoscopy H/O colonoscopy Status post pericardial cyst excision (~02/13/19) History of varicose vein ligation and stripping H/O inguinal hernia repair S/P tendon repair Family History Father Stomach cancer Mental health problem Mother AIDS Sister PALMER (non-insulin dependent diabetes mellitus in young) Hypertension Other Substance abuse Social History Household Members: Children Housing: Apartment Are you a primary landcare facilitator to a significant other at home: No Do you presently have visiting nurse or other home services: Yes ([facility] [employer]) Alcohol intake: never Patient Tobacco Use Status: Former Tobacco user Quit Date: 13 years ago Tobacco use type: Cigarette Cigarettes Per Day: 40 Years Smoked: quit greater than 10 years ago e-Cigarette/Vaping Use: Never Used Second Hand Smoke Exposure: No Advance Directives Date on File: 07/11/20 Current occupational status: disabled Cognitive needs: No Hearing needs: No Vision needs: Yes Questionnaire PHQ-9 Over the last 2 weeks, how often have you been bothered by any of the following problems? 1. Little interest or pleasure in doing things: several days 2. Feeling down, depressed, or hopeless: several days 3. Trouble falling or staying asleep, or sleeping too much: several days 4. Feeling tired or having little energy: several days 5. Poor appetite or overeating: several days 6. Feeling bad about yourself - or that you are a failure or have let yourself or your family down: several days 7. Trouble concentrating on things, such as reading the newspaper or watching television: several days 8. Moving or speaking so slowly that other people could have noticed. Or the opposite - being so fidgety or restless that you have been moving around a lot more than usual: several days 9. Thoughts that you would be better off or of hurting yourself in some way: not at all Total score: 8 Depression Screening Interpretation: Positive (on Rx) Depression Screening Follow-up: Existing condition and In treatment Depression Screening Done: Yes 14630 - PHQ-9 Billing: Yes Source: Developed by Drs. Bro Guillermo, Dimple Lawson, Bulmaro Tavares and colleagues, with an educational sofie from [employer]. Thrive Questionnaire Date Thrive assessed: 05/04/23 I am a: Patient What is your living situation today?: I have a steady place to live Within the past 12 months, did the food you bought not last and you didn't have the money to get more?: Never true Within the past 12 months, did you worry whether your food would run out before you got money to buy more?: Never true Do you have trouble paying for medicines?: No Do you have trouble getting transportation to medical appointments?: No Do you have trouble paying your heating and electricity bill?: No Do you have trouble taking care of your child, family member or friend?: No Do you have trouble with day-to-day activities such as bathing, preparing meals, shopping, managing finances, etc.?: No Are you currently unemployed and looking for a job?: No Are you interested in more education?: No Please select the resources that you would like help with: None Currently or been in a relationship where the following occur: no concerns reported THRIVE Score: 0 AUDIT C Alcohol Use Questionnaire (AUDIT-C) 1. How often do you have a drink containing alcohol?: Never 3. How often do you have six or more drinks on one occasion?: Never Total Score: 0 Score Reviewed/Action Taken: Yes GANESH-7 AMB Questionnaire GANESH-7 Date GANESH - 7 assessed: 05/04/23 Feeling nervous, anxious, or on edge: 0 = Not at all Not being able to stop or control worryin = Not at all Worrying too much about different things: 0 = Not at all Trouble relaxin = Not at all Being so restless that it is hard to sit still: 0 = Not at all Becoming easily annoyed or irritable: 0 = Not at all Feeling afraid as if something awful might happen: 0 = Not at all Total GANESH-7 score (0-4 normal; 5-9 mild; 10-14 moderate; 15-21 severe): 0 Source: Developed by Drs. Bro Guillermo, Dimple Lawson, Bulmaro Tavares and colleagues, with an educational sofie from [employer]. GANESH-7 Assessment Billing GANESH-7 Assessment Tool: GANESH-7 Assessment 16574 Review of Systems Const Reports difficulty sleeping (Rx helping), Reports fatigue, Denies fever(s) and Denies headache(s) ENT Denies dysphagia, Denies dizziness, Denies otalgia, Denies headache(s), Denies neck pain, Denies odynophagia and Denies sore throat Card Denies chest pain, Denies palpitations and Reports dyspnea on exertion (mild) Resp Denies chest congestion, Denies cough, Reports dyspnea on exertion (mild) and Denies wheezing GI Denies abdominal pain, Denies constipation (improved with Rx), Denies dysphagia, Denies heartburn, Reports loose stools (occasionally), Denies nausea, Denies odynophagia and Denies vomiting Denies dysuria, Denies nocturia and Denies urinary frequency Musc Reports back pain (chronic ), Reports arthralgias (involving multiple joints, including both shoulders ; over R knee lately) and Denies neck pain Skin/Breast Denies change in pigmentation, Denies lesions, Denies rash and Denies unusual bruising Neuro Denies dizziness and Denies headache(s) Psych Reports anxiety and Reports depression Endo Reports fatigue and Denies palpitations Aller/Immun Denies wheezing Physical exam (Primary Care) Vital Signs: Last Vital Signs Pulse 97 05/04/23 15:11 BP 122/80 05/04/23 15:11 Pulse Ox 98 05/04/23 15:11 Oxygen Delivery Method Room Air 05/04/23 15:11 BMI result Body Mass Index 28.2 Tobacco/Smoking Status: Tobacco use Status Tobacco use date assessed 05/04/23 05/04/23 15:18 Patient Tobacco Use Status Former Tobacco user 05/04/23 15:18 Tobacco use type Cigarette 05/04/23 15:18 e-Cigarette/Vaping Use Never Used 05/04/23 15:18 PHQ-9: PHQ-9 Score PHQ-9: Total score 8 05/04/23 17:03 Depression Screening Interpretation: Positive (on Rx) Depression Screening Follow-up: Existing condition and In treatment Thrive Assessment: Date of Thrive Assessment Date Thrive assessed 05/04/23 05/04/23 15:18 Currently or been in a relationship where the following occur: no concerns reported Const General: no acute distress and alert HENMT Ears: TM's normal bilaterally and EAC's normal Throat: Yes posterior oropharynx normal and Yes tonsils normal (no TP congestion) Neck Neck: Yes no lymphadenopathy and Yes supple Thyroid: Thyroid normal Resp Auscultation: clear to auscultation bilaterally, no rales and no wheezes Cardio Rate: regular rate Rhythm: regular rhythm Heart sounds: no murmurs GI Palpation (GI): Soft to palpation and nontender Auscultation: normal bowel sounds General: Yes no CVA tenderness Back/Spine/Pelvis Back: no CVA tenderness Cervical Spine: No Cervical spine tenderness Thoracic/Lumbar Spine: lumbar spinal tenderness Skin Rashes: no rashes Neuro General: no focal motor deficits and CN's II-XI intact bilaterally Cognition (Neuro): normal cognition Extrem General: Yes no clubbing, cyanosis or edema Right lower extremity: knee Details: tenderness; no swelling Left lower extremity: knee Details: tenderness; no swelling Assessment and Plan Assessment & Plan (1) Chronic cholecystitis: Code(s): K81.1 - Chronic cholecystitis Plan: S/P laparoscopic cholecystectomy a few months ago on 10/08/[address] Saenz States that his surgery went well and that all of his previous GI symptoms have since improved/resolved with his surgery (2) Primary osteoarthritis of shoulders, bilateral: Code(s): M19.011 - Primary osteoarthritis, right shoulder; M19.012 - Primary osteoarthritis, left shoulder Plan: States that his shoulders have been bothering him since he had his cholecystectomy in September 2022 X-rays of the shoulders done last year (May 2022) revealed (+) moderate subacromial spur in the right shoulder; right shoulder is otherwise normal. Left shoulder x-rays came back normal He went to physical therapy for his shoulders for a while and states that PT has helped a lot Follow up with rheumatology in [place] as scheduled; was seeing Dr. Pitt at [facility] [place] [facility] in the past until she left the practice a couple of years ago (3) Lumbar degenerative disc disease: Code(s): M51.36 - Other intervertebral disc degeneration, lumbar region Plan: Reinforced activity and weight lifting restrictions Continue Tizanidine 4 mg 3 times a day as needed, Acetaminophen 500 mg TID PRN, Lidocaine 4% cream apply to painful area on lower back as needed and Tramadol 50 mg TID PRN Per request, Rx for a raised toilet seat provided to and handed to patient (4) Bilateral knee pain: Code(s): M25.561 - Pain in right knee; M25.562 - Pain in left knee Qualifiers: Chronicity: unspecified Qualified Code(s): M25.561 - Pain in right knee; M25.562 - Pain in left knee Plan: Will refer him to physical therapy for further evaluation and management (5) Benign essential hypertension: Code(s): I10 - Essential (primary) hypertension Plan: Reinforced low sodium diet - goal is systolic BP of at least 120 to 130 mm or less Continue Losartan 25 mg QD (6) GERD (gastroesophageal reflux disease): Code(s): K21.9 - Gastro-esophageal reflux disease without esophagitis Qualifiers: Esophagitis presence: without esophagitis Qualified Code(s): K21.9 - Gastro-esophageal reflux disease without esophagitis Plan: Dietary restrictions reinforced Continue Pantoprazole 20 mg QD (7) Irritable bowel syndrome with both constipation and diarrhea: Code(s): K58.2 - Mixed irritable bowel syndrome Plan: Continue Docusate 100 mg BID PRN and Creon QID Follow up with GI as scheduled Stool culture and test for H. pylori done last year came back negative (8) Insomnia: Code(s): G47.00 - Insomnia, unspecified Qualifiers: Insomnia type: unspecified Qualified Code(s): G47.00 - Insomnia, unspecified Plan: Sleep hygiene reinforced Continue Zolpidem ER 12.5 mg Q HS PRN; is also on Quetiapine, which helps with his sleep as well (9) Anxiety: Code(s): F41.9 - Anxiety disorder, unspecified Plan: Continue Clonazepam 1 mg once a day at bedtime as needed, Clonazepam 0.5 mg once a day in AM, Propranolol 20 mg BID and Clonidine 0.1 mg BID PRN (10) Depression: Code(s): F32.9 - Major depressive disorder, single episode, unspecified Qualifiers: Active/Remission status: currently active Depression Type: major depressive disorder Major depression episode severity: unspecified Major depression recurrence: recurrent Qualified Code(s): F33.9 - Major depressive disorder, recurrent, unspecified Plan: Continue Wellbutrin XL 300 mg Q AM, Prazosin 2 mg BID (to help with his nightmares) and Quetiapine 200 mg Q HS Follow-up with Psychiatry as scheduled (11) Overweight (BMI 25.0-29.9): Code(s): E66.3 - Overweight Plan: Reinforced diet/exercise as tolerated/lose weight Plan Follow up in 3 months Orders: Orders PT Evaluation and Treatment 05/04/23 M25.561 - Pain in right knee Medications: New [RAISED TOILET SEAT] As directed 1 ea 0RF M17.0 - Bilateral primary osteoarthritis of knee, M51.36 - Other intervertebral disc degeneration, lumbar region Changed From tizanidine 4 mg PO TID 30 days PRN 90 tabs 2RF muscle spasticity To tizanidine 2 mg PO TID 30 days PRN 90 tabs 2RF muscle spasticity Refilled clonazepam 1 mg PO BEDTIME PRN 30 tabs 0RF anxiety tramadol 1 to 2 tablets PO 2 times a day; 28 days 112 tabs 0RF pain Coding Level of Care Code Est Pt Level 4 (92487) Diagnoses Chronic cholecystitis K81.1 Primary osteoarthritis of shoulders, bilateral M19.011; M19.012 Lumbar degenerative disc disease M51.36 Pain in both knees, unspecified chronicity M25.561; M25.562 Chronicity: unspecified Benign essential hypertension I10 Gastroesophageal reflux disease without esophagitis K21.9 Esophagitis presence: without esophagitis Irritable bowel syndrome with both constipation and diarrhea K58.2 Insomnia, unspecified type G47.00 Insomnia type: unspecified Anxiety F41.9 Episode of recurrent major depressive disorder, unspecified depression episode severity F33.9 Active/Remission status: currently active Depression Type: major depressive disorder Major depression episode severity: unspecified Major depression recurrence: recurrent Overweight (BMI 25.0-29.9) E66.3 Additional Codes GANESH-7 Assessment Billing - GANESH-7 Assessment Tool: GANESH-7 Assessment 88656 ([id number])
[2023-05-04 15:11] VITALS: BP 122/80; PULSE 97; O2SAT 98; BMI 28.2
== END 2023-05-04 15:57 | disposition home or self-care (01) ==
PROVIDERS: PCP Internal Medicine; Visit Provider Internal Medicine
DX: K81.1 Chronic cholecystitis (principal); F33.9 Major depressive disorder, recurrent, unspecified; M19.011 Primary osteoarthritis, right shoulder; M19.012 Primary osteoarthritis, left shoulder; M51.36 Other intervertebral disc degeneration, lumbar region; M25.561 Pain in right knee; M25.562 Pain in left knee; I10 Essential (primary) hypertension; K21.9 Gastro-esophageal reflux disease without esophagitis; K58.2 Mixed irritable bowel syndrome; G47.00 Insomnia, unspecified; F41.9 Anxiety disorder, unspecified
CPT/HCPCS: 99214

== ENCOUNTER 2023-05-10 12:50 | Outpatient (REF) | payer MEDICARE, MEDICAID, SELFPAY ==
--- NOTE | ~2023-05-10 | XR_ITS ---
EXAMINATION: XR SHOULDER, RIGHT CLINICAL INFORMATION: Right shoulder pain, osteoarthritis COMPARISON: None available. TECHNIQUE: 5 views of the right shoulder 4 views of the left shoulder. FINDINGS: There is a moderate subacromial spur. No fracture. Glenohumeral and acromioclavicular alignment is anatomic with normal joint space. No abnormal soft tissue calcifications. XR/XR shoulder LT min 2V IMPRESSION: Moderate subacromial spur. Joint spaces are otherwise well-maintained
--- NOTE | ~2023-05-10 | XR_ITS ---
EXAMINATION: XR SHOULDER, RIGHT CLINICAL INFORMATION: Right shoulder pain, osteoarthritis COMPARISON: None available. TECHNIQUE: 5 views of the right shoulder 4 views of the left shoulder. FINDINGS: There is a moderate subacromial spur. No fracture. Glenohumeral and acromioclavicular alignment is anatomic with normal joint space. No abnormal soft tissue calcifications. XR/XR shoulder RT min 2V IMPRESSION: Moderate subacromial spur. Joint spaces are otherwise well-maintained
== END 2023-05-10 12:51 | disposition home or self-care (01) ==
LOC: HO.XRAY 12:50
PROVIDERS: PCP Internal Medicine; Visit Provider Internal Medicine
DX: M19.012 Primary osteoarthritis, left shoulder (principal); M19.011 Primary osteoarthritis, right shoulder; Z79.899 Other long term (current) drug therapy
CPT/HCPCS: 20610; 73030; 99212

== ENCOUNTER 2023-05-10 13:34 | Outpatient (AMB) | payer MEDICARE, MEDICAID, SELFPAY ==
--- NOTE | 2023-05-10 13:46 | A.OFFVIS_ITS ---
Intake Vital Signs 05/10/23 13:47 Height 6 ft Weight 207 lb 10.807 oz BMI 28.2 BP 122/70 Blood Pressure Location Lt brachial Position Sitting Pulse 87 Pulse Source Pulse Oximeter Pulse Oximetry (%) 97 Oxygen Delivery Method Room Air Intake Visit Reasons: OA Intake Note: Patient last seen 10/22/22 presents today for follow up. C/o shoulder pain; throbbing pain keeps him up at night. Director Of Anesthesia Services Required: No Accompanied by: Self / Same As Patient Allergies seafood Allergy (Severe, Verified 05/10/23 13:49) Anaphylaxis duloxetine Allergy (Intermediate, Verified 05/10/23 13:49) N/V, diarrhea, shakiness, withdrawal symptoms gabapentin Allergy (Intermediate, Verified 05/10/23 13:49) confusion/memory loss/hallucination lactase [LACTASE] Allergy (Intermediate, Verified 05/10/23 13:49) Nausea Medication List - Last Reconciled 05/10/23 by Madina Millard MD acetaminophen 500 mg PO TID PRN aspirin 81 mg PO DAILY clonazepam 0.5 mg PO DAILY 30 days clonazepam 1 mg PO BEDTIME PRN clonidine HCl 0.1 mg PO BID PRN 90 days diclofenac sodium 1% 2 grams topical BID docusate sodium 100 mg PO BID hydrocortisone 2.5% 1 appl MI BID scrtuj-ppzhopxe-znidgxy 12,000-38,000 -60,000 unit (Creon) 1 cap PO QID srkavw-ycfeqzxz-wdpjcad 25,000-79,000- 105,000 unit (Zenpep) 2 caps PO BID losartan 25 mg PO DAILY 90 days pantoprazole 20 mg PO DAILY quetiapine 50 mg PO BID [RAISED TOILET SEAT As directed] ropinirole 0.5 mg PO BEDTIME sennosides (senna) 17.2 mg (2 x 8.6 mg) PO BEDTIME simethicone (Gas Relief (simethicone)) 180 mg PO QID PRN sucralfate 2 grams (2 x 1 gram) PO DAILY tizanidine 2 mg PO TID PRN 30 days tramadol 1 to 2 tablets PO 2 times a day; 28 days HPI HPI Comments History of Present Illness Details 62-year-old male with a generalized OA p resents for bilateral shoulder pain. He received bilateral shoulder cortisone injection back in 10/2022 with good relief of his symptoms. He also did physical therapy for shoulders. He states that his shoulder pain especially on the right side is starting to come back and would like repeat injections. [facility] Medical History Bilateral knee pain Umbilical hernia (04/13/22) Gallstones Diarrhea Chronic abdominal pain Abdominal pain Screening for diabetes mellitus Obesity (BMI 30-39.9) Chronic cholecystitis Dyspepsia Primary osteoarthritis of shoulders, bilateral Benign essential hypertension Encounter for Medicare annual wellness exam Elevated d-dimer Left-sided chest wall pain Left elbow tendinitis Overweight (BMI 25.0-29.9) Excessive sweating Primary osteoarthritis, right shoulder Primary osteoarthritis, left shoulder Constipation Tubular adenoma of colon Surgical History Hx laparoscopic cholecystectomy (~10/08/22) Hx of umbilical hernia repair History of incision and drainage H/O esophagogastroduodenoscopy H/O colonoscopy Status post pericardial cyst excision (~02/13/19) History of varicose vein ligation and stripping H/O inguinal hernia repair S/P tendon repair Family History Father Stomach cancer Mental health problem Mother AIDS Sister PALMER (non-insulin dependent diabetes mellitus in young) Hypertension Other Substance abuse Social History Household Members: Children Housing: Apartment Are you a primary spiritual care coordinator to a significant other at home: No Do you presently have visiting nurse or other home services: Yes ([facility] [employer]) Alcohol intake: never Patient Tobacco Use Status: Former Tobacco user Quit Date: 13 years ago Tobacco use type: Cigarette Cigarettes Per Day: 40 Years Smoked: quit greater than 10 years ago e-Cigarette/Vaping Use: Never Used Second Hand Smoke Exposure: No Advance Directives Date on File: 07/11/20 Current occupational status: disabled Cognitive needs: No Hearing needs: No Vision needs: Yes Review of Systems Musc Reports arthralgias and Reports limited range of motion Physical Exam Vital Signs: Last Vital Signs Pulse 87 05/10/23 13:47 BP 122/70 05/10/23 13:47 Pulse Ox 97 05/10/23 13:47 Oxygen Delivery Method Room Air 05/10/23 13:47 BMI result Body Mass Index 28.2 Const General: cooperative and comfortable Nutritional Appearance: obese Orientation/consciousness: patient oriented x3 Limitations: ambulation with cane HEENT Head: Yes normocephalic and Yes atraumatic Resp Effort & Inspection: normal respiratory effort and able to speak in complete sentences Neuro General: patient oriented x3 Extrem Other: Bilateral limited shoulder abduction, more pronounced on the right side Office Procedures Joint Injection/Drain Joint Injection/Drain Primary Site: right shoulder Secondary Site: left shoulder Prep: site was prepped using sterile technique and ethochloride spray was applied Injected: 40 mg of, Kenalog and other (2 mL of 1% lidocaine) Approach Used: posterolateral Coding Details: With the patient's consent the right shoulder was prepped with ChloraPrep and alcohol. Under a topical ethyl chloride spray the left subacromial space was injected with 40 mg of triamcinolone and 2 cc of 1% lidocaine. The patient tolerated the procedure without any acute adverse effects. Then, the left shoulder was prepped with ChloraPrep and alcohol. Under a topical ethyl chloride spray the left subacromial space was injected with 40 mg of triamcinolone and 2 cc of 1% lidocaine. The patient tolerated the procedure without any acute adverse effects. - Large joint Procedure code (CPT) selection complete (Large joint X2 ) Assessment & Plan Assessment & Plan (1) Primary osteoarthritis of shoulders, bilateral: Code(s): M19.011 - Primary osteoarthritis, right shoulder; M19.012 - Primary osteoarthritis, left shoulder Plan: 62-year-old male with generalized osteoarthritis presents for bilateral shoulder pain. Requesting cortisone injections. Previous injection 11/10 did provide significant relief. Patient completed physical therapy for both shoulders. With patient's consent both shoulders were injected with Kenalog in clinic today. Plan I spent 15 minutes reviewing patient's chart, evaluating patient,counseling patient and documenting in the chart Orders: Orders AMB Joint Injection/Aspiration Today M19.011 - Primary osteoarthritis, right shoulder, M19.012 - Primary osteoarthritis, left shoulder Coding Level of Care Code Est Pt Level 3 (31376) Diagnoses Primary osteoarthritis of shoulders, bilateral M19.011; M19.012 CPT Codes Coding - Large joint: 93602 - Large joint ([id number])
[2023-05-10 13:47] VITALS: BP 122/70; PULSE 87; O2SAT 97; BMI 28.2
== END 2023-05-10 14:31 | disposition home or self-care (01) ==
PROVIDERS: PCP Internal Medicine; Visit Provider Student in an Organized Health Care Education/Training Program
DX: M19.011 Primary osteoarthritis, right shoulder (principal); M19.012 Primary osteoarthritis, left shoulder
CPT/HCPCS: 20610; 99213

== ENCOUNTER 2023-07-16 15:20 | Emergency (ER) | payer MEDICARE, MEDICAID, SELFPAY ==
[2023-07-16 16:02] VITALS: BP 151/88; PULSE 73; RESP 16; TEMP 36.6; O2SAT 97; BMI 28.5
--- NOTE | 2023-07-16 16:07 | ED_ITS ---
HPI - General Adult General Chief complaint: Wound/Laceration Stated complaint: Left finger lac Time Seen by Provider: 07/16/23 18:28 Source: patient Mode of arrival: ambulatory Limitations: no limitations History of Present Illness HPI narrative: Patient is a 62 year old assigned male at with a history of HTN presenting to the emergency department today with a left 3rd digit injury. Patient states that he was preparing a meal when he cut his left 3rd digit with a knife. Patient states that he does not know when his last tetanus shot was. Patient denies any dizziness, lightheadedness, abdominal pain, nausea, vomiting, fever, chills, blurry vision, double vision, loss of vision, chest pain, difficulty breathing, shortness of breath, back pain, night sweats, pain with urination, increased urinary frequency, increased urinary urgency, blood in his urine or stool, syncope or a near syncopal episode, bowel incontinence, bladder incontinence, bowel retention, bladder retention, or any other complaints at this time. Onset (ago): minute(s) Location: left (3rd digit) Radiation: non-radiation Severity: mild Severity scale (1-10): 4 Quality: aching and dull Pain Consistency: constant Relieving factors: none Exacerbating factors: none Associated symptoms: denies other symptoms Treatments prior to arrival: none Related Data Home Medications ?Medication ?Instructions ?Recorded ?Confirmed quetiapine 50 mg tablet 50 mg PO BID 02/23/22 05/04/23 ropinirole 0.5 mg tablet 0.5 mg PO BEDTIME 02/08/23 05/04/23 Previous Rx's ?Medication ?Instructions ?Recorded aspirin 81 mg tablet,delayed 81 mg PO DAILY #30 tabs 01/19/22 release docusate sodium 100 mg capsule 100 mg PO BID #180 caps 02/08/23 hydrocortisone 2.5 % topical cream 1 appl MS BID #30 grams 02/08/23 with perineal applicator pantoprazole 20 mg tablet,delayed 20 mg PO DAILY #30 tabs 02/08/23 release sennosides 8.6 mg tablet (senna) 17.2 mg (2 x 8.6 mg) PO BEDTIME 02/08/23 for constipation #30 tabs simethicone 180 mg capsule (Gas 180 mg PO QID PRN abdominal 02/08/23 Relief (simethicone)) distention #120 caps sucralfate 1 gram tablet 2 g (2 x 1 gram) PO DAILY #180 tabs 02/08/23 losartan 25 mg tablet 25 mg PO DAILY 90 days #90 tabs 03/11/23 clonidine HCl 0.1 mg tablet 0.1 mg PO BID PRN for anxiety 90 04/12/23 days #180 tabs RAISED TOILET SEAT #1 ea 05/04/23 tizanidine 2 mg tablet 2 mg PO TID PRN muscle spasticity 05/10/23 30 days #90 tabs clonazepam 1 mg tablet 1 mg PO BEDTIME PRN anxiety #30 06/01/23 tabs acetaminophen 500 mg tablet 500 mg PO TID PRN for pain #90 tabs 06/09/23 clonazepam 0.5 mg tablet See Rx Instructions .Route 07/01/23 .COMPLEX 30 days #90 tabs tramadol 50 mg tablet See Rx Instructions PO BID pain 28 07/01/23 days #112 tabs diclofenac sodium 1 % topical gel 2 g topical BID PRN pain #100 grams 07/07/23 [id number] 1 cap PO QID #120 caps 07/07/23 12,000-38,000-60,000 unit capsule,delayed rel (Creon) doxycycline hyclate 100 mg tablet 100 mg PO BID 7 days #14 tabs 07/16/23 Allergies Allergy/AdvReac Type Severity Reaction Status Date / Time seafood Allergy Severe Anaphylaxis Verified 07/16/23 16:02 duloxetine Allergy Intermediate N/V, Verified 07/16/23 16:02 diarrhea, shakiness, withdrawal symptoms gabapentin Allergy Intermediate confusion/memory Verified 07/16/23 16:02 loss/hallucination lactase [LACTASE] Allergy Intermediate Nausea Verified 07/16/23 16:02 Review of Systems 2 Constitutional: Constitutional: Reports no additional constitutional complaints, Denies chills, Denies fever(s) and Denies night sweats Eyes: Eyes: Reports no additional eye complaints, Denies blurry vision, Denies change in vision, Denies diplopia, Denies eye discharge, Denies loss of vision and Denies eye pain ENT: Denies dizziness Cardiovascular: Cardiovascular: Reports no additional cardiovascular complaints, Denies chest pain, Denies lightheadedness, Denies Loss of Consciousness and Denies dyspnea Respiratory: Respiratory: Reports no additional respiratory complaints and Denies dyspnea Gastrointestinal: Gastrointestinal: Reports no additional gastrointestinal complaints, Denies abdominal pain, Denies melena, Denies hematochezia, Denies change in bowel habits and Denies change in stool character Genitourinary: Genitourinary: Reports no additional male genitourinary complaints, Denies hematuria, Denies oliguria, Denies difficulty urinating, Denies dysuria, Denies urinary frequency, Denies urinary hesitancy, Denies urinary incontinence and Denies urinary urgency Musculoskeletal: Musculoskeletal: Reports no additional musculoskeletal complaints, Denies numbness and Denies tingling Comments: left 3rd digit laceration Neurologic: Denies dizziness, Denies loss of vision, Denies numbness and Denies tingling Psychiatric: Psychiatric: Reports no additional psychiatric complaints Endocrine: Endocrine: Reports no additional endocrine complaints Hematologic/Lymphatic: Hematologic/Lymphatic: Reports no additional hematologic/lymphatic complaints Allergic/Immunologic: Allergic/Immunologic: Reports no additional allergic/immunologic complaints PMFSH Past Medical History Attestation statement: The following information was validated with the patient. Source: old records reviewed and nursing notes reviewed Medical History Bilateral knee pain Umbilical hernia (04/13/22) Gallstones Diarrhea Chronic abdominal pain Abdominal pain Screening for diabetes mellitus Obesity (BMI 30-39.9) Chronic cholecystitis Dyspepsia Primary osteoarthritis of shoulders, bilateral Benign essential hypertension Encounter for Medicare annual wellness exam Elevated d-dimer Left-sided chest wall pain Left elbow tendinitis Overweight (BMI 25.0-29.9) Excessive sweating Primary osteoarthritis, right shoulder Primary osteoarthritis, left shoulder Constipation Tubular adenoma of colon Surgical History Hx laparoscopic cholecystectomy (~10/08/22) Hx of umbilical hernia repair History of incision and drainage H/O esophagogastroduodenoscopy H/O colonoscopy Status post pericardial cyst excision (~02/13/19) History of varicose vein ligation and stripping H/O inguinal hernia repair S/P tendon repair Family History Family History Father Stomach cancer Mental health problem Mother AIDS Sister NIDDY (non-insulin dependent diabetes mellitus in young) Hypertension Other Substance abuse Social History Social History Household Members: Children Housing: Apartment Are you a primary patient care secretary to a significant other at home: No Do you presently have visiting nurse or other home services: Yes ([facility] [employer]) Alcohol intake: never Patient Tobacco Use Status: Former Tobacco user Quit Date: 13 years ago Tobacco use type: Cigarette Cigarettes Per Day: 40 Years Smoked: quit greater than 10 years ago e-Cigarette/Vaping Use: Never Used Second Hand Smoke Exposure: No Advance Directives: Yes Advance Directives on File: Yes Advance Directives Date on File: 07/11/20 Do you have a plan to hurt others: No Plan Current occupational status: disabled Cognitive needs: No Hearing needs: No Vision needs: Yes Physical Exam ED Vital Signs: Vital Signs - 24 hr 07/16/23 16:02 07/16/23 18:52 Temperature 97.9 F 97.9 F Pulse Rate 73 73 Respiratory Rate 16 16 Blood Pressure 151/88 H 151/88 H Pulse Oximetry 97 97 Oxygen Delivery Method Room Air Room Air BMI result Body Mass Index 28.5 Const General: cooperative, no acute distress, alert and awake Nutritional Appearance: well nourished Orientation/consciousness: patient oriented x3 Limitations: no limitations HENMT Head: Yes normal to inspection and Yes atraumatic Ears: hearing grossly normal bilaterally and external ears normal General nose exam: Normal external nose present, no nasal discharge noted and no epistaxis Face and sinus: Yes normal facial exam, No abrasion and No laceration Mouth: Normal oral and palatal mucosa present, no drooling and no muffled voice Eyes General: appearance normal, both eyes and all related structures Periorbital: periorbital findings normal Eyelids: Yes eyelids normal Conjunctivae: conjunctivae normal Pupils: Equal, round and reactive pupils present EOM: EOMs intact bilaterally Neck Neck: Yes normal visual inspection, Yes full ROM and Yes no lymphadenopathy Chest Chest palpation & inspection: normal inspection of the chest Resp Effort & Inspection: normal respiratory effort and able to speak in complete sentences GI Inspection: Yes normal to inspection Neuro General: patient oriented x3 and moves all extremities Cranial nerves: Yes Equal, round and reactive pupils present Cognition (Neuro): normal cognition Motor exam (neuro): 5/5 motor strength present throughout Sensory Exam: Normal double simultaneous stimulation for sensation Coordination: [id number] test normal Extrem General: Yes full ROM and Yes capillary refill normal Hand/finger images: 2 1. 0.5cm laceration, no active bleeding Psych Appearance: grossly normal Mental Status: mental status grossly normal Affect: normal affect Attitude: cooperative Thought process: Normal thought process present Thought content: Normal thought content present Insight: Good insight present (Psych) Course Course Course Narrative: RME performed by Loretta Walls PA-C. Patient is a 62 year old assigned male at presenting to the emergency department with left 3rd finger laceration. Patient states that he was preparing food and cut his finger. Detailed physical exam and review of systems are deferred to the seamless tube drawer. Patient placed back in the waiting room pending room availability. Medications Administered Discontinued Medications Generic Name Dose Route Start Last Admin Trade Name Freq PRN Reason Stop Dose Admin Diphtheria/Tetanus/Acell Pertussis 0.5 ml 07/16/23 16:08 07/16/23 18:03 Diphth,Pertus(Acell),Tet Adult 0.5 Ml Syringe IM 07/16/23 16:09 0.5 ml .ONCE ONE Administration Doxycycline Monohydrate 100 mg 07/16/23 18:34 07/16/23 18:50 Doxycycline Monohydrate 100 Mg Capsule PO 07/16/23 18:35 100 mg ONCE ONE Administration Procedures Laceration Laceration 1: Site: other (3rd digit) Side (If applicable): left Size (cm): 0.5 Description: linear Depth: simple, single layer Pre-repair: wound explored, irrigated extensively and deep structures intact Skin layer closed with: other (dermabond) Size (cm): other (dermabond) Technique: other (dermabond) Medical Decision Making Medical Decision Making MDM Narrative: Patient is a 62 year old assigned male at with a history of HTN presenting to the emergency department today with a left 3rd digit injury. Patient's physical exam was as noted in the physical exam portion of this note. I explained my physical exam findings to the patient. I answered all questions asked by the patient. Patient's laceration was repaired with dermabond, without incident. Patient's PMS was intact prior to and after dermabond. Patient was brought up to date on tetanus and given his first dose of ABX. I stressed the importance of the patient taking his medication as prescribed. I stressed the importance of the patient following up with his primary care provider. I stressed the importance of the patient not getting the affected area wet for at least 7 days. I stressed the importance of the patient performing daily wound checks and dressing changes. I stressed the importance of the patient returning to the emergency department immediately if his symptoms were to worsen or if he were to develop any dizziness, shortness of breath, difficulty breathing, chest pain, blurry vision, loss of vision, nausea, vomiting, abdominal pain, fever, chills, back pain, or any other complaints. Patient verbalized agreement and understanding with this treatment plan and discharge. Differential Diagnosis Differential Diagnoses: The differential diagnosis associated with the presentation includes Finger laceration Finger avulsion Finger abrasion Admission/Observation Consideration of admission/observation: Escalation of care including admission/observation considered Patient would have been admitted to the hospital had his clinical presentation warranted hospital admission. Tests considered The following testing was considered but not selected: I considered an x-ray of the patient's left 3rd digit however, patient's mechanism of injury did not warrant any imaging. I discussed this with the patient who verbalized agreement and understanding. Prescription Management I considered prescription management with: Antibiotic (given patient's mechanism of injury - I prescribed a prophylactic antibiotic) Discharge Plan Discharge Clinical Impression: Laceration of finger Patient Disposition: Home, Self-Care Instructions: Finger Laceration (ED), Skin Adhesive Care (ED) Additional Instructions: Take your antibiotic as prescribed. Perform daily wound checks and dressing changes. Do NOT get the affected area wet for at least 7 days. Follow up with your primary care provider. Return to the emergency department immediately if your symptoms worsen or if you develop any dizziness, shortness of breath, difficulty breathing, chest pain, blurry vision, loss of vision, nausea, vomiting, abdominal pain, fever, chills, back pain, or any other complaints. Prescriptions: New doxycycline hyclate 100 mg tablet 100 mg PO BID 7 Days Qty: 14 0RF No Action aspirin 81 mg tablet,delayed release (DR/EC) 81 mg PO DAILY Qty: 30 3RF losartan 25 mg tablet 25 mg PO DAILY 90 Days Qty: 90 1RF clonidine HCl 0.1 mg tablet 0.1 mg PO BID PRN (Reason: for anxiety) 90 Days Qty: 180 1RF tizanidine 2 mg tablet 2 mg PO TID PRN (Reason: muscle spasticity) 30 Days Qty: 90 2RF clonazepam 1 mg tablet 1 mg PO BEDTIME PRN (Reason: anxiety) Qty: 30 0RF acetaminophen 500 mg tablet 500 mg PO TID PRN (Reason: for pain) Qty: 90 3RF clonazepam 0.5 mg tablet See Rx Instructions .ROUTE .COMPLEX 30 Days Qty: 90 1RF Rx Instructions: Take 1 tablet orally daily in the MORNING and 2 tablets at bedtime - UNTIL the 1 mg tablets are back in stock tramadol 50 mg tablet See Rx Instructions PO BID 28 Days Qty: 112 0RF Rx Instructions: 1 to 2 tablets PO 2 times a day; diclofenac sodium 1 % gel 2 g topical BID PRN (Reason: pain) Qty: 100 0RF Creon 12,000-38,000 -60,000 unit capsule,delayed release(DR/EC) 1 cap PO QID Qty: 120 6RF Hold Instructions: insurance prefers [facility] Rx Instructions: administer with meals and/or snacks (DME) RAISED TOILET SEAT See Rx Instructions .Route .MEDSUPPLY Qty: 1 0RF Rx Instructions: As directed quetiapine 50 mg tablet 50 mg PO BID ropinirole 0.5 mg tablet 0.5 mg PO BEDTIME hydrocortisone 2.5 % cream with perineal applicator 1 appl MS BID Qty: 30 12RF docusate sodium 100 mg capsule 100 mg PO BID Qty: 180 6RF Hold Instructions: Doctor's Order pantoprazole 20 mg tablet,delayed release (DR/EC) 20 mg PO DAILY Qty: 30 6RF sennosides [senna] 8.6 mg tablet 17.2 mg PO BEDTIME Qty: 30 6RF simethicone [Gas Relief (simethicone)] 180 mg capsule 180 mg PO QID PRN (Reason: abdominal distention) Qty: 120 6RF sucralfate 1 gram tablet 2 g PO DAILY Qty: 180 2RF Referrals: Marcial David MD [Primary Care Provider] - Stand Alone Forms: Work/School Release Interventions: ED Discharge Assessment Last Done: 07/16/23 18:52 Discharge Date/Time: 07/16/23 18:52 Print Language: [place] Island[place]
[2023-07-16] MEDS: Diphth,Pertus(ACell),Tet Adult 0.5 ML SYRINGE IM (18:03)
[2023-07-16] MEDS: Doxycycline Monohydrate 100 MG CAPSULE PO (18:50)
[2023-07-16 18:52] VITALS: BP 151/88; PULSE 73; RESP 16; TEMP 36.6; O2SAT 97
== END 2023-07-16 18:52 | disposition home or self-care (01) ==
PROVIDERS: Emergency Provider Internal Medicine; PCP Internal Medicine
DX: S61.213A Laceration without foreign body of left middle finger without damage to nail, initial encounter (principal); I10 Essential (primary) hypertension; W26.0XXA Contact with knife, initial encounter; Y93.G3 Activity, cooking and baking; Y92.9 Unspecified place or not applicable; Y99.9 Unspecified external cause status
CPT/HCPCS: 12001; 90715; 96374; 99282; 99284

== ENCOUNTER 2023-07-26 15:00 | Outpatient (RCR) | payer MEDICARE, MEDICAID, SELFPAY ==
--- NOTE | 2023-09-05 07:46 | MHC.PT.DC ---
[facility] [place] Office [place] Office [place] Office [address] Esme Horn [address] [facility] [phone] F: [phone] F: [phone] F: [phone] F: [phone] Physical Therapy Discharge Report Diagnosis: R knee pain Date of Surgery: Date of Evaluation: 06/09/23 Date of Discharge: 07/26/23 Treatments to Date: 8 Cancellations to Date: No Shows to Date: Discharge Status: Achieved Goals Improved Function Independent with HEP Discharge Summary: . Electronically signed by: Valerio Henry PT. Please sign and return to therapist. Thank you for your referral.
== END 2023-09-05 07:46 | disposition home or self-care (01) ==
LOC: HO.PT 15:00
PROVIDERS: PCP Internal Medicine; Visit Provider Internal Medicine
DX: M25.561 Pain in right knee (principal)
CPT/HCPCS: 97110; 97162

== ENCOUNTER 2023-08-09 14:23 | Outpatient (AMB) | payer MEDICARE, MEDICAID, SELFPAY ==
--- NOTE | 2023-08-09 14:35 | A.OFFVIS_ITS ---
Vital Signs 08/09/23 15:00 Height 6 ft Weight 204 lb 9.423 oz BMI 27.7 BP 164/98 H Blood Pressure Location Rt brachial Position Sitting Pulse 82 Intake Visit Reasons: Follow up 6 months Intake Note: Patient presents to in office visit today in 6 months follow up of IBS. CC: Patient states that he still gets a lot of diarrhea after eating ever since he had his gallbladder removed. He states that a week ago he was having chronic diarrhea and took almost a whole bottle of Pepto Bismol and was having constipation and black stools. He is now having more regular BMs but stools still a little dark per PT. Patient reports itching from hemorrhoids. 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 Accompanied by: Self / Same As Patient Allergies seafood Allergy (Severe, Verified 08/09/23 15:13) Anaphylaxis duloxetine Allergy (Intermediate, Verified 08/09/23 15:13) N/V, diarrhea, shakiness, withdrawal symptoms gabapentin Allergy (Intermediate, Verified 08/09/23 15:13) confusion/memory loss/hallucination lactase [LACTASE] Allergy (Intermediate, Verified 08/09/23 15:13) Nausea HPI HPI Follow up 6 months : Details: Assessment & Plan (1) Irritable bowel syndrome with both constipation and diarrhea: Code(s): K58.2 - Mixed irritable bowel syndrome (2) GERD (gastroesophageal reflux disease): Code(s): K21.9 - Gastro-esophageal reflux disease without esophagitis Qualifiers: Esophagitis presence: without esophagitis Qualified Code(s): K21.9 - Gastro-esophageal reflux disease without esophagitis (3) Abdominal bloating: Code(s): R14.0 - Abdominal distension (gaseous) (4) Tubular adenoma of colon: Comment: 01/2023 SCOPE=NEG, REPEAT 5 YEARS; None on scope in 2018 repeat 5 years Code(s): D12.6 - Benign neoplasm of colon, unspecified Plan We had to change him from creon to zenpep r/t insurance preferences. He was confused by this and I explain this to him. 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 He continues on his protonix, carafate, simethicone and prn senna and colace. His is moving his bowels well. He now feels that his body is beginning to settle down after my GB surgery. This is likely true. He has an occasional feeling of nausea that is transient. This is probably from bile being over produced and I tell him that if he needs to he can take Carafate when this happens he just needs to be careful not to dose with other medicines since it can block absorption. ROV 6 mos. I also see his daughter and he passes a message to me that she had an allergic reaction to the amoxicillin component of her H pylori therapy. CORRESPONDENCE On 07/08/23 @ 16:01 Nilam Pinedo Wrote To SilasJune noted Nilam Pinedo removed from item. On 07/08/23 @ 15:09 Niki Scott Wrote To SilasJune (2) patient informed 12,000u sent and PA was approved for Creon. On 07/08/23 @ 13:04 Margo Molina Wrote To SilasJune (2) Is there a way that we can sent him the 10,000unit? On 07/08/23 @ 12:59 Ofelia Keane Wrote To Margo Molina Patient came into the office and is stating that the [id number] was sent instead of [id number] he needs the smaller (10,000) of ZenCarbon as insurance will not cover the Creon. On 07/07/23 @ 10:49 SilasLita Wrote To Nilam Pinedo sent Medication Orders [id number] 25,000-79,000- 105,000 unit 2 caps PO BID 120 caps 6RF Discontinued [id number] 12,000-38,000 -60,000 unit 1 cap PO QID 120 caps 6RF Refilled On 07/06/23 @ 16:25 Nilam Pinedo Wrote To SilasJune (2) see below patient has upcoming appt 08/08 On 07/06/23 @ 13:40 Ofelia Keane Wrote To Nilam Pinedo Patient walked in regarding message below. Patient expressed he prefers to swallow the capsule instead of breaking it open and would like to request to have the medication decreased to 10,000 units. Please advise as he has been without meds. Patient: [phone] On 06/03/23 @ 16:01 Lita Rosen Wrote To Lita Rosen Lita Rosen completed item. On 06/03/23 @ 12:53 Nilam Pinedo Wrote To SilasLita noted - informed patient - He voices frustration, stating I don't want to do that. I just want her to lower the dose so I can swallow the medication. On 06/03/23 @ 12:25 Lita Rosen Wrote To Nilam Pinedo He should instead open the capsules and sprinkle onto food. On 06/03/23 @ 12:16 Nilam Pinedo Wrote To Lita Rosen (2) patient called he reports difficulty with swallowing Zenpep. He states it is a very large capsule. He spoke to the pharmacy about this, They suggested if possible to change dose to 10,000 units. Not sure if this is an option? ? TODAY'S VISIT He continues to have diarrhea, despite denying that he is eating higher fat foods. He eats a lot of fruits and the higher sugar load could also be c/t diarrhea. This despite his carafate and creon. HOWEVER, he continues to take colace, but has cut back to qd from bid - he says if he stops it he develops CIC. He is having frequent nausea and is requesting zofran. He continues on his pantoprazole 20 mg once a day. He is now taking the 12,000 creon, he insists that he can not swallow the larger dose and this may not be working as well as we would like. With conversation, he is only taking 1 carafate a day and I wanted him to take 2 day. Also we discuss possible lactose intolerance and Lactaid milk. He does not eat fried foods or fatty meats, mostly fish and skinless chicken. ROV 6 weeks. FOR[facility]LY [facility] Medical History (Updated 08/09/23 @ 16:47 by MARVIN Solis) Gallstones Abdominal bloating Hyperglycemia Fatigue Left shoulder pain Right shoulder pain Palpitations Pain, dental Umbilical hernia Left-sided chest wall pain Left elbow tendinitis Elevated d-dimer Primary osteoarthritis, left shoulder Nausea and vomiting Bilateral knee pain Acute lumbar myofascial strain Pre-op examination Right knee pain Annual physical exam Umbilical hernia (04/13/22) Gallstones Diarrhea Chronic abdominal pain Abdominal pain Screening for diabetes mellitus Obesity (BMI 30-39.9) Chronic cholecystitis Dyspepsia Primary osteoarthritis of shoulders, bilateral Benign essential hypertension Encounter for Medicare annual wellness exam Overweight (BMI 25.0-29.9) Excessive sweating Primary osteoarthritis, right shoulder Constipation Tubular adenoma of colon Surgical History Hx laparoscopic cholecystectomy (~10/08/22) Hx of umbilical hernia repair History of incision and drainage H/O esophagogastroduodenoscopy H/O colonoscopy Status post pericardial cyst excision (~02/13/19) History of varicose vein ligation and stripping H/O inguinal hernia repair S/P tendon repair Family History Father Stomach cancer Mental health problem Mother AIDS Sister NIDKENZIE (non-insulin dependent diabetes mellitus in young) Hypertension Other Substance abuse Social History Household Members: Children Housing: Apartment Are you a primary floor care technician to a significant other at home: No Do you presently have visiting nurse or other home services: Yes ([employer]ILDING [employer] INS[employer]) Alcohol intake: never Patient Tobacco Use Status: Former Tobacco user Quit Date: 13 years ago Tobacco use type: Cigarette Cigarettes Per Day: 40 Years Smoked: quit greater than 10 years ago e-Cigarette/Vaping Use: Never Used Second Hand Smoke Exposure: No Advance Directives Date on File: 07/11/20 Current occupational status: disabled Cognitive needs: No Hearing needs: No Vision needs: Yes Review of Systems Const Denies fatigue, Denies fever(s), Denies night sweats, Denies poor appetite and Denies weight loss Eyes Reports requires corrective lenses ENT Reports Normal hearing present, Denies dental pain, Denies dysphagia, Denies hearing loss, Denies mouth pain, Denies odynophagia, Denies throat swelling, Denies tongue swelling and Reports other (Dentition adequate) GI Details: Denies abdominal pain, Denies melena, Denies bloating, Denies hematochezia, Denies constipation, Denies GI cramping, Denies dysphagia, Denies excessive flatus, Denies early satiety, Reports heartburn, Reports diarrhea, Denies nausea, Denies odynophagia, Denies vomiting and Denies hematemesis Skin/Breast Denies pruritus, Denies lesions, Denies rash and Denies jaundice Neuro Reports Normal hearing present and Denies Abnormal speech present Endo Denies fatigue Aller/Immun Denies throat swelling and Denies tongue swelling Physical Exam Vital Signs: Last Vital Signs Pulse 82 08/09/23 15:00 BP 164/98 H 08/09/23 15:00 BMI result Body Mass Index 27.7 Const General: cooperative, no acute distress, well developed and well groomed Nutritional Appearance: average body habitus and well nourished Orientation/consciousness: oriented to person, oriented to place and oriented to time Limitations: No language barrier HEENT Head: Yes normocephalic and Yes atraumatic Eyes General: appearance normal, both eyes and all related structures Pupils: Equal, round and reactive pupils present Neck Neck: Yes normal visual inspection and Yes no lymphadenopathy Thyroid: Thyroid normal Resp Effort & Inspection: normal respiratory effort and able to speak in complete sentences Auscultation: clear to auscultation bilaterally Cardio Rate: regular rate Rhythm: regular rhythm Heart sounds: Normal, physiologic split S2 sound present Peripheral pulses: radial pulses present and posterior tibial pulses present GI Inspection: No distended and No Abdominal panniculus present Palpation (GI): Soft to palpation, nontender, no guarding, not rigid and No hepatosplenomegaly present Percussion: Yes normal to percussion Auscultation: normal bowel sounds Rectal Exam - Male: Yes deferred Skin General skin exam: no rashes or lesions noted, turgor normal, skin not dry, no jaundice, No spider nevi and no striae Rashes: no rashes Nails: normal Neuro General: oriented to person, oriented to place and oriented to time Cranial nerves: Yes Equal, round and reactive pupils present and Yes Normal hearing present Speech: No Abnormal speech present Extrem General: Yes normal to inspection, No clubbing, No cyanosis and No edema Psych Appearance: grossly normal and well kempt Mental Status: mental status grossly normal Speech and movement: Normal speech and movement present Affect: normal affect Attitude: cooperative Thought process: Normal thought process present and not confabulating Thought content: Normal thought content present Insight: Limited insight present (Psych) Judgement: Limited judgement present (Psych) Assessment & Plan Assessment & Plan (1) Irritable bowel syndrome with both constipation and diarrhea: Comment: With an element of post cholecystectomy syndrome Code(s): K58.2 - Mixed irritable bowel syndrome Category: Medical (2) GERD (gastroesophageal reflux disease): Code(s): K21.9 - Gastro-esophageal reflux disease without esophagitis Category: Medical Qualifiers: Esophagitis presence: without esophagitis Qualified Code(s): K21.9 - Gastro-esophageal reflux disease without esophagitis Plan He continues to have diarrhea, despite denying that he is eating higher fat foods. He eats a lot of fruits and the higher sugar load could also be c/t diarrhea. This despite his carafate and creon. HOWEVER, he continues to take colace, but has cut back to qd from bid - he says if he stops it he develops CIC. He is having frequent nausea and is requesting zofran. He continues on his pantoprazole 20 mg once a day. He is now taking the 12,000 creon, he insists that he can not swallow the larger dose and this may not be working as well as we would like. With conversation, he is only taking 1 carafate a day and I wanted him to take 2 day. Also we discuss possible lactose intolerance and Lactaid milk. He does not eat fried foods or fatty meats, mostly fish and skinless chicken. ROV 6 weeks. Medications: Changed From sucralfate 2 grams (2 x 1 gram) PO DAILY 180 tabs 2RF R19.7 - Diarrhea, unspecified To sucralfate 2 grams (2 x 1 gram) PO .qafternoon 180 tabs 2RF R19.7 - Diarrhea, unspecified From docusate sodium 100 mg PO BID 180 caps 6RF K58.2 - Mixed irritable bowel syndrome To docusate sodium 100 mg PO DAILY 90 caps 6RF K58.2 - Mixed irritable bowel syndrome Refilled simethicone (Gas Relief (simethicone)) 180 mg PO QID PRN 120 caps 6RF abdominal distention R14.0 - Abdominal distension (gaseous) Coding Level of Care Code Est Pt Level 3 (18401) Diagnoses Irritable bowel syndrome with both constipation and diarrhea K58.2 Gastroesophageal reflux disease without esophagitis K21.9 Esophagitis presence: without esophagitis
[2023-08-09 15:00] VITALS: BP 164/98; PULSE 82; BMI 27.7
== END 2023-08-09 15:42 | disposition home or self-care (01) ==
PROVIDERS: PCP Internal Medicine; Visit Provider Nurse Practitioner
DX: K58.2 Mixed irritable bowel syndrome (principal); K21.9 Gastro-esophageal reflux disease without esophagitis
CPT/HCPCS: 99213

== ENCOUNTER → 2023-08-09 14:23 | Outpatient (BNVA) | payer MEDICARE, MEDICAID, SELFPAY | PROVIDERS: PCP Internal Medicine; Visit Provider Nurse Practitioner | DX: K58.2 Mixed irritable bowel syndrome (principal); K21.9 Gastro-esophageal reflux disease without esophagitis | CPT/HCPCS: 99212 ==

== ENCOUNTER 2023-08-10 14:35 | Outpatient (AMB) | payer MEDICARE, MEDICAID, SELFPAY ==
--- NOTE | 2023-08-10 14:54 | A.OFFPC_ITS ---
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: No Allergies seafood Allergy (Severe, Verified 08/10/23 15:42) Anaphylaxis duloxetine Allergy (Intermediate, Verified 08/10/23 15:42) N/V, diarrhea, shakiness, withdrawal symptoms gabapentin Allergy (Intermediate, Verified 08/10/23 15:42) confusion/memory loss/hallucination lactase [LACTASE] Allergy (Intermediate, Verified 08/10/23 15:42) Nausea Medication List - Last Reconciled 08/10/23 by Marcial David MD acetaminophen 500 mg PO TID PRN aspirin 81 mg PO DAILY clonazepam Take 1 tablet orally daily in the MORNING and 2 tablets at bedtime - UNTIL the 1 mg tablets are back in stock 30 days clonazepam 1 mg PO BEDTIME PRN clonidine HCl 0.1 mg PO BID PRN 90 days diclofenac sodium 1% 2 grams topical BID PRN docusate sodium 100 mg PO DAILY [id number]-[id number] 12,000-38,000 -60,000 unit (Creon) 1 cap PO QID losartan 25 mg PO DAILY 90 days pantoprazole 20 mg PO DAILY quetiapine 50 mg PO BEDTIME [RAISED TOILET SEAT As directed] ropinirole 0.5 mg PO BEDTIME sennosides (senna) 17.2 mg (2 x 8.6 mg) PO BEDTIME simethicone (Gas Relief (simethicone)) 180 mg PO QID PRN sucralfate 2 grams (2 x 1 gram) PO .qafternoon tizanidine 2 mg PO TID PRN 30 days tramadol 1 to 2 tablets PO 2 times a day; 28 days Tobacco use date assessed: 08/10/23 Dental Screening Dental Screen Date: 05/04/23 HPI HTN, OA, GERD, lumbar DDD HPI Details Patient comes in today for his follow up visit States that he still has increased low back pain and feels that his chronic low back pain is now worse than before He was following up with pain management at [facility] and was getting back injections to help with his chronic pain but states that he is now feeling tired of getting cortisone injections as he does not feel that they are really helping much with his pain and is concerned that frequent cortisone injections can potentially cause problems for his bones long-term States that he was advised by pain management that if he does not wish to continue with his back injections, the only option left would be for him to discuss with his PCP about starting him on some opioids for chronic pain and he is now requesting to get something stronger than his Tramadol for pain States that he has been on Tramadol for many years now and has not really taken anything stronger than that since Adds that he was having frequent diarrhea and loose stools for a while and that this has finally cleared up recently and his bowel movements are now back to normal Relates (+) recurrent nausea especially after eating, which he states would then be followed by a bowel movement subsequently States that he has discussed this with GI recently and was advised that all of these symptoms may still be related to his cholecystectomy last year and it is reasonable to continue to give it some time for his body to adjust to not having a functional gallbladder He denies any headaches or dizziness; denies any fever Denies any chest pains, no increased shortness of breath noted recently [facility] Medical History (Updated 08/10/23 @ 15:51 by Marcial David MD) Gallstones Hyperglycemia Fatigue Palpitations Umbilical hernia Left elbow tendinitis Elevated d-dimer Primary osteoarthritis, left shoulder Acute lumbar myofascial strain Right knee pain Umbilical hernia (04/13/22) Gallstones Diarrhea Chronic abdominal pain Obesity (BMI 30-39.9) Chronic cholecystitis Dyspepsia Primary osteoarthritis of shoulders, bilateral Benign essential hypertension Overweight (BMI 25.0-29.9) Excessive sweating Primary osteoarthritis, right shoulder Constipation Tubular adenoma of colon Surgical History Hx laparoscopic cholecystectomy (~10/08/22) Hx of umbilical hernia repair History of incision and drainage H/O esophagogastroduodenoscopy H/O colonoscopy Status post pericardial cyst excision (~02/13/19) History of varicose vein ligation and stripping H/O inguinal hernia repair S/P tendon repair Family History Father Stomach cancer Mental health problem Mother AIDS Sister PALMER (non-insulin dependent diabetes mellitus in young) Hypertension Other Substance abuse Social History Household Members: Children Housing: Apartment Are you a primary rn wound care to a significant other at home: No Do you presently have visiting nurse or other home services: Yes ([employer]) Alcohol intake: never Patient Tobacco Use Status: Former Tobacco user Quit Date: 13 years ago Tobacco use type: Cigarette Cigarettes Per Day: 40 Years Smoked: quit greater than 10 years ago e-Cigarette/Vaping Use: Never Used Second Hand Smoke Exposure: No Advance Directives Date on File: 07/11/20 Current occupational status: disabled Cognitive needs: No Hearing needs: No Vision needs: Yes Questionnaire Thrive Questionnaire Date Thrive assessed: 05/04/23 AUDIT C Alcohol Use Questionnaire (AUDIT-C) 1. How often do you have a drink containing alcohol?: Never 3. How often do you have six or more drinks on one occasion?: Never Total Score: 0 Score Reviewed/Action Taken: Yes GANESH-7 AMB Questionnaire GANESH-7 Date GANESH - 7 assessed: 05/04/23 Source: Developed by Drs. Bro Guillermo, Dimple Lawson, Bulmaro Tavares and colleagues, with an educational sofie from [email or web address]. Review of Systems Const Reports difficulty sleeping (Rx helping), Reports fatigue, Denies fever(s) and Denies headache(s) ENT Denies dysphagia, Denies dizziness, Denies otalgia, Denies headache(s), Denies neck pain, Denies odynophagia and Denies sore throat Card Denies chest pain, Denies palpitations and Reports dyspnea on exertion (mild) Resp Denies chest congestion, Denies cough, Reports dyspnea on exertion (mild) and Denies wheezing GI Denies abdominal pain, Denies constipation (improved with Rx), Denies dysphagia, Denies heartburn, Denies diarrhea, Reports loose stools (occasionally), Denies nausea, Denies odynophagia and Denies vomiting Denies dysuria, Denies nocturia and Denies urinary frequency Musc Reports back pain (chronic ), Reports arthralgias (involving multiple joints, including both shoulders ; over R knee lately) and Denies neck pain Skin/Breast Denies change in pigmentation, Denies lesions, Denies rash and Denies unusual bruising Neuro Denies dizziness and Denies headache(s) Psych Reports anxiety and Reports depression Endo Reports fatigue and Denies palpitations Aller/Immun Denies wheezing Physical exam (Primary Care) Vital Signs: Last Vital Signs Pulse 112 H 08/10/23 14:55 BP 138/92 H 08/10/23 14:55 Pulse Ox 97 08/10/23 14:55 Oxygen Delivery Method Room Air 08/10/23 14:55 BMI result Body Mass Index 27.7 Tobacco/Smoking Status: Tobacco use Status Tobacco use date assessed 08/10/23 08/10/23 14:55 Patient Tobacco Use Status Former Tobacco user 08/10/23 14:55 Tobacco use type Cigarette 08/10/23 14:55 e-Cigarette/Vaping Use Never Used 08/10/23 14:55 Thrive Assessment: Date of Thrive Assessment Date Thrive assessed 05/04/23 08/10/23 14:55 Const General: no acute distress and alert HENMT Ears: TM's normal bilaterally and EAC's normal Throat: Yes posterior oropharynx normal and Yes tonsils normal (no TP congestion) Neck Neck: Yes no lymphadenopathy and Yes supple Thyroid: Thyroid normal Resp Auscultation: clear to auscultation bilaterally, no rales and no wheezes Cardio Rate: regular rate Rhythm: regular rhythm Heart sounds: no murmurs GI Palpation (GI): Soft to palpation and nontender Auscultation: normal bowel sounds General: Yes no CVA tenderness Back/Spine/Pelvis Back: no CVA tenderness Cervical Spine: No Cervical spine tenderness Thoracic/Lumbar Spine: lumbar spinal tenderness Skin Rashes: no rashes Extrem General: Yes no clubbing, cyanosis or edema Right upper extremity: shoulder/upper arm Details: tenderness Location: of the A-C joint Left upper extremity: shoulder/upper arm Details: tenderness Location: of the A- C joint Right lower extremity: knee Details: tenderness; no swelling Left lower extremity: knee Details: tenderness; no swelling Assessment and Plan Assessment & Plan (1) Lumbar degenerative disc disease: Code(s): M51.36 - Other intervertebral disc degeneration, lumbar region Plan: Reinforced activity and weight lifting restrictions Continue Tizanidine 4 mg 3 times a day as needed, Acetaminophen 500 mg TID PRN, Lidocaine 4% cream apply to painful area on lower back as needed and Tramadol 50 mg TID PRN He was seeing [facility] pain management and receiving back injections, which she states have not been helping much recently and he is not expressing his concerns about getting frequent cortisone injections and their potential long-term implications He is currently requesting for prescriptions for some opioids to help with his pain Have advised patient that I will provide him for now with is small amount of prescription for Oxycodone 5 mg (#20 tablets) but have again reminded him that I am not taking on any more patients for chronic opioid Rx and have no plans to start him on opioids for chronic pain on a long-term basis, mainly because I do not believe chronic opioids are the answer to effective long-term pain management and with his comorbidities, the risks of addiction or too great Have advised him that other than cortisone injections, there are other interventional modalities available and that she should continue to follow-up with pain management at [facility] and pursue interventional treatments rather than chronic opioid Rx for his chronic pain (2) Primary osteoarthritis of shoulders, bilateral: Code(s): M19.011 - Primary osteoarthritis, right shoulder; M19.012 - Primary osteoarthritis, left shoulder Plan: States that his shoulders have been bothering him since he had his cholecystectomy in September 2022 X-rays of the shoulders done last year (May 2022) revealed (+) moderate subacromial spur in the right shoulder; right shoulder is otherwise normal. Left shoulder x-rays came back normal He went to physical therapy for his shoulders for a while and states that PT has helped somewhat Follow up with rheumatology as scheduled; was seeing Dr. Pitt at [facility] in the past until she left the practice a couple of years ago (3) Chronic cholecystitis: Code(s): K81.1 - Chronic cholecystitis Plan: RESOLVED S/P laparoscopic cholecystectomy last year on 10/08/[address] Saenz States that his surgery went well and that all of his previous GI symptoms have since improved/resolved with his surgery (4) Benign essential hypertension: Code(s): I10 - Essential (primary) hypertension Plan: Reinforced low sodium diet - goal is systolic BP of at least 120 to 130 mm or less Continue Losartan 25 mg QD (5) GERD (gastroesophageal reflux disease): Code(s): K21.9 - Gastro-esophageal reflux disease without esophagitis Qualifiers: Esophagitis presence: without esophagitis Qualified Code(s): K21.9 - Gastro-esophageal reflux disease without esophagitis Plan: Dietary restrictions reinforced Continue Pantoprazole 20 mg QD (6) Irritable bowel syndrome with both constipation and diarrhea: Comment: With an element of post cholecystectomy syndrome Code(s): K58.2 - Mixed irritable bowel syndrome Plan: Continue Docusate 100 mg BID PRN and Creon QID Follow up with GI as scheduled Stool culture and test for H. pylori done last year came back negative (7) Insomnia: Code(s): G47.00 - Insomnia, unspecified Qualifiers: Insomnia type: unspecified Qualified Code(s): G47.00 - Insomnia, unspecified Plan: Sleep hygiene reinforced Continue Zolpidem ER 12.5 mg Q HS PRN; is also on Quetiapine, which helps with his sleep as well (8) Anxiety: Code(s): F41.9 - Anxiety disorder, unspecified Plan: Continue Clonazepam 1 mg once a day at bedtime as needed, Clonazepam 0.5 mg once a day in AM, Propranolol 20 mg BID and Clonidine 0.1 mg BID PRN (9) Depression: Code(s): F32.9 - Major depressive disorder, single episode, unspecified Qualifiers: Active/Remission status: currently active Depression Type: major depressive disorder Major depression episode severity: unspecified Major depression recurrence: recurrent Qualified Code(s): F33.9 - Major depressive disorder, recurrent, unspecified Plan: Continue Prazosin 2 mg BID (to help with his nightmares) and Quetiapine 200 mg Q HS He also used to take Wellbutrin XL but states that he weaned off this medication a few months ago as he did not feel that it was helping much Follow-up with Psychiatry as scheduled (10) Overweight (BMI 25.0-29.9): Code(s): E66.3 - Overweight Plan: Reinforced diet/exercise as tolerated/lose weight Plan Follow up in 3 months Medications: New oxycodone Partial Fill upon patient request. 5 mg PO Q8H PRN 20 tabs 0RF pain Coding Level of Care Code Est Pt Level 4 (48565) Diagnoses Lumbar degenerative disc disease M51.36 Primary osteoarthritis of shoulders, bilateral M19.011; M19.012 Chronic cholecystitis K81.1 Benign essential hypertension I10 Gastroesophageal reflux disease without esophagitis K21.9 Esophagitis presence: without esophagitis Irritable bowel syndrome with both constipation and diarrhea K58.2 Insomnia, unspecified type G47.00 Insomnia type: unspecified Anxiety F41.9 Episode of recurrent major depressive disorder, unspecified depression episode severity F33.9 Active/Remission status: currently active Depression Type: major depressive disorder Major depression episode severity: unspecified Major depression recurrence: recurrent Overweight (BMI 25.0-29.9) E66.3
[2023-08-10 14:55] VITALS: BP 138/92; PULSE 112; O2SAT 97; BMI 27.7
== END 2023-08-10 16:02 | disposition home or self-care (01) ==
LOC: HO.HMGH 14:38
PROVIDERS: PCP Internal Medicine; Visit Provider Internal Medicine
DX: M51.36 Other intervertebral disc degeneration, lumbar region (principal); M19.011 Primary osteoarthritis, right shoulder; M19.012 Primary osteoarthritis, left shoulder; F33.9 Major depressive disorder, recurrent, unspecified; K81.1 Chronic cholecystitis; I10 Essential (primary) hypertension; K21.9 Gastro-esophageal reflux disease without esophagitis; K58.2 Mixed irritable bowel syndrome; G47.00 Insomnia, unspecified; F41.9 Anxiety disorder, unspecified; E66.3 Overweight
CPT/HCPCS: 99214

== ENCOUNTER 2023-10-07 13:52 | Outpatient (AMB) | payer MEDICARE, MEDICAID, SELFPAY ==
--- NOTE | 2023-10-07 14:17 | A.OFFVIS_ITS ---
Vital Signs 10/07/23 14:18 Height 6 ft Weight 206 lb 12.697 oz BMI 28.0 BP 145/78 H Blood Pressure Location Lt brachial Position Sitting Pulse 78 Intake Visit Reasons: 6 month follow up Intake Note: Patient presents to in office visit today in 6 months follow up of IBS. CC: Patient states that he is not having as much diarrhea as before and feels that everything is going back to normal. He also reports having more appetite. Per patient he is getting nauseous and would like to get Ondansetron as he used it before and it was helpful.. Associate Doctor Required: Yes Accompanied by: Self / Same As Patient Allergies seafood Allergy (Severe, Verified 12/05/23 10:25) Anaphylaxis duloxetine Allergy (Intermediate, Verified 12/05/23 10:25) N/V, diarrhea, shakiness, withdrawal symptoms gabapentin Allergy (Intermediate, Verified 12/05/23 10:25) confusion/memory loss/hallucination lactase [LACTASE] Allergy (Intermediate, Verified 12/05/23 10:25) Nausea HPI HPI 6 month follow up: Details: Assessment & Plan (1) Irritable bowel syndrome with both constipation and diarrhea: Comment: With an element of post cholecystectomy syndrome Code(s): K58.2 - Mixed irritable bowel syndrome Category: Medical (2) GERD (gastroesophageal reflux disease): Code(s): K21.9 - Gastro-esophageal reflux disease without esophagitis Category: Medical Qualifiers: Esophagitis presence: without esophagitis Qualified Code(s): K21.9 - Gastro-esophageal reflux disease without esophagitis Plan He continues to have diarrhea, despite denying that he is eating higher fat foods. He eats a lot of fruits and the higher sugar load could also be c/t diarrhea. This despite his carafate and creon. HOWEVER, he continues to take colace, but has cut back to qd from bid - he says if he stops it he develops CIC. He is having frequent nausea and is requesting zofran. He continues on his pantoprazole 20 mg once a day. He is now taking the 12,000 creon, he insists that he can not swallow the larger dose and this may not be working as well as we would like. With conversation, he is only taking 1 carafate a day and I wanted him to take 2 day. Also we discuss possible lactose intolerance and Lactaid milk. He does not eat fried foods or fatty meats, mostly fish and skinless chicken. ROV 6 weeks. Medications: Changed From sucralfate 2 grams (2 x 1 gram) PO DAILY 180 tabs 2RF R19.7 - Diarrhea, unspecified To sucralfate 2 grams (2 x 1 gram) PO .qafternoon 180 tabs 2RF R19.7 - Diarrhea, unspecified From docusate sodium 100 mg PO BID 180 caps 6RF K58.2 - Mixed irritable bowel syndrome To docusate sodium 100 mg PO DAILY 90 caps 6RF K58.2 - Mixed irritable bowel syndrome Refilled simethicone (Gas Relief (simethicone)) 180 mg PO QID PRN 120 caps 6RF abdominal distention R14.0 - Abdominal distension (gaseous) CORRESPONDENCE On 07/08/23 @ 16:01 Nilam Pinedo Wrote To Rosen noted Nilam Pinedo removed from item. On 07/08/23 @ 15:09 Niki Scott Wrote To (2) patient informed 12,000u sent and PA was approved for Creon. On 07/08/23 @ 13:04 Margo Molina Wrote To (2) Is there a way that we can sent him the 10,000unit? On 07/08/23 @ 12:59 Ofelia Keane Wrote To Margo Molina Patient came into the office and is stating that the [id number] was sent instead of [id number] he needs the smaller (10,000) of [facility] as insurance will not cover the Creon. On 07/07/23 @ 10:49 Wrote To Nilam Pinedo sent Medication Orders [id number]-dvltzzk 25,000-79,000- 105,000 unit 2 caps PO BID 120 caps 6RF Discontinued [id number] 12,000-38,000 -60,000 unit 1 cap PO QID 120 caps 6RF Refilled On 07/06/23 @ 16:25 Nilam Pinedo Wrote To Lita Rosen (2) see below patient has upcoming appt 08/08 On 07/06/23 @ 13:40 Ofelia Keane Wrote To Nilam Pinedo Patient walked in regarding message below. Patient expressed he prefers to swallow the capsule instead of breaking it open and would like to request to have the medication decreased to 10,000 units. Please advise as he has been without meds. Patient: [phone] On 06/03/23 @ 16:01 Lita Rosen Wrote To Lita Rosen SilasLita completed item. On 06/03/23 @ 12:53 Nilam Pinedo Wrote To SilasLita noted - informed patient - He voices frustration, stating I don't want to do that. I just want her to lower the dose so I can swallow the medication. On 06/03/23 @ 12:25 Lita Rosen Wrote To Nilam Pinedo He should instead open the capsules and sprinkle onto food. On 06/03/23 @ 12:16 Nilam Pinedo Wrote To Lita Rosen (2) patient called he reports difficulty with swallowing Zenpep. He states it is a very large capsule. He spoke to the pharmacy about this, They suggested if possible to change dose to 10,000 units. Not sure if this is an option? ? TODAY'S VISIT His very bad diarrhea has resolved, he credits the carafate at 2 tabs a day. He stopped the creon as it was not contributing anything. He is having worse N/V. It is happening mostly after breakfast. He will break into a sweat, and feel drowsy and dizzy. He will have dry heaves. He has been suffering this for years, he had an EGD in the remote past, neg HIDA scan, but never any GES. Will tx with zofran for now and consider these is worsens. He continues on docusate, Carafate, and simethicone. ROV 8 weeks. [facility] Medical History (Updated 12/05/23 @ 10:41 by Seun Saenz MD) Bleeding hemorrhoids Gallstones Hyperglycemia Fatigue Palpitations Umbilical hernia Left elbow tendinitis Elevated d-dimer Primary osteoarthritis, left shoulder Acute lumbar myofascial strain Right knee pain Umbilical hernia (04/13/22) Gallstones Diarrhea Chronic abdominal pain Obesity (BMI 30-39.9) Chronic cholecystitis Dyspepsia Primary osteoarthritis of shoulders, bilateral Benign essential hypertension Overweight (BMI 25.0-29.9) Excessive sweating Primary osteoarthritis, right shoulder Constipation Tubular adenoma of colon Surgical History Hx laparoscopic cholecystectomy (~10/08/22) Hx of umbilical hernia repair History of incision and drainage H/O esophagogastroduodenoscopy H/O colonoscopy Status post pericardial cyst excision (~02/13/19) History of varicose vein ligation and stripping H/O inguinal hernia repair S/P tendon repair Family History Father Stomach cancer Mental health problem Mother AIDS Sister PALMER (non-insulin dependent diabetes mellitus in young) Hypertension Other Substance abuse Social History Household Members: Children Housing: Apartment Are you a primary veterinarian laboratory animal care to a significant other at home: No Do you presently have visiting nurse or other home services: Yes ([employer] & [employer]) Alcohol intake: former Patient Tobacco Use Status: Former Tobacco user Tobacco use type: Cigarette Cigarettes Per Day: 40 Years Smoked: quit greater than 10 years ago e-Cigarette/Vaping Use: Never Used Second Hand Smoke Exposure: No Advance Directives Date on File: 07/11/20 Current occupational status: disabled Cognitive needs: No Hearing needs: No Vision needs: Yes Review of Systems Const Denies fatigue, Denies fever(s), Denies night sweats, Denies poor appetite and Denies weight loss ENT Reports Normal hearing present, Denies dental pain, Denies dysphagia, Denies hearing loss, Denies mouth pain, Denies odynophagia, Denies throat swelling, Denies tongue swelling and Reports other (Dentition adequate) Card Reports no additional complaints Resp Reports no additional complaints GI Details: Denies abdominal pain, Denies melena, Denies bloating, Denies hematochezia, Denies constipation, Denies GI cramping, Denies dysphagia, Denies excessive flatus, Denies early satiety, Reports heartburn, Denies diarrhea, Reports nausea, Denies odynophagia, Reports vomiting and Denies hematemesis Skin/Breast Denies pruritus, Denies lesions, Denies rash and Denies jaundice Neuro Reports Normal hearing present and Denies Abnormal speech present Endo Denies fatigue Aller/Immun Denies throat swelling and Denies tongue swelling Physical Exam Vital Signs: Last Vital Signs Pulse 78 10/07/23 14:18 BP 145/78 H 10/07/23 14:18 BMI result Body Mass Index 28.0 Const General: cooperative, no acute distress, well developed and well groomed Nutritional Appearance: average body habitus and well nourished Orientation/consciousness: oriented to person, oriented to place and oriented to time Limitations: No language barrier HEENT Head: Yes normocephalic and Yes atraumatic Eyes General: appearance normal, both eyes and all related structures Pupils: Equal, round and reactive pupils present Neck Neck: Yes normal visual inspection and Yes no lymphadenopathy Thyroid: Thyroid normal Resp Effort & Inspection: normal respiratory effort and able to speak in complete sentences Auscultation: clear to auscultation bilaterally Cardio Rate: regular rate Rhythm: regular rhythm Heart sounds: Normal, physiologic split S2 sound present Peripheral pulses: radial pulses present and posterior tibial pulses present GI Inspection: No distended and No Abdominal panniculus present Palpation (GI): Soft to palpation, nontender, no guarding, not rigid and No hepatosplenomegaly present Percussion: Yes normal to percussion Auscultation: normal bowel sounds Rectal Exam - Male: Yes deferred Skin General skin exam: no rashes or lesions noted, turgor normal, skin not dry, no jaundice, No spider nevi and no striae Rashes: no rashes Nails: normal Neuro General: oriented to person, oriented to place and oriented to time Cranial nerves: Yes Equal, round and reactive pupils present and Yes Normal hearing present Speech: No Abnormal speech present Extrem General: Yes normal to inspection, No clubbing, No cyanosis and No edema Psych Appearance: grossly normal and well kempt Mental Status: mental status grossly normal Speech and movement: Normal speech and movement present Affect: normal affect Attitude: cooperative Thought process: Normal thought process present and not confabulating Thought content: Normal thought content present Insight: Limited insight present (Psych) Judgement: Limited judgement present (Psych) Assessment & Plan Assessment & Plan (1) Irritable bowel syndrome with both constipation and diarrhea: Comment: With an element of post cholecystectomy syndrome Code(s): K58.2 - Mixed irritable bowel syndrome Category: Medical (2) GERD (gastroesophageal reflux disease): Code(s): K21.9 - Gastro-esophageal reflux disease without esophagitis Category: Medical Qualifiers: Esophagitis presence: without esophagitis Qualified Code(s): K21.9 - Gastro-esophageal reflux disease without esophagitis (3) Nausea and vomiting: Code(s): R11.2 - Nausea with vomiting, unspecified Category: Medical Plan His very bad diarrhea has resolved, he credits the carafate at 2 tabs a day. He stopped the creon as it was not contributing anything. He is having worse N/V. It is happening mostly after breakfast. He will break into a sweat, and feel drowsy and dizzy. He will have dry heaves. He has been suffering this for years, he had an EGD in the remote past, neg HIDA scan, but never any GES. Will tx with zofran for now and consider these is worsens. He continues on docusate, Carafate, and simethicone. ROV 8 weeks. Medications: New ondansetron 4 mg PO BID-TID PRN 14 tabs 3RF nausea and vomiting R11.2 - Nausea with vomiting, unspecified Changed From sucralfate 2 grams (2 x 1 gram) PO .qafternoon 180 tabs 2RF R19.7 - D iarrhea, unspecified To sucralfate 2 grams (2 x 1 gram) PO .qafternoon 180 tabs 2RF R19.7 - Diarrhea, unspecified Refilled pantoprazole 20 mg PO DAILY 90 tabs 0RF simethicone 180 mg PO QID PRN 120 caps 0RF for abdominal pain R14.0 - Abdominal distension (gaseous) Discontinued fglhpj-ugwerdqu-abfdrfl 12,000-38,000 -60,000 unit administer with meals and/or snacks Discontinued Reason: Change Referral Type 1 cap PO QID 120 caps 6RF sennosides Discontinued Reason: Doctor's Order 17.2 mg (2 x 8.6 mg) PO BEDTIME 30 tabs 6RF for constipation K58.2 - Mixed irritable bowel syndrome Coding Level of Care Code Est Pt Level 3 (66543) Diagnoses Irritable bowel syndrome with both constipation and diarrhea K58.2 Gastroesophageal reflux disease without esophagitis K21.9 Esophagitis presence: without esophagitis Nausea and vomiting R11.2
[2023-10-07 14:18] VITALS: BP 145/78; PULSE 78; BMI 28.0
== END 2023-10-07 15:05 | disposition home or self-care (01) ==
PROVIDERS: PCP Internal Medicine; Visit Provider Nurse Practitioner
DX: K58.2 Mixed irritable bowel syndrome (principal); K21.9 Gastro-esophageal reflux disease without esophagitis; R11.2 Nausea with vomiting, unspecified
CPT/HCPCS: 99213

== ENCOUNTER → 2023-10-07 13:52 | Outpatient (BNVA) | payer MEDICARE, MEDICAID, SELFPAY | PROVIDERS: PCP Internal Medicine; Visit Provider Nurse Practitioner | DX: K58.2 Mixed irritable bowel syndrome (principal); K21.9 Gastro-esophageal reflux disease without esophagitis; R14.0 Abdominal distension (gaseous); R11.2 Nausea with vomiting, unspecified | CPT/HCPCS: 99212 ==

== ENCOUNTER → 2023-10-25 23:59 | Outpatient (BNV) | payer MEDICARE, MEDICAID, SELFPAY | PROVIDERS: PCP Internal Medicine; Visit Provider Internal Medicine | DX: F41.1 Generalized anxiety disorder (principal); F32.9 Major depressive disorder, single episode, unspecified; I10 Essential (primary) hypertension | CPT/HCPCS: G0179 ==

== ENCOUNTER 2023-11-03 12:54 | Outpatient (AMB) | payer MEDICARE, MEDICAID, SELFPAY ==
--- NOTE | 2023-11-03 12:56 | A.OFFVIS_ITS ---
Vital Signs 11/03/23 13:00 Height 6 ft Weight 205 lb 11.06 oz BMI 27.9 BP 115/80 Blood Pressure Location Rt brachial Position Sitting Pulse 80 Pulse Source Pulse Oximeter Pulse Oximetry (%) 97 Oxygen Delivery Method Room Air Intake Visit Reasons: OA Intake Note: Patient presents for OA. Allergies seafood Allergy (Severe, Verified 11/03/23 12:59) Anaphylaxis duloxetine Allergy (Intermediate, Verified 11/03/23 12:59) N/V, diarrhea, shakiness, withdrawal symptoms gabapentin Allergy (Intermediate, Verified 11/03/23 12:59) confusion/memory loss/hallucination lactase [LACTASE] Allergy (Intermediate, Verified 11/03/23 12:59) Nausea Medication List - Last Reconciled 11/03/23 by Madina Millard MD acetaminophen 500 mg PO TID PRN aspirin 81 mg PO DAILY clonazepam 0.5 mg PO DAILY clonazepam 1 mg PO BEDTIME PRN clonidine HCl 0.1 mg PO BID PRN 90 days diclofenac sodium 1% 2 grams topical BID PRN docusate sodium 100 mg PO DAILY losartan 25 mg PO DAILY 90 days ondansetron 4 mg PO BID-TID PRN oxycodone 5 mg PO Q8H PRN pantoprazole 20 mg PO DAILY quetiapine 50 mg PO BEDTIME [RAISED TOILET SEAT As directed] ropinirole 0.5 mg PO BEDTIME simethicone 180 mg PO QID PRN sucralfate 2 grams (2 x 1 gram) PO .qafternoon tizanidine 2 mg PO TID PRN 30 days tramadol 1 to 2 tablets PO 2 times a day; 28 days HPI Comments Details: 63-year-old male with a generalized OA presents for bilateral shoulder pain. He received bilateral shoulder cortisone injection back in with good relief of his symptoms. He states that his shoulders have been very painful with significantly limited range of motion recently. He has been quite active around the house, cleaning it. States that he will have a state inspection sometime soon. He is requesting repeat injections today [facility] Medical History Gallstones Hyperglycemia Fatigue Palpitations Umbilical hernia Left elbow tendinitis Elevated d-dimer Primary osteoarthritis, left shoulder Acute lumbar myofascial strain Right knee pain Umbilical hernia (04/13/22) Gallstones Diarrhea Chronic abdominal pain Obesity (BMI 30-39.9) Chronic cholecystitis Dyspepsia Primary osteoarthritis of shoulders, bilateral Benign essential hypertension Overweight (BMI 25.0-29.9) Excessive sweating Primary osteoarthritis, right shoulder Constipation Tubular adenoma of colon Surgical History Hx laparoscopic cholecystectomy (~10/08/22) Hx of umbilical hernia repair History of incision and drainage H/O esophagogastroduodenoscopy H/O colonoscopy Status post pericardial cyst excision (~02/13/19) History of varicose vein ligation and stripping H/O inguinal hernia repair S/P tendon repair Family History Father Stomach cancer Mental health problem Mother AIDS Sister PALMER (non-insulin dependent diabetes mellitus in young) Hypertension Other Substance abuse Social History Household Members: Children Housing: Apartment Are you a primary day care home mother to a significant other at home: No Do you presently have visiting nurse or other home services: Yes ([facility] & [employer]) Alcohol intake: never Patient Tobacco Use Status: Former Tobacco user Tobacco use type: Cigarette Cigarettes Per Day: 40 Years Smoked: quit greater than 10 years ago e-Cigarette/Vaping Use: Never Used Second Hand Smoke Exposure: No Advance Directives Date on File: 07/11/20 Current occupational status: disabled Cognitive needs: No Hearing needs: No Vision needs: Yes Review of Systems Musc Reports arthralgias and Reports limited range of motion Physical Exam Vital Signs: Last Vital Signs Pulse 80 11/03/23 13:00 BP 115/80 11/03/23 13:00 Pulse Ox 97 11/03/23 13:00 Oxygen Delivery Method Room Air 11/03/23 13:00 BMI result Body Mass Index 27.9 Const General: cooperative and comfortable Nutritional Appearance: obese Orientation/consciousness: patient oriented x3 Limitations: ambulation with cane HEENT Head: Yes normocephalic and Yes atraumatic Resp Effort & Inspection: normal respiratory effort and able to speak in complete sentences Neuro General: patient oriented x3 Extrem Other: Bilateral limited shoulder abduction, Positive empty can test bilaterally Office Procedures Joint Injection/Aspiration Joint Injection/Aspiration Primary Site: right shoulder Secondary Site: left shoulder Prep: site was prepped using sterile technique and ethochloride spray was applied Injected: 40 mg of, Kenalog, with 1 mL of, 1% plain lidocaine and in the subcromial space Approach Used: posterolateral Procedure: The patient tolerated the procedure well Coding Details: Right With the patient's consent the left shoulder was prepped with ChloraPrep and alcohol. Under a topical ethyl chloride spray the left subacromial space was injected with 40 mg of triamcinolone and 1 cc of 1% lidocaine. Then, The right shoulder was prepped ChloraPrep and alcohol. The subacromial space was injected with 40 mg of triamcinolone and 1 cc of lidocaine. Patient tolerated both procedures well no apparent immediate side effects. - Large joint Procedure code (CPT) selection complete (Large joint x2) Assessment & Plan Assessment & Plan (1) Primary osteoarthritis of shoulders, bilateral: Code(s): M19.011 - Primary osteoarthritis, right shoulder; M19.012 - Primary osteoarthritis, left shoulder Category: Medical Plan: 63-year-old male with generalized osteoarthritis presents for bilateral shoulder pain. Requesting cortisone injections. Previous injection 10/2022 did provide significant relief. Patient completed physical therapy for both shoulders. Injected again 04/2023 with good relief. Today patient presents with bilateral shoulder pain, related to increased use recently, likely bilateral subacromial bursitis. With patient's consent, both shoulders were injected with Kenalog Follow-up in about 6 months Plan I spent 15 minutes reviewing patient's chart, evaluating patient,counseling patient and documenting in the chart Orders: Orders AMB Joint Injection/Aspiration Today M19.011 - Primary osteoarthritis, right shoulder, M19.012 - Primary osteoarthritis, left shoulder Coding Level of Care Code Est Pt Level 3 (20436) Diagnoses Primary osteoarthritis of shoulders, bilateral M19.011; M19.012 CPT Codes Coding - Large joint: 66987 - Large joint ([id number])
[2023-11-03 13:00] VITALS: BP 115/80; PULSE 80; O2SAT 97; BMI 27.9
== END 2023-11-03 13:32 | disposition home or self-care (01) ==
PROVIDERS: PCP Internal Medicine; Visit Provider Student in an Organized Health Care Education/Training Program
DX: M19.011 Primary osteoarthritis, right shoulder (principal); M19.012 Primary osteoarthritis, left shoulder
CPT/HCPCS: 20610; 99213

== ENCOUNTER → 2023-11-03 12:54 | Outpatient (BNVA) | payer MEDICARE, MEDICAID, SELFPAY | PROVIDERS: PCP Internal Medicine; Visit Provider Student in an Organized Health Care Education/Training Program | DX: M19.011 Primary osteoarthritis, right shoulder (principal); M19.012 Primary osteoarthritis, left shoulder | CPT/HCPCS: 20610; 99212; J2003; J3301 ==

== ENCOUNTER 2023-11-24 15:51 | Emergency (ER) | payer MEDICARE, MEDICAID, SELFPAY ==
[2023-11-24 16:14] VITALS: BP 156/92; PULSE 74; RESP 16; TEMP 36.9; O2SAT 98; BMI 28.5
--- NOTE | 2023-11-24 16:15 | ED.GIBLEED ---
HPI - GI Bleed General Chief complaint: Abdominal Pain Stated complaint: rectal bleeding Time Seen by Provider: 11/24/23 21:21 History of Present Illness ED Provider: Frederick AC Narrative: The patient is a 63-year-old male who takes tramadol for chronic back pain. He is therefore somewhat chronically constipated. He says that he uses Dulcolax and senna but these do not always work that well. He says he has tried Metamucil in the past but feels that has not helped much either. Over the last 2 days he has had bright red blood per rectum with bowel movements. He does not think he had any black stool. At 1 point he had some left lower quadrant abdominal pain but he does not have any of that pain at the time that I evaluate him. No nausea or vomiting. No fever, sweats, chills. Related Data Home Medications ?Medication ?Instructions ?Recorded ?Confirmed ropinirole 0.5 mg tablet 0.5 mg PO BEDTIME 02/08/23 08/10/23 quetiapine 50 mg tablet 50 mg PO BEDTIME 08/10/23 08/10/23 Previous Rx's ?Medication ?Instructions ?Recorded aspirin 81 mg tablet,delayed 81 mg PO DAILY #30 tabs 01/19/22 release losartan 25 mg tablet 25 mg PO DAILY 90 days #90 tabs 03/11/23 RAISED TOILET SEAT #1 ea 05/04/23 tizanidine 2 mg tablet 2 mg PO TID PRN muscle spasticity 05/10/23 30 days #90 tabs acetaminophen 500 mg tablet 500 mg PO TID PRN for pain #90 tabs 06/09/23 docusate sodium 100 mg capsule 100 mg PO DAILY #90 caps 08/09/23 oxycodone 5 mg tablet 5 mg PO Q8H PRN pain #20 tabs 08/10/23 ondansetron 4 mg disintegrating 4 mg PO BID-TID PRN nausea and 10/07/23 tablet vomiting #14 tabs pantoprazole 20 mg tablet,delayed 20 mg PO DAILY #90 tabs 10/07/23 release simethicone 180 mg capsule 180 mg PO QID PRN for abdominal 10/07/23 pain #120 caps sucralfate 1 gram tablet 2 g (2 x 1 gram) PO .qafternoon 10/07/23 #180 tabs diclofenac sodium 1 % topical gel 2 g topical BID PRN for pain #100 11/03/23 grams clonidine HCl 0.1 mg tablet 0.1 mg PO BID PRN for anxiety 90 11/04/23 days #180 tabs clonazepam 0.5 mg tablet 0.5 mg PO DAILY #30 tabs 11/24/23 clonazepam 1 mg tablet 1 mg PO BEDTIME PRN anxiety #30 11/24/23 tabs polyethylene glycol 3350 17 17 g PO DAILY #238 grams 11/24/23 gram/dose oral powder (Miralax) tramadol 50 mg tablet See Rx Instructions PO BID pain 28 11/24/23 days #112 tabs Allergies Allergy/AdvReac Type Severity Reaction Status Date / Time seafood Allergy Severe Anaphylaxis Verified 11/24/23 16:17 duloxetine Allergy Intermediate N/V, Verified 11/24/23 16:17 diarrhea, shakiness, withdrawal symptoms gabapentin Allergy Intermediate confusion/memory Verified 11/24/23 16:17 loss/hallucination lactase [LACTASE] Allergy Intermediate Nausea Verified 11/24/23 16:17 Review of Systems Review of Systems: Yes all other systems are reviewed and are negative FORMERLY [facility], 1928–1983 Past Medical History Medical History Gallstones Hyperglycemia Fatigue Palpitations Umbilical hernia Left elbow tendinitis Elevated d-dimer Primary osteoarthritis, left shoulder Acute lumbar myofascial strain Right knee pain Umbilical hernia (04/13/22) Gallstones Diarrhea Chronic abdominal pain Obesity (BMI 30-39.9) Chronic cholecystitis Dyspepsia Primary osteoarthritis of shoulders, bilateral Benign essential hypertension Overweight (BMI 25.0-29.9) Excessive sweating Primary osteoarthritis, right shoulder Constipation Tubular adenoma of colon Surgical History Hx laparoscopic cholecystectomy (~10/08/22) Hx of umbilical hernia repair History of incision and drainage H/O esophagogastroduodenoscopy H/O colonoscopy Status post pericardial cyst excision (~02/13/19) History of varicose vein ligation and stripping H/O inguinal hernia repair S/P tendon repair Family History Family History Father Stomach cancer Mental health problem Mother AIDS Sister PALMER (non-insulin dependent diabetes mellitus in young) Hypertension Other Substance abuse Social History Social History Household Members: Children Housing: Apartment Are you a primary complex care nurse to a significant other at home: No Do you presently have visiting nurse or other home services: Yes ([employer]) Alcohol intake: former Patient Tobacco Use Status: Former Tobacco user Tobacco use type: Cigarette Cigarettes Per Day: 40 Years Smoked: quit greater than 10 years ago Smoked in Last 30 Days: No e-Cigarette/Vaping Use: Never Used Second Hand Smoke Exposure: No Use of substances other than those prescribed or required for medical reasons: No Advance Directives: Yes Advance Directives on File: Yes Advance Directives Date on File: 07/11/20 Current occupational status: disabled Cognitive needs: No Hearing needs: No Vision needs: Yes Physical Exam Vital Signs: Vital Signs: Last Vital Signs Temp 98.2 F 11/24/23 21:47 Pulse 80 11/24/23 21:47 Resp 16 11/24/23 21:47 BP 159/88 H 11/24/23 21:47 Pulse Ox 96 11/24/23 21:47 O2 Del Method Room Air 11/24/23 21:47 BMI result Body Mass Index 28.5 Const: Other: The patient is awake, alert, cooperative, in no distress. HEENT: Head: Yes normal to inspection Face and sinus: Yes normal facial exam Mouth: Normal oral and palatal mucosa present Eyes: General: appearance normal, both eyes and all related structures Neck: Neck: Yes full ROM and Yes no JVD Resp: Effort & Inspection: normal respiratory effort Auscultation: clear to auscultation bilaterally Cardio: Rate: regular rate Rhythm: regular rhythm Heart sounds: S1 normal heart sound present and S2 normal heart sound present GI: Other: Abdomen is soft and nontender. Rectal exam revealed no obvious external hemorrhoids. The patient had very good rectal tone. No masses were appreciated on digital exam. There was brown, normal-appearing stool in the rectum. No melena. No blood. Skin: General skin exam: no rashes or lesions noted Neuro: Other: The patient is awake, alert, appropriate. Cranial nerves grossly intact. He moves stiffly because of chronic back pain but otherwise seems to be neurologically intact. Extrem: Other: No peripheral edema Course Course Course Narrative: This is a Rapid Medical Examination (RME) performed by Carolann Norris PA-C in triage. Full HPI, ROS, assessment and treatment plan per primary provider in the Main ED. 63 yo male with history of hemorrhoids presents to the ER for hematochezia. He has had 3 episodes of reported large volume BRBPR. Does not know if this is his hemorrhoids or not but he has had right sided abdominal pain as well which is new for him. No recently constipation, he is on stool softners and laxatives. Not on anticoagulation. last BM 2 hours ago. he endorses dizziness and lightheadedness. Plan: lab workup. imaging per primary provider Medical Decision Making Medical Decision Making MDM Narrative: The patient is a 63-year-old male who says that he has some problems with a chronic constipation because he takes tramadol for chronic back pain. He has 2 days of bright red blood per rectum. His blood counts are excellent. His digital rectal exam reveals no blood currently. I suspect this is probably bleeding from an internal hemorrhoid. He apparently has an appointment with Dr. Saenz of General surgery on December 04. I think he is safe to keep this appointment. Lab Data 11/24/23 16:28 11/24/23 16:28 Labs: Lab Results 11/24/23 Range/Units 16:28 WBC 7.8 (4.8-10.8) X10*3/uL RBC 5.43 (4.60-5.80) X10*6/uL Hgb 15.3 (14.0-18.0) g/dl Hct 45.1 (42.0-52.0) % MCV 83.1 (80.0-98.0) fL MCH 28.2 (27.0-33.0) pg MCHC 33.9 (31.0-36.0) g/dl RDW 13.4 (11.0-16.0) % Plt Count 183 (160-400) X10*3/uL MPV 9.7 (9.4-12.4) fL Immature Gran % (Auto) 0.3 (0.0-0.4) % Neut % (Auto) 68.6 (45-73) % Lymph % (Auto) 22.1 (20-40) % [place] % (Auto) 7.6 (2-11) % Eos % (Auto) 0.6 (0-4) % Baso % (Auto) 0.8 (0-2) % Lymph # (Auto) 1.7 (1.2-4.9) X10*3/uL [place] # (Auto) 0.6 (0.1-1.2) X10*3/uL Eos # (Auto) 0.1 (0.0-0.4) X10*3/uL Baso # (Auto) 0.1 (0.0-0.2) X10*3/uL Abs Immat Gran (auto) 0.02 (0.00-0.03) X10*3/uL Absolute Neuts (auto) 5.3 (2.0-8.3) x10*3/uL Absolute Nucleated RBC 0.000 (0.0-0.012) X10*3/uL Nucleated RBC % (auto) 0.0 (0.0-0.2) /100WBC Sodium 140 (135-145) mmol/L Potassium 4.2 (3.3-5.1) mmol/L Chloride 107 (96-108) mmol/L Carbon Dioxide 27 (22-29) mmol/L Anion Gap 10 L (12-20) BUN 12 (9-16) mg/dL Creatinine 0.86 (0.5-1.4) mg/dL Estim Creat Clear Calc 108.0 Estimated GFR > 60 Random Glucose 90 (60-115) mg/dL Calcium 9.3 (8.4-10.2) mg/dL Magnesium 2.3 (1.6-2.6) mg/dL Total Bilirubin 0.6 (0.0-1.0) mg/dL Direct Bilirubin 0.2 (0.0-0.5) mg/dL AST 16 (5-37) U/L ALT 16 (0-40) U/L Alkaline Phosphatase 72 (39-117) U/L Total Protein 7.0 (6.5-8.0) g/dL Albumin 4.1 (3.5-5.0) g/dL Discharge Plan Discharge Clinical Impression: Bright red blood per rectum Patient Disposition: Home, Self-Care Instructions: Hemorrhoids (ED) Additional Instructions: Your blood counts today are good. There is no blood in your rectum at the moment. I suspect the bleeding you have been experiencing is from an internal hemorrhoid. I think you are safe until you follow up with Dr. Saenz on December 04. Please continue your senna and your Dulcolax and if you have any Metamucil (psyllium fiber) I would continue taking Metamucil. Return to the emergency room if worse. Prescriptions: New polyethylene glycol 3350 [Miralax] 17 gram/dose powder 17 g PO DAILY Qty: 238 0RF No Action aspirin 81 mg tablet,delayed release (DR/EC) 81 mg PO DAILY Qty: 30 3RF losartan 25 mg tablet 25 mg PO DAILY 90 Days Qty: 90 1RF tizanidine 2 mg tablet 2 mg PO TID PRN (Reason: muscle spasticity) 30 Days Qty: 90 2RF acetaminophen 500 mg tablet 500 mg PO TID PRN (Reason: for pain) Qty: 90 3RF diclofenac sodium 1 % gel 2 g topical BID PRN (Reason: for pain) Qty: 100 2RF clonidine HCl 0.1 mg tablet 0.1 mg PO BID PRN (Reason: for anxiety) 90 Days Qty: 180 1RF clonazepam 1 mg tablet 1 mg PO BEDTIME PRN (Reason: anxiety) Qty: 30 0RF clonazepam 0.5 mg tablet 0.5 mg PO DAILY Qty: 30 0RF Rx Instructions: 1 tabl Q AM tramadol 50 mg tablet See Rx Instructions PO BID 28 Days Qty: 112 0RF Rx Instructions: 1 to 2 tablets PO 2 times a day; (DME) RAISED TOILET SEAT See Rx Instructions .Route .MEDSUPPLY Qty: 1 0RF Rx Instructions: As directed oxycodone 5 mg tablet 5 mg PO Q8H PRN (Reason: pain) Qty: 20 0RF Rx Instructions: Partial Fill upon patient request. quetiapine 50 mg tablet 50 mg PO BEDTIME docusate sodium 100 mg capsule 100 mg PO DAILY Qty: 90 6RF ropinirole 0.5 mg tablet 0.5 mg PO BEDTIME ondansetron 4 mg tablet,disintegrating 4 mg PO BID-TID PRN (Reason: nausea and vomiting) Qty: 14 3RF pantoprazole 20 mg tablet,delayed release (DR/EC) 20 mg PO DAILY Qty: 90 0RF simethicone 180 mg capsule 180 mg PO QID PRN (Reason: for abdominal pain) Qty: 120 0RF sucralfate 1 gram tablet 2 g PO .qafternoon Qty: 180 2RF Referrals: Marcial David MD [Primary Care Provider] - (Hemorrhoidal bleeding) Lita Rosen ANP-C [Nurse Practitioner] - (Hemorrhoidal bleeding) Seun Saenz MD [Physician] - (Hemorrhoidal bleeding) Interventions: ED Discharge Assessment Last Done: 11/24/23 21:47 Discharge Date/Time: 11/24/23 21:54 Print Language: [place]
[2023-11-24 16:33] LABS: MANUAL DIFF FLAG NO
[2023-11-24 16:35] LABS: Basophils Absolute Auto 0.1 X10*3/uL (0.0-0.2); Basophils Percent Auto 0.8 % (0-2); Eosinophils Absolute Auto 0.1 X10*3/uL (0.0-0.4); Eosinophils Percent Auto 0.6 % (0-4); Hematocrit 45.1 % (42.0-52.0); Hemoglobin 15.3 g/dl (14.0-18.0); Imm Gran Abs Auto 0.02 X10*3/uL (0.00-0.03); Imm Gran Pct Auto 0.3 % (0.0-0.4); Lymphocytes Absolute Auto 1.7 X10*3/uL (1.2-4.9); Lymphocytes Percent Auto 22.1 % (20-40); Mean Corpuscular HGB Conc 33.9 g/dl (31.0-36.0); Mean Corpuscular Hemoglobin 28.2 pg (27.0-33.0); Mean Corpuscular Volume 83.1 fL (80.0-98.0); Mean Platelet Volume 9.7 fL (9.4-12.4); Monocytes Absolute Auto 0.6 X10*3/uL (0.1-1.2); Monocytes Percent Auto 7.6 % (2-11); Neutrophils Absolute Auto 5.3 x10*3/uL (2.0-8.3); Neutrophils Percent Auto 68.6 % (45-73); Platelet Count 183 X10*3/uL (160-400); Red Blood Count 5.43 X10*6/uL (4.60-5.80); Red Cell Distribution Width 13.4 % (11.0-16.0); White Blood Count 7.8 X10*3/uL (4.8-10.8)
[2023-11-24 16:49] LABS: Alanine Aminotransferase 16 U/L (0-40); Albumin Level 4.1 g/dL (3.5-5.0); Alkaline Phosphatase 72 U/L (39-117); Anion Gap 10 (12-20); Aspartate Amino Transferase 16 U/L (5-37); Bilirubin Direct 0.2 mg/dL (0.0-0.5); Bilirubin Total 0.6 mg/dL (0.0-1.0); Blood Urea Nitrogen 12 mg/dL (9-16); Calcium 9.3 mg/dL (8.4-10.2); Carbon Dioxide 27 mmol/L (22-29); Chloride 107 mmol/L (96-108); Estimated Glomerular Filt Rate > 60; Glucose Random 90 mg/dL (60-115); Magnesium 2.3 mg/dL (1.6-2.6); Potassium 4.2 mmol/L (3.3-5.1); Sodium 140 mmol/L (135-145)
[2023-11-24 21:45] VITALS: BP 159/88; PULSE 80; RESP 16; TEMP 36.8; O2SAT 96
[2023-11-24 21:47] VITALS: BP 159/88; PULSE 80; RESP 16; TEMP 36.8; O2SAT 96
== END 2023-11-24 21:54 | disposition home or self-care (01) ==
PROVIDERS: Physician Assistant; Emergency Provider Emergency Medicine; PCP Internal Medicine
DX: K62.5 Hemorrhage of anus and rectum (principal); K59.00 Constipation, unspecified; I10 Essential (primary) hypertension; Z87.891 Personal history of nicotine dependence; Z79.82 Long term (current) use of aspirin; Z79.899 Other long term (current) drug therapy
CPT/HCPCS: 36415; 80048; 80076; 83735; 85025; 99283; 99284

== ENCOUNTER 2023-11-30 15:23 | Outpatient (AMB) | payer MEDICARE, MEDICAID, SELFPAY ==
[2023-11-30 15:40] VITALS: BP 130/82; PULSE 81; O2SAT 97; BMI 27.3
--- NOTE | 2023-11-30 15:40 | A.OFFPC_ITS ---
Vital Signs 11/30/23 15:40 Height 6 ft Weight 201 lb 2 oz BMI 27.3 BP 130/82 Blood Pressure Location Lt brachial Position Sitting Pulse 81 Pulse Source Pulse Oximeter Pulse Oximetry (%) 97 Oxygen Delivery Method Room Air Intake Visit Reasons: 3mof\u Fabrication Department Supervisor Required: No Accompanied by: Self / Same As Patient Allergies seafood Allergy (Severe, Verified 11/30/23 16:22) Anaphylaxis duloxetine Allergy (Intermediate, Verified 11/30/23 16:22) N/V, diarrhea, shakiness, withdrawal symptoms gabapentin Allergy (Intermediate, Verified 11/30/23 16:22) confusion/memory loss/hallucination lactase [LACTASE] Allergy (Intermediate, Verified 11/30/23 16:22) Nausea Medication List - Last Reconciled 11/30/23 by Marcial David MD acetaminophen 500 mg PO TID PRN aspirin 81 mg PO DAILY clonazepam 0.5 mg PO DAILY clonazepam 1 mg PO BEDTIME PRN clonidine HCl 0.1 mg PO BID PRN 90 days diclofenac sodium 1% 2 grams topical BID PRN docusate sodium 100 mg PO DAILY losartan 25 mg PO DAILY 90 days ondansetron 4 mg PO BID-TID PRN oxycodone 5 mg PO Q8H PRN pantoprazole 20 mg PO DAILY polyethylene glycol 3350 (Miralax) 17 grams PO DAILY quetiapine 50 mg PO BEDTIME [RAISED TOILET SEAT As directed] ropinirole 0.5 mg PO BEDTIME simethicone 180 mg PO QID PRN sucralfate 2 grams (2 x 1 gram) PO .qafternoon tizanidine 2 mg PO TID PRN 30 days tramadol 1 to 2 tablets PO 2 times a day; 28 days Tobacco use date assessed: 11/30/23 Dental Screening Dental Screen Date: 11/30/23 Did you have a dental visit in the last 12 months?: Yes Did you have a dental problem in the last 6 months where you did not have access to dental care?: No Was dental information given to patient?: Patient has dentist HPI 3mof\u HPI Details Patient comes in today for his follow up visit States that he feels okay He is upset that his medications (Clonazepam and Tramadol) were not refilled in time last month when I was out of the office and he now cannot get his Rx refilled for a few more days - is reportedly being told by the pharmacy that he is a few days too early States that he has been having problems with his hemorrhoids again (bleeding and pain) and he is scheduled to see Dr. Saenz next week on 12/05/2023 He denies any headaches or dizziness Denies any chest pains, no SOB No nausea/vomiting, no abdominal pain No change in bowel habits noted aside from the blood in his stool that he's had recently due to his hemorrhoids He had some follow up labs done last week but these are non-fasting and did not include his fasting lipids [facility] Medical History Gallstones Hyperglycemia Fatigue Palpitations Umbilical hernia Left elbow tendinitis Elevated d-dimer Primary osteoarthritis, left shoulder Acute lumbar myofascial strain Right knee pain Umbilical hernia (04/13/22) Gallstones Diarrhea Chronic abdominal pain Obesity (BMI 30-39.9) Chronic cholecystitis Dyspepsia Primary osteoarthritis of shoulders, bilateral Benign essential hypertension Overweight (BMI 25.0-29.9) Excessive sweating Primary osteoarthritis, right shoulder Constipation Tubular adenoma of colon Surgical History Hx laparoscopic cholecystectomy (~10/08/22) Hx of umbilical hernia repair History of incision and drainage H/O esophagogastroduodenoscopy H/O colonoscopy Status post pericardial cyst excision (~02/13/19) History of varicose vein ligation and stripping H/O inguinal hernia repair S/P tendon repair Family History Father Stomach cancer Mental health problem Mother AIDS Sister PALMER (non-insulin dependent diabetes mellitus in young) Hypertension Other Substance abuse Social History Household Members: Children Housing: Apartment Are you a primary care transition manager to a significant other at home: No Do you presently have visiting nurse or other home services: Yes ([employer]OR) Alcohol intake: former Patient Tobacco Use Status: Former Tobacco user Tobacco use type: Cigarette Cigarettes Per Day: 40 Years Smoked: quit greater than 10 years ago e-Cigarette/Vaping Use: Never Used Second Hand Smoke Exposure: No Advance Directives Date on File: 07/11/20 Current occupational status: disabled Cognitive needs: No Hearing needs: No Vision needs: Yes Questionnaire PHQ-9 Over the last 2 weeks, how often have you been bothered by any of the following problems? 1. Little interest or pleasure in doing things: several days 2. Feeling down, depressed, or hopeless: several days 3. Trouble falling or staying asleep, or sleeping too much: several days 4. Feeling tired or having little energy: several days 5. Poor appetite or overeating: several days 6. Feeling bad about yourself - or that you are a failure or have let yourself or your family down: several days 7. Trouble concentrating on things, such as reading the newspaper or watching television: several days 8. Moving or speaking so slowly that other people could have noticed. Or the opposite - being so fidgety or restless that you have been moving around a lot more than usual: several days 9. Thoughts that you would be better off or of hurting yourself in some way: not at all Total score: 8 Depression Screening Interpretation: Positive (on Rx) Depression Screening Follow-up: Existing condition and In treatment Depression Screening Done: Yes 48870 - PHQ-9 Billing: Yes Source: Developed by Drs. Bro Guillermo, Dimple Lawson, Bulmaro Tavares and colleagues, with an educational sofie from [employer]. Thrive Questionnaire Date Thrive assessed: 11/30/23 I am a: Patient What is your living situation today?: I have a steady place to live Within the past 12 months, did the food you bought not last and you didn't have the money to get more?: Never true Within the past 12 months, did you worry whether your food would run out before you got money to buy more?: Never true Do you have trouble paying for medicines?: No Do you have trouble getting transportation to medical appointments?: No Do you have trouble paying your heating and electricity bill?: No Do you have trouble taking care of your child, family member or friend?: No Do you have trouble with day-to-day activities such as bathing, preparing meals, shopping, managing finances, etc.?: No Are you currently unemployed and looking for a job?: No Are you interested in more education?: No Please select the resources that you would like help with: None Currently or been in a relationship where the following occur: No concerns reported THRIVE Score: 0 AUDIT C Alcohol Use Questionnaire (AUDIT-C) 1. How often do you have a drink containing alcohol?: Never 3. How often do you have six or more drinks on one occasion?: Never Total Score: 0 Score Reviewed/Action Taken: Yes GANESH-7 AMB Questionnaire GANESH-7 Date GANESH - 7 assessed: 11/30/23 Feeling nervous, anxious, or on edge: 0 = Not at all Not being able to stop or control worryin = Not at all Worrying too much about different things: 0 = Not at all Trouble relaxin = Not at all Being so restless that it is hard to sit still: 0 = Not at all Becoming easily annoyed or irritable: 0 = Not at all Feeling afraid as if something awful might happen: 0 = Not at all Total GANESH-7 score (0-4 normal; 5-9 mild; 10-14 moderate; 15-21 severe): 0 Source: Developed by Drs. Bro Guillermo, Dimple Lawson, Bulmaro Tavares and colleagues, with an educational sofie from [employer]. Review of Systems Const Reports difficulty sleeping (Rx helping), Reports fatigue, Denies fever(s) and Denies headache(s) ENT Denies dysphagia, Denies dizziness, Denies otalgia, Denies headache(s), Denies neck pain, Denies odynophagia and Denies sore throat Card Denies chest pain, Denies palpitations and Reports dyspnea on exertion (mild) Resp Denies chest congestion, Denies cough, Reports dyspnea on exertion (mild) and Denies wheezing GI Details: (+) painful hemorrhoids recently - (+) blood in stool every now and then Denies abdominal pain, Reports hematochezia (recently, due to his bleeding hemorrhoids), Reports constipation (on and off), Denies dysphagia, Denies heartburn, Denies diarrhea, Reports loose stools (occasionally), Denies nausea, Denies odynophagia and Denies vomiting Denies dysuria, Denies nocturia and Denies urinary frequency Musc Reports back pain (chronic ), Reports arthralgias (involving multiple joints, including both shoulders ; over R knee lately) and Denies neck pain Skin/Breast Denies rash Neuro Denies dizziness and Denies headache(s) Psych Reports anxiety and Reports depression Endo Reports fatigue and Denies palpitations Aller/Immun Denies wheezing Physical exam (Primary Care) Vital Signs: Last Vital Signs Pulse 81 11/30/23 15:40 BP 130/82 11/30/23 15:40 Pulse Ox 97 11/30/23 15:40 Oxygen Delivery Method Room Air 11/30/23 15:40 BMI result Body Mass Index 27.3 Tobacco/Smoking Status: Tobacco use Status Tobacco use date assessed 11/30/23 11/30/23 15:42 Patient Tobacco Use Status Former Tobacco user 11/30/23 15:42 Tobacco use type Cigarette 11/30/23 15:42 e-Cigarette/Vaping Use Never Used 11/30/23 15:42 PHQ-9: PHQ-9 Score PHQ-9: Total score 8 11/30/23 16:37 Depression Screening Interpretation: Positive (on Rx) Depression Screening Follow-up: Existing condition and In treatment Thrive Assessment: Date of Thrive Assessment Date Thrive assessed 11/30/23 11/30/23 15:42 Currently or been in a relationship where the following occur: No concerns reported Const General: no acute distress and alert HENMT Ears: TM's normal bilaterally and EAC's normal Throat: Yes posterior oropharynx normal and Yes tonsils normal (no TP congestion) Neck Neck: Yes no lymphadenopathy and Yes supple Thyroid: Thyroid normal Resp Auscultation: clear to auscultation bilaterally, no rales and no wheezes Cardio Rate: regular rate Rhythm: regular rhythm Heart sounds: no murmurs GI Palpation (GI): Soft to palpation and nontender Auscultation: normal bowel sounds General: Yes no CVA tenderness Back/Spine/Pelvis Back: no CVA tenderness Cervical Spine: No Cervical spine tenderness Thoracic/Lumbar Spine: lumbar spinal tenderness Skin Rashes: no rashes Extrem General: Yes no clubbing, cyanosis or edema Right upper extremity: shoulder/upper arm Details: tenderness Location: of the A-C joint Left upper extremity: shoulder/upper arm Details: tenderness Location: of the A- C joint Right lower extremity: knee Details: tenderness; no swelling Left lower extremity: knee Details: tenderness; no swelling Results Reviewed Results Reviewed: Laboratory Tests 11/24/23 16:28 WBC 7.8 Hgb 15.3 Hct 45.1 Plt Count 183 Sodium 140 Potassium 4.2 Creatinine 0.86 Estimated GFR > 60 Random Glucose 90 Calcium 9.3 Magnesium 2.3 AST 16 ALT 16 Assessment and Plan Assessment & Plan (1) Lumbar degenerative disc disease: Code(s): M51.36 - Other intervertebral disc degeneration, lumbar region Plan: Reinforced activity and weight lifting restrictions Continue Tizanidine 4 mg 3 times a day as needed, Acetaminophen 500 mg TID PRN, Lidocaine 4% cream apply to painful area on lower back as needed and Tramadol 50 mg TID PRN He has been seeing [facility] pain management and receiving back injections, which he states have not been helping much recently and he has expressed his concerns about getting too many cortisone injections and their potential long-term implications for him Have advised him that other than cortisone injections, there are other interventional modalities available and that he should continue to follow-up with pain management (at [facility]) and pursue interventional treatments rather than chronic opioid Rx for his chronic pain (2) Primary osteoarthritis of shoulders, bilateral: Code(s): M19.011 - Primary osteoarthritis, right shoulder; M19.012 - Primary osteoarthritis, left shoulder Plan: States that his shoulders have been bothering him since he had his cholecystectomy in September 2022 X-rays of the shoulders done last year (May 2022) revealed (+) moderate subacromial spur in the right shoulder; right shoulder is otherwise normal and left shoulder x-rays came back normal He went to physical therapy for his shoulders for a while and states that PT has helped somewhat Follow up with rheumatology as scheduled; was seeing Dr. Pitt at [facility] in the past and is now seeing Dr. Millard (3) Benign essential hypertension: Code(s): I10 - Essential (primary) hypertension Plan: Reinforced low sodium diet - goal is systolic BP of at least 120 to 130 mm or less Continue Losartan 25 mg QD (4) GERD (gastroesophageal reflux disease): Code(s): K21.9 - Gastro-esophageal reflux disease without esophagitis Qualifiers: Esophagitis presence: without esophagitis Qualified Code(s): K21.9 - Gastro-esophageal reflux disease without esophagitis Plan: Dietary restrictions reinforced Continue Pantoprazole 20 mg QD (5) Irritable bowel syndrome with both constipation and diarrhea: Comment: With an element of post cholecystectomy syndrome Code(s): K58.2 - Mixed irritable bowel syndrome Plan: Continue Docusate 100 mg BID PRN and Creon QID Follow up with GI as scheduled Stool culture and test for H. pylori done last year came back negative (6) Thrombosed external hemorrhoids: Comment: Patient has been given local instructions including dressing changes, Sitz baths, stool softeners as needed, analgesics and will see me as directed or p.r.n. Code(s): K64.5 - Perianal venous thrombosis Plan: He is scheduled to see Dr. Saenz for this issue next week on 12/05/2023 and is hoping to have surgery done soon to help get this resolved (7) Insomnia: Code(s): G47.00 - Insomnia, unspecified Qualifiers: Insomnia type: unspecified Qualified Code(s): G47.00 - Insomnia, unspecified Plan: Sleep hygiene reinforced Continue Zolpidem ER 12.5 mg Q HS PRN; is also on Quetiapine, which helps with his sleep as well (8) Anxiety: Code(s): F41.9 - Anxiety disorder, unspecified Plan: Continue Clonazepam 1 mg once a day at bedtime as needed, Clonazepam 0.5 mg once a day in AM, Propranolol 20 mg BID and Clonidine 0.1 mg BID PRN (9) Depression: Code(s): F32.9 - Major depressive disorder, single episode, unspecified Qualifiers: Active/Remission status: currently active Depression Type: major depressive disorder Major depression episode severity: unspecified Major depression recurrence: recurrent Qualified Code(s): F33.9 - Major depressive disorder, recurrent, unspecified Plan: Continue Prazosin 2 mg BID (to help with his nightmares) and Quetiapine 200 mg Q HS He also used to take Wellbutrin XL but states that he weaned off this medication a few months ago as he did not feel that it was helping much Follow-up with Psychiatry as scheduled (10) Overweight (BMI 25.0-29.9): Code(s): E66.3 - Overweight Plan: Reinforced diet; exercise is not realistic given his multiple physical issues but he is encouraged to still try to do what he can to lose weight or manage his weight better Plan Follow up in 3 months Coding Level of Care Code Est Pt Level 4 (32298) Diagnoses Lumbar degenerative disc disease M51.36 Primary osteoarthritis of shoulders, bilateral M19.011; M19.012 Benign essential hypertension I10 Gastroesophageal reflux disease without esophagitis K21.9 Esophagitis presence: without esophagitis Irritable bowel syndrome with both constipation and diarrhea K58.2 Thrombosed external hemorrhoids K64.5 Insomnia, unspecified type G47.00 Insomnia type: unspecified Anxiety F41.9 Episode of recurrent major depressive disorder, unspecified depression episode severity F33.9 Active/Remission status: currently active Depression Type: major depressive disorder Major depression episode severity: unspecified Major depression recurrence: recurrent Overweight (BMI 25.0-29.9) E66.3
== END 2023-11-30 16:39 | disposition home or self-care (01) ==
PROVIDERS: PCP Internal Medicine; Visit Provider Internal Medicine
DX: M51.36 Other intervertebral disc degeneration, lumbar region (principal); M19.011 Primary osteoarthritis, right shoulder; M19.012 Primary osteoarthritis, left shoulder; F33.9 Major depressive disorder, recurrent, unspecified; I10 Essential (primary) hypertension; K21.9 Gastro-esophageal reflux disease without esophagitis; K58.2 Mixed irritable bowel syndrome; G47.00 Insomnia, unspecified; K64.5 Perianal venous thrombosis; F41.9 Anxiety disorder, unspecified; E66.3 Overweight
CPT/HCPCS: 99214

== ENCOUNTER 2023-12-05 10:15 | Outpatient (AMB) | payer MEDICARE, MEDICAID, SELFPAY ==
--- NOTE | 2023-12-05 10:20 | MHC.OFFVIS ---
Vital Signs 12/05/23 10:24 Height 6 ft Weight 201 lb 2.008 oz BMI 27.3 Intake Visit Reasons: hemorrhoid Intake Note: This patient presents for hemorrhoid assessment. Pt c/o; reports pain, reports rectal bleeding with constipation. 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 Required: No Accompanied by: Self / Same As Patient Allergies seafood Allergy (Severe, Verified 12/05/23 10:25) Anaphylaxis duloxetine Allergy (Intermediate, Verified 12/05/23 10:25) N/V, diarrhea, shakiness, withdrawal symptoms gabapentin Allergy (Intermediate, Verified 12/05/23 10:25) confusion/memory loss/hallucination lactase [LACTASE] Allergy (Intermediate, Verified 12/05/23 10:25) Nausea Medication List - Last Reconciled 12/05/23 by Seun Saenz MD acetaminophen 500 mg PO TID PRN aspirin 81 mg PO DAILY clonazepam 0.5 mg PO DAILY clonazepam 1 mg PO BEDTIME PRN clonidine HCl 0.1 mg PO BID PRN 90 days diclofenac sodium 1% 2 grams topical BID PRN docusate sodium 100 mg PO DAILY losartan 25 mg PO DAILY 90 days ondansetron 4 mg PO BID-TID PRN oxycodone 5 mg PO Q8H PRN pantoprazole 20 mg PO DAILY polyethylene glycol 3350 (Miralax) 17 grams PO DAILY quetiapine 50 mg PO BEDTIME [RAISED TOILET SEAT As directed] ropinirole 0.5 mg PO BEDTIME simethicone 180 mg PO QID PRN sucralfate 2 grams (2 x 1 gram) PO .qafternoon tizanidine 2 mg PO TID PRN 30 days tramadol 1 to 2 tablets PO 2 times a day; 28 days HPI HPI hemorrhoid: Details: 63-year-old male referred for hemorrhoid issues. He says that he went to the ER over a week ago because of passage of bright blood per rectum. He says that this was ?a lot?. He also had some pain in the anus at that time. He was discharged from the emergency room. At that time, he was told that there was no blood on examination He says that he had hemorrhoid surgery many years ago. There was no record of that here at [facility]. He has had no significant bleeding since that ER visit. He says he had a colonoscopy maybe about 5 years ago as well. PFSH Medical History (Updated 12/05/23 @ 10:41 by Seun Saenz MD) Bleeding hemorrhoids Gallstones Hyperglycemia Fatigue Palpitations Umbilical hernia Left elbow tendinitis Elevated d-dimer Primary osteoarthritis, left shoulder Acute lumbar myofascial strain Right knee pain Umbilical hernia (04/13/22) Gallstones Diarrhea Chronic abdominal pain Obesity (BMI 30-39.9) Chronic cholecystitis Dyspepsia Primary osteoarthritis of shoulders, bilateral Benign essential hypertension Overweight (BMI 25.0-29.9) Excessive sweating Primary osteoarthritis, right shoulder Constipation Tubular adenoma of colon Surgical History Hx laparoscopic cholecystectomy (~10/08/22) Hx of umbilical hernia repair History of incision and drainage H/O esophagogastroduodenoscopy H/O colonoscopy Status post pericardial cyst excision (~02/13/19) History of varicose vein ligation and stripping H/O inguinal hernia repair S/P tendon repair Family History Father Stomach cancer Mental health problem Mother AIDS Sister NIDKENZIE (non-insulin dependent diabetes mellitus in young) Hypertension Other Substance abuse Social History Household Members: Children Housing: Apartment Are you a primary healthcare account manager to a significant other at home: No Do you presently have visiting nurse or other home services: Yes ([employer]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) Alcohol intake: former Patient Tobacco Use Status: Former Tobacco user Tobacco use type: Cigarette Cigarettes Per Day: 40 Years Smoked: quit greater than 10 years ago e-Cigarette/Vaping Use: Never Used Second Hand Smoke Exposure: No Advance Directives Date on File: 07/11/20 Current occupational status: disabled Cognitive needs: No Hearing needs: No Vision needs: Yes Review of Systems Const Denies chills and Denies fever(s) Card Denies chest pain, Denies dyspnea and Denies dyspnea on exertion Resp Denies cough, Denies dyspnea and Denies dyspnea on exertion GI Reports hematochezia and Denies change in bowel habits Denies hematuria and Denies difficulty urinating Musc Denies back pain and Denies limited range of motion Neuro Denies focal weakness and Denies convulsions Psych Denies depression and Denies mood swings Physical Exam Vital Signs: BMI result Body Mass Index 27.3 Const General: comfortable and no acute distress Orientation/consciousness: patient oriented x3 Neck Neck: Yes no lymphadenopathy Resp Auscultation: clear to auscultation bilaterally Cardio Rhythm: regular rhythm GI Other: Rectal exam - external hemorrhoids on both the left and right side, moderate-sized Palpation (GI): Soft to palpation, nontender and no guarding Neuro General: patient oriented x3 Office Procedures Anoscopy He was in lion-knife position. The anoscope was gently inserted. A full examination of the anal canal was done. He did have some moderate internal external hemorrhoids on both the left and right side. There were no lesions seen. There was no ulceration or fissure. There was no induration. There was no bleeding. [id number] Assessment & Plan Assessment & Plan (1) Bleeding hemorrhoids: Code(s): K64.9 - Unspecified hemorrhoids Category: Medical Plan: He does have small to moderate-sized internal external hemorrhoids. This is the likely source of his outlet bleeding. He has had no bleeding for several days. I did explain to him that this hemorrhoids may periodically bleed. I advised him to avoid straining and constipation. He says he has been started on Metamucil. I did explain to him that it may be best for him to reach out to his court abstractor as well to see if his due for his colonoscopy. This may be relevant to his workup for his rectal bleeding. He can otherwise follow up with me on a p.r.n. basis. Coding Level of Care Code Est Pt Level 3 (46898) Diagnoses Bleeding hemorrhoids K64.9 CPT Codes Details - CPT: 97812-[id number] ([id number])
[2023-12-05 10:24] VITALS: BMI 27.3
== END 2023-12-05 10:33 | disposition home or self-care (01) ==
PROVIDERS: PCP Internal Medicine; Visit Provider Surgery
DX: K64.9 Unspecified hemorrhoids (principal)
CPT/HCPCS: 46600; 99213

== ENCOUNTER → 2023-12-05 10:15 | Outpatient (BNVA) | payer MEDICARE, MEDICAID, SELFPAY | PROVIDERS: PCP Internal Medicine; Visit Provider Surgery | DX: K64.9 Unspecified hemorrhoids (principal) | CPT/HCPCS: 46600; 99212 ==

== ENCOUNTER → 2023-12-28 15:41 | Outpatient (AMB) | payer MEDICARE, MEDICAID, SELFPAY ==
[2023-12-28 15:46] VITALS: BP 157/96; PULSE 87; BMI 27.8
--- NOTE | 2023-12-28 15:46 | MHC.OFFVIS ---
Vital Signs 12/28/23 15:46 Height 6 ft Weight 205 lb 0.478 oz BMI 27.8 BP 157/96 H Blood Pressure Location Rt brachial Position Sitting Pulse 87 Intake Visit Reasons: Follow up 8 weeks Intake Note: Patient presents to in office visit today in follow up of IBS. CC: Patient states that he wast seen in the ER last month with rectal bleeding. He was seen by Dr. Saenz at general surgery for hemorrhoidectomy consult. He states that he was advised to speak to GI to have colonoscopy done and that his hemorrhoids are internal. 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 Accompanied by: Self / Same As Patient Allergies seafood Allergy (Severe, Verified 03/05/24 16:32) Anaphylaxis duloxetine Allergy (Intermediate, Verified 03/05/24 16:32) N/V, diarrhea, shakiness, withdrawal symptoms gabapentin Allergy (Intermediate, Verified 03/05/24 16:32) confusion/memory loss/hallucination lactase [LACTASE] Allergy (Intermediate, Verified 03/05/24 16:32) Nausea HPI HPI Follow up 8 weeks: Details: Assessment & Plan (1) Irritable bowel syndrome with both constipation and diarrhea: Comment: With an element of post cholecystectomy syndrome Code(s): K58.2 - Mixed irritable bowel syndrome Category: Medical (2) GERD (gastroesophageal reflux disease): Code(s): K21.9 - Gastro-esophageal reflux disease without esophagitis Category: Medical Qualifiers: Esophagitis presence: without esophagitis Qualified Code(s): K21.9 - Gastro-esophageal reflux disease without esophagitis (3) Nausea and vomiting: Code(s): R11.2 - Nausea with vomiting, unspecified Category: Medical Plan His very bad diarrhea has resolved, he credits the carafate at 2 tabs a day. He stopped the creon as it was not contributing anything. He is having worse N/V. It is happening mostly after breakfast. He will break into a sweat, and feel drowsy and dizzy. He will have dry heaves. He has been suffering this for years, he had an EGD in the remote past, neg HIDA scan, but never any GES. Will tx with zofran for now and consider these is worsens. He continues on docusate, Carafate, and simethicone. ROV 8 weeks. Medications: New ondansetron 4 mg PO BID-TID PRN 14 tabs 3RF nausea and vomiting R11.2 - Nausea with vomiting, unspecified Changed From sucralfate 2 grams (2 x 1 gram) PO .qafternoon 180 tabs 2RF R19.7 - Diarrhea, unspecified To sucralfate 2 grams (2 x 1 gram) PO .qafternoon 180 tabs 2RF R19.7 - Diarrhea, unspecified Refilled pantoprazole 20 mg PO DAILY 90 tabs 0RF simethicone 180 mg PO QID PRN 120 caps 0RF for abdominal pain R14.0 - Abdominal distension (gaseous) Discontinued lfeusm-htzowzfr-ymenmig 12,000-38,000 -60,000 unit administer with meals and/or snacks Discontinued Reason: Change Referral Type 1 cap PO QID 120 caps 6RF sennosides Discontinued Reason: Doctor's Order 17.2 mg (2 x 8.6 mg) PO BEDTIME 30 tabs 6RF for constipation K58.2 - Mixed irritable bowel syndrome ? TODAY'S VISIT APPARENTLY, HE WAS seen in the ER about a month ago for rectal bleeding which was diagnosed as an thrombosed external hemorrhoid and treated by Dr. Saenz of General surgery. He still has some itching rectally but he is not bleeding and has no pain. He says that Dr. Saenz said he should have a colonoscopy, but we just did one last year and this would be fruitless as colonoscopy does not treat hemorrhoids in any way. Apparently, Dr. Saenz is recommending a hemorrhoidectomy. He has had no CIC and is not straining at stooling with his colace and senna. He was given Miralax, but this just gave him diarrhea and he stopped it. He has a strong FHX of hemorrhoids, his father and brother both had surgery for this twice. He wants to restart his creon as after thinking it was not helping, he found that he had more bloating and upset stomach after stopping it. His current GI regimen consists of colace, senna, simethicone, creon, sucralfate and pantoprazole and proctosol cream. Return office visit in 6 months [facility] Medical History Bleeding hemorrhoids Overweight (BMI 25.0-29.9) Family history of gastric cancer Gallstones Hyperglycemia Fatigue Palpitations Umbilical hernia Left elbow tendinitis Elevated d-dimer Primary osteoarthritis, left shoulder Acute lumbar myofascial strain Right knee pain Umbilical hernia (04/13/22) Gallstones Diarrhea Chronic abdominal pain Obesity (BMI 30-39.9) Chronic cholecystitis Dyspepsia Primary osteoarthritis of shoulders, bilateral Benign essential hypertension Excessive sweating Primary osteoarthritis, right shoulder Constipation Tubular adenoma of colon Surgical History History of hemorrhoidectomy (~01/24/24) Hx laparoscopic cholecystectomy (~10/08/22) Hx of umbilical hernia repair History of incision and drainage H/O esophagogastroduodenoscopy H/O colonoscopy Status post pericardial cyst excision (~02/13/19) History of varicose vein ligation and stripping H/O inguinal hernia repair S/P tendon repair Family History Father Stomach cancer Mental health problem Mother AIDS Sister PALMER (non-insulin dependent diabetes mellitus in young) Hypertension Other Substance abuse Social History Household Members: Children Housing: Apartment Are you a primary clinical care coordinator to a significant other at home: No Do you presently have visiting nurse or other home services: Yes ([facility] [employer]) Alcohol intake: former Patient Tobacco Use Status: Former Tobacco user Tobacco use type: Cigarette Cigarettes Per Day: 40 Years Smoked: quit greater than 10 years ago e-Cigarette/Vaping Use: Never Used Second Hand Smoke Exposure: No Advance Directives Date on File: 07/11/20 Current occupational status: disabled Cognitive needs: No Hearing needs: No Vision needs: Yes Review of Systems Const Denies fatigue, Denies fever(s), Denies night sweats, Denies poor appetite and Denies weight loss ENT Reports Normal hearing present, Denies dental pain, Denies dysphagia, Denies hearing loss, Denies mouth pain, Denies odynophagia, Denies throat swelling, Denies tongue swelling and Reports other (Dentition adequate) Card Reports no additional complaints Resp Reports no additional complaints GI Details: Denies abdominal pain, Denies melena, Reports bloating, Denies hematochezia, Reports constipation, Denies GI cramping, Denies dysphagia, Denies excessive flatus, Denies early satiety, Reports heartburn, Denies diarrhea, Reports loose stools, Denies nausea, Denies odynophagia, Denies vomiting and Denies hematemesis Skin/Breast Denies pruritus, Denies lesions, Denies rash and Denies jaundice Neuro Reports Normal hearing present and Denies Abnormal speech present Endo Denies fatigue Aller/Immun Denies throat swelling and Denies tongue swelling Physical Exam Vital Signs: Last Vital Signs Pulse 87 12/28/23 15:46 BP 157/96 H 12/28/23 15:46 BMI result Body Mass Index 27.8 Const General: cooperative, no acute distress, well developed and well groomed Nutritional Appearance: average body habitus and well nourished Orientation/consciousness: oriented to person, oriented to place and oriented to time Limitations: No language barrier HEENT Head: Yes normocephalic and Yes atraumatic Eyes General: appearance normal, both eyes and all related structures Pupils: Equal, round and reactive pupils present Neck Neck: Yes normal visual inspection and Yes no lymphadenopathy Thyroid: Thyroid normal Resp Effort & Inspection: normal respiratory effort and able to speak in complete sentences Auscultation: clear to auscultation bilaterally Cardio Rate: regular rate Rhythm: regular rhythm Heart sounds: Normal, physiologic split S2 sound present Peripheral pulses: radial pulses present and posterior tibial pulses present GI Inspection: No distended and No Abdominal panniculus present Palpation (GI): Soft to palpation, nontender, no guarding, not rigid and No hepatosplenomegaly present Percussion: Yes normal to percussion Auscultation: normal bowel sounds Rectal Exam - Male: Yes deferred Skin General skin exam: no rashes or lesions noted, turgor normal, skin not dry, no jaundice, No spider nevi and no striae Rashes: no rashes Nails: normal Neuro General: oriented to person, oriented to place and oriented to time Cranial nerves: Yes Equal, round and reactive pupils present and Yes Normal hearing present Speech: No Abnormal speech present Extrem General: Yes normal to inspection, No clubbing, No cyanosis and No edema Psych Appearance: grossly normal and well kempt Mental Status: mental status grossly normal Speech and movement: Normal speech and movement present Affect: normal affect Attitude: cooperative Thought process: Normal thought process present and not confabulating Thought content: Normal thought content present Insight: Limited insight present (Psych) Judgement: Limited judgement present (Psych) Assessment & Plan Assessment & Plan (1) Irritable bowel syndrome with both constipation and diarrhea: Comment: With an element of post cholecystectomy syndrome Code(s): K58.2 - Mixed irritable bowel syndrome Category: Medical (2) Post-cholecystectomy syndrome: Code(s): K91.5 - Postcholecystectomy syndrome Category: Medical (3) GERD (gastroesophageal reflux disease): Code(s): K21.9 - Gastro-esophageal reflux disease without esophagitis Category: Medical Qualifiers: Esophagitis presence: without esophagitis Qualified Code(s): K21.9 - Gastro-esophageal reflux disease without esophagitis (4) Thrombosed external hemorrhoids: Comment: Patient has been given local instructions including dressing changes, Sitz baths, stool softeners as needed, analgesics and will see me as directed or p.r.n. Code(s): K64.5 - Perianal venous thrombosis Category: Surgical Plan APPARENTLY, HE WAS seen in the ER about a month ago for rectal bleeding which was diagnosed as an thrombosed external hemorrhoid and treated by Dr. Saenz of General surgery. He still has some itching rectally but he is not bleeding and has no pain. He says that Dr. Saenz said he should have a colonoscopy, but we just did one last year and this would be fruitless as colonoscopy does not treat hemorrhoids in any way. Apparently, Dr. Saenz is recommending a hemorrhoidectomy. He has had no CIC and is not straining at stooling with his colace and senna. He was given Miralax, but this just gave him diarrhea and he stopped it. He has a strong FHX of hemorrhoids, his father and brother both had surgery for this twice. He wants to restart his creon as after thinking it was not helping, he found that he had more bloating and upset stomach after stopping it. His current GI regimen consists of colace, senna, simethicone, creon, sucralfate and pantoprazole and proctosol cream. Medications: New hydrocortisone 2.5% (Proctosol HC) BE SURE TO INCLUDE RECTAL APPICATOR!! 1 appl NC BID 30 grams 6RF hemorrhoids K64.9 - Unspecified hemorrhoids hbstaa-sdjtxwmx-itbkjkv 12,000-38,000 -60,000 unit (Creon) 2 caps PO BID 120 caps 6RF K58.2 - Mixed irritable bowel syndrome Refilled simethicone 180 mg PO QID PRN 120 caps 0RF for abdominal pain R14.0 - Abdominal distension (gaseous) docusate sodium 100 mg PO DAILY 90 caps 6RF K58.2 - Mixed irritable bowel syndrome pantoprazole 20 mg PO DAILY 90 tabs 0RF Discontinued polyethylene glycol 3350 Discontinued Reason: Doctor's Order 17 grams PO DAILY 238 grams 0RF Coding Level of Care Code Est Pt Level 4 (08441) Diagnoses Irritable bowel syndrome with both constipation and diarrhea K58.2 Post-cholecystectomy syndrome K91.5 Gastroesophageal reflux disease without esophagitis K21.9 Esophagitis presence: without esophagitis Thrombosed external hemorrhoids K64.5 Time Spent (min) 35
== END ==
PROVIDERS: PCP Internal Medicine; Visit Provider Nurse Practitioner
DX: K58.2 Mixed irritable bowel syndrome (principal); K91.5 Postcholecystectomy syndrome; K21.9 Gastro-esophageal reflux disease without esophagitis; K64.5 Perianal venous thrombosis
CPT/HCPCS: 99214

== ENCOUNTER → 2023-12-28 15:41 | Outpatient (BNVA) | payer MEDICARE, MEDICAID, SELFPAY | PROVIDERS: PCP Internal Medicine; Visit Provider Nurse Practitioner | DX: K58.2 Mixed irritable bowel syndrome (principal); K21.9 Gastro-esophageal reflux disease without esophagitis; K91.5 Postcholecystectomy syndrome; K64.5 Perianal venous thrombosis; R11.2 Nausea with vomiting, unspecified; R19.7 Diarrhea, unspecified; R14.0 Abdominal distension (gaseous) | CPT/HCPCS: 99212 ==

== ENCOUNTER 2024-01-11 10:43 | Outpatient (AMB) | payer MEDICARE, MEDICAID, SELFPAY ==
--- NOTE | 2024-01-11 10:52 | MHC.OFFVIS ---
Vital Signs 01/11/24 11:01 Height 6 ft Weight 206 lb BMI 27.9 Intake Visit Reasons: painful hemorrhoids Intake Note: This patient presents for painful hemorrhoids. Pt c/o; reports no rectal bleeding, reports unable to sit, reports history of constipation and straining with bowel movements. Field Control Inspector Required: No Accompanied by: Self / Same As Patient Allergies seafood Allergy (Severe, Verified 01/11/24 11:02) Anaphylaxis duloxetine Allergy (Intermediate, Verified 01/11/24 11:02) N/V, diarrhea, shakiness, withdrawal symptoms gabapentin Allergy (Intermediate, Verified 01/11/24 11:02) confusion/memory loss/hallucination lactase [LACTASE] Allergy (Intermediate, Verified 01/11/24 11:02) Nausea Medication List - Last Reconciled 01/11/24 by Seun Saenz MD acetaminophen 500 mg PO TID PRN aspirin 81 mg PO DAILY clonazepam 1 mg PO BEDTIME PRN clonazepam 0.5 mg PO DAILY clonidine HCl 0.1 mg PO BID PRN 90 days diclofenac sodium 1% 2 grams topical BID PRN docusate sodium 100 mg PO DAILY hydrocortisone 2.5% (Proctosol HC) 1 appl MO BID vhumqs-gpdcovqw-mebxldw 12,000-38,000 -60,000 unit (Creon) 2 caps PO BID losartan 25 mg PO DAILY 90 days ondansetron 4 mg PO BID-TID PRN oxycodone 5 mg PO Q8H PRN pantoprazole 20 mg PO DAILY quetiapine 50 mg PO BEDTIME [RAISED TOILET SEAT As directed] ropinirole 0.5 mg PO BEDTIME simethicone 180 mg PO QID PRN sucralfate 2 grams (2 x 1 gram) PO .qafternoon tizanidine 2 mg PO TID PRN 30 days tramadol 1 to 2 tablets PO 2 times a day; 28 days HPI HPI painful hemorrhoids: Details: 63-year-old male here for follow-up for his hemorrhoids. He has had long history of frequent pain and bleeding. He had been to the ER for bleeding hemorrhoids at some point last month He describes severe pain periodically as well with this hemorrhoids. He said he is unable to sit down comfortably. He does have a history of constipation and takes stool softeners were this He had been to his benefits advisor recently and review of his records show that he had a colonoscopy last year which showed hemorrhoids. He says that he is not due for another colonoscopy for 5-10 years. He feels that he is hemorrhoid problems have been very bothersome to him and he wants to proceed with hemorrhoidectomy. [facility] Medical History (Updated 01/11/24 @ 11:12 by Seun Saenz MD) Bleeding hemorrhoids Overweight (BMI 25.0-29.9) Family history of gastric cancer Gallstones Hyperglycemia Fatigue Palpitations Umbilical hernia Left elbow tendinitis Elevated d-dimer Primary osteoarthritis, left shoulder Acute lumbar myofascial strain Right knee pain Umbilical hernia (04/13/22) Gallstones Diarrhea Chronic abdominal pain Obesity (BMI 30-39.9) Chronic cholecystitis Dyspepsia Primary osteoarthritis of shoulders, bilateral Benign essential hypertension Excessive sweating Primary osteoarthritis, right shoulder Constipation Tubular adenoma of colon Surgical History Hx laparoscopic cholecystectomy (~10/08/22) Hx of umbilical hernia repair History of incision and drainage H/O esophagogastroduodenoscopy H/O colonoscopy Status post pericardial cyst excision (~02/13/19) History of varicose vein ligation and stripping H/O inguinal hernia repair S/P tendon repair Family History Father Stomach cancer Mental health problem Mother AIDS Sister PALMER (non-insulin dependent diabetes mellitus in young) Hypertension Other Substance abuse Social History Household Members: Children Housing: Apartment Are you a primary career based intervention coordinator to a significant other at home: No Do you presently have visiting nurse or other home services: Yes ([facility] [employer]) Alcohol intake: former Patient Tobacco Use Status: Former Tobacco user Tobacco use type: Cigarette Cigarettes Per Day: 40 Years Smoked: quit greater than 10 years ago e-Cigarette/Vaping Use: Never Used Second Hand Smoke Exposure: No Advance Directives Date on File: 07/11/20 Current occupational status: disabled Cognitive needs: No Hearing needs: No Vision needs: Yes Review of Systems Const Denies chills and Denies fever(s) ENT Reports neck pain Card Denies chest pain, Denies dyspnea and Denies dyspnea on exertion Resp Denies cough, Denies dyspnea and Denies dyspnea on exertion GI Reports hematochezia, Denies change in bowel habits and Reports constipation Denies hematuria and Denies difficulty urinating Musc Details: Chronic back pain Denies back pain, Denies limited range of motion and Reports neck pain Neuro Denies focal weakness and Denies convulsions Psych Denies depression and Denies mood swings Physical Exam Const General: comfortable and no acute distress Orientation/consciousness: patient oriented x3 Neck Neck: Yes no lymphadenopathy Resp Auscultation: clear to auscultation bilaterally Cardio Rhythm: regular rhythm GI Other: Rectal exam shows external hemorrhoids some prolapse of internal component, previous anoscopy had shown both internal and external hemorrhoids without any other lesions Palpation (GI): Soft to palpation, nontender and no guarding Neuro General: patient oriented x3 Assessment & Plan Assessment & Plan (1) Bleeding hemorrhoids: Code(s): K64.9 - Unspecified hemorrhoids Category: Medical Plan: He describes worsening problems with pain, swelling and bleeding with this hemorrhoids. He wants to proceed with hemorrhoidectomy. I had a long discussion with him about the technique of exam under anesthesia and hemorrhoidectomy. I reviewed the risks including but not limited to bleeding, infection, postop pain, as well as the benefits and alternatives. I explained to him what to expect postoperatively He says he wants to proceed. Coding Level of Care Code Est Pt Level 3 (55017) Diagnoses Bleeding hemorrhoids K64.9
[2024-01-11 11:01] VITALS: BMI 27.9
== END 2024-01-11 11:23 | disposition home or self-care (01) ==
PROVIDERS: PCP Internal Medicine; Visit Provider Surgery
DX: K64.9 Unspecified hemorrhoids (principal)
CPT/HCPCS: 99213

== ENCOUNTER → 2024-01-11 10:43 | Outpatient (BNVA) | payer MEDICARE, MEDICAID, SELFPAY | PROVIDERS: PCP Internal Medicine; Visit Provider Surgery | DX: K64.9 Unspecified hemorrhoids (principal) | CPT/HCPCS: 99212 ==

== ENCOUNTER 2024-01-24 08:28 | Day surgery (SDC) | payer MEDICARE, MEDICAID, SELFPAY ==
--- NOTE | 2024-01-23 10:17 | HO.ANESPROP2 ---
Documented by User: Ailyn Jalloh NP 01/23/24 10:18 HPI - Anesthesia Eval Consult details Narrative: 63yo M for EUA,Hemorrhoidectomy PMFSH Active Problems Active Problems: All Active Problems Bleeding hemorrhoids (Acute) Post-cholecystectomy syndrome (Acute) Thrombosed external hemorrhoids (Acute) Bilateral primary osteoarthritis of knee (Acute) Polyarthralgia (Acute) Tubular adenoma of colon (Acute) Irritable bowel syndrome with both constipation and diarrhea (Acute) Chronic low back pain (Acute) Depression with anxiety (Acute) Lumbar degenerative disc disease (Acute) GERD (gastroesophageal reflux disease) (Acute) Insomnia (Acute) Obesity (BMI 30-39.9) (Acute) Primary osteoarthritis of shoulders, bilateral (Acute) Benign essential hypertension (Acute) Excessive sweating (Acute) Past Medical History Medical History Bleeding hemorrhoids Overweight (BMI 25.0-29.9) Family history of gastric cancer Gallstones Hyperglycemia Fatigue Palpitations Umbilical hernia Left elbow tendinitis Elevated d-dimer Primary osteoarthritis, left shoulder Acute lumbar myofascial strain Right knee pain Umbilical hernia (04/13/22) Gallstones Diarrhea Chronic abdominal pain Obesity (BMI 30-39.9) Chronic cholecystitis Dyspepsia Primary osteoarthritis of shoulders, bilateral Benign essential hypertension Excessive sweating Primary osteoarthritis, right shoulder Constipation Tubular adenoma of colon Family History Family History Father Stomach cancer Mental health problem Mother AIDS Sister NIDDY (non-insulin dependent diabetes mellitus in young) Hypertension Other Substance abuse Family history of problems with anesthesia: No Surgical History Surgical History Hx laparoscopic cholecystectomy (~10/08/22) Hx of umbilical hernia repair History of incision and drainage H/O esophagogastroduodenoscopy H/O colonoscopy Status post pericardial cyst excision (~02/13/19) History of varicose vein ligation and stripping H/O inguinal hernia repair S/P tendon repair History of Problems with Anesthesia: No Social History Social History Household Members: Children Housing: Apartment Are you a primary child care director to a significant other at home: No Do you presently have visiting nurse or other home services: Yes ([facility] [employer]) Alcohol intake: former Patient Tobacco Use Status: Former Tobacco user Tobacco use type: Cigarette Cigarettes Per Day: 40 Years Smoked: quit greater than 10 years ago e-Cigarette/Vaping Use: Never Used Second Hand Smoke Exposure: No Advance Directives: No Advance Directives Information Provided: Yes Advance Directives Date on File: 07/11/20 Current occupational status: disabled Cognitive needs: No Hearing needs: No Vision needs: Yes Meds Allergies Allergy/AdvReac Type Severity Reaction Status Date / Time seafood Allergy Severe Anaphylaxis Verified 01/11/24 11:02 duloxetine Allergy Intermediate N/V, Verified 01/11/24 11:02 diarrhea, shakiness, withdrawal symptoms gabapentin Allergy Intermediate confusion/memory Verified 01/11/24 11:02 loss/hallucination lactase [LACTASE] Allergy Intermediate Nausea Verified 01/11/24 11:02 Home Medications ?Medication ?Instructions ?Recorded ?Confirmed ?Last Taken ?Type ropinirole 0.5 mg tablet 0.5 mg PO BEDTIME 02/08/23 01/24/24 Unknown History quetiapine 50 mg tablet 50 mg PO BEDTIME 08/10/23 01/24/24 Unknown History Exam Pertinent Lab Results Pertinent Lab Results: Laboratory Tests 11/24/23 16:28 WBC 7.8 Hgb 15.3 Hct 45.1 Plt Count 183 Sodium 140 Potassium 4.2 Chloride 107 Carbon Dioxide 27 BUN 12 Creatinine 0.86 Assessment and Plan Assessment Anesthesia Assessment: Chart Reviewed Final Anesthetic Review Family History of Problems with Anesthesia: No History of Problems with Anesthesia: No Documented by User: Sushila Macias MD 01/24/24 09:48 [facility] Past Medical History Medical History Bleeding hemorrhoids Overweight (BMI 25.0-29.9) Family history of gastric cancer Gallstones Hyperglycemia Fatigue Palpitations Umbilical hernia Left elbow tendinitis Elevated d-dimer Primary osteoarthritis, left shoulder Acute lumbar myofascial strain Right knee pain Umbilical hernia (04/13/22) Gallstones Diarrhea Chronic abdominal pain Obesity (BMI 30-39.9) Chronic cholecystitis Dyspepsia Primary osteoarthritis of shoulders, bilateral Benign essential hypertension Excessive sweating Primary osteoarthritis, right shoulder Constipation Tubular adenoma of colon Family History Family History Father Stomach cancer Mental health problem Mother AIDS Sister PALMER (non-insulin dependent diabetes mellitus in young) Hypertension Other Substance abuse Family history of problems with anesthesia: No Surgical History Surgical History Hx laparoscopic cholecystectomy (~10/08/22) Hx of umbilical hernia repair History of incision and drainage H/O esophagogastroduodenoscopy H/O colonoscopy Status post pericardial cyst excision (~02/13/19) History of varicose vein ligation and stripping H/O inguinal hernia repair S/P tendon repair History of Problems with Anesthesia: No Social History Social History Household Members: Children Housing: Apartment Are you a primary child care director to a significant other at home: No Do you presently have visiting nurse or other home services: Yes ([facility] [employer]) Alcohol intake: former Patient Tobacco Use Status: Former Tobacco user Tobacco use type: Cigarette Cigarettes Per Day: 40 Years Smoked: quit greater than 10 years ago e-Cigarette/Vaping Use: Never Used Second Hand Smoke Exposure: No Advance Directives: No Advance Directives Information Provided: Yes Advance Directives Date on File: 07/11/20 Current occupational status: disabled Cognitive needs: No Hearing needs: No Vision needs: Yes Meds Allergies Allergy/AdvReac Type Severity Reaction Status Date / Time seafood Allergy Severe Anaphylaxis Verified 01/11/24 11:02 duloxetine Allergy Intermediate N/V, Verified 01/11/24 11:02 diarrhea, shakiness, withdrawal symptoms gabapentin Allergy Intermediate confusion/memory Verified 01/11/24 11:02 loss/hallucination lactase [LACTASE] Allergy Intermediate Nausea Verified 01/11/24 11:02 Home Medications ?Medication ?Instructions ?Recorded ?Confirmed ?Last Taken ?Type ropinirole 0.5 mg tablet 0.5 mg PO BEDTIME 02/08/23 01/24/24 Unknown History quetiapine 50 mg tablet 50 mg PO BEDTIME 08/10/23 01/24/24 Unknown History Exam Height,Weight and Vital Signs: Height 6 ft Weight 93.576 kg Vital Signs Temp Pulse Resp BP Pulse Ox O2 Del Method 01/24/24 08:45 98.5 F 83 20 154/92 H 96 Room Air Airway Mallampati Class: II TM Dist: >3cm Neck ROM: Full Loose/Missing/Broken Teeth: Yes (Some missing teeth. Denies broken or loose teeth) Heart: RRR Lungs: CTAB Assessment and Plan Assessment Anesthesia Assessment: Anesthesia Plan Discussed and Chart Reviewed Final Anesthetic Review Family History of Problems with Anesthesia: No History of Problems with Anesthesia: No NPO: Yes ASA Class: II Final Preanesthetic Review: No Changes in Pt Med Stat, Meds/Allgs Chart Reviewed, Consent Obtained/Reviewed and Anes Risks/Benef Reviewed Patient Risk: Intermediate Procedure Risk: Low Assessment/Block/Sedation in SS: Assess/Block/Sedation-SS Anesthetic Plan Anesthetic Plan: GA Disposition: Standard PACU
[2024-01-24] VITALS (13 sets, daily range): BP systolic 121–154; BP diastolic 92–103; PULSE 78–89; RESP 12–20; TEMP 36.1–36.9; O2SAT 95–100; BMI 28.0
[2024-01-24] MEDS: Lactated Ringers 1,000 ML 100 ML IVCONT (09:18)
--- NOTE | 2024-01-24 10:58 | MHC.SHP ---
Pre-Procedural Eval Section A - 24 Hr Update-Section A only Date of Service: 01/24/24 The patient is an INPATIENT: No The patient has been examined within 24 hours of the surgical procedure. The History & Physical has been completed within 30 days and I have reviewed it.: Yes Section B - Complete if H&P > 30 days Chief Complaint: Unspecified hemorrhoids Allergies: Allergies Allergy/AdvReac Type Severity Reaction Status Date / Time seafood Allergy Severe Anaphylaxis Verified 01/11/24 11:02 duloxetine Allergy Intermediate N/V, Verified 01/11/24 11:02 diarrhea, shakiness, withdrawal symptoms gabapentin Allergy Intermediate confusion/memory Verified 01/11/24 11:02 loss/hallucination lactase [LACTASE] Allergy Intermediate Nausea Verified 01/11/24 11:02 Plan I have reviewed the history and physical and performed a pertinent physical examination on my patient. No changes have occurred unless specified. Time Spent With Patient Time: Total time managing care of this patient today ____ minutes.
--- NOTE | 2024-01-24 12:31 | W.PM.OPN ---
Operative Note Operative Note Date of Service: 01/24/24 Narrative: Preop diagnosis: Bleeding hemorrhoids internal external Postop diagnosis: The same Procedure: Exam under anesthesia hemorrhoidectomy x2 columns Surgeon: Seun Saenz, The patient is a 63-year-old male was had chronic complaints of bleeding with this hemorrhoids. He therefore wanted to proceed with hemorrhoidectomy. He understood the technique of the planned procedure as well as the risks, benefits, and alternatives He was brought to the operating room. He was placed in prone lion-knife position under general anesthesia via endotracheal tube. The buttocks were retracted wide tape laterally. The perianal area was prepped and draped usual sterile fashion. A surgical time-out was done. The patient received Cefotan 2 g IV preoperatively Examination of the anal orifice revealed external hemorrhoids on both the left and right sides. I inserted the perianal area with lidocaine 1%. I inserted the Shazia Marquez retractor. I examined the anal canal circumferentially. Again, the hemorrhoidal columns which appeared to be a mix of internal external noted the left right side. There were no other lesions. There was a fissure her any abnormality I applied a Connolly grasper at the hemorrhoidal column on the left to retract this out in the field. I made a qedyvw-wi-mcmlo stitch at its pedicle past the dentate line with a chromic 3-0. I made an incision around this hemorrhoidal column to the perianal skin with a blade 15. I excised this hemorrhoidal column above the plane of the sphincters using scissors along this incision. I closed the incision with a running chromic 3-0 stitch. Additional hemostatic zgcult-oe-pyguh sutures were placed for oozing areas. I duplicated the same procedure on the hemorrhoidal column on the right. Again, a aafnhv-cy-qjqcx stitch was placed at the pedicle. I made an incision around this column to the perianal skin and excise this above the plane of the sphincters. I closed this incision with a running chromic 3-0 stitch. Additional hemostatic zjemnj-rq-ucbjv sutures were also placed Once hemostasis was confirmed, I infiltrated the perianal area with Marcaine 0.5% for postop analgesia. The procedure was then completed The patient tolerated procedure well. There were no immediate complications. Initial and final counts of sponges and instruments were correct. Estimated blood loss was about 40 cc. The patient was extubated without difficulty and transferred to the recovery with stable vital signs
[2024-01-24] MEDS: fentaNYL citrate/PF 100 MCG/2 ML VIAL 25 MCG IVPUSH ×5 (12:41→13:16)
[2024-01-24] MEDS: oxyCODONE HCl Immed Release 5 MG TABLET PO (12:53)
== END 2024-01-24 13:52 | disposition home or self-care (01) ==
PROVIDERS: PCP Internal Medicine; Visit Provider Surgery
PROC: (CPT 46260; principal; 2024-01-24 11:20)
DX: K64.8 Other hemorrhoids (principal); K64.4 Residual hemorrhoidal skin tags; K80.20 Calculus of gallbladder without cholecystitis without obstruction; R73.9 Hyperglycemia, unspecified; G89.29 Other chronic pain; R10.9 Unspecified abdominal pain; Z80.0 Family history of malignant neoplasm of digestive organs; Z79.82 Long term (current) use of aspirin; Z79.899 Other long term (current) drug therapy; Z88.8 Allergy status to other drugs, medicaments and biological substances; Z90.49 Acquired absence of other specified parts of digestive tract; Z98.890 Other specified postprocedural states; Z87.891 Personal history of nicotine dependence
CPT/HCPCS: 46260; 88304; J0131; J1100; J1885; J2003; J2250; J2405; J2704; J2795; J3010

== ENCOUNTER → 2024-01-24 08:28 | Outpatient (BNV) | payer MEDICARE, MEDICAID, SELFPAY | PROVIDERS: PCP Internal Medicine; Visit Provider Surgery | DX: K64.8 Other hemorrhoids (principal) | CPT/HCPCS: 46260 ==

== ENCOUNTER 2024-02-06 10:12 | Outpatient (AMB) | payer MEDICARE, MEDICAID, SELFPAY ==
--- NOTE | 2024-02-06 10:32 | MHC.OFFVIS ---
Vital Signs 02/06/24 10:50 Height 6 ft Weight 205 lb 6 oz BMI 27.9 Intake Visit Reasons: S/P EUA, hemorrhoidectomy Intake Note: This patient presents for post-op assessment status post EUA,hemorrhoidectomy. Pt c/o; report pain, reports unable to sit, reports rectal bleeding. Butt Sawyer Required: No Butt Sawyer Services: Butt Sawyer Offered & Declined Accompanied by: Self / Same As Patient Allergies seafood Allergy (Severe, Verified 02/06/24 10:51) Anaphylaxis duloxetine Allergy (Intermediate, Verified 02/06/24 10:51) N/V, diarrhea, shakiness, withdrawal symptoms gabapentin Allergy (Intermediate, Verified 02/06/24 10:51) confusion/memory loss/hallucination lactase [LACTASE] Allergy (Intermediate, Verified 02/06/24 10:51) Nausea HPI HPI S/P EUA, hemorrhoidectomy: Details: He underwent hemorrhoidectomy x2 columns last January 23. He is here for postop visit. He describes significant pain still especially with sitting down. He denies severe bleeding. He says he has run out of pain medications for several days now. [facility] Medical History Bleeding hemorrhoids Overweight (BMI 25.0-29.9) Family history of gastric cancer Gallstones Hyperglycemia Fatigue Palpitations Umbilical hernia Left elbow tendinitis Elevated d-dimer Primary osteoarthritis, left shoulder Acute lumbar myofascial strain Right knee pain Umbilical hernia (04/13/22) Gallstones Diarrhea Chronic abdominal pain Obesity (BMI 30-39.9) Chronic cholecystitis Dyspepsia Primary osteoarthritis of shoulders, bilateral Benign essential hypertension Excessive sweating Primary osteoarthritis, right shoulder Constipation Tubular adenoma of colon Surgical History History of hemorrhoidectomy (~01/24/24) Hx laparoscopic cholecystectomy (~10/08/22) Hx of umbilical hernia repair History of incision and drainage H/O esophagogastroduodenoscopy H/O colonoscopy Status post pericardial cyst excision (~02/13/19) History of varicose vein ligation and stripping H/O inguinal hernia repair S/P tendon repair Family History Father Stomach cancer Mental health problem Mother AIDS Sister PALMER (non-insulin dependent diabetes mellitus in young) Hypertension Other Substance abuse Social History Household Members: Children Housing: Apartment Are you a primary rn progressive care unit to a significant other at home: No Do you presently have visiting nurse or other home services: Yes ([facility] [employer]) Alcohol intake: former Patient Tobacco Use Status: Former Tobacco user Tobacco use type: Cigarette Cigarettes Per Day: 40 Years Smoked: quit greater than 10 years ago e-Cigarette/Vaping Use: Never Used Second Hand Smoke Exposure: No Advance Directives Date on File: 07/11/20 Current occupational status: disabled Cognitive needs: No Hearing needs: No Vision needs: Yes Review of Systems Const Denies chills and Denies fever(s) Physical Exam Vital Signs: BMI result Body Mass Index 27.9 Const Other: Complains of pain Walking with a cane General: no acute distress Resp Effort & Inspection: normal respiratory effort GI Other: Rectal exam shows hemorrhoidectomy sites to be healing well, no induration, no discharge, no cellulitis Assessment & Plan Assessment & Plan (1) Bleeding hemorrhoids: Code(s): K64.9 - Unspecified hemorrhoids Category: Medical Plan: Status post hemorrhoidectomy x2 columns. His hemorrhoidectomy sites are actually healing well. I will refill his pain prescriptions. I advised him to continue hot Sitz baths I will see him in for another postop visit in about a month. His path report shows hemorrhoid tissue. Coding Level of Care Code Global (72538) Diagnoses Bleeding hemorrhoids K64.9
[2024-02-06 10:50] VITALS: BMI 27.9
== END 2024-02-06 11:00 | disposition home or self-care (01) ==
PROVIDERS: PCP Internal Medicine; Visit Provider Surgery
DX: K64.9 Unspecified hemorrhoids (principal)
CPT/HCPCS: 99024

== ENCOUNTER → 2024-02-06 10:12 | Outpatient (BNVA) | payer MEDICARE, MEDICAID, SELFPAY | PROVIDERS: PCP Internal Medicine; Visit Provider Surgery | DX: Z00.00 Encounter for general adult medical examination without abnormal findings (principal); M51.360 Other intervertebral disc degeneration, lumbar region with discogenic back pain only; Z48.815 Encounter for surgical aftercare following surgery on the digestive system; Z87.19 Personal history of other diseases of the digestive system; Z79.891 Long term (current) use of opiate analgesic; Z79.899 Other long term (current) drug therapy | CPT/HCPCS: 96127; 99212 ==

== ENCOUNTER 2024-02-06 14:20 | Outpatient (AMB) | payer MEDICARE, MEDICAID, SELFPAY ==
[2024-02-06 14:52] VITALS: BP 158/100; PULSE 85; O2SAT 97; BMI 27.7
--- NOTE | 2024-02-06 14:52 | A.OFFPC_ITS ---
Vital Signs 02/06/24 14:52 Height 6 ft Blood Pressure Location Lt brachial Position Sitting Pulse Source Pulse Oximeter Oxygen Delivery Method Room Air Intake Visit Reasons: Annual Exam Addictions Recovery Specialist Required: No Accompanied by: Self / Same As Patient Allergies seafood Allergy (Severe, Verified 02/06/24 14:52) Anaphylaxis duloxetine Allergy (Intermediate, Verified 02/06/24 14:52) N/V, diarrhea, shakiness, withdrawal symptoms gabapentin Allergy (Intermediate, Verified 02/06/24 14:52) confusion/memory loss/hallucination lactase [LACTASE] Allergy (Intermediate, Verified 02/06/24 14:52) Nausea Tobacco use date assessed: 02/06/24 Dental Screening Dental Screen Date: 02/06/24 [facility] Medical History Bleeding hemorrhoids Overweight (BMI 25.0-29.9) Family history of gastric cancer Gallstones Hyperglycemia Fatigue Palpitations Umbilical hernia Left elbow tendinitis Elevated d-dimer Primary osteoarthritis, left shoulder Acute lumbar myofascial strain Right knee pain Umbilical hernia (04/13/22) Gallstones Diarrhea Chronic abdominal pain Obesity (BMI 30-39.9) Chronic cholecystitis Dyspepsia Primary osteoarthritis of shoulders, bilateral Benign essential hypertension Excessive sweating Primary osteoarthritis, right shoulder Constipation Tubular adenoma of colon Surgical History History of hemorrhoidectomy (~01/24/24) Hx laparoscopic cholecystectomy (~10/08/22) Hx of umbilical hernia repair History of incision and drainage H/O esophagogastroduodenoscopy H/O colonoscopy Status post pericardial cyst excision (~02/13/19) History of varicose vein ligation and stripping H/O inguinal hernia repair S/P tendon repair Family History Father Stomach cancer Mental health problem Mother AIDS Sister NIDDY (non-insulin dependent diabetes mellitus in young) Hypertension Other Substance abuse Social History Household Members: Children Housing: Apartment Are you a primary patient care representative to a significant other at home: No Do you presently have visiting nurse or other home services: Yes ([facility]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 1. Little interest or pleasure in doing things: several days 2. Feeling down, depressed, or hopeless: several days 3. Trouble falling or staying asleep, or sleeping too much: several days 4. Feeling tired or having little energy: several days 5. Poor appetite or overeating: several days 6. Feeling bad about yourself - or that you are a failure or have let yourself or your family down: several days 7. Trouble concentrating on things, such as reading the newspaper or watching television: several days 8. Moving or speaking so slowly that other people could have noticed. Or the opposite - being so fidgety or restless that you have been moving around a lot more than usual: several days 9. Thoughts that you would be better off or of hurting yourself in some way: not at all Total score: 8 Depression Screening Interpretation: Positive (on Rx) Depression Screening Follow-up: Existing condition and In treatment Depression Screening Done: Yes 16790 - PHQ-9 Billing: Yes Source: Developed by Drs. Bro Guillermo, Dimple Lawson, Bulmaro Tavares and colleagues, with an educational sofie from [employer]. Thrive Questionnaire Date Thrive assessed: 02/06/24 I am a: Patient What is your living situation today?: I have a steady place to live Within the past 12 months, did the food you bought not last and you didn't have the money to get more?: Never true Within the past 12 months, did you worry whether your food would run out before you got money to buy more?: Never true Do you have trouble paying for medicines?: No Do you have trouble getting transportation to medical appointments?: No Do you have trouble paying your heating and electricity bill?: No Do you have trouble taking care of your child, family member or friend?: No Do you have trouble with day-to-day activities such as bathing, preparing meals, shopping, managing finances, etc.?: No Are you currently unemployed and looking for a job?: No Are you interested in more education?: No Please select the resources that you would like help with: None Currently or been in a relationship where the following occur: No concerns reported THRIVE Score: 0 AUDIT C Alcohol Use Questionnaire (AUDIT-C) 1. How often do you have a drink containing alcohol?: Never 3. How often do you have six or more drinks on one occasion?: Never Total Score: 0 Score Reviewed/Action Taken: Yes GANESH-7 AMB Questionnaire GANESH-7 Date GANESH - 7 assessed: 02/06/24 Feeling nervous, anxious, or on edge: 0 = Not at all Not being able to stop or control worryin = Not at all Worrying too much about different things: 0 = Not at all Trouble relaxin = Not at all Being so restless that it is hard to sit still: 0 = Not at all Becoming easily annoyed or irritable: 0 = Not at all Feeling afraid as if something awful might happen: 0 = Not at all Total GANESH-7 score (0-4 normal; 5-9 mild; 10-14 moderate; 15-21 severe): 0 Source: Developed by Drs. Bro Guillermo, Dimple Lawson, Bulmaro Tavares and colleagues, with an educational sofie from [employer]. Physical exam (Primary Care) Tobacco/Smoking Status: Tobacco use Status Tobacco use date assessed 11/30/23 12/02/23 17:06 Patient Tobacco Use Status Former Tobacco user 01/24/24 12:30 Tobacco use type Cigarette 12/02/23 17:06 e-Cigarette/Vaping Use Never Used 12/02/23 17:06 Depression Screening Interpretation: Positive (on Rx) Depression Screening Follow-up: Existing condition and In treatment Thrive Assessment: Date of Thrive Assessment Date Thrive assessed 11/30/23 12/02/23 17:06 Currently or been in a relationship where the following occur: No concerns reported Coding Additional Codes PHQ-9 - 39801 - PHQ-9 Billing: Yes ([id number])
--- NOTE | 2024-02-06 14:58 | A.OFFVIS_ITS ---
Intake Vital Signs 02/06/24 14:52 Height 6 ft Weight 204 lb 4 oz BMI 27.7 BP 158/100 H Blood Pressure Location Lt brachial Position Sitting Pulse 85 Pulse Source Pulse Oximeter Pulse Oximetry (%) 97 Oxygen Delivery Method Room Air Intake Visit Reasons: Annual Exam Transport Specialist Required: No Accompanied by: Self / Same As Patient Allergies seafood Allergy (Severe, Verified 02/06/24 15:13) Anaphylaxis duloxetine Allergy (Intermediate, Verified 02/06/24 15:13) N/V, diarrhea, shakiness, withdrawal symptoms gabapentin Allergy (Intermediate, Verified 02/06/24 15:13) confusion/memory loss/hallucination lactase [LACTASE] Allergy (Intermediate, Verified 02/06/24 15:13) Nausea Medication List - Last Reconciled 02/06/24 by Marcial David MD acetaminophen 500 mg PO TID PRN aspirin 81 mg PO DAILY clonazepam 1 mg PO BEDTIME PRN clonazepam 0.5 mg PO DAILY clonidine HCl 0.1 mg PO BID PRN 90 days docusate sodium (Colace) 100 mg PO BID bftakb-thgfkkyx-gmiself 12,000-38,000 -60,000 unit (Creon) 2 caps PO BID losartan 25 mg PO DAILY 90 days oxycodone 5 mg PO Q4H PRN quetiapine 50 mg PO BEDTIME [RAISED TOILET SEAT As directed] ropinirole 0.5 mg PO BEDTIME sucralfate 2 grams (2 x 1 gram) PO .qafternoon tizanidine 2 mg PO TID PRN 30 days tramadol 1 to 2 tablets PO 2 times a day; 28 days Do you need a note to return to daycare/school/sports/work: No HPI Annual Exam HPI Details Patient comes in today for his Annual Medicare Wellness Exam States that he is currently still experiencing a lot of pain in his perirectal area - had hemorrhoid surgery with Dr. Saenz less than 2 weeks ago States that he saw Dr. Saenz earlier today for follow up and was advised that it can take a little longer for his surgical wounds to heal States that he needs his Miralax Rx refilled so he does not have to strain during bowel movements, which can significantly increase his pain He also needs his Tizanidine Rx refilled today He denies any fever, headaches or dizziness Denies any chest pains, no increased SOB No nausea/vomiting, no abdominal pain No change in bowel habits noted He had his colonoscopy last done a year ago in 01/2023 - colonoscopy was normal and he was recommended to get repeat colonoscopy in 10 years [place] of care was reviewed and updated today Patient has a healthcare proxy in place and on file IPPE/AWV: c/o of Annual Wellness Visit, subsequent visit. Medical / Social History Reviewed Past Medical History Yes . [place] of Care / Care Team list updated Yes . Surgical/Hospitalization History Yes . Current Medications (including OTC and supplements) Yes . Family History Yes . Tobacco Control form Yes . AUDIT-C (Alcohol use) form Yes . Illicit drug use in Social History Yes . Current diagnosis of depression? No Appropriate PHQ2/PHQ9 completed Yes . Data entered by [employer] and reviewed by provider Home Safety Throw rugs? No Grab bars? No Raised toilet seats? No Working smoke detectors? Yes Working carbon monoxide detectors? Yes Data entered by [employer] and reviewed by provider Activities of Daily Living (ADLs) Difficulty bathing or showering? No Difficulty dressing? No Difficulty using the toilet? No Difficulty getting in and out of bed? No Difficulty walking? No Receives help from another person with any of the above tasks? No Instrumental Activities of Daily Living (IADLs) Uses the telephone without help Gets to places out of walking distance without help Goes shopping for groceries without help Prepares own meals without help Does own minor home maintenance without help Does own laundry without help Does own housework without help Manages own money without help Currently takes medications? Yes Takes medication without help End-of-Life Planning Discussed advance directive Yes Advance directive on file Discussed wishes expressed in advance directive agreed to following patient's wishes Fall Risk: Fall History Have you had any falls with injury in the past year? No . Have you had two or more falls in the past year? No . Fall Risk Assessment: No falls in the past year . HRA filled out by the patient, reviewed by Provider and scanned. [facility] Medical History Bleeding hemorrhoids Overweight (BMI 25.0-29.9) Family history of gastric cancer Gallstones Hyperglycemia Fatigue Palpitations Umbilical hernia Left elbow tendinitis Elevated d-dimer Primary osteoarthritis, left shoulder Acute lumbar myofascial strain Right knee pain Umbilical hernia (04/13/22) Gallstones Diarrhea Chronic abdominal pain Obesity (BMI 30-39.9) Chronic cholecystitis Dyspepsia Primary osteoarthritis of shoulders, bilateral Benign essential hypertension Excessive sweating Primary osteoarthritis, right shoulder Constipation Tubular adenoma of colon Surgical History History of hemorrhoidectomy (~01/24/24) Hx laparoscopic cholecystectomy (~10/08/22) Hx of umbilical hernia repair History of incision and drainage H/O esophagogastroduodenoscopy H/O colonoscopy Status post pericardial cyst excision (~02/13/19) History of varicose vein ligation and stripping H/O inguinal hernia repair S/P tendon repair Family History Father Stomach cancer Mental health problem Mother AIDS Sister PALMER (non-insulin dependent diabetes mellitus in young) Hypertension Other Substance abuse Social History Household Members: Children Housing: Apartment Are you a primary care nurse rn to a significant other at home: No Do you presently have visiting nurse or other home services: Yes ([facility]) Alcohol intake: former Patient Tobacco Use Status: Former Tobacco user Tobacco use type: Cigarette Cigarettes Per Day: 40 Years Smoked: quit greater than 10 years ago e-Cigarette/Vaping Use: Never Used Second Hand Smoke Exposure: No Advance Directives Date on File: 07/11/20 Current occupational status: disabled Cognitive needs: No Hearing needs: No Vision needs: Yes Questionnaire Medicare Wellness Checkup What [age] your [age]?: 65-69 (63) What gender do you identify with?: male During the past 4 weeks, how much have you been bothered by emotional problems such as feeling anxious, depressed, irritable, sad or downhearted, and blue?: moderately During the past 4 weeks, has your physical & emotional health limited your social activities with family, friends, neighbors, or groups?: quite a bit During the past 4 weeks, how much bodily pain have you generally had?: severe pain During the past 4 weeks, was someone available to help you if you needed & wanted help?: yes, some During the past 4 weeks, what was the hardest physical activity you could do for at least 2 minutes?: very light Can you get to places out of walking distance without help? (For eg., can you travel alone on buses, taxis or drive your car?): Yes Can you go shopping for groceries or clothes without someone's help?: No Can you prepare your own meals?: No Can you do your housework without help?: No Because of any health problems, do you need the help of another person with your personal care needs such as eating, bathing, dressing or getting around the house?: Yes Can you handle your own money without help?: Yes During the past 4 weeks, how would you rate your health in general?: fair During the past 4 weeks how have things been going for you?: very bad; could hardly be worse Are you having difficulties driving your car?: sometimes Do you always fasten your seat belt when you are in a car?: yes, usually During past 4 weeks, have you been bothered by the following: sometimes: Falling or dizzy when standing up, Sexual problems?, Problems using the telephone? and Tiredness or fatigue? and often: Teeth or denture problems? Have you fallen 2 or more times in the past year?: Yes Are you afraid of falling?: Yes Are you a smoker?: no During the past 4 weeks, how many drinks of wine, beer, or other alcoholic beverages did you have?: no alcohol at all Do you exercise for about 20 minutes 3 or more times a week?: yes, some of the time Have you been given information to help with the following?: yes: Hazards in your house that might hurt you? and yes: Keeping track of your medications? How often do you have trouble taking medicines the way you have been told to take them?: I do not have to take medicine How confident are you that you can control & manage most of your health problems?: somewhat confident What is your race?: or origin or descent Mini Mental State Exam (MMSE) Orientation What is the (year) (season) (date) (day) (month)?: year, season, date, day and month Where are we (state) (county) (town or city) (hospital) (floor)?: state, county, town or city, hospital/clinic and floor Score Score: 10 Activity of Daily Living Bathing - sponge bath, tub bath or shower: receives help in bathing only one body part (such as back or leg) Dressing - getting clothes from closets & drawers, including inner/outer garments & fasteners.: gets clothes & gets dressed without help, except for help tying shoes Toileting - going to the 'toilet room' for urine/bowel elimination & cleaning self/arranging clothes: goes to toilet room, cleans self, arranges clothes without help Transfer: moves in & out of bed and chair without help (may use support object) Continence: controls urination/bowel movements completely by self Feeding: feeds self without help Total Score: 0 Information obtained from: patient Using telephone: independent Traveling: needs assistance Shopping: needs assistance Preparing meals: needs assistance Housework: needs assistance Taking medicine: independent Managing money: independent PHQ-9 Over the last 2 weeks, how often have you been bothered by any of the following problems? 1. Little interest or pleasure in doing things: more than half the days 2. Feeling down, depressed, or hopeless: several days 3. Trouble falling or staying asleep, or sleeping too much: more than half the days 4. Feeling tired or having little energy: more than half the days 5. Poor appetite or overeating: several days 6. Feeling bad about yourself - or that you are a failure or have let yourself or your family down: not at all 7. Trouble concentrating on things, such as reading the newspaper or watching television: several days 8. Moving or speaking so slowly that other people could have noticed. Or the opposite - being so fidgety or restless that you have been moving around a lot more than usual: more than half the days 9. Thoughts that you would be better off or of hurting yourself in some way: not at all Total score: 11 Depression Screening Interpretation: Positive Depression Screening Follow-up: Existing condition and In treatment Depression Screening Done: Yes 19220 - PHQ-9 Billing: Yes Source: Developed by Drs. Bro Guillermo, Dimple B.W. Bulmaro Lawson and colleagues, with an educational sofie from [employer]. PHQ-2/PHQ-9 PHQ-2 Over the last 2 weeks, how often have you been bothered by any of the following problems? 1. Little interest or pleasure in doing things: more than half the days 2. Feeling down, depressed, or hopeless: several days Total score: 3 If score is 3 or greater, continue 3. Trouble falling or staying asleep, or sleeping too much: more than half the days 4. Feeling tired or having little energy: more than half the days 5. Poor appetite or overeating: several days 6. Feeling bad about yourself - or that you are a failure or have let yourself or your family down: not at all 7. Trouble concentrating on things, such as reading the newspaper or watching television: several days 8. Moving or speaking so slowly that other people could have noticed. Or the opposite - being so fidgety or restless that you have been moving around a lot more than usual: more than half the days 9. Thoughts that you would be better off or of hurting yourself in some way: not at all Total score: 11 0-4 None-Minimal, 5-9 Mild, 10-14 Moderate, 15-19 Moderately Severe, 20-27 Severe Source: Developed by Drs. Bro Guillermo, Bulmaro Gottlieb and colleagues, with an educational sofie from [employer]. Thrive Questionnaire Date Thrive assessed: 02/06/24 I am a: Patient What is your living situation today?: I have a steady place to live Within the past 12 months, did the food you bought not last and you didn't have the money to get more?: Never true Within the past 12 months, did you worry whether your food would run out before you got money to buy more?: Never true Do you have trouble paying for medicines?: No Do you have trouble getting transportation to medical appointments?: No Do you have trouble paying your heating and electricity bill?: No Do you have trouble taking care of your child, family member or friend?: No Do you have trouble with day-to-day activities such as bathing, preparing meals, shopping, managing finances, etc.?: No Are you currently unemployed and looking for a job?: No Are you interested in more education?: No Please select the resources that you would like help with: None Currently or been in a relationship where the following occur: No concerns reported THRIVE Score: 0 GANESH-7 AMB Questionnaire GANESH-7 Date GANESH - 7 assessed: 11/30/23 Source: Developed by Drs. Bro Guillermo, Dimple Lawson, Bulmaro Tavares and colleagues, with an educational sofie from [employer]. Review of Systems Const Reports difficulty sleeping (Rx helping), Reports fatigue, Denies fever(s) and Denies headache(s) ENT Denies dysphagia, Denies dizziness, Denies otalgia, Denies headache(s), Denies neck pain, Denies odynophagia and Denies sore throat Card Denies chest pain, Denies palpitations and Reports dyspnea on exertion (mild) Resp Denies chest congestion, Denies cough and Reports dyspnea on exertion (mild) GI Denies abdominal pain, Denies hematochezia, Reports constipation (on and off), Denies dysphagia, Denies heartburn, Denies diarrhea, Reports loose stools (occasionally), Denies nausea, Denies odynophagia and Denies vomiting Denies dysuria, Denies nocturia and Denies urinary frequency Musc Reports back pain (chronic ), Reports arthralgias (involving multiple joints, including both shoulders ; over R knee lately) and Denies neck pain Skin/Breast Denies rash Neuro Denies dizziness and Denies headache(s) Psych Reports anxiety and Reports depression Endo Reports fatigue and Denies palpitations Physical Exam Vital Signs: Last Vital Signs Pulse 85 02/06/24 14:52 BP 158/100 H 02/06/24 14:52 Pulse Ox 97 02/06/24 14:52 Oxygen Delivery Method Room Air 02/06/24 14:52 BMI result Body Mass Index 27.7 IPPE/AWV: Balance Romberg Yes . Tandem walk No . Walk and Turn No - is very unsteady on his feet Rise from sit to stand Yes . Vision Corrective lens No Vision screen pass Hearing Whisper test pass . Urinary incont. no. EKG Not clinically necessary. Const General: no acute distress and alert Orientation/consciousness: patient oriented x3 HEENT Throat: Yes posterior oropharynx normal and Yes tonsils normal (no TP congestion noted) Neck Neck: Yes no lymphadenopathy and Yes tender (over the cervical spine and paraspinal areas bilaterally) Thyroid: Thyroid normal Resp Auscultation: clear to auscultation bilaterally, no rales and no wheezes Cardio Rate: regular rate Rhythm: regular rhythm Heart sounds: no murmurs GI Palpation (GI): Soft to palpation and nontender Auscultation: normal bowel sounds Back/Spine/Pelvis Thoracic/Lumbar Spine: paraspinal muscle tenderness bilaterally (over the cervical and thoracolumbar spine (diffuse)) and lumbar spinal tenderness Neuro General: patient oriented x3 Cognition (Neuro): normal cognition Extrem General: Yes no clubbing, cyanosis or edema Psych Thought process: Normal thought process present Assessment & Plan Assessment & Plan (1) Medicare annual wellness visit, subsequent: Code(s): Z00.00 - Encounter for general adult medical examination without abnormal findings Plan: HRA form discussed and completed with patient; form will be scanned into patient's chart GISELE updated (2) Bleeding hemorrhoids: Code(s): K64.9 - Unspecified hemorrhoids Plan: S/P hemorrhoidectomy with Dr. Saenz about 2 weeks ago on 01/24/2024 He is still experiencing increased pain perirectally Continue Miralax 17 gm QD to help loosen up his bowels to keep him from having to strain during bowel movements - Rx refilled Also continue Senna 8.6 mg QD PRN (3) Lumbar degenerative disc disease: Code(s): M51.36 - Other intervertebral disc degeneration, lumbar region Qualifiers: Disc-related pain type: discogenic back pain only Qualified Code(s): M51.360 - Other intervertebral disc degeneration, lumbar region with discogenic back pain only Plan: Reinforced activity and weight-lifting restrictions Continue Tizanidine 2 mg TID PRN (Rx refilled) and Tramadol 50 mg TID PRN Plan Follow up as scheduled next month Patient is reminded to get his follow up labs done (ordered) before he comes in for his appt next month Medications: New polyethylene glycol 3350 17 grams PO DAILY 30 days 510 grams 6RF Refilled tizanidine 2 mg PO TID 30 days PRN 90 tabs 2RF muscle spasticity Quality Reporting (2019) Depression/Bipolar (159/160/161/177) PHQ-9: Total score: 11 Coding Level of Care Code Medicare Subsequent (G0439) Diagnoses Medicare annual wellness visit, subsequent Z00.00 Bleeding hemorrhoids K64.9 Degeneration of intervertebral disc of lumbar region with discogenic back pain M51.360 Disc-related pain type: discogenic back pain only Additional Codes PHQ-9 - 56582 - PHQ-9 Billing: Yes ([id number])
== END 2024-02-06 15:25 | disposition home or self-care (01) ==
PROVIDERS: PCP Internal Medicine; Visit Provider Internal Medicine
DX: Z00.00 Encounter for general adult medical examination without abnormal findings (principal); K64.9 Unspecified hemorrhoids; M51.360 Other intervertebral disc degeneration, lumbar region with discogenic back pain only

== ENCOUNTER 2024-02-10 07:21 | Outpatient (REF) | payer MEDICARE, MEDICAID, SELFPAY ==
[2024-02-10 07:41] LABS: MANUAL DIFF FLAG NO
[2024-02-10 07:50] LABS: Basophils Absolute Auto 0.1 X10*3/uL (0.0-0.2); Basophils Percent Auto 1.2 % (0-2); Eosinophils Absolute Auto 0.4 X10*3/uL (0.0-0.4); Eosinophils Percent Auto 6.3 % (0-4); Hematocrit 43.6 % (42.0-52.0); Hemoglobin 14.8 g/dl (14.0-18.0); Imm Gran Abs Auto 0.01 X10*3/uL (0.00-0.03); Imm Gran Pct Auto 0.1 % (0.0-0.4); Lymphocytes Absolute Auto 2.5 X10*3/uL (1.2-4.9); Lymphocytes Percent Auto 36.1 % (20-40); Mean Corpuscular HGB Conc 33.9 g/dl (31.0-36.0); Mean Corpuscular Hemoglobin 28.2 pg (27.0-33.0); Mean Platelet Volume 9.7 fL (9.4-12.4); Monocytes Absolute Auto 0.7 X10*3/uL (0.1-1.2); Monocytes Percent Auto 9.6 % (2-11); Neutrophils Absolute Auto 3.2 x10*3/uL (2.0-8.3); Neutrophils Percent Auto 46.7 % (45-73); Platelet Count 235 X10*3/uL (160-400); Red Blood Count 5.25 X10*6/uL (4.60-5.80); Red Cell Distribution Width 12.6 % (11.0-16.0); White Blood Count 6.8 X10*3/uL (4.8-10.8)
[2024-02-10 08:17] LABS: Alanine Aminotransferase 22 U/L (0-40); Albumin Level 3.6 g/dL (3.5-5.0); Alkaline Phosphatase 74 U/L (39-117); Anion Gap 11 (12-20); Aspartate Amino Transferase 31 U/L (5-37); Bilirubin Total 0.3 mg/dL (0.0-1.0); Blood Urea Nitrogen 7 mg/dL (9-16); Calcium 8.8 mg/dL (8.4-10.2); Carbon Dioxide 24 mmol/L (22-29); Chloride 106 mmol/L (96-108); Cholesterol 123 mg/dL (<200); Estimated Glomerular Filt Rate > 60; Glucose Fasting 95 mg/dL (60-99); HDL Cholesterol 40 mg/dL (>40); LDL Cholesterol Calculated 68 mg/dL (<100); Potassium 4.2 mmol/L (3.3-5.1); Sodium 137 mmol/L (135-145); Total Protein 6.5 g/dL (6.5-8.0); Triglycerides 76 mg/dL (<150)
[2024-02-10 08:35] LABS: TSH reflex Free T4 0.84 uIU/mL (0.32-4.0); Vitamin D 25-OH Total 39.1 ng/mL (>30)
[2024-02-10 09:07] LABS: Appearance Urine Clear; Color Urine Yellow; Glucose Urine UA Negative (Negative); Leukocyte Esterase Urine Negative (Negative); Nitrite Urine Negative (Negative); Urine Blood Negative (Negative); Urine Ketones Negative (Negative); Urine Protein Negative (Neg-Trace)
== END 2024-02-10 07:22 | disposition home or self-care (01) ==
LOC: HO.LAB 07:21
PROVIDERS: PCP Internal Medicine; Visit Provider Internal Medicine
DX: E55.9 Vitamin D deficiency, unspecified (principal); D64.9 Anemia, unspecified; R30.0 Dysuria; E78.00 Pure hypercholesterolemia, unspecified
CPT/HCPCS: 36415; 80053; 80061; 81003; 82306; 84443; 85025

== ENCOUNTER 2024-03-05 15:43 | Outpatient (AMB) | payer MEDICARE, MEDICAID, SELFPAY ==
--- NOTE | 2024-03-05 15:53 | A.OFFPC_ITS ---
Vital Signs 03/05/24 15:54 Height 6 ft Weight 208 lb BMI 28.2 BP 136/84 Blood Pressure Location Lt brachial Position Sitting Pulse 84 Pulse Source Pulse Oximeter Pulse Oximetry (%) 96 Oxygen Delivery Method Room Air Intake Visit Reasons: 3 Months F/U Microbiology Coordinator Required: No Accompanied by: Self / Same As Patient Allergies seafood Allergy (Severe, Verified 03/05/24 16:32) Anaphylaxis duloxetine Allergy (Intermediate, Verified 03/05/24 16:32) N/V, diarrhea, shakiness, withdrawal symptoms gabapentin Allergy (Intermediate, Verified 03/05/24 16:32) confusion/memory loss/hallucination lactase [LACTASE] Allergy (Intermediate, Verified 03/05/24 16:32) Nausea Medication List - Last Reconciled 03/05/24 by Marcial David MD acetaminophen 500 mg PO TID PRN aspirin 81 mg PO DAILY clonazepam 1 mg PO BEDTIME PRN clonazepam 0.5 mg PO DAILY clonidine HCl 0.1 mg PO BID PRN 90 days docusate sodium (Colace) 100 mg PO BID [id number]-[id number] 12,000-38,000 -60,000 unit (Creon) 2 caps PO BID losartan 25 mg PO DAILY 90 days oxycodone 5 mg PO Q4H PRN polyethylene glycol 3350 17 grams PO DAILY 30 days quetiapine 50 mg PO BEDTIME [RAISED TOILET SEAT As directed] ropinirole 0.5 mg PO BEDTIME sennosides (Senna Laxative) 17.2 mg (2 x 8.6 mg) PO BEDTIME sucralfate 2 grams (2 x 1 gram) PO .qafternoon tizanidine 2 mg PO TID PRN 30 days tramadol 1 to 2 tablets PO 2 times a day; 28 days Tobacco use date assessed: 03/05/24 Dental Screening Dental Screen Date: 03/05/24 Did you have a dental visit in the last 12 months?: Yes Did you have a dental problem in the last 6 months where you did not have access to dental care?: No Was dental information given to patient?: Patient has dentist HPI 3 Months F/U HPI Details Patient comes in today for his follow-up visit States that he feels okay and that he has mostly recovered completely from his recent hemorrhoid surgery a few months ago He denies any headaches or dizziness Denies any chest pains, no increased shortness of breath No nausea/vomiting, no abdominal pain No change in bowel habits noted Needs his tizanidine Rx refilled He had his follow-up labs done a few weeks ago - to discuss his results [facility] Medical History (Updated 03/06/24 @ 05:24 by Marcial David MD) Overweight (BMI 25.0-29.9) Bleeding hemorrhoids Family history of gastric cancer Gallstones Hyperglycemia Fatigue Palpitations Umbilical hernia Left elbow tendinitis Elevated d-dimer Primary osteoarthritis, left shoulder Acute lumbar myofascial strain Right knee pain Umbilical hernia (04/13/22) Gallstones Diarrhea Chronic abdominal pain Obesity (BMI 30-39.9) Chronic cholecystitis Dyspepsia Primary osteoarthritis of shoulders, bilateral Benign essential hypertension Excessive sweating Primary osteoarthritis, right shoulder Constipation Tubular adenoma of colon Surgical History History of hemorrhoidectomy (~01/24/24) Hx laparoscopic cholecystectomy (~10/08/22) Hx of umbilical hernia repair History of incision and drainage H/O esophagogastroduodenoscopy H/O colonoscopy Status post pericardial cyst excision (~02/13/19) History of varicose vein ligation and stripping H/O inguinal hernia repair S/P tendon repair Family History Father Stomach cancer Mental health problem Mother AIDS Sister PALMER (non-insulin dependent diabetes mellitus in young) Hypertension Other Substance abuse Social History Household Members: Children Housing: Apartment Are you a primary college and career counselor to a significant other at home: No Do you presently have visiting nurse or other home services: Yes ([employer]) Alcohol intake: former Patient Tobacco Use Status: Former Tobacco user Tobacco use type: Cigarette Cigarettes Per Day: 40 Years Smoked: quit greater than 10 years ago e-Cigarette/Vaping Use: Never Used Second Hand Smoke Exposure: No Advance Directives Date on File: 07/11/20 Current occupational status: disabled Cognitive needs: No Hearing needs: No Vision needs: Yes Questionnaire PHQ-9 Over the last 2 weeks, how often have you been bothered by any of the following problems? 1. Little interest or pleasure in doing things: more than half the days 2. Feeling down, depressed, or hopeless: several days 3. Trouble falling or staying asleep, or sleeping too much: more than half the days 4. Feeling tired or having little energy: more than half the days 5. Poor appetite or overeating: several days 6. Feeling bad about yourself - or that you are a failure or have let yourself or your family down: not at all 7. Trouble concentrating on things, such as reading the newspaper or watching television: several days 8. Moving or speaking so slowly that other people could have noticed. Or the opposite - being so fidgety or restless that you have been moving around a lot more than usual: more than half the days 9. Thoughts that you would be better off or of hurting yourself in some way: not at all Total score: 11 Depression Screening Interpretation: Positive Depression Screening Follow-up: Existing condition and In treatment Depression Screening Done: Yes 53067 - PHQ-9 Billing: Yes Source: Developed by Drs. Bro Guillermo, Dimple Lawson, Bulmaro Tavares and colleagues, with an educational sofie from [employer]. Thrive Questionnaire Date Thrive assessed: 03/05/24 I am a: Patient What is your living situation today?: I have a steady place to live Within the past 12 months, did the food you bought not last and you didn't have the money to get more?: Never true Within the past 12 months, did you worry whether your food would run out before you got money to buy more?: Never true Do you have trouble paying for medicines?: No Do you have trouble getting transportation to medical appointments?: No Do you have trouble paying your heating and electricity bill?: No Do you have trouble taking care of your child, family member or friend?: No Do you have trouble with day-to-day activities such as bathing, preparing meals, shopping, managing finances, etc.?: No Are you currently unemployed and looking for a job?: No Are you interested in more education?: No Please select the resources that you would like help with: None Currently or been in a relationship where the following occur: No concerns reported THRIVE Score: 0 AUDIT C Alcohol Use Questionnaire (AUDIT-C) 1. How often do you have a drink containing alcohol?: Never 3. How often do you have six or more drinks on one occasion?: Never Total Score: 0 Score Reviewed/Action Taken: Yes GANESH-7 AMB Questionnaire GANESH-7 Date GANESH - 7 assessed: 03/05/24 Feeling nervous, anxious, or on edge: 0 = Not at all Not being able to stop or control worryin = Not at all Worrying too much about different things: 0 = Not at all Trouble relaxin = Not at all Being so restless that it is hard to sit still: 0 = Not at all Becoming easily annoyed or irritable: 0 = Not at all Feeling afraid as if something awful might happen: 0 = Not at all Total GANESH-7 score (0-4 normal; 5-9 mild; 10-14 moderate; 15-21 severe): 0 Source: Developed by Drs. Bro Guillermo, Dimple Lawson, Bulmaro Tavares and colleagues, with an educational soife from [employer]. Review of Systems Const Reports difficulty sleeping (Rx helping), Reports fatigue, Denies fever(s) and Denies headache(s) ENT Denies dysphagia, Denies dizziness, Denies otalgia, Denies headache(s), Denies neck pain, Denies odynophagia and Denies sore throat Card Denies chest pain, Denies palpitations and Reports dyspnea on exertion (mild) Resp Denies chest congestion, Denies cough and Reports dyspnea on exertion (mild) GI Denies abdominal pain, Denies hematochezia, Reports constipation (on and off), Denies dysphagia, Denies heartburn, Denies diarrhea, Reports loose stools (occasionally), Denies nausea, Denies odynophagia and Denies vomiting Denies dysuria, Denies nocturia and Denies urinary frequency Musc Reports back pain (chronic ), Reports arthralgias (involving multiple joints, including both shoulders ; over R knee lately) and Denies neck pain Skin/Breast Denies rash Neuro Denies dizziness and Denies headache(s) Psych Reports anxiety and Reports depression Endo Reports fatigue and Denies palpitations Physical exam (Primary Care) Vital Signs: Last Vital Signs Pulse 84 03/05/24 15:54 BP 136/84 03/05/24 15:54 Pulse Ox 96 03/05/24 15:54 Oxygen Delivery Method Room Air 03/05/24 15:54 BMI result Body Mass Index 28.2 Tobacco/Smoking Status: Tobacco use Status Tobacco use date assessed 03/05/24 03/05/24 15:59 Patient Tobacco Use Status Former Tobacco user 03/05/24 15:59 Tobacco use type Cigarette 03/05/24 15:59 e-Cigarette/Vaping Use Never Used 03/05/24 15:59 PHQ-9: PHQ-9 Score PHQ-9: Total score 11 03/05/24 16:34 Depression Screening Interpretation: Positive Depression Screening Follow-up: Existing condition and In treatment Thrive Assessment: Date of Thrive Assessment Date Thrive assessed 03/05/24 03/05/24 15:59 Currently or been in a relationship where the following occur: No concerns reported Const General: no acute distress and alert HENMT Ears: TM's normal bilaterally and EAC's normal Throat: Yes posterior oropharynx normal and Yes tonsils normal (no TP congestion) Neck Neck: Yes no lymphadenopathy and Yes supple Thyroid: Thyroid normal Resp Auscultation: clear to auscultation bilaterally, no rales and no wheezes Cardio Rate: regular rate Rhythm: regular rhythm Heart sounds: no murmurs GI Palpation (GI): Soft to palpation and nontender Auscultation: normal bowel sounds General: Yes no CVA tenderness Back/Spine/Pelvis Back: no CVA tenderness Cervical Spine: No Cervical spine tenderness Thoracic/Lumbar Spine: lumbar spinal tenderness Skin Rashes: no rashes Extrem General: Yes no clubbing, cyanosis or edema Right upper extremity: shoulder/upper arm Details: tenderness Location: of the A-C joint Left upper extremity: shoulder/upper arm Details: tenderness Location: of the A- C joint Right lower extremity: knee Details: tenderness; no swelling Left lower extremity: knee Details: tenderness; no swelling Results Reviewed Results Reviewed: Laboratory Tests 02/10/24 07:40 WBC 6.8 Hgb 14.8 Hct 43.6 Plt Count 235 D Sodium 137 Potassium 4.2 Creatinine 0.80 Estimated GFR > 60 Fasting Glucose 95 Calcium 8.8 AST 31 ALT 22 Triglycerides 76 Cholesterol 123 LDL Cholesterol, Calc 68 HDL Cholesterol 40 L 25-OH Vitamin D Total 39.1 TSH 0.84 Ur Specific [place] 1.010 Urine Protein Negative Urine Glucose (UA) Negative Urine Blood Negative Urine Nitrite Negative Ur Leukocyte Esterase Negative Coding Level of Care Code Est Pt Level 4 (90989) Diagnoses Degeneration of intervertebral disc of lumbar region with discogenic back pain M51.360 Disc-related pain type: discogenic back pain only Primary osteoarthritis of shoulders, bilateral M19.011; M19.012 Benign essential hypertension I10 Gastroesophageal reflux disease without esophagitis K21.9 Esophagitis presence: without esophagitis Irritable bowel syndrome with both constipation and diarrhea K58.2 Insomnia, unspecified type G47.00 Insomnia type: unspecified Anxiety F41.9 Episode of recurrent major depressive disorder, unspecified depression episode severity F33.9 Depression Type: major depressive disorder Major depression recurrence: recurrent Active/Remission status: currently active Major depression episode severity: unspecified Overweight (BMI 25.0-29.9) E66.3 Additional Codes PHQ-9 - 20788 - PHQ-9 Billing: Yes ([id number]) Assessment & Plan Assessment & Plan (1) Lumbar degenerative disc disease: Code(s): M51.36 - Other intervertebral disc degeneration, lumbar region Category: Medical Qualifiers: Disc-related pain type: discogenic back pain only Qualified Code(s): M51.360 - Other intervertebral disc degeneration, lumbar region with discogenic back pain only Plan: Reinforced activity and weight lifting restrictions Continue Tizanidine 2 mg 3 times a day as needed (Rx refilled), Acetaminophen 500 mg TID PRN, Lidocaine 4% cream apply to painful area on lower back as needed and Tramadol 50 mg TID PRN He has been seeing [facility] pain management and receiving back injections, which he states have not been helping much recently and he has expressed his concerns about getting too many cortisone injections and their potential long-term implications for him Have advised him that other than cortisone injections, there are other interventional modalities available and that he should continue to follow-up with pain management (at [facility]) and pursue interventional treatments rather than chronic opioid Rx for his chronic pain (2) Primary osteoarthritis of shoulders, bilateral: Code(s): M19.011 - Primary osteoarthritis, right shoulder; M19.012 - Primary osteoarthritis, left shoulder Category: Medical Plan: His shoulders have been bothering him a lot since he had his cholecystectomy in September 2022 X-rays of the shoulders done last year (May 2022) revealed (+) moderate subacromial spur in the right shoulder; right shoulder is otherwise normal and left shoulder x-rays came back normal He went to physical therapy for his shoulders for a while and states that PT has helped somewhat Follow up with rheumatology as scheduled; was seeing Dr. Pitt at [facility] [place] [facility] in the past and is now seeing Dr. Millard (3) Benign essential hypertension: Code(s): I10 - Essential (primary) hypertension Category: Medical Plan: Results of his labs done a few weeks ago reviewed and discussed with patient Reinforced low sodium diet - goal is systolic BP of at least 120 to 130 mm or less Continue Losartan 25 mg QD (4) GERD (gastroesophageal reflux disease): Code(s): K21.9 - Gastro-esophageal reflux disease without esophagitis Category: Medical Qualifiers: Esophagitis presence: without esophagitis Qualified Code(s): K21.9 - Gastro-esophageal reflux disease without esophagitis Plan: Dietary restrictions reinforced Continue Pantoprazole 20 mg QD (5) Irritable bowel syndrome with both constipation and diarrhea: Comment: With an element of post cholecystectomy syndrome Code(s): K58.2 - Mixed irritable bowel syndrome Category: Medical Plan: Continue Docusate 100 mg BID PRN and Creon 2 capsules BID Follow up with GI as scheduled Stool culture and test for H. pylori done last year came back negat (6) Insomnia: Code(s): G47.00 - Insomnia, unspecified Category: Medical Qualifiers: Insomnia type: unspecified Qualified Code(s): G47.00 - Insomnia, unspecified Plan: Sleep hygiene reinforced Continue Zolpidem ER 12.5 mg Q HS PRN; is also on Quetiapine, which helps with his sleep as well (7) Anxiety: Code(s): F41.9 - Anxiety disorder, unspecified Category: Medical Plan: Continue Clonazepam 1 mg once a day at bedtime as needed, Clonazepam 0.5 mg once a day in AM, Propranolol 20 mg BID and Clonidine 0.1 mg BID PRN (8) Depression: Code(s): F32.9 - Major depressive disorder, single episode, unspecified Category: Medical Qualifiers: Depression Type: major depressive disorder Major depression recurrence: recurrent Active/Remission status: currently active Major depression episode severity: unspecified Qualified Code(s): F33.9 - Major depressive disorder, recurrent, unspecified Plan: Continue Prazosin 2 mg BID (to help with his nightmares) and Quetiapine 200 mg Q HS He also used to take Wellbutrin XL but states that he weaned off this medication on his own a few months ago as he did not feel that it was helping much Follow-up with Psychiatry as scheduled (9) Overweight (BMI 25.0-29.9): Code(s): E66.3 - Overweight Category: Medical Plan: Reinforced diet; exercise is not realistic given his multiple physical issues but he is again encouraged to still try to do what he can to lose weight or manage his weight better Plan Follow up in 3 months Medications: Refilled tizanidine 2 mg PO TID 30 days PRN 90 tabs 2RF muscle spasticity
[2024-03-05 15:54] VITALS: BP 136/84; PULSE 84; O2SAT 96; BMI 28.2
== END 2024-03-05 16:41 | disposition home or self-care (01) ==
PROVIDERS: PCP Internal Medicine; Visit Provider Internal Medicine
DX: M51.360 Other intervertebral disc degeneration, lumbar region with discogenic back pain only (principal); F33.9 Major depressive disorder, recurrent, unspecified; M19.011 Primary osteoarthritis, right shoulder; M19.012 Primary osteoarthritis, left shoulder; I10 Essential (primary) hypertension; K21.9 Gastro-esophageal reflux disease without esophagitis; K58.2 Mixed irritable bowel syndrome; G47.00 Insomnia, unspecified; F41.9 Anxiety disorder, unspecified; E66.3 Overweight

== ENCOUNTER → 2024-03-05 15:43 | Outpatient (BNVA) | payer MEDICARE, MEDICAID, SELFPAY | PROVIDERS: PCP Internal Medicine; Visit Provider Internal Medicine | DX: M51.360 Other intervertebral disc degeneration, lumbar region with discogenic back pain only (principal); M19.011 Primary osteoarthritis, right shoulder; M19.012 Primary osteoarthritis, left shoulder; I10 Essential (primary) hypertension; K21.9 Gastro-esophageal reflux disease without esophagitis; G47.00 Insomnia, unspecified; F41.9 Anxiety disorder, unspecified; F33.9 Major depressive disorder, recurrent, unspecified; E66.3 Overweight | CPT/HCPCS: 96127; 99212 ==

== ENCOUNTER 2024-03-07 12:31 | Outpatient (AMB) | payer MEDICARE, MEDICAID, SELFPAY ==
--- NOTE | 2024-03-07 12:54 | MHC.OFFVIS ---
Vital Signs 03/07/24 12:57 Height 6 ft Weight 206 lb BMI 27.9 BP 150/81 H Blood Pressure Location Lt brachial Position Sitting Pulse 94 Intake Visit Reasons: 1 month S/P EUA, hemorrhoidectomy Intake Note: This patient presents for one month follow-up status post EUA, hemorrhoidectomy. Pt c/o; when sneezing or coughing has to check due to feeling of bm, discomfort with prolonged sitting, loose stool due to taking Senna and Colace, some blood in stool when straining Lidar Technician Required: No Accompanied by: Self / Same As Patient Allergies seafood Allergy (Severe, Verified 03/07/24 12:57) Anaphylaxis duloxetine Allergy (Intermediate, Verified 03/07/24 12:57) N/V, diarrhea, shakiness, withdrawal symptoms gabapentin Allergy (Intermediate, Verified 03/07/24 12:57) confusion/memory loss/hallucination lactase [LACTASE] Allergy (Intermediate, Verified 03/07/24 12:57) Nausea HPI HPI 1 month S/P EUA, hemorrhoidectomy: Details: He continues to do well after hemorrhoidectomy of 2 columns last 01/24/2024. He denies significant pain. He denies bleeding. He says he is happy so far with the outcome. [facility] Medical History Overweight (BMI 25.0-29.9) Bleeding hemorrhoids Family history of gastric cancer Gallstones Hyperglycemia Fatigue Palpitations Umbilical hernia Left elbow tendinitis Elevated d-dimer Primary osteoarthritis, left shoulder Acute lumbar myofascial strain Right knee pain Umbilical hernia (04/13/22) Gallstones Diarrhea Chronic abdominal pain Obesity (BMI 30-39.9) Chronic cholecystitis Dyspepsia Primary osteoarthritis of shoulders, bilateral Benign essential hypertension Excessive sweating Primary osteoarthritis, right shoulder Constipation Tubular adenoma of colon Surgical History History of hemorrhoidectomy (~01/24/24) Hx laparoscopic cholecystectomy (~10/08/22) Hx of umbilical hernia repair History of incision and drainage H/O esophagogastroduodenoscopy H/O colonoscopy Status post pericardial cyst excision (~02/13/19) History of varicose vein ligation and stripping H/O inguinal hernia repair S/P tendon repair Family History Father Stomach cancer Mental health problem Mother AIDS Sister PALMER (non-insulin dependent diabetes mellitus in young) Hypertension Other Substance abuse Social History Household Members: Children Housing: Apartment Are you a primary early breastfeeding care specialist to a significant other at home: No Do you presently have visiting nurse or other home services: Yes ([facility]) Alcohol intake: former Patient Tobacco Use Status: Former Tobacco user Tobacco use type: Cigarette Cigarettes Per Day: 40 Years Smoked: quit greater than 10 years ago e-Cigarette/Vaping Use: Never Used Second Hand Smoke Exposure: No Advance Directives Date on File: 07/11/20 Current occupational status: disabled Cognitive needs: No Hearing needs: No Vision needs: Yes Review of Systems Const Denies chills and Denies fever(s) GI Denies hematochezia Physical Exam Vital Signs: Last Vital Signs Pulse 94 03/07/24 12:57 BP 150/81 H 03/07/24 12:57 BMI result Body Mass Index 27.9 Const General: comfortable and no acute distress GI Other: Rectal exam shows the hemorrhoidectomy sites to be well healed. Assessment & Plan Assessment & Plan (1) Bleeding hemorrhoids: Code(s): K64.9 - Unspecified hemorrhoids Category: Medical Plan: Status post hemorrhoidectomy. He is doing very well. He says that his bleeding has resolved. He feels well overall and is very happy with the outcome. He can follow up on a p.r.n. basis. I advised him to avoid straining and constipation. Coding Level of Care Code Global (71919) Diagnoses Bleeding hemorrhoids K64.9
[2024-03-07 12:57] VITALS: BP 150/81; PULSE 94; BMI 27.9
== END 2024-03-07 13:25 | disposition home or self-care (01) ==
PROVIDERS: PCP Internal Medicine; Visit Provider Surgery
DX: K64.9 Unspecified hemorrhoids (principal)
CPT/HCPCS: 99024

== ENCOUNTER → 2024-03-07 12:31 | Outpatient (BNVA) | payer MEDICARE, MEDICAID, SELFPAY | PROVIDERS: PCP Internal Medicine; Visit Provider Surgery | DX: K64.9 Unspecified hemorrhoids (principal) | CPT/HCPCS: 99212 ==

== ENCOUNTER 2024-06-11 15:33 | Outpatient (AMB) | payer MEDICARE, MEDICAID, SELFPAY ==
[2024-06-11 15:49] VITALS: BP 136/82; PULSE 76; O2SAT 98; BMI 28.3
--- NOTE | 2024-06-11 15:49 | A.OFFPC_ITS ---
Vital Signs 06/11/24 15:49 Height 6 ft Weight 209 lb BMI 28.3 BP 136/82 Blood Pressure Location Lt brachial Position Sitting Pulse 76 Pulse Source Pulse Oximeter Pulse Oximetry (%) 98 Oxygen Delivery Method Room Air Intake Visit Reasons: 3 Months f/u Hall Cleaner Required: No Accompanied by: Self / Same As Patient Allergies seafood Allergy (Severe, Verified 06/11/24 16:30) Anaphylaxis duloxetine Allergy (Intermediate, Verified 06/11/24 16:30) N/V, diarrhea, shakiness, withdrawal symptoms gabapentin Allergy (Intermediate, Verified 06/11/24 16:30) confusion/memory loss/hallucination lactase [LACTASE] Allergy (Intermediate, Verified 06/11/24 16:30) Nausea Medication List - Last Reconciled 06/11/24 by Marcial David MD acetaminophen 500 mg PO TID PRN aspirin 81 mg PO DAILY clonazepam 0.5 mg PO DAILY clonazepam 1 mg PO BEDTIME PRN clonidine HCl 0.1 mg PO BID PRN 90 days docusate sodium (Colace) 100 mg PO BID [id number] 12,000-38,000 -60,000 unit (Creon) 2 caps PO BID losartan 25 mg PO DAILY 90 days oxycodone 5 mg PO Q4H PRN polyethylene glycol 3350 17 grams PO DAILY 30 days quetiapine 50 mg PO BEDTIME [RAISED TOILET SEAT As directed] ropinirole 0.5 mg PO BEDTIME sennosides (Senna Laxative) 17.2 mg (2 x 8.6 mg) PO BEDTIME sucralfate 2 grams (2 x 1 gram) PO .qafternoon tizanidine 2 mg PO TID PRN 30 days tramadol 1 to 2 tablets PO 2 times a day; 28 days Tobacco use date assessed: 06/11/24 Dental Screening Dental Screen Date: 06/11/24 Did you have a dental visit in the last 12 months?: No Did you have a dental problem in the last 6 months where you did not have access to dental care?: No Was dental information given to patient?: Patient has dentist HPI 3 Months f/u HPI Details Patient comes in today for his follow up visit States that he feels okay He denies any headaches or dizziness Denies any chest pains, no increased shortness of breath No nausea/vomiting, no abdominal pain No change in bowel habits noted States that he had his hemorrhoidectomy done back in January 2024 and has not had any further problems with rectal bleeding since States that his chronic low back pain and joint pains remain adequately controlled on his current medications He is presently requesting for a referral to Ophthalmology as he has noticed that his vision has been progressively getting worse over the past year He needs several of his Rx refilled today [facility] Medical History Overweight (BMI 25.0-29.9) Bleeding hemorrhoids Family history of gastric cancer Gallstones Hyperglycemia Fatigue Palpitations Umbilical hernia Left elbow tendinitis Elevated d-dimer Primary osteoarthritis, left shoulder Acute lumbar myofascial strain Right knee pain Umbilical hernia (04/13/22) Gallstones Diarrhea Chronic abdominal pain Obesity (BMI 30-39.9) Chronic cholecystitis Dyspepsia Primary osteoarthritis of shoulders, bilateral Benign essential hypertension Excessive sweating Primary osteoarthritis, right shoulder Constipation Tubular adenoma of colon Surgical History History of hemorrhoidectomy (~01/24/24) Hx laparoscopic cholecystectomy (~10/08/22) Hx of umbilical hernia repair History of incision and drainage H/O esophagogastroduodenoscopy H/O colonoscopy Status post pericardial cyst excision (~02/13/19) History of varicose vein ligation and stripping H/O inguinal hernia repair S/P tendon repair Family History Father Stomach cancer Mental health problem Mother AIDS Sister NIDKENZIE (non-insulin dependent diabetes mellitus in young) Hypertension Other Substance abuse Social History Household Members: Children Housing: Apartment Are you a primary health care consultant to a significant other at home: No Do you presently have visiting nurse or other home services: Yes ([employer]) Alcohol intake: former Patient Tobacco Use Status: Former Tobacco user Tobacco use type: Cigarette Cigarettes Per Day: 40 Years Smoked: quit greater than 10 years ago e-Cigarette/Vaping Use: Never Used Second Hand Smoke Exposure: No Advance Directives Date on File: 07/11/20 service: No Current occupational status: disabled Current occupational exposures/hazards: No Cognitive needs: No Hearing needs: No Vision needs: Yes Questionnaire PHQ-9 Over the last 2 weeks, how often have you been bothered by any of the following problems? 1. Little interest or pleasure in doing things: more than half the days 2. Feeling down, depressed, or hopeless: several days 3. Trouble falling or staying asleep, or sleeping too much: more than half the days 4. Feeling tired or having little energy: more than half the days 5. Poor appetite or overeating: several days 6. Feeling bad about yourself - or that you are a failure or have let yourself or your family down: not at all 7. Trouble concentrating on things, such as reading the newspaper or watching television: several days 8. Moving or speaking so slowly that other people could have noticed. Or the opposite - being so fidgety or restless that you have been moving around a lot more than usual: more than half the days 9. Thoughts that you would be better off or of hurting yourself in some way: not at all Total score: 11 Depression Screening Interpretation: Positive Depression Screening Follow-up: Existing condition and In treatment Depression Screening Done: Yes 25655 - PHQ-9 Billing: Yes Source: Developed by Drs. Bro Guillermo, Dimple Lawson, Bulmaro Tavares and colleagues, with an educational sofie from [employer]. Thrive Questionnaire Date Thrive assessed: 06/11/24 I am a: Patient What is your living situation today?: I have a steady place to live Within the past 12 months, did the food you bought not last and you didn't have the money to get more?: Never true Within the past 12 months, did you worry whether your food would run out before you got money to buy more?: Never true Do you have trouble paying for medicines?: No Do you have trouble getting transportation to medical appointments?: No Do you have trouble paying your heating and electricity bill?: No Do you have trouble taking care of your child, family member or friend?: No Do you have trouble with day-to-day activities such as bathing, preparing meals, shopping, managing finances, etc.?: No Are you currently unemployed and looking for a job?: No Are you interested in more education?: No Please select the resources that you would like help with: None Currently or been in a relationship where the following occur: No concerns reported THRIVE Score: 0 AUDIT C Alcohol Use Questionnaire (AUDIT-C) 1. How often do you have a drink containing alcohol?: Never 3. How often do you have six or more drinks on one occasion?: Never Total Score: 0 Score Reviewed/Action Taken: Yes GANESH-7 AMB Questionnaire GANESH-7 Date GANESH - 7 assessed: 06/11/24 Feeling nervous, anxious, or on edge: 0 = Not at all Not being able to stop or control worryin = Not at all Worrying too much about different things: 0 = Not at all Trouble relaxin = Not at all Being so restless that it is hard to sit still: 0 = Not at all Becoming easily annoyed or irritable: 0 = Not at all Feeling afraid as if something awful might happen: 0 = Not at all Total GANESH-7 score (0-4 normal; 5-9 mild; 10-14 moderate; 15-21 severe): 0 Source: Developed by Drs. Bro Guillermo, Dimple Lawson, Bulmaro Tavares and colleagues, with an educational sofie from [employer]. Review of Systems Const Denies chills, Reports difficulty sleeping (Rx helping), Reports fatigue, Denies fever(s) and Denies headache(s) Eyes Reports blurry vision (getting worse over the past year) and Denies eye pain ENT Denies dysphagia, Denies dizziness, Denies otalgia, Denies headache(s), Denies neck pain, Denies odynophagia and Denies sore throat Card Denies chest pain, Denies palpitations and Reports dyspnea on exertion (mild) Resp Denies chest congestion, Denies cough and Reports dyspnea on exertion (mild) GI Denies abdominal pain, Reports constipation (on and off), Denies dysphagia, Denies heartburn, Denies diarrhea, Reports loose stools (occasionally), Denies nausea, Denies odynophagia and Denies vomiting Denies difficulty urinating, Denies dysuria, Denies nocturia and Denies urinary frequency Musc Reports back pain (chronic ), Reports arthralgias (involving multiple joints, including both shoulders and the R knee ) and Denies neck pain Skin/Breast Denies rash Neuro Denies dizziness and Denies headache(s) Psych Reports anxiety and Reports depression Endo Reports fatigue and Denies palpitations Physical exam (Primary Care) Vital Signs: Last Vital Signs Pulse 76 06/11/24 15:49 BP 136/82 06/11/24 15:49 Pulse Ox 98 06/11/24 15:49 Oxygen Delivery Method Room Air 06/11/24 15:49 BMI result Body Mass Index 28.3 Tobacco/Smoking Status: Tobacco use Status Tobacco use date assessed 06/11/24 06/11/24 15:56 Patient Tobacco Use Status Former Tobacco user 06/11/24 15:56 Tobacco use type Cigarette 06/11/24 15:56 e-Cigarette/Vaping Use Never Used 06/11/24 15:56 PHQ-9: PHQ-9 Score PHQ-9: Total score 11 06/11/24 16:32 Depression Screening Interpretation: Positive Depression Screening Follow-up: Existing condition and In treatment Thrive Assessment: Date of Thrive Assessment Date Thrive assessed 06/11/24 06/11/24 15:56 Currently or been in a relationship where the following occur: No concerns reported Const General: no acute distress and alert HENMT Ears: TM's normal bilaterally and EAC's normal Throat: Yes posterior oropharynx normal and Yes tonsils normal (no TP congestion) Neck Neck: Yes no lymphadenopathy and Yes supple Thyroid: Thyroid normal Resp Auscultation: clear to auscultation bilaterally, no rales and no wheezes Cardio Rate: regular rate Rhythm: regular rhythm Heart sounds: no murmurs GI Palpation (GI): Soft to palpation and nontender Auscultation: normal bowel sounds General: Yes no CVA tenderness Back/Spine/Pelvis Back: no CVA tenderness Cervical Spine: No Cervical spine tenderness Thoracic/Lumbar Spine: lumbar spinal tenderness Skin Rashes: no rashes Extrem General: Yes no clubbing, cyanosis or edema Right upper extremity: shoulder/upper arm Details: tenderness Location: of the A-C joint Left upper extremity: shoulder/upper arm Details: tenderness Location: of the A- C joint Right lower extremity: knee Details: tenderness; no swelling Left lower extremity: knee Details: tenderness; no swelling Coding Level of Care Code Est Pt Level 4 (97955) Diagnoses Degeneration of intervertebral disc of lumbar region with discogenic back pain M51.360 Disc-related pain type: discogenic back pain only Primary osteoarthritis of shoulders, bilateral M19.011; M19.012 Benign essential hypertension I10 Gastroesophageal reflux disease without esophagitis K21.9 Esophagitis presence: without esophagitis Irritable bowel syndrome with both constipation and diarrhea K58.2 Visual impairment H54.7 Insomnia, unspecified type G47.00 Insomnia type: unspecified Anxiety F41.9 Episode of recurrent major depressive disorder, unspecified depression episode severity F33.9 Depression Type: major depressive disorder Major depression recurrence: recurrent Active/Remission status: currently active Major depression episode severity: unspecified Overweight (BMI 25.0-29.9) E66.3 Additional Codes PHQ-9 - 25411 - PHQ-9 Billing: Yes ([id number]) Assessment & Plan Assessment & Plan (1) Lumbar degenerative disc disease: Code(s): M51.36 - Other intervertebral disc degeneration, lumbar region Category: Medical Qualifiers: Disc-related pain type: discogenic back pain only Qualified Code(s): M51.360 - Other intervertebral disc degeneration, lumbar region with discogenic back pain only Plan: Reinforced activity and weight lifting restrictions Continue Tizanidine 2 mg 3 times a day as needed, Acetaminophen 500 mg TID PRN, Lidocaine 4% cream apply to painful area on lower back as needed and Tramadol 50 mg TID PRN (Rx refilled) He has been seeing [facility] pain management and receiving back injections, which he states have not been helping much recently and he has expressed his concerns about getting too many cortisone injections and their potential long-term implications for him Have advised him that other than cortisone injections, there are other interventional modalities available and that he should continue to follow-up with pain management (at [facility]) and pursue interventional treatments rather than chronic opioid Rx for his chronic pain (2) Primary osteoarthritis of shoulders, bilateral: Code(s): M19.011 - Primary osteoarthritis, right shoulder; M19.012 - Primary osteoarthritis, left shoulder Category: Medical Plan: His shoulders have been bothering him a lot since he had his cholecystectomy in September 2022 X-rays of the shoulders done in May 2022 revealed (+) moderate subacromial spur in the right shoulder; the right shoulder is otherwise normal and left shoulder x-rays came back normal He went to physical therapy for his shoulders for a while and states that PT has helped somewhat Follow up with rheumatology as scheduled; was seeing Dr. Pitt and Dr. Mill[place] [facility] [place] the past and will now be seeing Dr. Scott in a couple of months (3) Benign essential hypertension: Code(s): I10 - Essential (primary) hypertension Category: Medical Plan: Reinforced low sodium diet - goal is systolic BP of at least 120 to 130 mm or less Continue Losartan 25 mg QD - Rx refilled Will have patient recheck his labs in 3 months for follow up (4) GERD (gastroesophageal reflux disease): Code(s): K21.9 - Gastro-esophageal reflux disease without esophagitis Category: Medical Qualifiers: Esophagitis presence: without esophagitis Qualified Code(s): K21.9 - Gastro-esophageal reflux disease without esophagitis Plan: Dietary restrictions reinforced Continue Pantoprazole 20 mg QD (5) Irritable bowel syndrome with both constipation and diarrhea: Comment: With an element of post cholecystectomy syndrome Code(s): K58.2 - Mixed irritable bowel syndrome Category: Medical Plan: Continue Docusate 100 mg BID PRN and Creon 2 capsules BID Follow up with GI as scheduled Stool culture and test for H. pylori done last year came back negat (6) Visual impairment: Code(s): H54.7 - Unspecified visual loss Category: Medical Plan: Per request, will refer him to ophthalmology for further evaluation and management of his recently declining visual acuity (7) Insomnia: Code(s): G47.00 - Insomnia, unspecified Category: Medical Qualifiers: Insomnia type: unspecified Qualified Code(s): G47.00 - Insomnia, unspecified Plan: Sleep hygiene reinforced Continue Zolpidem ER 12.5 mg Q HS PRN; is also on Quetiapine, which helps with his sleep as well (8) Anxiety: Code(s): F41.9 - Anxiety disorder, unspecified Category: Medical Plan: Continue Clonazepam 1 mg once a day at bedtime as needed, Clonazepam 0.5 mg once a day in AM, Propranolol 20 mg BID and Clonidine 0.1 mg BID PRN (9) Depression: Code(s): F32.9 - Major depressive disorder, single episode, unspecified Category: Medical Qualifiers: Depression Type: major depressive disorder Major depression recurrence: recurrent Active/Remission status: currently active Major depression episode severity: unspecified Qualified Code(s): F33.9 - Major depressive disorder, recurrent, unspecified Plan: Continue Prazosin 2 mg BID (to help with his nightmares) and Quetiapine 200 mg Q HS He also used to take Wellbutrin XL but states that he weaned off this medication on his own a few months ago as he did not feel that it was helping much Follow-up with Psychiatry as scheduled (10) Overweight (BMI 25.0-29.9): Code(s): E66.3 - Overweight Category: Medical Plan: Reinforced diet; exercise is not realistic given his multiple physical issues but he is again encouraged to still try to do what he can to lose weight or manage his weight better Plan Follow up in 3 months Orders: Orders Complete Blood Count Auto Diff 3 Months D64.9 - Anemia, unspecified Lipid Panel 3 Months E78.00 - Pure hypercholesterolemia, unspecified Comprehensive [place]. Panel Fast 3 Months E78.00 - Pure hypercholesterolemia, unspecified Prostate Specific Antigen 3 Months N40.0 - Benign prostatic hyperplasia without lower urinary tract symptoms Referrals Ophthalmology Referral H54.7 - Unspecified visual loss Medications: Refilled clonazepam 1 tabl Q AM 0.5 mg PO DAILY 30 tabs 0RF clonazepam 1 mg PO BEDTIME PRN 30 tabs 0RF anxiety tramadol 1 to 2 tablets PO 2 times a day; 28 days 112 tabs 0RF pain ondansetron 4 mg PO BID-TID PRN 14 tabs 3RF nausea and vomiting R11.2 - Nausea with vomiting, unspecified losartan 25 mg PO DAILY 90 days 90 tabs 1RF I10 - Essential (primary) hypertension
== END 2024-06-11 16:45 | disposition home or self-care (01) ==
LOC: HO.HMCH 15:33
PROVIDERS: PCP Internal Medicine; Visit Provider Internal Medicine
DX: M51.360 Other intervertebral disc degeneration, lumbar region with discogenic back pain only (principal); M19.011 Primary osteoarthritis, right shoulder; F33.9 Major depressive disorder, recurrent, unspecified; M19.012 Primary osteoarthritis, left shoulder; I10 Essential (primary) hypertension; K21.9 Gastro-esophageal reflux disease without esophagitis; K58.2 Mixed irritable bowel syndrome; H54.7 Unspecified visual loss; G47.00 Insomnia, unspecified; F41.9 Anxiety disorder, unspecified; E66.3 Overweight

== ENCOUNTER → 2024-06-11 15:33 | Outpatient (BNVA) | payer MEDICARE, MEDICAID, SELFPAY | PROVIDERS: PCP Internal Medicine; Visit Provider Internal Medicine | DX: M51.360 Other intervertebral disc degeneration, lumbar region with discogenic back pain only (principal); M19.011 Primary osteoarthritis, right shoulder; M19.012 Primary osteoarthritis, left shoulder; I10 Essential (primary) hypertension; K21.9 Gastro-esophageal reflux disease without esophagitis; K58.2 Mixed irritable bowel syndrome; H54.7 Unspecified visual loss; G47.00 Insomnia, unspecified; F41.9 Anxiety disorder, unspecified; F33.9 Major depressive disorder, recurrent, unspecified | CPT/HCPCS: 96127; 99212 ==

== ENCOUNTER 2024-06-26 13:28 | Outpatient (AMB) | payer MEDICARE, MEDICAID, SELFPAY ==
--- NOTE | 2024-06-26 13:38 | A.OFFVIS_ITS ---
Vital Signs 06/26/24 13:39 Height 6 ft Weight 209 lb 7.026 oz BMI 28.4 BP 140/87 H Blood Pressure Location Lt brachial Position Sitting Pulse 81 Intake Visit Reasons: 6 mo f/u GERD (gastroesophageal reflux disease) Intake Note: Paul presents in office today in follow up of GERD. CC: Patient reports that he feels the new strength of simethicone does not work as well as the 180 mg. Information Technology Technician Required: No Accompanied by: Self / Same As Patient Allergies seafood Allergy (Severe, Verified 06/26/24 13:48) Anaphylaxis duloxetine Allergy (Intermediate, Verified 06/26/24 13:48) N/V, diarrhea, shakiness, withdrawal symptoms gabapentin Allergy (Intermediate, Verified 06/26/24 13:48) confusion/memory loss/hallucination lactase [LACTASE] Allergy (Intermediate, Verified 06/26/24 13:48) Nausea HPI HPI 6 mo f/u GERD (gastroesophageal reflux disease): Details: Assessment & Plan (1) Irritable bowel syndrome with both constipation and diarrhea: Comment: With an element of post cholecystectomy syndrome Code(s): K58.2 - Mixed irritable bowel syndrome Category: Medical (2) Post-cholecystectomy syndrome: Code(s): K91.5 - Postcholecystectomy syndrome Category: Medical (3) GERD (gastroesophageal reflux disease): Code(s): K21.9 - Gastro-esophageal reflux disease without esophagitis Category: Medical Qualifiers: Esophagitis presence: without esophagitis Qualified Code(s): K21.9 - Gastro-esophageal reflux disease without esophagitis (4) Thrombosed external hemorrhoids: Comment: Patient has been given local instructions including dressing changes, Sitz baths, stool softeners as needed, analgesics and will see me as directed or p.r.n. Code(s): K64.5 - Perianal venous thrombosis Category: Surgical Plan APPARENTLY, HE WAS seen in the ER about a month ago for rectal bleeding which was diagnosed as an thrombosed external hemorrhoid and treated by Dr. Saenz of General surgery. He still has some itching rectally but he is not bleeding and has no pain. He says that Dr. Saenz said he should have a colonoscopy, but we just did one last year and this would be fruitless as colonoscopy does not treat hemorrhoids in any way. Apparently, Dr. Saenz is recommending a hemorrhoidectomy. He has had no CIC and is not straining at stooling with his colace and senna. He was given Miralax, but this just gave him diarrhea and he stopped it. He has a strong FHX of hemorrhoids, his father and brother both had surgery for this twice. He wants to restart his creon as after thinking it was not helping, he found that he had more bloating and upset stomach after stopping it. His current GI regimen consists of colace, senna, simethicone, creon, sucralfate and pantoprazole and proctosol cream. Medications: New hydrocortisone 2.5% (Proctosol HC) BE SURE TO INCLUDE RECTAL APPICATOR!! 1 appl ME BID 30 grams 6RF hemorrhoids K64.9 - Unspecified hemorrhoids [id number] 12,000-38,000 -60,000 unit (Creon) 2 caps PO BID 120 caps 6RF K58.2 - Mixed irritable bowel syndrome Refilled simethicone 180 mg PO QID PRN 120 caps 0RF for abdominal pain R14.0 - Abdominal distension (gaseous) docusate sodium 100 mg PO DAILY 90 caps 6RF K58.2 - Mixed irritable bowel syndrome pantoprazole 20 mg PO DAILY 90 tabs 0RF Discontinued polyethylene glycol 3350 Discontinued Reason: Doctor's Order 17 grams PO DAILY 238 grams 0RF ?Correspondence On 06/18/24 @ 08:24 Niki Scott Wrote To SilasJune noted, are you able to send a new script? On 06/15/24 @ 17:16 SilasLita Wrote To Niki Scott Totally ok On 06/15/24 @ 07:45 Niki Scott Wrote To SilasJune Hi June, It looks like previous dose of Simethicone sent is no longer available/covered by insurance - per pharmacy (as below), they state only one they can fill is the 125mg. Are you agreeable w/ this? On 06/14/24 @ 11:18 Yarelis Bradley Wrote To Niki Scott [facility] called regarding rx for Simethicone they said they can fill the 125mg for patient TODAY'S VISIT He feels that the 125mg dose of simethicone does not work as well as the 180mg. We will try rx'ing 80mg 2 tabs qid instead as the 180mg dose has been out of stock universally. His current GI regimen consists of colace, senna, simethicone, creon, sucralfate and pantoprazole and proctosol cream. He was treated by surgery for a thrombosed external roid. Educated he needs to control his CIC to keep this from happening again. ROV 6 mos. [facility] Medical History (Updated 06/26/24 @ 13:51 by MARVIN Solis) Medicare annual wellness visit, subsequent Overweight (BMI 25.0-29.9) Bleeding hemorrhoids Family history of gastric cancer Gallstones Hyperglycemia Fatigue Palpitations Umbilical hernia Left elbow tendinitis Elevated d-dimer Primary osteoarthritis, left shoulder Acute lumbar myofascial strain Right knee pain Umbilical hernia (04/13/22) Gallstones Diarrhea Chronic abdominal pain Obesity (BMI 30-39.9) Chronic cholecystitis Dyspepsia Primary osteoarthritis of shoulders, bilateral Benign essential hypertension Excessive sweating Primary osteoarthritis, right shoulder Constipation Tubular adenoma of colon Surgical History History of hemorrhoidectomy (~01/24/24) Hx laparoscopic cholecystectomy (~10/08/22) Hx of umbilical hernia repair History of incision and drainage H/O esophagogastroduodenoscopy H/O colonoscopy Status post pericardial cyst excision (~02/13/19) History of varicose vein ligation and stripping H/O inguinal hernia repair S/P tendon repair Family History Father Stomach cancer Mental health problem Mother AIDS Sister NIDKENZIE (non-insulin dependent diabetes mellitus in young) Hypertension Other Substance abuse Social History Household Members: Children Housing: Apartment Are you a primary health care administrator to a significant other at home: No Do you presently have visiting nurse or other home services: Yes ([facility] [employer]) Alcohol intake: former Patient Tobacco Use Status: Former Tobacco user Tobacco use type: Cigarette Cigarettes Per Day: 40 Years Smoked: quit greater than 10 years ago e-Cigarette/Vaping Use: Never Used Second Hand Smoke Exposure: No Advance Directives Date on File: 07/11/20 service: No Current occupational status: disabled Current occupational exposures/hazards: No Cognitive needs: No Hearing needs: No Vision needs: Yes Review of Systems Const Denies fatigue, Denies fever(s), Denies night sweats, Denies poor appetite and Denies weight loss ENT Reports Normal hearing present, Denies dental pain, Denies dysphagia, Denies hearing loss, Denies mouth pain, Denies odynophagia, Denies throat swelling, Denies tongue swelling and Reports other (Dentition adequate) Card Reports no additional complaints Resp Reports no additional complaints GI Details: Denies abdominal pain, Denies melena, Reports bloating, Denies hematochezia, Denies constipation, Reports GI cramping, Denies dysphagia, Denies excessive flatus, Denies early satiety, Reports heartburn, Reports diarrhea, Denies nausea, Denies odynophagia, Denies vomiting and Denies hematemesis Skin/Breast Denies pruritus, Denies lesions, Denies rash and Denies jaundice Neuro Reports Normal hearing present and Denies Abnormal speech present Endo Denies fatigue Aller/Immun Denies throat swelling and Denies tongue swelling Physical Exam Vital Signs: Last Vital Signs Pulse 81 06/26/24 13:39 BP 140/87 H 06/26/24 13:39 BMI result Body Mass Index 28.4 Const General: cooperative, no acute distress, well developed and well groomed Nutritional Appearance: well nourished and overweight Orientation/consciousness: oriented to person, oriented to place and oriented to time Limitations: No language barrier HEENT Head: Yes normocephalic and Yes atraumatic Eyes General: appearance normal, both eyes and all related structures Pupils: Equal, round and reactive pupils present Neck Neck: Yes normal visual inspection and Yes no lymphadenopathy Thyroid: Thyroid normal Resp Effort & Inspection: normal respiratory effort and able to speak in complete sentences Auscultation: clear to auscultation bilaterally Cardio Rate: regular rate Rhythm: regular rhythm Heart sounds: Normal, physiologic split S2 sound present Peripheral pulses: radial pulses present and posterior tibial pulses present GI Inspection: No distended and No Abdominal panniculus present Palpation (GI): Soft to palpation, nontender, no guarding, not rigid and No hepatosplenomegaly present Percussion: Yes normal to percussion Auscultation: normal bowel sounds Rectal Exam - Male: Yes deferred Skin General skin exam: no rashes or lesions noted, turgor normal, skin not dry, no jaundice, No spider nevi and no striae Rashes: no rashes Nails: normal Neuro General: oriented to person, oriented to place and oriented to time Cranial nerves: Yes Equal, round and reactive pupils present and Yes Normal hearing present Speech: No Abnormal speech present Extrem General: Yes normal to inspection, No clubbing, No cyanosis and No edema Psych Appearance: grossly normal and well kempt Mental Status: mental status grossly normal Speech and movement: Normal speech and movement present Affect: normal affect Attitude: cooperative Thought process: Normal thought process present and not confabulating Thought content: Normal thought content present Insight: Fair insight present (Psych) Judgement: Fair judgement present (Psych) Assessment & Plan Assessment & Plan (1) Post-cholecystectomy syndrome: Code(s): K91.5 - Postcholecystectomy syndrome Category: Medical (2) Thrombosed external hemorrhoids: Comment: Patient has been given local instructions including dressing changes, Sitz baths, stool softeners as needed, analgesics and will see me as directed or p.r.n. Code(s): K64.5 - Perianal venous thrombosis Category: Surgical (3) Irritable bowel syndrome with both constipation and diarrhea: Comment: With an element of post cholecystectomy syndrome Code(s): K58.2 - Mixed irritable bowel syndrome Category: Medical (4) GERD (gastroesophageal reflux disease): Code(s): K21.9 - Gastro-esophageal reflux disease without esophagitis Category: Medical Qualifiers: Esophagitis presence: without esophagitis Qualified Code(s): K21.9 - Gastro-esophageal reflux disease without esophagitis Plan He feels that the 125mg dose of simethicone does not work as well as the 180mg. We will try rx'ing 80mg 2 tabs qid instead as the 180mg dose has been out of stock universally. His current GI regimen consists of colace, senna, simethicone, creon, sucralfate and pantoprazole and proctosol cream. He was treated by surgery for a thrombosed external roid. Educated he needs to control his CIC to keep this from happening again. ROV 6 mos. Medications: New simethicone (Gas Relief (simethicone)) 125mg dose not effective for pt 160 mg (2 x 80 mg) PO QID 240 tabs 6RF abdominal distention 30 days pantoprazole 20 mg PO DAILY 90 tabs 1RF 90 days Refilled [id number] 12,000-38,000 -60,000 unit (Creon) 2 caps PO BID 120 caps 6RF K58.2 - Mixed irritable bowel syndrome sennosides (Senna Laxative) 17.2 mg (2 x 8.6 mg) PO BEDTIME 60 tabs 6RF sucralfate 2 grams (2 x 1 gram) PO .qafternoon 180 tabs 2RF R19.7 - Diarrhea, unspecified Discontinued simethicone (Gas Relief (simethicone)) Discontinued Reason: Doctor's Order 125 mg PO BID-QID PRN 120 tabs 6RF abdominal distention Coding Level of Care Code Est Pt Level 3 (34954) Diagnoses Post-cholecystectomy syndrome K91.5 Thrombosed external hemorrhoids K64.5 Irritable bowel syndrome with both constipation and diarrhea K58.2 Gastroesophageal reflux disease without esophagitis K21.9 Esophagitis presence: without esophagitis
[2024-06-26 13:39] VITALS: BP 140/87; PULSE 81; BMI 28.4
== END 2024-06-26 14:07 | disposition home or self-care (01) ==
LOC: HO.HGI 13:29
PROVIDERS: PCP Internal Medicine; Visit Provider Nurse Practitioner
DX: K91.5 Postcholecystectomy syndrome (principal); K64.5 Perianal venous thrombosis; K58.2 Mixed irritable bowel syndrome; K21.9 Gastro-esophageal reflux disease without esophagitis
CPT/HCPCS: 99213

== ENCOUNTER → 2024-06-26 13:28 | Outpatient (BNVA) | payer MEDICARE, MEDICAID, SELFPAY | PROVIDERS: PCP Internal Medicine; Visit Provider Nurse Practitioner | DX: K91.5 Postcholecystectomy syndrome (principal); K64.5 Perianal venous thrombosis; K58.2 Mixed irritable bowel syndrome; K21.9 Gastro-esophageal reflux disease without esophagitis | CPT/HCPCS: 99212 ==

== ENCOUNTER → 2024-08-08 23:59 | Outpatient (BNV) | payer MEDICARE, MEDICAID, SELFPAY | PROVIDERS: PCP Internal Medicine; Visit Provider Internal Medicine | DX: F41.1 Generalized anxiety disorder (principal); I10 Essential (primary) hypertension | CPT/HCPCS: G0179 ==

== ENCOUNTER 2024-08-27 11:39 | Outpatient (REF) | payer MEDICARE, MEDICAID, SELFPAY ==
--- NOTE | ~2024-08-27 | XR_ITS ---
EXAMINATION: XR SHOULDER, RIGHT CLINICAL INFORMATION: M25.511 - Pain in right shoulder COMPARISON: None available. TECHNIQUE: AP external rotation, Grashey, scapular Y, and axillary views of the right shoulder. FINDINGS: Normal bone mineralization. No fracture, dislocation, or suspicious bone lesion. Normal alignment. The glenohumeral joint demonstrates mild degenerative changes. The AC joint demonstrates minimal degenerative spurring, predominantly superior surface. There is a type II acromion. No undersurface spurring. The subacromial space is preserved. Remainder of the soft tissue and bony structures appear normal. XR/XR shoulder RT min 2V IMPRESSION: 1. No acute findings right shoulder. 2. Mild AC joint and glenohumeral joint degenerative changes. Electronically signed by: Jaswinder Russell MD 08/27/2024 12:58 PM EDT
--- NOTE | ~2024-08-27 | XR_ITS ---
CLINICAL HISTORY: M25.511 - Pain in right shoulder 4 view left shoulder Comparison: None Findings: Bones intact. No dislocations. Chronic appearing Hill-Sachs deformity. Mild acromioclavicular osteoarthritis. IMPRESSION: 1. No acute osseous injury. 2. Chronic Hill-Sachs deformity. This document has been electronically signed by: Maura Layton MD on 08/27/2024 18:38:38
== END 2024-08-27 11:40 | disposition home or self-care (01) ==
LOC: HO.XRAY 11:39
PROVIDERS: PCP Internal Medicine; Visit Provider Student in an Organized Health Care Education/Training Program
DX: M25.512 Pain in left shoulder (principal); M25.511 Pain in right shoulder
CPT/HCPCS: 73030

== ENCOUNTER → 2024-08-27 11:44 | Outpatient (BNV) | payer MEDICARE, MEDICAID, SELFPAY | PROVIDERS: PCP Internal Medicine; Visit Provider Radiology Diagnostic Radiology | DX: M19.012 Primary osteoarthritis, left shoulder (principal); M19.011 Primary osteoarthritis, right shoulder | CPT/HCPCS: 73030 ==

== ENCOUNTER 2024-09-10 06:43 | Outpatient (REF) | payer MEDICARE, MEDICAID, SELFPAY ==
[2024-09-10 06:55] LABS: MANUAL DIFF FLAG NO
[2024-09-10 07:32] LABS: Basophils Absolute Auto 0.1 X10*3/uL (0.0-0.2); Basophils Percent Auto 0.9 % (0-2); Eosinophils Absolute Auto 0.2 X10*3/uL (0.0-0.4); Eosinophils Percent Auto 3.1 % (0-4); Hematocrit 45.1 % (42.0-52.0); Hemoglobin 15.4 g/dl (14.0-18.0); Imm Gran Abs Auto 0.02 X10*3/uL (0.00-0.03); Imm Gran Pct Auto 0.3 % (0.0-0.4); Lymphocytes Absolute Auto 2.3 X10*3/uL (1.2-4.9); Lymphocytes Percent Auto 35.8 % (20-40); Mean Corpuscular HGB Conc 34.1 g/dl (31.0-36.0); Mean Corpuscular Hemoglobin 27.8 pg (27.0-33.0); Mean Corpuscular Volume 81.4 fL (80.0-98.0); Mean Platelet Volume 11.2 fL (9.4-12.4); Monocytes Absolute Auto 0.7 X10*3/uL (0.1-1.2); Monocytes Percent Auto 9.9 % (2-11); Neutrophils Absolute Auto 3.3 x10*3/uL (2.0-8.3); Platelet Count 162 X10*3/uL (160-400); Red Blood Count 5.54 X10*6/uL (4.60-5.80); Red Cell Distribution Width 12.9 % (11.0-16.0); White Blood Count 6.5 X10*3/uL (4.8-10.8)
[2024-09-10 08:02] LABS: Alanine Aminotransferase 26 U/L (0-40); Albumin Level 4.2 g/dL (3.5-5.0); Alkaline Phosphatase 79 U/L (39-117); Anion Gap 11 (12-20); Aspartate Amino Transferase 31 U/L (5-37); Bilirubin Total 0.9 mg/dL (0.0-1.0); Blood Urea Nitrogen 10 mg/dL (9-16); Calcium 9.3 mg/dL (8.4-10.2); Carbon Dioxide 27 mmol/L (22-29); Chloride 106 mmol/L (96-108); Cholesterol 119 mg/dL (<200); Estimated Glomerular Filt Rate > 60; Glucose Fasting 96 mg/dL (60-99); HDL Cholesterol 38 mg/dL (>40); LDL Cholesterol Calculated 66 mg/dL (<100); Sodium 140 mmol/L (135-145); Triglycerides 75 mg/dL (<150)
[2024-09-10 08:14] LABS: Prostate Specific Antigen 5.21 ng/mL (<0.05-4.0)
== END 2024-09-10 06:44 | disposition home or self-care (01) ==
LOC: HO.LAB 06:43
PROVIDERS: PCP Internal Medicine; Visit Provider Internal Medicine
DX: E78.00 Pure hypercholesterolemia, unspecified (principal); N40.0 Benign prostatic hyperplasia without lower urinary tract symptoms; D64.9 Anemia, unspecified; Z12.5 Encounter for screening for malignant neoplasm of prostate
CPT/HCPCS: 36415; 80053; 80061; 84153; 85025

== ENCOUNTER 2024-10-05 13:26 | Outpatient (AMB) | payer MEDICARE, MEDICAID, SELFPAY ==
--- NOTE | 2024-10-05 13:35 | MHC.PC.OV ---
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 Required: No Accompanied by: Self / Same As Patient Allergies seafood Allergy (Severe, Verified 10/05/24 14:04) Anaphylaxis duloxetine Allergy (Intermediate, Verified 10/05/24 14:04) N/V, diarrhea, shakiness, withdrawal symptoms gabapentin Allergy (Intermediate, Verified 10/05/24 14:04) confusion/memory loss/hallucination lactase (LACTASE) Allergy (Intermediate, Verified 10/05/24 14:04) Nausea Medication List - Last Reconciled 10/05/24 by Marcial David MD acetaminophen 500 mg PO TID PRN bupropion HCl SR mg PO clonazepam 1 mg PO BEDTIME PRN clonazepam 0.5 mg PO DAILY clonidine HCl 0.1 mg PO BID PRN 90 days docusate sodium (Colace) 100 mg PO BID [id number] 12,000-38,000 -60,000 unit (Creon) 2 caps PO BID losartan 25 mg PO DAILY 90 days ondansetron 4 mg PO BID-TID PRN pantoprazole 20 mg PO DAILY 90 days polyethylene glycol 3350 17 grams PO DAILY 30 days quetiapine 50 mg PO BEDTIME [RAISED TOILET SEAT As directed] ropinirole 0.5 mg PO BEDTIME sennosides (Senna Laxative) 17.2 mg (2 x 8.6 mg) PO BEDTIME simethicone 180 mg PO QID PRN sucralfate 2 grams (2 x 1 gram) PO .qafternoon tizanidine 2 mg PO TID PRN 30 days tramadol 1 to 2 tablets PO 2 times a day; 28 days Tobacco use date assessed: 10/05/24 Dental Screening Dental Screen Date: 10/05/24 Did you have a dental visit in the last 12 months?: Yes Did you have a dental problem in the last 6 months where you did not have access to dental care?: No Was dental information given to patient?: Patient has dentist HPI Follow Up HPI Details Patient comes in today for his follow up visit States that he is still having issues with his hemorrhoids and plans to reach out to Dr. Saenz's office and schedule an appointment with him as soon as possible to get this addressed He is also still experiencing increased pain in his shoulders and is scheduled to be seen by Dr. Buckner next week for orthopedic consultation Notes that his current medications are not really helping much with his shoulder pains lately States that he feels okay otherwise He denies any headaches or dizziness Denies any chest pains, no increased SOB No nausea/vomiting, no abdominal pain No change in bowel habits noted He had his follow up labs done a few weeks ago - to discuss his results [facility] Medical History (Updated 10/06/24 @ 06:09 by Marcial David MD) Hemorrhoids Overweight (BMI 25.0-29.9) Bleeding hemorrhoids Family history of gastric cancer Gallstones Hyperglycemia Fatigue Palpitations Umbilical hernia Left elbow tendinitis Elevated d-dimer Primary osteoarthritis, left shoulder Acute lumbar myofascial strain Right knee pain Umbilical hernia (04/13/22) Gallstones Diarrhea Chronic abdominal pain Obesity (BMI 30-39.9) Chronic cholecystitis Dyspepsia Primary osteoarthritis of shoulders, bilateral Benign essential hypertension Excessive sweating Primary osteoarthritis, right shoulder Constipation Tubular adenoma of colon Surgical History History of hemorrhoidectomy (~01/24/24) Hx laparoscopic cholecystectomy (~10/08/22) Hx of umbilical hernia repair History of incision and drainage H/O esophagogastroduodenoscopy H/O colonoscopy Status post pericardial cyst excision (~02/13/19) History of varicose vein ligation and stripping H/O inguinal hernia repair S/P tendon repair Family History Father Stomach cancer Mental health problem Mother AIDS Sister NIDDY (non-insulin dependent diabetes mellitus in young) Hypertension Other Substance abuse Social History Household Members: Children Housing: Apartment Are you a primary career center advisor to a significant other at home: No Do you presently have visiting nurse or other home services: Yes ([employer]) Alcohol intake: former Patient Tobacco Use Status: Former Tobacco user Tobacco use type: Cigarette Cigarettes Per Day: 40 Years Smoked: quit greater than 10 years ago e-Cigarette/Vaping Use: Never Used Second Hand Smoke Exposure: No Advance Directives Date on File: 07/11/20 service: No Current occupational status: disabled Current occupational exposures/hazards: No Cognitive needs: No Hearing needs: No Vision needs: Yes Questionnaire PHQ-9 Over the last 2 weeks, how often have you been bothered by any of the following problems? 1. Little interest or pleasure in doing things: more than half the days 2. Feeling down, depressed, or hopeless: several days 3. Trouble falling or staying asleep, or sleeping too much: more than half the days 4. Feeling tired or having little energy: more than half the days 5. Poor appetite or overeating: several days 6. Feeling bad about yourself - or that you are a failure or have let yourself or your family down: not at all 7. Trouble concentrating on things, such as reading the newspaper or watching television: several days 8. Moving or speaking so slowly that other people could have noticed. Or the opposite - being so fidgety or restless that you have been moving around a lot more than usual: more than half the days 9. Thoughts that you would be better off or of hurting yourself in some way: not at all Total score: 11 Depression Screening Interpretation: Positive Depression Screening Follow-up: Existing condition and In treatment Depression Screening Done: Yes 82026 - PHQ-9 Billing: Yes Source: Developed by Drs. Bro Guillermo, Dimple Lawson, Bulmaro Tavares and colleagues, with an educational sofie from [employer]. Thrive Questionnaire Date Thrive assessed: 10/05/24 I am a: Patient What is your living situation today?: I have a steady place to live Within the past 12 months, did the food you bought not last and you didn't have the money to get more?: Never true Within the past 12 months, did you worry whether your food would run out before you got money to buy more?: Never true Do you have trouble paying for medicines?: No Do you have trouble getting transportation to medical appointments?: No Do you have trouble paying your heating and electricity bill?: No Do you have trouble taking care of your child, family member or friend?: No Do you have trouble with day-to-day activities such as bathing, preparing meals, shopping, managing finances, etc.?: No Are you currently unemployed and looking for a job?: No Are you interested in more education?: No Please select the resources that you would like help with: None Currently or been in a relationship where the following occur: No concerns reported THRIVE Score: 0 AUDIT C Alcohol Use Questionnaire (AUDIT-C) 1. How often do you have a drink containing alcohol?: Never 3. How often do you have six or more drinks on one occasion?: Never Total Score: 0 Score Reviewed/Action Taken: Yes GANESH-7 AMB Questionnaire GANESH-7 Date GANESH - 7 assessed: 10/05/24 Feeling nervous, anxious, or on edge: 0 = Not at all Not being able to stop or control worryin = Not at all Worrying too much about different things: 0 = Not at all Trouble relaxin = Not at all Being so restless that it is hard to sit still: 0 = Not at all Becoming easily annoyed or irritable: 0 = Not at all Feeling afraid as if something awful might happen: 0 = Not at all Total GANESH-7 score (0-4 normal; 5-9 mild; 10-14 moderate; 15-21 severe): 0 Source: Developed by Drs. Bro Guillermo, Dimple Lawson, Bulmaro Tavares and colleagues, with an educational sofie from [employer]. Review of Systems Const Denies chills, Reports difficulty sleeping (Rx helping), Reports fatigue, Denies fever(s) and Denies headache(s) ENT Denies dysphagia, Denies dizziness, Denies otalgia, Denies headache(s), Denies neck pain, Denies odynophagia and Denies sore throat Card Denies chest pain, Denies palpitations and Reports dyspnea on exertion (mild) Resp Denies chest congestion, Denies cough and Reports dyspnea on exertion (mild) GI Denies abdominal pain, Denies hematochezia, Reports constipation (on and off), Denies dysphagia, Denies heartburn, Denies diarrhea, Reports loose stools (occasionally), Denies nausea, Denies odynophagia and Denies vomiting Denies difficulty urinating, Denies dysuria, Denies nocturia and Denies urinary frequency Musc Reports back pain (chronic ), Reports arthralgias (involving multiple joints, including both shoulders and the R knee ) and Denies neck pain Skin/Breast Denies rash Neuro Denies dizziness and Denies headache(s) Psych Reports anxiety and Reports depression Endo Reports fatigue and Denies palpitations Physical exam (Primary Care) Vital Signs: Last Vital Signs Pulse 90 10/05/24 13:36 BP 140/82 H 10/05/24 13:36 Pulse Ox 98 10/05/24 13:36 Oxygen Delivery Method Room Air 10/05/24 13:36 BMI result Body Mass Index 27.4 Tobacco/Smoking Status: Tobacco use Status Tobacco use date assessed 10/05/24 10/05/24 13:40 Patient Tobacco Use Status Former Tobacco user 10/05/24 13:38 Tobacco use type Cigarette 10/05/24 13:38 e-Cigarette/Vaping Use Never Used 10/05/24 13:38 PHQ-9: PHQ-9 Score PHQ-9: Total score 11 10/05/24 14:11 Depression Screening Interpretation: Positive Depression Screening Follow-up: Existing condition and In treatment Thrive Assessment: Date of Thrive Assessment Date Thrive assessed 10/05/24 10/05/24 13:40 Currently or been in a relationship where the following occur: No concerns reported Const General: no acute distress and alert HENMT Ears: TM's normal bilaterally and EAC's normal Throat: Yes posterior oropharynx normal and Yes tonsils normal (no TP congestion) Neck Neck: Yes supple and No lymphadenopathy Thyroid: Thyroid normal Resp Auscultation: clear to auscultation bilaterally, no rales and no wheezes Cardio Rate: regular rate Rhythm: regular rhythm Heart sounds: no murmurs GI Palpation (GI): Soft to palpation and nontender Auscultation: normal bowel sounds General: Yes no CVA tenderness Back/Spine/Pelvis Back: no CVA tenderness Cervical Spine: No Cervical spine tenderness Thoracic/Lumbar Spine: lumbar spinal tenderness Skin Rashes: no rashes Extrem General: Yes no clubbing, cyanosis or edema Right upper extremity: shoulder/upper arm Details: tenderness Location: of the A-C joint Left upper extremity: shoulder/upper arm Details: tenderness Location: of the A-C joint Right lower extremity: knee Details: tenderness; no swelling Left lower extremity: knee Details: tenderness; no swelling Results Reviewed Results Reviewed: Laboratory Tests 09/10/24 06:53 WBC 6.5 Hgb 15.4 Hct 45.1 Plt Count 162 D Sodium 140 Potassium 4.0 Creatinine 0.84 Estimated GFR > 60 Fasting Glucose 96 Calcium 9.3 AST 31 ALT 26 Triglycerides 75 Cholesterol 119 LDL Cholesterol, Calc 66 HDL Cholesterol 38 L Prostate Specific Ag 5.21 H Coding Level of Care Code Est Pt Level 4 (37104) Diagnoses Benign essential hypertension I10 Elevated PSA R97.20 Degeneration of intervertebral disc of lumbar region with discogenic back pain M51.360 Disc-related pain type: discogenic back pain only Primary osteoarthritis of shoulders, bilateral M19.011; M19.012 Gastroesophageal reflux disease without esophagitis K21.9 Esophagitis presence: without esophagitis Irritable bowel syndrome with both constipation and diarrhea K58.2 Hemorrhoids, unspecified hemorrhoid type K64.9 Hemorrhoid type: unspecified Insomnia, unspecified type G47.00 Insomnia type: unspecified Anxiety F41.9 Episode of recurrent major depressive disorder, unspecified depression episode severity F33.9 Active/Remission status: currently active Depression Type: major depressive disorder Major depression episode severity: unspecified Major depression recurrence: recurrent Overweight (BMI 25.0-29.9) E66.3 Additional Codes PHQ-9 - 23436 - PHQ-9 Billing: Yes ([id number]) Assessment & Plan Assessment & Plan (1) Benign essential hypertension: Code(s): I10 - Essential (primary) hypertension Category: Medical Plan: Reinforced low sodium diet - goal is systolic BP of at least 120 to 130 mm or less Continue Losartan 25 mg QD Will have patient recheck his labs in 3 months for follow up (2) Elevated PSA: Code(s): R97.20 - Elevated prostate specific antigen [PSA] Category: Medical Plan: Have advised patient that his PSA level has gone up significantly on his recent labs Will refer him to Urology for further evaluation and management (3) Lumbar degenerative disc disease: Code(s): M51.36 - Other intervertebral disc degeneration, lumbar region Category: Medical Qualifiers: Disc-related pain type: discogenic back pain only Qualified Code(s): M51.360 - Other intervertebral disc degeneration, lumbar region with discogenic back pain only Plan: Reinforced activity and weight lifting restrictions Continue Tizanidine 2 mg 3 times a day as needed, Acetaminophen 500 mg TID PRN, Lidocaine 4% cream apply to painful area on lower back as needed and Tramadol 50 mg TID PRN He has been seeing [facility] pain management and receiving back injections, which he states have not been helping much recently and he has expressed his concerns about getting too many cortisone injections and their potential long-term implications for him Have advised him that other than cortisone injections, there are other interventional modalities available and that he should continue to follow-up with pain management (at [facility]) and pursue interventional treatments rather than chronic opioid Rx for his chronic pain (4) Primary osteoarthritis of shoulders, bilateral: Code(s): M19.011 - Primary osteoarthritis, right shoulder; M19.012 - Primary osteoarthritis, left shoulder Category: Medical Plan: His shoulders have been bothering him a lot since he had his cholecystectomy back in September 2022 X-rays of the shoulders done in May 2022 revealed (+) moderate subacromial spur in the right shoulder; the right shoulder is otherwise normal and left shoulder x-rays came back normal He went to physical therapy for his shoulders for a while and states that PT has helped somewhat Follow up with rheumatology as scheduled; was seeing Dr. Pitt and Dr. Millard at [facility] in the past and is seeing Dr. Scott He was also referred to orthopedics for further recommendations and management and he is now scheduled to be seen by Dr. Buckner next week Will have him also start using some Lidocaine 5% cream on his shoulders PRN for symptomatic relief for now (5) GERD (gastroesophageal reflux disease): Code(s): K21.9 - Gastro-esophageal reflux disease without esophagitis Category: Medical Qualifiers: Esophagitis presence: without esophagitis Qualified Code(s): K21.9 - Gastro-esophageal reflux disease without esophagitis Plan: Dietary restrictions reinforced Continue Pantoprazole 20 mg QD (6) Irritable bowel syndrome with both constipation and diarrhea: Comment: With an element of post cholecystectomy syndrome Code(s): K58.2 - Mixed irritable bowel syndrome Category: Medical Plan: Continue Docusate 100 mg BID PRN and Creon 2 capsules BID Follow up with GI as scheduled Stool culture and test for H. pylori done last year came back negat (7) Hemorrhoids: Code(s): K64.9 - Unspecified hemorrhoids Category: Medical Qualifiers: Hemorrhoid type: unspecified Qualified Code(s): K64.9 - Unspecified hemorrhoids Plan: Patient states that he plans to reach out to Dr. Saenz's office and schedule an appointment with him as soon as possible to get this addressed (8) Insomnia: Code(s): G47.00 - Insomnia, unspecified Category: Medical Qualifiers: Insomnia type: unspecified Qualified Code(s): G47.00 - Insomnia, unspecified Plan: Sleep hygiene reinforced Hs is currently on Quetiapine, which helps with his sleep somewhat He used to also take Zolpidem but stopped taking this recently (9) Anxiety: Code(s): F41.9 - Anxiety disorder, unspecified Category: Medical Plan: Continue Clonazepam 1 mg once a day at bedtime as needed, Clonazepam 0.5 mg once a day in AM, Propranolol 20 mg BID and Clonidine 0.1 mg BID PRN (10) Depression: Code(s): F32.9 - Major depressive disorder, single episode, unspecified Category: Medical Qualifiers: Active/Remission status: currently active Depression Type: major depressive disorder Major depression episode severity: unspecified Major depression recurrence: recurrent Qualified Code(s): F33.9 - Major depressive disorder, recurrent, unspecified Plan: Continue Prazosin 2 mg BID (to help with his nightmares) and Quetiapine 200 mg Q HS He also used to take Wellbutrin XL but states that he weaned off this medication on his own a few months ago as he did not feel that it was helping much Follow-up with Psychiatry as scheduled (11) Overweight (BMI 25.0-29.9): Code(s): E66.3 - Overweight Category: Medical Plan: Reinforced diet; exercise is not realistic given his multiple physical issues but he is again encouraged to still try to do what he can to lose weight or manage his weight better Plan Follow up in 3 months Orders: Referrals Urology Referral R97.20 - Elevated prostate specific antigen [PSA] Medications: New lidocaine 5% 1 appl topical TID PRN 30 grams 0RF pain
[2024-10-05 13:36] VITALS: BP 140/82; PULSE 90; O2SAT 98; BMI 27.4
== END 2024-10-05 14:13 | disposition home or self-care (01) ==
LOC: HO.HMCH 13:27
PROVIDERS: PCP Internal Medicine; Visit Provider Internal Medicine
DX: I10 Essential (primary) hypertension (principal); R97.20 Elevated prostate specific antigen [PSA]; M51.360 Other intervertebral disc degeneration, lumbar region with discogenic back pain only; M19.011 Primary osteoarthritis, right shoulder; M19.012 Primary osteoarthritis, left shoulder; K21.9 Gastro-esophageal reflux disease without esophagitis; K58.2 Mixed irritable bowel syndrome; K64.9 Unspecified hemorrhoids; G47.00 Insomnia, unspecified; F41.9 Anxiety disorder, unspecified; F33.9 Major depressive disorder, recurrent, unspecified; E66.3 Overweight

== ENCOUNTER → 2024-10-05 13:26 | Outpatient (BNVA) | payer MEDICARE, MEDICAID, SELFPAY | PROVIDERS: PCP Internal Medicine; Visit Provider Internal Medicine | DX: I10 Essential (primary) hypertension (principal); R97.20 Elevated prostate specific antigen [PSA]; M51.360 Other intervertebral disc degeneration, lumbar region with discogenic back pain only; M19.011 Primary osteoarthritis, right shoulder; M19.012 Primary osteoarthritis, left shoulder; K21.9 Gastro-esophageal reflux disease without esophagitis; K58.2 Mixed irritable bowel syndrome; K64.9 Unspecified hemorrhoids; G47.00 Insomnia, unspecified; F41.9 Anxiety disorder, unspecified; F33.9 Major depressive disorder, recurrent, unspecified; E66.3 Overweight; Z68.27 Body mass index [BMI] 27.0-27.9, adult; Z71.3 Dietary counseling and surveillance | CPT/HCPCS: 96127; 99212 ==

== ENCOUNTER 2024-10-11 12:29 | Outpatient (AMB) | payer MEDICARE, MEDICAID, SELFPAY ==
[2024-10-11 12:44] VITALS: BMI 27.4
--- NOTE | 2024-10-11 12:44 | MHC.OFFVIS ---
Vital Signs 10/11/24 12:44 Height 6 ft Weight 202 lb BMI 27.4 Handedness Right Intake Visit Reasons: Right shoulder pain and weakness Intake Note: Paul is a 64 year old right hand dominant male who presents with complaints of progressively worsening right shoulder pain and weakness. He also has intermittent left shoulder discomfort. He states that his left shoulder discomfort is tolerable to him. His right shoulder pain and weakness have gotten worse over the last year in spite of continued non operative treatments. He has had cortisone injections in the past. The most recent injection gave him minimal relief. The patient has failed the last 6 weeks of conservative treatment which has included cortisone injection therapy, a home exercise program, Tylenol and anti-inflammatory medicines. He reports difficulty lifting his right hand above shoulder height. Allergies seafood Allergy (Severe, Verified 10/11/24 12:44) Anaphylaxis duloxetine Allergy (Intermediate, Verified 10/11/24 12:44) N/V, diarrhea, shakiness, withdrawal symptoms gabapentin Allergy (Intermediate, Verified 10/11/24 12:44) confusion/memory loss/hallucination lactase (LACTASE) Allergy (Intermediate, Verified 10/11/24 12:44) Nausea Medication List - Last Reconciled 10/11/24 by Dhaval Buckner MD acetaminophen 500 mg PO TID PRN bupropion HCl SR mg PO clonazepam 1 mg PO BEDTIME PRN clonazepam 0.5 mg PO DAILY clonidine HCl 0.1 mg PO BID PRN 90 days docusate sodium (Colace) 100 mg PO BID lidocaine 5% 1 appl topical TID PRN [id number]-xsmwzjoi-ntqcmdd 12,000-38,000 -60,000 unit (Creon) 2 caps PO BID losartan 25 mg PO DAILY 90 days ondansetron 4 mg PO BID-TID PRN pantoprazole 20 mg PO DAILY 90 days polyethylene glycol 3350 17 grams PO DAILY 30 days quetiapine 50 mg PO BEDTIME [RAISED TOILET SEAT As directed] ropinirole 0.5 mg PO BEDTIME sennosides (Senna Laxative) 17.2 mg (2 x 8.6 mg) PO BEDTIME simethicone 180 mg PO QID PRN sucralfate 2 grams (2 x 1 gram) PO .qafternoon tizanidine 2 mg PO TID PRN 30 days tramadol 1 to 2 tablets PO 2 times a day; 28 days [facility] Medical History (Updated 10/11/24 @ 13:00 by Dhaval Buckner MD) Hemorrhoids Overweight (BMI 25.0-29.9) Bleeding hemorrhoids Family history of gastric cancer Gallstones Hyperglycemia Fatigue Palpitations Umbilical hernia Left elbow tendinitis Elevated d-dimer Primary osteoarthritis, left shoulder Acute lumbar myofascial strain Right knee pain Umbilical hernia (04/13/22) Gallstones Diarrhea Chronic abdominal pain Obesity (BMI 30-39.9) Chronic cholecystitis Dyspepsia Primary osteoarthritis of shoulders, bilateral Benign essential hypertension Excessive sweating Primary osteoarthritis, right shoulder Constipation Tubular adenoma of colon Surgical History History of hemorrhoidectomy (~01/24/24) Hx laparoscopic cholecystectomy (~10/08/22) Hx of umbilical hernia repair History of incision and drainage H/O esophagogastroduodenoscopy H/O colonoscopy Status post pericardial cyst excision (~02/13/19) History of varicose vein ligation and stripping H/O inguinal hernia repair S/P tendon repair Family History Father Stomach cancer Mental health problem Mother AIDS Sister NIDKENZIE (non-insulin dependent diabetes mellitus in young) Hypertension Other Substance abuse Social History (Updated 10/11/24 @ 12:45 by Roselia Scott) Household Members: Children Housing: Apartment Are you a primary lead caregiver to a significant other at home: No Do you presently have visiting nurse or other home services: Yes ([employer]) Alcohol intake: former Patient Tobacco Use Status: Former Tobacco user Tobacco use type: Cigarette Cigarettes Per Day: 40 Years Smoked: quit greater than 10 years ago e-Cigarette/Vaping Use: Never Used Second Hand Smoke Exposure: No Advance Directives Date on File: 07/11/20 service: No Current occupational status: disabled Current occupation: right hand dominant Current occupational exposures/hazards: No Cognitive needs: No Hearing needs: No Vision needs: Yes Physical Exam Vital Signs: BMI result Body Mass Index 27.4 Const Other: Well-nourished well-developed very friendly male awake alert and oriented x3 in no acute distress Extrem Other: Bilateral upper extremity examination shows good capillary refill, no skin lesions noted, normal sensation light touch Right shoulder examination shows decreased active and passive range of motion when compared to his left shoulder, 4+ out of 5 strength with supraspinatus testing, positive impingement signs, tenderness over his acromioclavicular joint, no instability Assessment & Plan Assessment & Plan (1) Rotator cuff insufficiency of right shoulder: Code(s): M25.311 - Other instability, right shoulder Category: Medical Plan Mr. Raisa Flores presents with progressively worsening right shoulder pain and weakness due to impingement syndrome and possible rotator cuff tearing. Thus, I will send the patient for an MRI of his right shoulder for further evaluation. I will see him back once the MRI is completed to discuss the findings and treatment options. Feel free to call me at any time should questions regarding his orthopedic management arise. Thank you very much for asking me to see this very friendly gentleman. I spent 21 minutes in reviewing the patient's records and imaging studies, seeing the patient and documenting in the medical record. Orders: Orders MR shoulder RT wo con 10/12/24 M25.311 - Other instability, right shoulder Coding Level of Care Code New Pt Level 3 (18791) Complex EM visit Add On G2211 Diagnoses Rotator cuff insufficiency of right shoulder M25.311
== END 2024-10-11 12:55 | disposition home or self-care (01) ==
LOC: HO.HOS 12:30
PROVIDERS: PCP Internal Medicine; Visit Provider Orthopaedic Surgery
DX: M25.311 Other instability, right shoulder (principal)
CPT/HCPCS: 99203; G2211

== ENCOUNTER → 2024-10-11 12:29 | Outpatient (BNVA) | payer MEDICARE, MEDICAID, SELFPAY | PROVIDERS: PCP Internal Medicine; Visit Provider Orthopaedic Surgery | DX: M25.311 Other instability, right shoulder (principal); M25.811 Other specified joint disorders, right shoulder; M25.511 Pain in right shoulder; Z87.891 Personal history of nicotine dependence | CPT/HCPCS: 99202 ==

== ENCOUNTER 2024-10-26 17:51 | Outpatient (REF) | payer MEDICARE, MEDICAID, SELFPAY ==
--- NOTE | ~2024-10-26 | MR_ITS ---
CLINICAL HISTORY: M25.311 - Other instability, right shoulder MR right shoulder without gadolinium Comparison: None provided Findings: No acute fractures. No pathologic bone lesions. No significant degenerative changes. Type II acromion without downsloping. No fluid is seen within the subacromial subdeltoid bursa. The examination demonstrates subchondral cyst formation at the greater tuberosity adjacent to the insertion of the conjoint tendon. There is no evidence of a rotator cuff tear. There may be mild tendinosis of the distal supraspinatus tendon. No tears of the long head of biceps tendon. No tears of the glenoid labrum. IMPRESSION: Minor tendinosis of the distal supraspinatus tendon. Subchondral cyst formation at the insertion of the conjoint tendon. This document has been electronically signed by: Hermes Daniel MD on 10/30/2024 12:10:46
== END 2024-10-26 17:52 | disposition home or self-care (01) ==
LOC: HO.MRI 17:51
PROVIDERS: PCP Internal Medicine; Visit Provider Orthopaedic Surgery
DX: M25.311 Other instability, right shoulder (principal)
CPT/HCPCS: 73221

== ENCOUNTER 2024-11-27 13:11 | Outpatient (AMB) | payer MEDICARE, MEDICAID, SELFPAY ==
--- NOTE | 2024-11-27 13:48 | MHC.OFFVIS ---
Vital Signs 11/27/24 13:53 Height 6 ft Weight 207 lb 10.807 oz BMI 28.2 BP 134/92 H Blood Pressure Location Rt brachial Position Sitting Pulse 75 Pulse Source Pulse Oximeter Pulse Oximetry (%) 98 Oxygen Delivery Method Room Air Intake Visit Reasons: OA/inj Intake Note: Patient presents for OA and injection follow up. Allergies seafood Allergy (Severe, Verified 11/27/24 13:52) Anaphylaxis duloxetine Allergy (Intermediate, Verified 11/27/24 13:52) N/V, diarrhea, shakiness, withdrawal symptoms gabapentin Allergy (Intermediate, Verified 11/27/24 13:52) confusion/memory loss/hallucination lactase (LACTASE) Allergy (Intermediate, Verified 11/27/24 13:52) Nausea HPI Comments Details: Patient is a 64-year-old male with hypertension, GERD, IBS with constipation and diarrhea, depression with anxiety, polyarticular osteoarthritis (lumbar degenerative disc disease, knees and shoulders) here today for follow up Interval History: Patient last seen 11/03/[address] Millard. - following up for his bilateral shoulder osteoarthritis - received bilateral shoulder injections in the subacromial bursa Today - not on any rheum medications - requesting bilateral shoulder injection today Rheumatologic History: Polyarticular osteoarthritis treated with repeated steroid injections Current Rheumatology Medication(s): [facility] Medical History (Updated 10/11/24 @ 13:00 by Dhaval Buckner MD) Hemorrhoids Overweight (BMI 25.0-29.9) Bleeding hemorrhoids Family history of gastric cancer Gallstones Hyperglycemia Fatigue Palpitations Umbilical hernia Left elbow tendinitis Elevated d-dimer Primary osteoarthritis, left shoulder Acute lumbar myofascial strain Right knee pain Umbilical hernia (04/13/22) Gallstones Diarrhea Chronic abdominal pain Obesity (BMI 30-39.9) Chronic cholecystitis Dyspepsia Primary osteoarthritis of shoulders, bilateral Benign essential hypertension Excessive sweating Primary osteoarthritis, right shoulder Constipation Tubular adenoma of colon Surgical History History of hemorrhoidectomy (~01/24/24) Hx laparoscopic cholecystectomy (~10/08/22) Hx of umbilical hernia repair History of incision and drainage H/O esophagogastroduodenoscopy H/O colonoscopy Status post pericardial cyst excision (~02/13/19) History of varicose vein ligation and stripping H/O inguinal hernia repair S/P tendon repair Family History Father Stomach cancer Mental health problem Mother AIDS Sister PALMER (non-insulin dependent diabetes mellitus in young) Hypertension Other Substance abuse Social History Household Members: Children Housing: Apartment Are you a primary point of care technician to a significant other at home: No Do you presently have visiting nurse or other home services: 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) Alcohol intake: former Patient Tobacco Use Status: Former Tobacco user Tobacco use type: Cigarette Cigarettes Per Day: 40 Years Smoked: quit greater than 10 years ago e-Cigarette/Vaping Use: Never Used Second Hand Smoke Exposure: No Advance Directives Date on File: 07/11/20 service: No Current occupational status: disabled Current occupation: right hand dominant Current occupational exposures/hazards: No Cognitive needs: No Hearing needs: No Vision needs: Yes Review of Systems Const Details: Review of Systems Constitutional: Denies fever, chills, weight loss ENT: Denies vision changes, eye pain or eye redness, dental caries, dry mouth GI: Denies nausea, vomiting, diarrhea, abdominal pain, change in BM Pulm: Denies SOB, AL[place]A, hemoptysis, wheezing Cards: Denies chest pain, palpitations Skin: Denies Raynaud's, rash, nail changes, photosensitivity, 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 Well appearing and in no apparent painful distress MSK Shoulders Right shoulder: No swelling noted. No TTP of the AC joint. TTP of the subacromial bursa. TTP of the posterior shoulder Left shoulder: No swelling noted. No TTP of the AC joint. TTP of the subacromial bursa << TTP of the posterior shoulder Vital Signs: Last Vital Signs Pulse 75 11/27/24 13:53 BP 134/92 H 11/27/24 13:53 Pulse Ox 98 11/27/24 13:53 Oxygen Delivery Method Room Air 11/27/24 13:53 BMI result Body Mass Index 28.2 Office Procedures AMB Joint Injection/Aspiration Joint Injection/Aspiration Primary Site: left shoulder Procedure: The patient tolerated the procedure well Coding 41213 - Large joint Procedure code (CPT) selection complete AMB Joint Injection/Aspiration Joint Injection/Aspiration Primary Site: right shoulder Procedure: The patient tolerated the procedure well Coding 82423 - Large joint Procedure code (CPT) selection complete Office Meds lidocaine (PF) 10 mg/mL (1 %) injection solution Performing Provider: Bonnie Scott MD Performing Location: [facility] Administered by: Mary Smith RN on 11/27/24 14:29 Dose Route Admin Location Dispensed Lot Number Expiration Date [place] [employer] 1 mL Infiltration 2 mL [id number] 06/18/26 56776-720-63 [employer] Total Dispensed Waste 2 mL 50 % Kenalog 40 mg/mL suspension for injection Performing Provider: Bonnie Scott MD Performing Location: [facility] Administered by: Mary Smith RN on 11/27/24 14:29 Dose Route Admin Location Dispensed Lot Number Expiration Date [facility] [employer] 40 mg intra-articular 1 mL [id number] 07/18/25 [address]-1 [employer] Total Dispensed Waste 1 mL 0 % lidocaine (PF) 10 mg/mL (1 %) injection solution Performing Provider: Bonnie Scott MD Performing Location: [facility] Administered by: Mary Smith RN on 11/27/24 14:29 Dose Route Admin Location Dispensed Lot Number Expiration Date ND [employer] Specialist 1 mL Infiltration 2 mL [id number] 06/18/26 28625-561-52 [employer] Total Dispensed Waste 2 mL 50 % Kenalog 40 mg/mL suspension for injection Performing Provider: Bonnie Scott MD Performing Location: [facility] Administered by: Mary Smith RN on 11/27/24 14:29 Dose Route Admin Location Dispensed Lot Number Expiration Date [facility] [employer] 40 mg intra-articular 1 mL [id number] 07/18/25 [address]-6 [employer] Total Dispensed Waste 1 mL 0 % Results Reviewed Results Reviewed: MR Shoulder (Right) 10/2024 Findings: No acute fractures. No pathologic bone lesions. No significant degenerative changes. Type II acromion without downsloping. No fluid is seen within the subacromial subdeltoid bursa. The examination demonstrates subchondral cyst formation at the greater tuberosity adjacent to the insertion of the conjoint tendon. There is no evidence of a rotator cuff tear. There may be mild tendinosis of the distal supraspinatus tendon. No tears of the long head of biceps tendon. No tears of the glenoid labrum. IMPRESSION: Minor tendinosis of the distal supraspinatus tendon. Subchondral cyst formation at the insertion of the conjoint tendon. XR Bilateral Shoulders 08/2024 Findings (Left) Bones intact. No dislocations. Chronic appearing Hill-Sachs deformity. Mild acromioclavicular osteoarthritis. IMPRESSION: 1. No acute osseous injury. 2. Chronic Hill-Sachs deformity. FINDINGS (Right): Normal bone mineralization. No fracture, dislocation, or suspicious bone lesion. Normal alignment. The glenohumeral joint demonstrates mild degenerative changes. The AC joint demonstrates minimal degenerative spurring, predominantly superior surface. There is a type II acromion. No undersurface spurring. The subacromial space is preserved. Remainder of the soft tissue and bony structures appear normal. IMPRESSION: 1. No acute findings right shoulder. 2. Mild AC joint and glenohumeral joint degenerative changes. Assessment & Plan Assessment & Plan (1) Primary osteoarthritis of shoulders, bilateral: Code(s): M19.011 - Primary osteoarthritis, right shoulder; M19.012 - Primary osteoarthritis, left shoulder Category: Medical Plan: #Bilateral Shoulder OA Patient is a 64-year-old male with polyarticular osteoarthritis here today for follow up. Current complains of bilateral shoulder pain on a background of known bilateral shoulder osteoarthritis including AC and glenohumeral joint. As well as subacromial bursitis. Status post steroid injection today Plan - s/p steroid injection - RTC 6 months Plan This is my 1st visit with the patient. I spent 30 minutes reviewing the record and labs, taking a history, examining the patient, discussing the treatment plan, ordering diagnostic work up and documenting in the medical record Orders: Orders AMB Joint Injection/Aspiration Today M19.019 - Primary osteoarthritis, unspecified shoulder AMB Joint Injection/Aspiration Today M19.019 - Primary osteoarthritis, unspecified shoulder Coding Level of Care Code Est Pt Level 4 (57927) Diagnoses Primary osteoarthritis of shoulders, bilateral M19.011; M19.012 CPT Codes Coding - 12799 Large joint: 10408 - Large joint ([id number]) Coding - Large joint: - Large joint ([id number])
[2024-11-27 13:53] VITALS: BP 134/92; PULSE 75; O2SAT 98; BMI 28.2
== END 2024-11-27 14:41 | disposition home or self-care (01) ==
LOC: HO.RHES 13:12
PROVIDERS: PCP Internal Medicine; Visit Provider Student in an Organized Health Care Education/Training Program
DX: M19.011 Primary osteoarthritis, right shoulder (principal); M19.012 Primary osteoarthritis, left shoulder
CPT/HCPCS: 20610; 99214

== ENCOUNTER → 2024-11-27 13:11 | Outpatient (BNVA) | payer MEDICARE, MEDICAID, SELFPAY | PROVIDERS: PCP Internal Medicine; Visit Provider Student in an Organized Health Care Education/Training Program | DX: M19.011 Primary osteoarthritis, right shoulder (principal); M19.012 Primary osteoarthritis, left shoulder | CPT/HCPCS: 20610; 99212; J2003; J3301 ==

== ENCOUNTER 2024-11-29 12:44 | Outpatient (AMB) | payer MEDICARE, MEDICAID, SELFPAY ==
--- NOTE | 2024-11-29 12:48 | A.OFFVIS_ITS ---
Vital Signs 11/29/24 12:53 Height 6 ft Weight 207 lb BMI 28.1 Intake Visit Reasons: OV- MRI Review of the Right Shoulder Intake Note: Paul is a 64 year old right hand dominant male who presents with complaints of intermittent right shoulder pain. The patient states that he recently had cortisone injections given into both of his shoulders by another provider. The injections gave him fairly good relief. He continues with his home stretching program. Allergies seafood Allergy (Severe, Verified 11/29/24 12:54) Anaphylaxis duloxetine Allergy (Intermediate, Verified 11/29/24 12:54) N/V, diarrhea, shakiness, withdrawal symptoms gabapentin Allergy (Intermediate, Verified 11/29/24 12:54) confusion/memory loss/hallucination lactase (LACTASE) Allergy (Intermediate, Verified 11/29/24 12:54) Nausea Medication List - Last Reconciled 11/29/24 by Dhaval Buckner MD acetaminophen 500 mg PO TID PRN bupropion HCl SR mg PO clonazepam 1 mg PO BEDTIME PRN clonazepam 0.5 mg PO DAILY clonidine HCl 0.1 mg PO BID PRN 90 days docusate sodium (Colace) 100 mg PO BID lidocaine 5% 1 appl topical TID PRN [id number] 12,000-38,000 -60,000 unit (Creon) 2 caps PO BID losartan 25 mg PO DAILY 90 days ondansetron 4 mg PO BID-TID PRN pantoprazole 20 mg PO DAILY 90 days polyethylene glycol 3350 17 grams PO DAILY 30 days quetiapine 50 mg PO BEDTIME [RAISED TOILET SEAT As directed] ropinirole 0.5 mg PO BEDTIME sennosides (Senna Laxative) 17.2 mg (2 x 8.6 mg) PO BEDTIME simethicone 180 mg PO QID PRN sucralfate 2 grams (2 x 1 gram) PO .qafternoon tizanidine 2 mg PO TID PRN 30 days tramadol 1 to 2 tablets PO 2 times a day; 28 days PFSH Medical History Hemorrhoids Overweight (BMI 25.0-29.9) Bleeding hemorrhoids Family history of gastric cancer Gallstones Hyperglycemia Fatigue Palpitations Umbilical hernia Left elbow tendinitis Elevated d-dimer Primary osteoarthritis, left shoulder Acute lumbar myofascial strain Right knee pain Umbilical hernia (04/13/22) Gallstones Diarrhea Chronic abdominal pain Obesity (BMI 30-39.9) Chronic cholecystitis Dyspepsia Primary osteoarthritis of shoulders, bilateral Benign essential hypertension Excessive sweating Primary osteoarthritis, right shoulder Constipation Tubular adenoma of colon Surgical History History of hemorrhoidectomy (~01/24/24) Hx laparoscopic cholecystectomy (~10/08/22) Hx of umbilical hernia repair History of incision and drainage H/O esophagogastroduodenoscopy H/O colonoscopy Status post pericardial cyst excision (~02/13/19) History of varicose vein ligation and stripping H/O inguinal hernia repair S/P tendon repair Family History Father Stomach cancer Mental health problem Mother AIDS Sister PALMER (non-insulin dependent diabetes mellitus in young) Hypertension Other Substance abuse Social History Household Members: Children Housing: Apartment Are you a primary neonatal intensive care nurse to a significant other at home: No Do you presently 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 visiting nurse or 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 home services: 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) Alcohol intake: former Patient Tobacco Use Status: Former Tobacco user Tobacco use type: Cigarette Cigarettes Per Day: 40 Years Smoked: quit greater than 10 years ago e-Cigarette/Vaping Use: Never Used Second Hand Smoke Exposure: No Advance Directives Date on File: 07/11/20 service: No Current occupational status: disabled Current occupation: right hand dominant Current occupational exposures/hazards: No Cognitive needs: No Hearing needs: No Vision needs: Yes Physical Exam Vital Signs: BMI result Body Mass Index 28.1 Const Other: Well-nourished well-developed very friendly male awake alert and oriented x3 in no acute distress Extrem Other: Right shoulder examination shows decreased range of motion when compared to his left shoulder, positive impingement signs, tenderness over his acromioclavicular joint, no instability, 4+ out of 5 strength with supraspinatus testing Results Reviewed Results Reviewed: MRI of the patient's right shoulder show severe acromioclavicular joint narrowing, a type 2 acromion, signal change within the supraspinatus tendon most likely due to adhesive capsulitis Assessment & Plan Assessment & Plan (1) Impingement syndrome of right shoulder: Code(s): M75.41 - Impingement syndrome of right shoulder Category: Medical Plan Mr. Hurtado presents with right shoulder pain and stiffness due to impingement syndrome, acromioclavicular joint arthritis and adhesive capsulitis. I had a lengthy discussion with the patient regarding the treatment options. At this point the patient's symptoms are tolerable to him. He will continue with his home stretching program. He will follow up with me on an as-needed basis should his symptoms worsen in any way. Feel free to call me at any time should questions regarding his orthopedic management arise. I spent 22 minutes in reviewing the patient's records and imaging studies, seeing the patient and documenting in the medical record. Coding Level of Care Code Est Pt Level 3 (39097) Complex EM visit Add On G2211 Diagnoses Impingement syndrome of right shoulder M75.41
[2024-11-29 12:53] VITALS: BMI 28.1
== END 2024-11-29 13:16 | disposition home or self-care (01) ==
LOC: HO.HOS 12:45
PROVIDERS: PCP Internal Medicine; Visit Provider Orthopaedic Surgery
DX: M75.41 Impingement syndrome of right shoulder (principal)
CPT/HCPCS: 99213; G2211

== ENCOUNTER → 2024-11-29 12:44 | Outpatient (BNVA) | payer MEDICARE, MEDICAID, SELFPAY | PROVIDERS: PCP Internal Medicine; Visit Provider Orthopaedic Surgery | DX: M25.511 Pain in right shoulder (principal); M75.41 Impingement syndrome of right shoulder | CPT/HCPCS: 99212 ==

== ENCOUNTER 2024-12-14 13:42 | Outpatient (AMB) | payer MEDICARE, MEDICAID, SELFPAY ==
--- NOTE | 2024-12-14 13:46 | A.OFFVIS_ITS ---
Intake Visit Reasons: Elevated PSA Intake Note: New Patient is present for elevated Psa Urology Rx:none Blood Thinners:none Imaging completed: none Labs done 09/10/24 : PSA 5.21 T[facility] Teacher Required: No Accompanied by: Self / Same As Patient Allergies seafood Allergy (Severe, Verified 12/14/24 13:47) Anaphylaxis duloxetine Allergy (Intermediate, Verified 12/14/24 13:47) N/V, diarrhea, shakiness, withdrawal symptoms gabapentin Allergy (Intermediate, Verified 12/14/24 13:47) confusion/memory loss/hallucination lactase (LACTASE) Allergy (Intermediate, Verified 12/14/24 13:47) Nausea HPI Comments Details: Mable is a pleasant male. He is a patient of Dr. David. He is seen for the following urologic conditions - elevated PSA - lower urinary tract symptoms PSA risen by greater than 0.7 units per year over past 2 years PACO 1+ bilobar boggy 4 month follow-up bladder ultrasound repeat PSA Start combination therapy Lower urinary tract symptoms Progressive weakness of stream 12 in force Trial combination therapy Elevated PSA Labs - PSA 02/10 2.5, 09/12 5.2 PFSH Medical History Hemorrhoids Overweight (BMI 25.0-29.9) Bleeding hemorrhoids Family history of gastric cancer Gallstones Hyperglycemia Fatigue Palpitations Umbilical hernia Left elbow tendinitis Elevated d-dimer Primary osteoarthritis, left shoulder Acute lumbar myofascial strain Right knee pain Umbilical hernia (04/13/22) Gallstones Diarrhea Chronic abdominal pain Obesity (BMI 30-39.9) Chronic cholecystitis Dyspepsia Primary osteoarthritis of shoulders, bilateral Benign essential hypertension Excessive sweating Primary osteoarthritis, right shoulder Constipation Tubular adenoma of colon Surgical History History of hemorrhoidectomy (~01/24/24) Hx laparoscopic cholecystectomy (~10/08/22) Hx of umbilical hernia repair History of incision and drainage H/O esophagogastroduodenoscopy H/O colonoscopy Status post pericardial cyst excision (~02/13/19) History of varicose vein ligation and stripping H/O inguinal hernia repair S/P tendon repair Family History Father Stomach cancer Mental health problem Mother AIDS Sister PALMER (non-insulin dependent diabetes mellitus in young) Hypertension Other Substance abuse Social History Household Members: Children Housing: Apartment Are you a primary managed care director to a significant other at home: No Do you presently have visiting nurse or other home services: 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) Alcohol intake: former Patient Tobacco Use Status: Former Tobacco user Tobacco use type: Cigarette Cigarettes Per Day: 40 Years Smoked: quit greater than 10 years ago e-Cigarette/Vaping Use: Never Used Second Hand Smoke Exposure: No Advance Directives Date on File: 07/11/20 service: No Current occupational status: disabled Current occupation: right hand dominant Current occupational exposures/hazards: No Cognitive needs: No Hearing needs: No Vision needs: Yes Review of Systems Const Denies chills and Denies fever(s) Card Reports no additional complaints and Denies syncope Resp Denies cough GI Denies abdominal pain and Denies heartburn Reports as per HPI and Denies change in libido Neuro Denies syncope Psych Denies change in libido Endo Denies change in libido Physical Exam Const General: cooperative, healthy appearing, comfortable and no acute distress Orientation/consciousness: patient oriented x3 HEENT Face and sinus: Yes normal facial exam Mouth: moist mucous membranes Neck Neck: Yes normal visual inspection, Yes full ROM and Yes trachea midline Chest Chest palpation & inspection: normal inspection of the chest Resp Effort & Inspection: normal respiratory effort, able to speak in complete sentences and no respiratory distress GI Inspection: Yes normal to inspection Back/Spine/Pelvis Cervical Spine: normal cervical lordosis Thoracic/Lumbar Spine: thoracic and lumbar spine normal to inspection Skin General skin exam: no rashes or lesions noted Neuro General: patient oriented x3, gait normal, tone normal and moves all extremities Extrem General: Yes normal to inspection and Yes capillary refill normal Assessment & Plan Assessment & Plan (1) Feeling of incomplete bladder emptying: Code(s): R39.14 - Feeling of incomplete bladder emptying Category: Medical (2) Weak urinary stream: Code(s): R39.12 - Poor urinary stream Category: Medical (3) Elevated PSA: Code(s): R97.20 - Elevated prostate specific antigen [PSA] Category: Medical Plan Four month follow-up Orders: Orders US bladder 3 Months R39.14 - Feeling of incomplete bladder emptying PSA,Total (Free>4and<10) 4 Months R39.14 - Feeling of incomplete bladder emptying Medications: New finasteride 5 mg PO DAILY 90 tabs 1RF 90 days R39.14 - Feeling of incomplete bladder emptying tamsulosin (Flomax) 0.4 mg PO BEDTIME 30 tabs 1RF 30 days R39.14 - Feeling of incomplete bladder emptying Patient Instructions: This note is constructed using voice recognition software. While every effort has been made to ensure accuracy chief resource officer errors may have been included. Imaging studies, laboratory and physical exam results were discussed and reviewed in detail. No major barriers to patient understanding were identified. An opportunity to ask questions regarding the treatment plan was provided. All questions were answered. The patient expressed understanding and agreement with the above treatment plan. The patient is aware they should contact our office by phone for worsening of their current condition or the appearance of new urologic symptoms. Compliance is encouraged with any medications and followup testing that is ordered. It is a privilege to participate in the urologic care of your patient. If you have any questions or concerns regarding treatment for the above conditions, or other urologic issues, please do not hesitate to contact me. The office telephone contact is [phone]. Sincerely, Dr John Daugherty MD, [facility] - Urology Compassionate Specialist Care for the Genitourinary System Coding Level of Care Code New Pt Level 4 (44555) Diagnoses Feeling of incomplete bladder emptying R39.14 Weak urinary stream R39.12 Elevated PSA R97.20
== END 2024-12-14 14:15 | disposition home or self-care (01) ==
LOC: HO.HUSH 13:42
PROVIDERS: PCP Internal Medicine; Visit Provider Urology
DX: R39.14 Feeling of incomplete bladder emptying (principal); R39.12 Poor urinary stream; R97.20 Elevated prostate specific antigen [PSA]; Z13.9 Encounter for screening, unspecified
CPT/HCPCS: 99204

== ENCOUNTER → 2024-12-14 13:42 | Outpatient (BNVA) | payer MEDICARE, MEDICAID, SELFPAY | PROVIDERS: PCP Internal Medicine; Visit Provider Urology | DX: R39.14 Feeling of incomplete bladder emptying (principal); R39.12 Poor urinary stream; R97.20 Elevated prostate specific antigen [PSA] | CPT/HCPCS: 81003; 99202 ==

== ENCOUNTER 2024-12-25 13:39 | Outpatient (AMB) | payer MEDICARE, MEDICAID, SELFPAY ==
[2024-12-25 13:50] VITALS: BP 136/78; PULSE 75; BMI 28.2
--- NOTE | 2024-12-25 13:50 | MHC.OFFVIS ---
Vital Signs 12/25/24 13:50 Height 6 ft Weight 208 lb BMI 28.2 BP 136/78 Blood Pressure Location Rt brachial Position Sitting Pulse 75 Intake Visit Reasons: GERD< CIC Intake Note: Pt c/o; occasional constipation. Deputy Commissioner Required: No Accompanied by: Self / Same As Patient Allergies seafood Allergy (Severe, Verified 12/25/24 13:52) Anaphylaxis duloxetine Allergy (Intermediate, Verified 12/25/24 13:52) N/V, diarrhea, shakiness, withdrawal symptoms gabapentin Allergy (Intermediate, Verified 12/25/24 13:52) confusion/memory loss/hallucination lactase (LACTASE) Allergy (Intermediate, Verified 12/25/24 13:52) Nausea HPI HPI GERD< CIC: Details: Assessment & Plan (1) Post-cholecystectomy syndrome: Code(s): K91.5 - Postcholecystectomy syndrome Category: Medical (2) Thrombosed external hemorrhoids: Comment: Patient has been given local instructions including dressing changes, Sitz baths, stool softeners as needed, analgesics and will see me as directed or p.r.n. Code(s): K64.5 - Perianal venous thrombosis Category: Surgical (3) Irritable bowel syndrome with both constipation and diarrhea: Comment: With an element of post cholecystectomy syndrome Code(s): K58.2 - Mixed irritable bowel syndrome Category: Medical (4) GERD (gastroesophageal reflux disease): Code(s): K21.9 - Gastro-esophageal reflux disease without esophagitis Category: Medical Qualifiers: Esophagitis presence: without esophagitis Qualified Code(s): K21.9 - Gastro-esophageal reflux disease without esophagitis Plan He feels that the 125mg dose of simethicone does not work as well as the 180mg. We will try rx'ing 80mg 2 tabs qid instead as the 180mg dose has been out of stock universally. His current GI regimen consists of colace, senna, simethicone, creon, sucralfate and pantoprazole and proctosol cream. He was treated by surgery for a thrombosed external roid. Educated he needs to control his CIC to keep this from happening again. ROV 6 mos. Medications: New simethicone (Gas Relief (simethicone)) 125mg dose not effective for pt 160 mg (2 x 80 mg) PO QID 240 tabs 6RF abdominal distention 30 days pantoprazole 20 mg PO DAILY 90 tabs 1RF 90 days Refilled [id number]-uineneit-jvmzalk 12,000-38,000 -60,000 unit (Creon) 2 caps PO BID 120 caps 6RF K58.2 - Mixed irritable bowel syndrome sennosides (Senna Laxative) 17.2 mg (2 x 8.6 mg) PO BEDTIME 60 tabs 6RF sucralfate 2 grams (2 x 1 gram) PO .qafternoon 180 tabs 2RF R19.7 - Diarrhea, unspecified Discontinued simethicone (Gas Relief (simethicone)) Discontinued Reason: Doctor's Order 125 mg PO BID-QID PRN 120 tabs 6RF abdominal distention TODAY'S VISIT [facility] Medical History Hemorrhoids Overweight (BMI 25.0-29.9) Bleeding hemorrhoids Family history of gastric cancer Gallstones Hyperglycemia Fatigue Palpitations Umbilical hernia Left elbow tendinitis Elevated d-dimer Primary osteoarthritis, left shoulder Acute lumbar myofascial strain Right knee pain Umbilical hernia (04/13/22) Gallstones Diarrhea Chronic abdominal pain Obesity (BMI 30-39.9) Chronic cholecystitis Dyspepsia Primary osteoarthritis of shoulders, bilateral Benign essential hypertension Excessive sweating Primary osteoarthritis, right shoulder Constipation Tubular adenoma of colon Surgical History History of hemorrhoidectomy (~01/24/24) Hx laparoscopic cholecystectomy (~10/08/22) Hx of umbilical hernia repair History of incision and drainage H/O esophagogastroduodenoscopy H/O colonoscopy Status post pericardial cyst excision (~02/13/19) History of varicose vein ligation and stripping H/O inguinal hernia repair S/P tendon repair Family History Father Stomach cancer Mental health problem Mother AIDS Sister PALMER (non-insulin dependent diabetes mellitus in young) Hypertension Other Substance abuse Social History Household Members: Children Housing: Apartment Are you a primary transitional care nurse to a significant other at home: No Do you presently have visiting nurse or other home services: Yes ([facility]) Alcohol intake: former Patient Tobacco Use Status: Former Tobacco user Tobacco use type: Cigarette Cigarettes Per Day: 40 Years Smoked: quit greater than 10 years ago e-Cigarette/Vaping Use: Never Used Second Hand Smoke Exposure: No Advance Directives Date on File: 07/11/20 service: No Current occupational status: disabled Current occupation: right hand dominant Current occupational exposures/hazards: No Cognitive needs: No Hearing needs: No Vision needs: Yes Review of Systems Const Denies fatigue, Denies fever(s), Denies night sweats, Denies poor appetite and Denies weight loss ENT Reports Normal hearing present, Denies dental pain, Denies dysphagia, Denies hearing loss, Denies mouth pain, Denies odynophagia, Denies throat swelling, Denies tongue swelling and Reports other (Dentition adequate) Card Reports no additional complaints Resp Reports no additional complaints GI Details: Denies abdominal pain, Denies melena, Reports bloating, Denies hematochezia, Denies constipation, Denies GI cramping, Denies dysphagia, Denies excessive flatus, Denies early satiety, Reports heartburn, Denies diarrhea, Reports loose stools, Denies nausea, Denies odynophagia, Denies vomiting and Denies hematemesis Skin/Breast Denies pruritus, Denies lesions, Denies rash and Denies jaundice Neuro Reports Normal hearing present and Denies Abnormal speech present Endo Denies fatigue Aller/Immun Denies throat swelling and Denies tongue swelling Physical Exam Vital Signs: Last Vital Signs Pulse 75 12/25/24 13:50 BP 136/78 12/25/24 13:50 BMI result Body Mass Index 62.2 Const General: cooperative, no acute distress, well developed and well groomed Nutritional Appearance: well nourished and overweight Orientation/consciousness: oriented to person, oriented to place and oriented to time Limitations: No language barrier HEENT Head: Yes normocephalic and Yes atraumatic Eyes General: appearance normal, both eyes and all related structures Pupils: Equal, round and reactive pupils present Neck Neck: Yes normal visual inspection and Yes no lymphadenopathy Thyroid: Thyroid normal Resp Effort & Inspection: normal respiratory effort and able to speak in complete sentences Auscultation: clear to auscultation bilaterally Cardio Rate: regular rate Rhythm: regular rhythm Heart sounds: Normal, physiologic split S2 sound present Peripheral pulses: radial pulses present and posterior tibial pulses present GI Inspection: No distended, No Abdominal panniculus present and Yes obesity Palpation (GI): Soft to palpation, nontender, no guarding, not rigid and No hepatosplenomegaly present Percussion: Yes normal to percussion Auscultation: normal bowel sounds Rectal Exam - Male: Yes deferred Skin General skin exam: no rashes or lesions noted, turgor normal, skin not dry, no jaundice, No spider nevi and no striae Rashes: no rashes Nails: normal Neuro General: oriented to person, oriented to place and oriented to time Cranial nerves: Yes Equal, round and reactive pupils present and Yes Normal hearing present Speech: No Abnormal speech present Extrem General: Yes normal to inspection, No clubbing, No cyanosis and No edema Psych Appearance: grossly normal and well kempt Mental Status: mental status grossly normal Speech and movement: Normal speech and movement present Affect: normal affect Attitude: cooperative Thought process: Normal thought process present and not confabulating Thought content: Normal thought content present Insight: Good insight present (Psych) Judgement: Good judgement present (Psych) Assessment & Plan Assessment & Plan (1) GERD (gastroesophageal reflux disease): Code(s): K21.9 - Gastro-esophageal reflux disease without esophagitis Category: Medical Qualifiers: Esophagitis presence: without esophagitis Qualified Code(s): K21.9 - Gastro-esophageal reflux disease without esophagitis (2) Post-cholecystectomy syndrome: Code(s): K91.5 - Postcholecystectomy syndrome Category: Medical (3) Irritable bowel syndrome with both constipation and diarrhea: Comment: With an element of post cholecystectomy syndrome Code(s): K58.2 - Mixed irritable bowel syndrome Category: Medical Plan His current GI regimen consists of colace, senna, simethicone, creon, sucralfate and pantoprazole and proctosol cream. Overall, he remains satisfied with his GI regimen. He still has episodes of bloating, but it is helped with his simethicone 180 mg in capsule form which works better for him than the chewable. We would only substituted the other when it was out of stock for awhile. He needs more of his Proctosol cream he says that the pharmacy said it was being denied. I think that it maybe was sent to the wrong provider as I would not deny this medication. Return office visit in 6 months Medications: New hydrocortisone 2.5% (Proctosol HC) BE SURE TO INCLUDE RECTAL APPICATOR!! 1 appl OR BID 30 grams 6RF hemorrhoids K64.9 - Unspecified hemorrhoids Refilled docusate sodium (Colace) 100 mg PO BID 60 caps 6RF mtndxx-qjtranhe-maqaluh 12,000-38,000 -60,000 unit (Creon) 2 caps PO BID 120 caps 6RF K58.2 - Mixed irritable bowel syndrome sennosides (Senna Laxative) 17.2 mg (2 x 8.6 mg) PO BEDTIME 60 tabs 6RF pantoprazole 20 mg PO DAILY 90 tabs 1RF 90 days simethicone 180 mg PO QID PRN 120 caps 1RF for abdominal pain sucralfate 2 grams (2 x 1 gram) PO .qafternoon 180 tabs 2RF R19.7 - Diarrhea, unspecified Coding Level of Care Code Est Pt Level 3 (82986) Diagnoses Gastroesophageal reflux disease without esophagitis K21.9 Esophagitis presence: without esophagitis Post-cholecystectomy syndrome K91.5 Irritable bowel syndrome with both constipation and diarrhea K58.2
== END 2024-12-25 14:47 | disposition home or self-care (01) ==
LOC: HO.HGI 13:39
PROVIDERS: PCP Internal Medicine; Visit Provider Nurse Practitioner
DX: K21.9 Gastro-esophageal reflux disease without esophagitis (principal); K91.5 Postcholecystectomy syndrome; K58.2 Mixed irritable bowel syndrome
CPT/HCPCS: 99213

== ENCOUNTER → 2024-12-25 13:39 | Outpatient (BNVA) | payer MEDICARE, MEDICAID, SELFPAY | PROVIDERS: PCP Internal Medicine; Visit Provider Nurse Practitioner | DX: K21.9 Gastro-esophageal reflux disease without esophagitis (principal); K91.5 Postcholecystectomy syndrome; K58.2 Mixed irritable bowel syndrome; Z87.891 Personal history of nicotine dependence | CPT/HCPCS: 99212 ==

== ENCOUNTER 2025-01-07 14:37 | Outpatient (AMB) | payer MEDICARE, MEDICAID, SELFPAY ==
[2025-01-07 14:57] VITALS: BP 126/84; PULSE 80; O2SAT 98; BMI 28.1
--- NOTE | 2025-01-07 14:57 | MHC.PC.OV ---
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 Required: No Accompanied by: Self / Same As Patient Allergies seafood Allergy (Severe, Verified 01/07/25 15:33) Anaphylaxis duloxetine Allergy (Intermediate, Verified 01/07/25 15:33) N/V, diarrhea, shakiness, withdrawal symptoms gabapentin Allergy (Intermediate, Verified 01/07/25 15:33) confusion/memory loss/hallucination lactase (LACTASE) Allergy (Intermediate, Verified 01/07/25 15:33) Nausea Medication List - Last Reconciled 01/07/25 by Marcial David MD acetaminophen 500 mg PO TID PRN bupropion HCl SR mg PO clonazepam 0.5 mg PO DAILY clonazepam 1 mg PO BEDTIME PRN clonidine HCl 0.1 mg PO BID PRN 90 days docusate sodium (Colace) 100 mg PO BID finasteride 5 mg PO DAILY 90 days hydrocortisone 2.5% (Proctosol HC) 1 appl [place] BID lidocaine 5% 1 appl topical TID PRN ozqdla-jxygqqjb-qnlnnol (pork) 12,000-38,000 -60,000 unit (Creon) 2 caps PO BID losartan 25 mg PO DAILY 90 days ondansetron 4 mg PO BID-TID PRN pantoprazole 20 mg PO DAILY 90 days polyethylene glycol 3350 17 grams PO DAILY 30 days quetiapine 50 mg PO BEDTIME [RAISED TOILET SEAT As directed] ropinirole 0.5 mg PO BEDTIME sennosides (Senna Laxative) 17.2 mg (2 x 8.6 mg) PO BEDTIME simethicone 180 mg PO QID PRN sucralfate 2 grams (2 x 1 gram) PO .qafternoon tamsulosin (Flomax) 0.4 mg PO BEDTIME 30 days tizanidine 2 mg PO TID PRN 30 days tramadol 1 to 2 tablets PO 2 times a day; 28 days Tobacco use date assessed: 01/07/25 Dental Screening Dental Screen Date: 01/07/25 Did you have a dental visit in the last 12 months?: Yes Did you have a dental problem in the last 6 months where you did not have access to dental care?: No Was dental information given to patient?: Patient has dentist HPI 3mth f/u HPI Details Patient comes in today for his follow up visit States that he feels okay He denies any headaches or dizziness Denies any chest pains, no increased SOB No nausea/vomiting, no abdominal pain No change in bowel habits noted States that he was seen by orthopedics (Dr. Buckner) early last month (November 2024) for his right shoulder pain and as his symptoms were reportedly mostly tolerable at the time, he was advised to just continue with his home stretching exercises and to call orthopedics back if his shoulder gets worse States that he received a cortisone injection into his shoulder from rheumatology last month, which he felt has helped a lot Adds that he was started on Flomax and Finasteride by urology last month for his prostate symptoms and states that he has been experiencing on and off muscle cramps and increased fatigue since - is not sure if these are common side effects of the medications and if he should stop taking them on his own [facility] Medical History Hemorrhoids Overweight (BMI 25.0-29.9) Bleeding hemorrhoids Family history of gastric cancer Gallstones Hyperglycemia Fatigue Palpitations Umbilical hernia Left elbow tendinitis Elevated d-dimer Primary osteoarthritis, left shoulder Acute lumbar myofascial strain Right knee pain Umbilical hernia (04/13/22) Gallstones Diarrhea Chronic abdominal pain Obesity (BMI 30-39.9) Chronic cholecystitis Dyspepsia Primary osteoarthritis of shoulders, bilateral Benign essential hypertension Excessive sweating Primary osteoarthritis, right shoulder Constipation Tubular adenoma of colon Surgical History History of hemorrhoidectomy (~01/24/24) Hx laparoscopic cholecystectomy (~10/08/22) Hx of umbilical hernia repair History of incision and drainage H/O esophagogastroduodenoscopy H/O colonoscopy Status post pericardial cyst excision (~02/13/19) History of varicose vein ligation and stripping H/O inguinal hernia repair S/P tendon repair Family History Father Stomach cancer Mental health problem Mother AIDS Sister PALMER (non-insulin dependent diabetes mellitus in young) Hypertension Other Substance abuse Social History Household Members: Children Housing: Apartment Are you a primary career counselor to a significant other at home: No Do you presently have visiting nurse or other home services: Yes ([employer]) Alcohol intake: former Patient Tobacco Use Status: Former Tobacco user Tobacco use type: Cigarette Cigarettes Per Day: 40 Years Smoked: quit greater than 10 years ago e-Cigarette/Vaping Use: Never Used Second Hand Smoke Exposure: No Advance Directives Date on File: 07/11/20 service: No Current occupational status: disabled Current occupation: right hand dominant Current occupational exposures/hazards: No Cognitive needs: No Hearing needs: No Vision needs: Yes Questionnaire PHQ-9 Over the last 2 weeks, how often have you been bothered by any of the following problems? 1. Little interest or pleasure in doing things: not at all 2. Feeling down, depressed, or hopeless: several days 3. Trouble falling or staying asleep, or sleeping too much: several days 4. Feeling tired or having little energy: several days 5. Poor appetite or overeating: not at all 6. Feeling bad about yourself - or that you are a failure or have let yourself or your family down: not at all 7. Trouble concentrating on things, such as reading the newspaper or watching television: several days 8. Moving or speaking so slowly that other people could have noticed. Or the opposite - being so fidgety or restless that you have been moving around a lot more than usual: several days 9. Thoughts that you would be better off or of hurting yourself in some way: not at all Total score: 5 Depression Screening Interpretation: Positive Depression Screening Follow-up: Existing condition and In treatment Depression Screening Done: Yes 07669 - PHQ-9 Billing: Yes Source: Developed by Drs. Bro Guillermo, Dimple Lawson, Bulmaro Tavares and colleagues, with an educational sofie from [employer]. Thrive Questionnaire Date Thrive assessed: 01/07/25 I am a: Patient What is your living situation today?: I have a steady place to live Within the past 12 months, did the food you bought not last and you didn't have the money to get more?: I choose not to answer this question Within the past 12 months, did you worry whether your food would run out before you got money to buy more?: I choose not to answer this question Do you have trouble paying for medicines?: No Do you have trouble getting transportation to medical appointments?: No Do you have trouble paying your heating and electricity bill?: No Do you have trouble taking care of your child, family member or friend?: No Do you have trouble with day-to-day activities such as bathing, preparing meals, shopping, managing finances, etc.?: Yes Are you currently unemployed and looking for a job?: I choose not to answer this question Are you interested in more education?: I choose not to answer this question Please select the resources that you would like help with: Care for elder or disabled and None Currently or been in a relationship where the following occur: I choose not to answer THRIVE Score: 0 AUDIT C Alcohol Use Questionnaire (AUDIT-C) 1. How often do you have a drink containing alcohol?: Never 3. How often do you have six or more drinks on one occasion?: Never Total Score: 0 Score Reviewed/Action Taken: Yes GANESH-7 AMB Questionnaire GANESH-7 Date GANESH - 7 assessed: 10/05/24 Feeling nervous, anxious, or on edge: 1 = Several days Not being able to stop or control worryin = Several days Worrying too much about different things: 1 = Several days Trouble relaxin = Several days Being so restless that it is hard to sit still: 1 = Several days Becoming easily annoyed or irritable: 1 = Several days Feeling afraid as if something awful might happen: 1 = Several days Total GANESH-7 score (0-4 normal; 5-9 mild; 10-14 moderate; 15-21 severe): 7 Source: Developed by Drs. Bro Guillermo, Dimple Lawson, Bulmaro Tavares and colleagues, with an educational sofie from [employer]. Review of Systems Const Denies chills, Reports difficulty sleeping (Rx helping), Reports fatigue, Denies fever(s) and Denies headache(s) ENT Denies dysphagia, Denies dizziness, Denies otalgia, Denies headache(s), Denies neck pain, Denies odynophagia and Denies sore throat Card Denies chest pain, Denies palpitations and Reports dyspnea on exertion (mild) Resp Denies chest congestion, Denies cough and Reports dyspnea on exertion (mild) GI Denies abdominal pain, Denies hematochezia, Reports constipation (on and off), Denies dysphagia, Denies heartburn, Denies diarrhea, Reports loose stools (occasionally), Denies nausea, Denies odynophagia and Denies vomiting Denies difficulty urinating, Denies dysuria, Denies nocturia and Denies urinary frequency Musc Reports back pain (chronic ), Reports arthralgias (involving multiple joints, including both shoulders and the R knee ), Reports muscle cramps and Denies neck pain Skin/Breast Denies rash Neuro Denies dizziness and Denies headache(s) Psych Reports anxiety and Reports depression Endo Reports fatigue and Denies palpitations Physical exam (Primary Care) Vital Signs: Last Vital Signs Pulse 80 01/07/25 14:57 BP 126/84 01/07/25 14:57 Pulse Ox 98 01/07/25 14:57 Oxygen Delivery Method Room Air 01/07/25 14:57 BMI result Body Mass Index 28.1 Tobacco/Smoking Status: Tobacco use Status Tobacco use date assessed 01/07/25 01/07/25 15:01 Patient Tobacco Use Status Former Tobacco user 01/07/25 15:01 Tobacco use type Cigarette 01/07/25 15:01 e-Cigarette/Vaping Use Never Used 01/07/25 15:01 PHQ-9: PHQ-9 Score PHQ-9: Total score 5 01/07/25 15:17 Depression Screening Interpretation: Positive Depression Screening Follow-up: Existing condition and In treatment Thrive Assessment: Date of Thrive Assessment Date Thrive assessed 10/05/24 01/07/25 15:01 Currently or been in a relationship where the following occur: I choose not to answer Const General: no acute distress and alert HENMT Ears: TM's normal bilaterally and EAC's normal Throat: Yes posterior oropharynx normal and Yes tonsils normal (no TP congestion) Neck Neck: Yes supple and No lymphadenopathy Thyroid: Thyroid normal Resp Auscultation: clear to auscultation bilaterally, no rales and no wheezes Cardio Rate: regular rate Rhythm: regular rhythm Heart sounds: no murmurs GI Palpation (GI): Soft to palpation and nontender Auscultation: normal bowel sounds General: Yes no CVA tenderness Back/Spine/Pelvis Back: no CVA tenderness Cervical Spine: No Cervical spine tenderness Thoracic/Lumbar Spine: lumbar spinal tenderness Skin Rashes: no rashes Extrem General: Yes no clubbing, cyanosis or edema Right upper extremity: shoulder/upper arm Details: tenderness Location: of the A-C joint Left upper extremity: shoulder/upper arm Details: tenderness Location: of the A-C joint Right lower extremity: knee Details: tenderness; no swelling Left lower extremity: knee Details: tenderness; no swelling Coding Level of Care Code Est Pt Level 4 (64305) Diagnoses Benign essential hypertension I10 Elevated PSA R97.20 Lumbar degenerative disc disease M51.36 Primary osteoarthritis of shoulders, bilateral M19.011; M19.012 Gastroesophageal reflux disease without esophagitis K21.9 Esophagitis presence: without esophagitis Irritable bowel syndrome with both constipation and diarrhea K58.2 Hemorrhoids, unspecified hemorrhoid type K64.9 Hemorrhoid type: unspecified Insomnia, unspecified type G47.00 Insomnia type: unspecified Anxiety F41.9 Episode of recurrent major depressive disorder, unspecified depression episode severity F33.9 Depression Type: major depressive disorder Major depression recurrence: recurrent Active/Remission status: currently active Major depression episode severity: unspecified Overweight (BMI 25.0-29.9) E66.3 Additional Codes PHQ-9 - 45403 - PHQ-9 Billing: Yes ([id number]) Assessment & Plan Assessment & Plan (1) Benign essential hypertension: Code(s): I10 - Essential (primary) hypertension Category: Medical Plan: Reinforced low sodium diet - goal is systolic BP of at least 120 to 130 mm or less Continue Losartan 25 mg QD Will have patient recheck his labs in 4 months for follow up (2) Elevated PSA: Code(s): R97.20 - Elevated prostate specific antigen [PSA] Category: Medical Plan: His PSA went up significantly to 5.21 ng/ml on his labs done back in August 2024 We referred him to Urology and he is now being seen by Dr. Daugherty and was started on Finasteride and Tamsulosin Patient states that he has been experiencing increased fatigue and recurrent muscle cramps lately and he is concerned that his symptoms are due to side effects from the medications Have advised patient to reach out to urology with these concerns and see if they would recommend switching out his meds or not (3) Lumbar degenerative disc disease: Code(s): M51.36 - Other intervertebral disc degeneration, lumbar region Category: Medical Plan: Reinforced activity and weight lifting restrictions Continue Tizanidine 2 mg 3 times a day as needed, Acetaminophen 500 mg TID PRN, Lidocaine 4% cream apply to painful area on lower back as needed and Tramadol 50 mg TID PRN He has been seeing [facility] pain management and receiving back injections, which he states have not been helping much recently and he has expressed his concerns about getting too many cortisone injections and their potential long-term implications for him Have advised him that other than cortisone injections, there are other interventional modalities available and that he should continue to follow-up with pain management (at [facility]) and pursue interventional treatments rather than chronic opioid Rx for his chronic pain (4) Primary osteoarthritis of shoulders, bilateral: Code(s): M19.011 - Primary osteoarthritis, right shoulder; M19.012 - Primary osteoarthritis, left shoulder Category: Medical Plan: His shoulders have been bothering him a lot since he had his cholecystectomy back in September 2022 X-rays of the shoulders done in May 2022 revealed (+) moderate subacromial spur in the right shoulder; the right shoulder is otherwise normal and left shoulder x-rays came back normal He went to physical therapy for his shoulders for a while and states that PT has helped somewhat Follow up with rheumatology as scheduled; was seeing Dr. Pitt and Dr. Millard at [facility] in the past and is now seeing Dr. Scott as well as Dr. Buckner for his shoulder issues Continue Lidocaine 5% cream on his shoulders PRN for symptomatic relief (5) GERD (gastroesophageal reflux disease): Code(s): K21.9 - Gastro-esophageal reflux disease without esophagitis Category: Medical Qualifiers: Esophagitis presence: without esophagitis Qualified Code(s): K21.9 - Gastro-esophageal reflux disease without esophagitis Plan: Dietary restrictions reinforced Continue Pantoprazole 20 mg QD (6) Irritable bowel syndrome with both constipation and diarrhea: Comment: With an element of post cholecystectomy syndrome Code(s): K58.2 - Mixed irritable bowel syndrome Category: Medical Plan: Continue Docusate 100 mg BID PRN and Creon 2 capsules BID Follow up with GI as scheduled Stool culture and test for H. pylori done last year came back negative (7) Hemorrhoids: Code(s): K64.9 - Unspecified hemorrhoids Category: Medical Qualifiers: Hemorrhoid type: unspecified Qualified Code(s): K64.9 - Unspecified hemorrhoids Plan: Follow up with Dr. Saenz as scheduled for management of his hemorrhoid issues (8) Insomnia: Code(s): G47.00 - Insomnia, unspecified Category: Medical Qualifiers: Insomnia type: unspecified Qualified Code(s): G47.00 - Insomnia, unspecified Plan: Sleep hygiene reinforced Hs is currently on Quetiapine, which helps with his sleep somewhat He used to also take Zolpidem but stopped taking this recently (9) Anxiety: Code(s): F41.9 - Anxiety disorder, unspecified Category: Medical Plan: Continue Clonazepam 1 mg once a day at bedtime as needed, Clonazepam 0.5 mg once a day in AM, Propranolol 20 mg BID and Clonidine 0.1 mg BID PRN (10) Depression: Code(s): F32.9 - Major depressive disorder, single episode, unspecified Category: Medical Qualifiers: Depression Type: major depressive disorder Major depression recurrence: recurrent Active/Remission status: currently active Major depression episode severity: unspecified Qualified Code(s): F33.9 - Major depressive disorder, recurrent, unspecified Plan: Continue Quetiapine 50 mg Q HS He also used to take Wellbutrin XL but states that he weaned off this medication on his own a few months ago as he did not feel that it was helping much Follow-up with Psychiatry as scheduled (11) Overweight (BMI 25.0-29.9): Code(s): E66.3 - Overweight Category: Medical Plan: Reinforced diet; exercise is not realistic given his multiple physical issues but he is again encouraged to still try to do what he can to lose weight or manage his weight better Plan Follow up in 4 months Orders: Orders Lipid Panel 4 Months E78.00 - Pure hypercholesterolemia, unspecified Vitamin D 25-OH Total 4 Months E55.9 - Vitamin D deficiency, unspecified Complete Blood Count Auto Diff 4 Months D64.9 - Anemia, unspecified Comprehensive [place]. Panel Fast 4 Months E78.00 - Pure hypercholesterolemia, unspecified TSH reflex Free T4 4 Months E78.00 - Pure hypercholesterolemia, unspecified UA CC w/rflx Micro + Cult 4 Months R30.0 - Dysuria Vitamin B12 and Folate 4 Months E53.8 - Deficiency of other specified B group vitamins
== END 2025-01-07 15:46 | disposition home or self-care (01) ==
LOC: HO.HMCH 14:38
PROVIDERS: PCP Internal Medicine; Visit Provider Internal Medicine
DX: I10 Essential (primary) hypertension (principal); R97.20 Elevated prostate specific antigen [PSA]; M51.369 Other intervertebral disc degeneration, lumbar region without mention of lumbar back pain or lower extremity pain; M19.011 Primary osteoarthritis, right shoulder; M19.012 Primary osteoarthritis, left shoulder; K21.9 Gastro-esophageal reflux disease without esophagitis; K58.2 Mixed irritable bowel syndrome; K64.9 Unspecified hemorrhoids; G47.00 Insomnia, unspecified; F41.9 Anxiety disorder, unspecified; F33.9 Major depressive disorder, recurrent, unspecified; E66.3 Overweight

== ENCOUNTER → 2025-01-07 14:37 | Outpatient (BNVA) | payer MEDICARE, MEDICAID, SELFPAY | PROVIDERS: PCP Internal Medicine; Visit Provider Internal Medicine | DX: M19.011 Primary osteoarthritis, right shoulder (principal); M19.012 Primary osteoarthritis, left shoulder; I10 Essential (primary) hypertension; R97.20 Elevated prostate specific antigen [PSA]; M51.369 Other intervertebral disc degeneration, lumbar region without mention of lumbar back pain or lower extremity pain; K21.9 Gastro-esophageal reflux disease without esophagitis; K58.2 Mixed irritable bowel syndrome; K64.9 Unspecified hemorrhoids; G47.00 Insomnia, unspecified; F41.9 Anxiety disorder, unspecified; F33.9 Major depressive disorder, recurrent, unspecified; E66.3 Overweight; Z68.28 Body mass index [BMI] 28.0-28.9, adult | CPT/HCPCS: 96127; 99212 ==

== ENCOUNTER 2025-01-19 05:07 | Inpatient (IN) | payer MEDICARE, MEDICAID, SELFPAY ==
[2025-01-19] VITALS (16 sets, daily range): BP systolic 122–164; BP diastolic 59–91; PULSE 76–98; RESP 11–25; TEMP 36.3–39.5; O2SAT 91–98; BMI 28.5; BMI 28.2
--- NOTE | 2025-01-19 | ECG_ITS ---
Test Reason : CP Blood Pressure : */* mmHG Vent. Rate : 97 BPM Atrial Rate : 97 BPM P-R Int : 156 ms QRS Dur : 94 ms QT Int : 330 ms P-R-T Axes : 71 -18 45 degrees QTcB Int : 419 ms Normal sinus rhythm Possible Left atrial enlargement Borderline ECG When compared with ECG of 11-Feb-2022 14:18, No significant change was found Referred By: Generic ED Physician Electronically Signed By: ROGER BRUCE
--- NOTE | ~2025-01-19 | XR_ITS ---
CLINICAL HISTORY: new onset friction rub, increased wheezing --- Additional Notes or Special Instructions: DX PNA on admission 1 view chest x-ray Comparison: CT/REG/SR - CT ANGIO CHEST PE PROTOCOL - 01/19/25 07:26 EDT CR - XR CHEST 1V - 01/19/25 05:36 EDT Findings: Interstitial edema with left lung base patchy opacities versus atelectasis. Cardiomediastinal silhouette is stable. No acute osseous abnormality IMPRESSION: Interstitial edema with left lung base opacities, developing consolidation can not be excluded. This document has been electronically signed by: Oswald Dubose MD on 01/20/2025 05:09:57
--- NOTE | ~2025-01-19 | XR_ITS ---
CLINICAL HISTORY: chest pain 1 view chest x-ray Comparison: 02/11/2022 Findings: Portions of the exam are obscured by overlying material. The lungs are clear. Normal size heart. No acute fracture. IMPRESSION: 1. No acute findings. This document has been electronically signed by: Declan Galarza MD on 01/19/2025 06:05:10
--- NOTE | ~2025-01-19 | CT_ITS ---
CLINICAL HISTORY: cp CT angiography chest with contrast. 3D Postprocessing. Comparison: 02/11/2022 Findings: The heart size is normal. RV/LV ratio is normal. Unremarkable thoracic aorta and great vessels. No aneurysm. No acute pulmonary embolus. The visualized thyroid and mediastinum are unremarkable. There is left upper and lower lobe consolidation, possible pneumonia or atelectasis. The visualized upper abdomen is unremarkable. The bones are intact. IMPRESSION: 1. No pulmonary embolus. 2. Left upper and lower lobe consolidation, differential considerations noted This document has been electronically signed by: Declan Galarza MD on 01/19/2025 08:22:58
[2025-01-19 05:44] LABS: MANUAL DIFF FLAG NO
[2025-01-19 05:45] LABS: Hematocrit 45.0 % (42.0-52.0); Hemoglobin 15.3 g/dl (14.0-18.0); Imm Gran Abs Auto 0.04 X10*3/uL (0.00-0.03); Imm Gran Pct Auto 0.3 % (0.0-0.4); Lymphocytes Absolute Auto 1.4 X10*3/uL (1.2-4.9); Mean Corpuscular HGB Conc 34.0 g/dl (31.0-36.0); Mean Corpuscular Hemoglobin 28.1 pg (27.0-33.0); Mean Corpuscular Volume 82.7 fL (80.0-98.0); NRBC Abs Auto 0.000 X10*3/uL (0.0-0.012); NRBC Pct Auto 0.0 /100WBC (0.0-0.2); Platelet Count 198 X10*3/uL (160-400); Red Blood Count 5.44 X10*6/uL (4.60-5.80); White Blood Count 13.5 X10*3/uL (4.8-10.8)
[2025-01-19 06:00] LABS: Alanine Aminotransferase 20 U/L (0-40); Albumin Level 4.3 g/dL (3.5-5.0); Alkaline Phosphatase 86 U/L (39-117); Anion Gap 12 (12-20); Aspartate Amino Transferase 20 U/L (5-37); Blood Urea Nitrogen 9 mg/dL (9-16); Calcium 8.9 mg/dL (8.4-10.2); Carbon Dioxide 25 mmol/L (22-29); Chloride 106 mmol/L (96-108); Creatinine Clr Calc Pharmacy 100.7; Estimated Glomerular Filt Rate > 60; Potassium 3.9 mmol/L (3.3-5.1); Sodium 139 mmol/L (135-145); Total Protein 7.2 g/dL (6.5-8.0)
[2025-01-19 06:09] LABS: Troponin-I High Sensitivity < 2.7 ng/L (<3.5-35.0)
[2025-01-19 06:12] LABS: IDNOW Serial# 152EDE1D; Influenza B2 Negative (Negative)
[2025-01-19 06:13] LABS: COVID-19 Test Negative (Negative); IDNOW Serial# 16C4AD1C
--- NOTE | 2025-01-19 06:35 | ED_ITS ---
HPI - Chest Pain General Chief Complaint: Chest Pain Stated Complaint: chest pain Time Seen by Provider: 01/19/25 06:07 History of Present Illness HPI narrative: 64 years old presents today with having chest pain coughing. Chest pain is mid chest. Radiates to the back. Patient is has no history of diabetes, no history of hypertension no history of high cholesterol. Previous history of smoking quit about 15 years ago. Never had a heart attack never had a stroke. Question history of blood clots in the past. Related Data Home Medications ?Medication ?Instructions ?Recorded ?Confirmed ropinirole 0.5 mg tablet 0.5 mg PO BEDTIME 02/08/23 1 quetiapine 50 mg tablet 50 mg PO BEDTIME 08/10/23 Previous Rx's ?Medication ?Instructions ?Recorded RAISED TOILET SEAT #1 ea 05/04/23 polyethylene glycol 3350 17 17 g PO DAILY 30 days #510 grams 02/06/24 gram/dose oral powder ondansetron 4 mg disintegrating 4 mg PO BID-TID PRN na usea and 06/11/24 tablet vomiting #14 tabs acetaminophen 500 mg tablet 500 mg PO TID PRN for pain #90 tabs 08/23/24 tizanidine 2 mg tablet 2 mg PO TID PRN muscle spast icity 10/29/24 30 days #90 tabs clonidine HCl 0.1 mg tablet 0.1 mg PO BID PRN for anxi ety 90 10/30/24 days #180 tabs losartan 25 mg tablet 25 mg PO DAILY 90 days #90 t abs 11/06/24 finasteride 5 mg tablet 5 mg PO DAILY 90 days #90 ta bs 12/14/24 tamsulosin 0.4 mg capsule (Flomax) 0.4 mg PO BEDTIME 3 0 days #30 tabs 12/17/24 clonazepam 0.5 mg tablet 0.5 mg PO DAILY #30 tabs 09/12 clonazepam 1 mg tablet 1 mg PO BEDTIME PRN anxiety #30 12/24/24 tabs tramadol 50 mg tablet See Rx Instructions PO BID p ain 28 12/24/24 days #112 tabs docusate sodium 100 mg capsule 100 mg PO BID #60 caps 12/25/24 (Colace) hydrocortisone 2.5 % topical cream 1 appl MT BID hemor rhoids #30 grams 12/25/24 with perineal applicator (Proctosol HC) pyphot-mqxwuvxx-amkxyuk(pork)12,000-38,000-60,000 2 ca p PO BID #120 caps 12/25/24 unit capsule,del rel (Creon) pantoprazole 20 mg tablet,delayed 20 mg PO DAILY 90 da ys #90 tabs 12/25/24 release sennosides 8.6 mg tablet (Senna 17.2 mg (2 x 8.6 mg) P O BEDTIME 12/25/24 Laxative) #60 tabs simethicone 180 mg capsule 180 mg PO QID PRN for abdom inal 12/25/24 pain #120 caps sucralfate 1 gram tablet 2 g (2 x 1 gram) PO .qaftern oon 12/25/24 #180 tabs lidocaine 5 % topical cream 1 appl topical TID PRN yenifer n #30 01/11/25 grams Allergies Allergy/AdvReac Type Severity Reaction Status Date / Time seafood Allergy Severe Anaphylaxis Verified 01/19/25 05:19 duloxetine Allergy Intermediate N/V, Verified 01/19/25 05:19 diarrhea, shakiness, withdrawal symptoms gabapentin Allergy Intermediate confusion/memory Verified 01/19/25 05:19 loss/hallucination lactase (LACTASE) Allergy Intermediate Nausea Verified 01/19/25 05:19 Review of Systems 2 Review of Systems: Positive chest pain Yes all other systems are reviewed and are negative PMFSH Past Medical History Attestation statement: The following information was validated with the patient. Medical History Hemorrhoids Overweight (BMI 25.0-29.9) Bleeding hemorrhoids Family history of gastric cancer Gallstones Hyperglycemia Fatigue Palpitations Umbilical hernia Left elbow tendinitis Elevated d-dimer Primary osteoarthritis, left shoulder Acute lumbar myofascial strain Right knee pain Umbilical hernia (04/13/22) Gallstones Diarrhea Chronic abdominal pain Obesity (BMI 30-39.9) Chronic cholecystitis Dyspepsia Primary osteoarthritis of shoulders, bilateral Benign essential hypertension Excessive sweating Primary osteoarthritis, right shoulder Constipation Tubular adenoma of colon Surgical History History of hemorrhoidectomy (~01/24/24) Hx laparoscopic cholecystectomy (~10/08/22) Hx of umbilical hernia repair History of incision and drainage H/O esophagogastroduodenoscopy H/O colonoscopy Status post pericardial cyst excision (~02/13/19) History of varicose vein ligation and stripping H/O inguinal hernia repair S/P tendon repair Family History Family History Father Stomach cancer Mental health problem Mother AIDS Sister PALMER (non-insulin dependent diabetes mellitus in young) Hypertension Other Substance abuse Social History Social History Household Members: Children Housing: Apartment Are you a primary daycare director to a significant other at home: No Do you presently have visiting nurse or other home services: Yes ([employer]) Alcohol intake: former Patient Tobacco Use Status: Former Tobacco user Tobacco use type: Cigarette Cigarettes Per Day: 40 Years Smoked: quit greater than 10 years ago Smoked in Last 30 Days: No e-Cigarette/Vaping Use: Never Used Second Hand Smoke Exposure: No Use of substances other than those prescribed or required for medical reasons: No Advance Directives: Yes Advance Directives on File: Yes Advance Directives Date on File: 07/11/20 service: No Current occupational status: disabled Current occupation: right hand dominant Current occupational exposures/hazards: No Cognitive needs: No Hearing needs: No Vision needs: Yes Physical Exam 2 Exam: Exam: Appearance: Alert. Oriented X3. No acute distress. Eyes: Pupils equal, round and reactive to light. ENT: Pharynx normal. Neck: Normal inspection. Neck supple. No lymph nodes noted. No crepitus CVS: Normal heart rate and rhythm. Pulses normal. Normal S1 and S2 Respiratory: No respiratory distress. Breath sounds normal. No Wheezing. No rales Abdomen: Soft and nontender. No rigidity. No distention. good BS x4 Skin: Skin warm and dry. Normal skin color. Normal skin turgor. Extremities: No lower extremity edema. Neurovascular intact to all extremities. No Lacerations. No Rash Neuro: Oriented X 3. No motor deficit. No sensory deficit. Moving all extermities. No slurred speech Vital Signs: Vital Signs: Last Vital Signs Temp 100.9 F H 01/19/25 09:46 Pulse 87 01/19/25 09:46 Resp 14 01/19/25 09:46 BP 142/80 H 01/19/25 09:46 Pulse Ox 93 01/19/25 09:46 O2 Del Method Room Air 01/19/25 09:46 BMI result Body Mass Index 28.5 Medications Administered Discontinued Medications Generic Name Dose Route Start Last Admin Trade Name Christos PRN Reason Stop Dose Admin Acetaminophen 975 mg 01/19/25 07:26 01/19/25 07:44 Acetaminophen 325 Mg Tablet PO 01/19/25 07:27 975 mg ONCE ONE Administration Azithromycin 500 mg 01/19/25 07:27 01/19/25 07:45 Azithromycin 500 Mg Tablet PO 01/19/25 07:28 500 mg ONCE ONE Administration Sodium Chloride 1,000 mls @ 999 mls/hr 01/19/25 07:30 01/19/25 07:55 Ns IV 01/19/25 08:30 999 mls/hr .Q1H1M RIZWANA Administration Ceftriaxone Sodium 1 gm/ 50 mls @ 100 mls/hr 01/19/25 07:27 01/19/25 08:30 Sodium Chloride IV 01/19/25 07:56 Infused ONCE ONE Infusion Iohexol 100 ml 01/19/25 07:37 01/19/25 07:38 Iohexol 350 Mg/Ml 100 Ml Infus..Btl IV 01/19/25 07:38 65 ml ONCE ONE Administration Ketorolac Tromethamine 15 mg 01/19/25 09:29 01/19/25 09:42 Ketorolac Tromethamine 15 Mg/Ml Vial IVPUSH 01/19/25 09:30 15 mg ONCE ONE Administration Medical Decision Making Medical Decision Making [facility] Narrative: My interpretation patient's EKG showed a sinus rhythm heart rate is 110 MT QRS QTC within normal limits there is nonspecific ST segment depression over loud least question secondary to rate. Will give IV fluids. Because patient has question history of blood clots scoring to the back will get a CTA of the chest. My interpretation patient's chest x-ray is grossly negative no pneumonia no pneumothorax flu COVID RSV were negative. Pain atypical for ACS. First sets of enzymes are negative will get a 2nd set.. Has a history of smoking in the past. Pain atypical. If the 2nd set is negative patient's heart score is less than 3. Patient's CTA of the chest was positive for pneumonia. We tried to ambulate patient. On ambulation patient got extremely short-winded. O2 sat dropped to 90%. Will admit patient for IV antibiotics. In stable condition. Lactate was normal white count is normal in no acute distress. Differential Diagnosis Differential Diagnoses: The differential diagnosis associated with the presentation includes ACS, pneumonia, pneumothorax, PE Admission/Observation Consideration of admission/observation: Escalation of care including admission/observation considered Consult Healthcare Provider Management of the patient was discussed with: Hospitalist Lab Data [facility] Lab Attestation statement: I reviewed the patient's lab results. 01/19/25 05:38 01/19/25 05:38 Labs: Lab Results 01/19/25 01/19/25 Range/Units 05:38 07:52 WBC 13.5 H (4.8-10.8) X10*3/uL RBC 5.44 (4.60-5.80) X10*6/uL Hgb 15.3 (14.0-18.0) g/dl Hct 45.0 (42.0-52.0) % MCV 82.7 (80.0-98.0) fL MCH 28.1 (27.0-33.0) pg MCHC 34.0 (31.0-36.0) g/dl RDW 13.2 (11.0-16.0) % Plt Count 198 (160-400) X10*3/uL MPV 10.4 (9.4-12.4) fL Immature Gran % (Auto) 0.3 (0.0-0.4) % Neut % (Auto) 79.7 H (45-73) % Lymph % (Auto) 10.1 L (20-40) % [place] % (Auto) 8.2 (2-11) % Eos % (Auto) 1.3 (0-4) % Baso % (Auto) 0.4 (0-2) % Lymph # (Auto) 1.4 (1.2-4.9) X10*3/uL [place] # (Auto) 1.1 (0.1-1.2) X10*3/uL Eos # (Auto) 0.2 (0.0-0.4) X10*3/uL Baso # (Auto) 0.1 (0.0-0.2) X10*3/uL Abs Immat Gran (auto) 0.04 H (0.00-0.03) X10*3/uL Absolute Neuts (auto) 10.8 H (2.0-8.3) x10*3/uL Absolute Nucleated RBC 0.000 (0.0-0.012) X10*3/uL Nucleated RBC % (auto) 0.0 (0.0-0.2) /100WBC Sodium 139 (135-145) mmol/L Potassium 3.9 (3.3-5.1) mmol/L Chloride 106 (96-108) mmol/L Carbon Dioxide 25 (22-29) mmol/L Anion Gap 12 (12-20) BUN 9 (9-16) mg/dL Creatinine 0.91 (0.5-1.4) mg/dL Estim Creat Clear Calc 100.7 Estimated GFR > 60 Random Glucose 129 H (60-115) mg/dL Lactic Acid 1.0 (0.5-2.0) mmol/L Calcium 8.9 (8.4-10.2) mg/dL Total Bilirubin 0.8 (0.0-1.0) mg/dL AST 20 (5-37) U/L ALT 20 (0-40) U/L Alkaline Phosphatase 86 (39-117) U/L Troponin I High Sens < 2.7 < 2.7 (<3.5-35.0) ng/L Total Protein 7.2 (6.5-8.0) g/dL Albumin 4.3 (3.5-5.0) g/dL COVID-19 (PHILL) Negative (Negative) COVID-19 Clin Com See Note Influenza Type A (SUSIE) Negative (Negative) Influenza Type B (SUSIE) Negative (Negative) Influenza A & B Note See Note Independent Interpretation I performed an independent interpretation of an: EKG (Sinus heart rate is 110 MT QRS QTC within normal limits there is nonspecific ST segment depression over the lateral leads) Radiology Impression Discussion of test interpretation with radiology: I have reviewed the radiologist's reading. Independent Historian Clinical information obtained from an independent historian. History obtained from or confirmed by: EMS External Record Review External record reviewed: Office record Chronic Conditions hx of smoking Social Determinants Patient?s care significantly limited by Social Determinants of Health including: Problems related to primary support group Discharge Plan Discharge Clinical Impression: Pneumonia Patient Disposition: Admitted As Inpatient Print Language: Georgian
[2025-01-19] MEDS: iohexoL 350 MG/ML 100 ML INFUS..BTL IV (07:38)
[2025-01-19 08:23] LABS: Troponin-I High Sensitivity < 2.7 ng/L (<3.5-35.0)
--- NOTE | 2025-01-19 09:40 | MHC.EDTECH ---
Ambulation trial performed by this tech. Pts initial SPO2 94% RA with a HR of 97 prior to the trial. Pt was weak standing up. Initially Pt had a slow and steady gait. Pt was walking with this tech on standby. Pt walked a short distance. His gait became unsteady, and he reported increased weakness and dizziness. Pts SP02 was 91% RA and HR was 160. RN and Provider made aware.
--- NOTE | 2025-01-19 09:45 | PC.NURSE ---
During ambulatory O2 trial- pt O2 sat decreased to 91% on RA, pt endorsed SOB during trial. Weak/unsteady gait while ambulating. Aware.
--- NOTE | 2025-01-19 10:03 | PM.IMHP ---
History of Present Illness Date of Service: 01/19/25 Attending physician on admission: Jeana Lara Chief Complaint: shortness of breath This is a 64-year-old male who presents to the emergency department with shortness of breath. He states for the past 2 days he has been having shortness of breath, fever, headache. In addition he has had a dry cough and a sore throat. He denies any recent sick contacts. He was feeling so poorly that he came to the emergency department for evaluation. On arrival to the emergency department he was febrile with a temperature of 103.1, was tachypneic. Oxygen saturations were borderline low at 91% and reported dyspnea with exertion. Lab work was significant for leukocytosis of 13.5. Lactic acid within normal limits. He tested negative for influenza and COVID-19. Chest x-ray was unremarkable so he underwent a CTA which showed left upper and lower lobe consolidations. He was treated with IV ceftriaxone and azithromycin and admission was requested. Review of Systems Review of Systems: Yes all other systems are reviewed and are negative Constitutional: Constitutional: Reports fever(s) ENT: Reports sore throat Cardiovascular: Cardiovascular: Reports dyspnea Respiratory: Respiratory: Reports cough and Reports dyspnea [facility] Medical History Hemorrhoids Overweight (BMI 25.0-29.9) Bleeding hemorrhoids Family history of gastric cancer Gallstones Hyperglycemia Fatigue Palpitations Umbilical hernia Left elbow tendinitis Elevated d-dimer Primary osteoarthritis, left shoulder Acute lumbar myofascial strain Right knee pain Umbilical hernia (04/13/22) Gallstones Diarrhea Chronic abdominal pain Obesity (BMI 30-39.9) Chronic cholecystitis Dyspepsia Primary osteoarthritis of shoulders, bilateral Benign essential hypertension Excessive sweating Primary osteoarthritis, right shoulder Constipation Tubular adenoma of colon Family History Father Stomach cancer Mental health problem Mother AIDS Sister NIDKENZIE (non-insulin dependent diabetes mellitus in young) Hypertension Other Substance abuse Surgical History History of hemorrhoidectomy (~01/24/24) Hx laparoscopic cholecystectomy (~10/08/22) Hx of umbilical hernia repair History of incision and drainage H/O esophagogastroduodenoscopy H/O colonoscopy Status post pericardial cyst excision (~02/13/19) History of varicose vein ligation and stripping H/O inguinal hernia repair S/P tendon repair Social History Household Members: None Housing: Apartment Are you a primary cattle care worker to a significant other at home: No Do you presently have visiting nurse or other home services: Yes Alcohol intake: former Patient Tobacco Use Status: Former Tobacco user Tobacco use type: Cigarette Cigarettes Per Day: 40 Years Smoked: quit greater than 10 years ago Smoked in Last 30 Days: No e-Cigarette/Vaping Use: Never Used Second Hand Smoke Exposure: No Use of substances other than those prescribed or required for medical reasons: No Currently Displaying Signs/Symptoms of Drug Intoxication Withdrawal: No Have you been hit, kicked, punched, or otherwise hurt by someone within the past year? If so, by whom?: No Do you feel safe in your current relationship?: No Current Relationship Is there a partner from a previous relationship who is making you feel unsafe now?: No Are you made to feel afraid or neglected: No Advance Directives: Yes Advance Directives on File: Yes Advance Directives Date on File: 07/11/20 Do you have a plan to hurt others: No Plan Recently lost weight without trying: Yes How much weight loss: 34pounds or more Eating poorly because of decreased appetite: Yes Nutrition screen score: 7 Nutrition Risks: No Nutritional Risk service: No Current occupational status: disabled Current occupation: right hand dominant Current occupational exposures/hazards: No Cognitive needs: No Hearing needs: No Vision needs: Yes Meds Allergies Allergy/AdvReac Type Severity Reaction Status Date / Time seafood Allergy Severe Anaphylaxis Verified 01/19/25 05:19 duloxetine Allergy Intermediate N/V, Verified 01/19/25 05:19 diarrhea, shakiness, withdrawal symptoms gabapentin Allergy Intermediate confusion/memory Verified 01/19/25 05:19 loss/hallucination lactase (LACTASE) Allergy Intermediate Nausea Verified 01/19/25 05:19 Home Medications ?Medication ?Instructions ?Recorded ?Confirmed ?Last Taken ?Type ropinirole 0.5 mg tablet 0.5 mg PO BEDTIME PRN CRAMPING 02/08/23 01/19/25 01/18/25 History quetiapine 50 mg tablet 50 mg PO DAILY@1900 08/10/23 01/19/25 01/18/25 History hydrocortisone 2.5 % topical cream 1 appl [place] BID PRN hemorrhoids 01/19/25 01/19/25 01/18/25 History with perineal applicator (Proctosol HC) taukxf-efutydxu-nrmhwzq(pork)12,000-38,000-60,000 1 cap PO BID 01/19/25 01/19/25 01/18/25 History unit capsule,del rel (Creon) quetiapine 50 mg tablet 100 mg PO DAILY@1700 01/19/25 01/19/25 01/18/25 History simethicone 180 mg capsule 180 mg PO BID for abdominal pain 01/19/25 01/19/25 01/18/25 History sucralfate 1 gram tablet 1 g PO DAILY PRN Abdominal Pain 01/19/25 01/19/25 01/18/25 History tramadol 50 mg tablet 50 mg PO BID pain 01/19/25 01/19/25 01/18/25 History Physical Exam Vital Signs and Narrative: Vital Signs: Last Vital Signs Temp 100.6 F H 01/19/25 10:00 Pulse 89 01/19/25 10:00 Resp 12 01/19/25 10:00 BP 142/80 H 01/19/25 10:00 Pulse Ox 94 01/19/25 10:00 O2 Del Method Room Air 01/19/25 10:00 BMI result Body Mass Index 28.5 Const: Other: ill appearing General: alert and awake Nutritional Appearance: average body habitus Orientation/consciousness: patient oriented x3 Resp: Other: mild tachypnea Effort & Inspection: normal respiratory effort and able to speak in complete sentences Auscultation: no wheezes Cardio: Rate: regular rate GI: Inspection: No distended Neuro: General: patient oriented x3, moves all extremities and CN's II-XI intact bilaterally Results Labs 01/20/25 04:39 01/20/25 04:39 Labs: Laboratory Results - last 24 hr 01/19/25 01/19/25 05:38 07:52 MCV 82.7 MCH 28.1 MCHC 34.0 RDW 13.2 Plt Count 198 MPV 10.4 Immature Gran % (Auto) 0.3 Neut % (Auto) 79.7 H Lymph % (Auto) 10.1 L [place] % (Auto) 8.2 Eos % (Auto) 1.3 Baso % (Auto) 0.4 Lymph # (Auto) 1.4 [place] # (Auto) 1.1 Eos # (Auto) 0.2 Baso # (Auto) 0.1 Abs Immat Gran (auto) 0.04 H Absolute Neuts (auto) 10.8 H Absolute Nucleated RBC 0.000 Nucleated RBC % (auto) 0.0 Anion Gap 12 Estim Creat Clear Calc 100.7 Estimated GFR > 60 Random Glucose 129 H Lactic Acid 1.0 Calcium 8.9 Total Bilirubin 0.8 AST 20 ALT 20 Alkaline Phosphatase 86 Troponin I High Sens < 2.7 < 2.7 Total Protein 7.2 Albumin 4.3 COVID-19 (PHILL) Negative COVID-19 Clin Com See Note Influenza Type A (SUSIE) Negative Influenza Type B (SUSIE) Negative Influenza A & B Note See Note Assessment and Plan (1) Pneumonia: Status: Acute Plan This is a 64-year-old male with a history of anxiety, hemorrhoids, BPH, IBS, GERD who presents to the emergency department with 2 days of shortness of breath and fever found to have pneumonia Sepsis due to pneumonia Meets sepsis criteria with leukocytosis, tachypnea, fever Lactic acid within normal limits, no severe features continue IV antibiotics Ceftriaxone and Doxycycline check RPP supportive care Follow Blood culture results Chronic back pain on tizanidine, tramadol Anxiety Continue quetiapine, clonazepam, p.r.n. clonidine BPH Continue Proscar History continue as needed Proctosol GERD Continue omeprazole, Carafate History of IBS with constipation and diarrhea Continue bowel regimen Unclear if for Creon as patient denies history of pancreatic surgery or pancreatitis DVT prophylaxis-Lovenox Code status-full code Patient likely require 2 midnight stay in the hospital for management of pneumonia and sepsis requiring close monitoring and IV antibiotics Quality Stroke Does the patient have a stroke diagnosis?: No VTE Prior VTE?: No VTE Risk Level:: Medical - moderate - high VTE Device Contraindication: Treatment Not Indicated VTE Drug Contraindication: N/A - Med Ordered
--- NOTE | 2025-01-19 10:39 | PHA.MEDREC ---
Addendum entered by Juli Decker [facility] 01/19/25 10:43: Patient also admitted to discontinuing losartan Addendum entered by Juli Decker [facility] 01/19/25 10:42: Patient also takes 100 mg of quetiapine before dinner and 50 mg after dinner, patient confirmed his indication is for sleep Original Note: Pharmacy Consult ? Medication Reconciliation Pharmacy has completed the medication reconciliation. Spoke with patient at bedside. Patient states he has recently discontinued his bupropion. He also confirmed he is only take 1 capsule of Creon BID instead of the prescribed 2 capsules, he also stated he only takes his sucralfate as needed. Patient stated he takes OTC's as needed, when questioned what OTC's he said vitamins , patient could not specify which vitamins.
[2025-01-19] MEDS: guaiFENesin DM 200/20/10 ML 10 ML SYRUP PO ×3 (11:18→22:38)
[2025-01-19 12:28] LABS: Chlamydia pneumoniae PCR Not Detected (Not Detect.); Coronavirus 229E PCR Not Detected (Not Detect.); Coronavirus HKU1 PCR Not Detected (Not Detect.); Coronavirus NL63 PCR Not Detected (Not Detect.); Coronavirus OC43 PCR Not Detected (Not Detect.); RSV PCR Not Detected (Not Detect.); Rhino/Enterovirus PCR Not Detected (Not Detect.)
[2025-01-19 13:24] LABS: Influenza A H1 PCR Not Detected (Not Detect.); Influenza A H1-2009 PCR Not Detected (Not Detect.); Influenza A H3 PCR Not Detected (Not Detect.); SARS-CoV-2 PCR Not Detected (Not Detect.)
--- NOTE | 2025-01-19 19:19 | HO.NURTONUR ---
64 y/o M, A/ox3, Full Code Admit: Pneumonia Came from home for cough/CP/Headache- URI s/s. Labs: WBC 13.5, Viral panel negative, respiratory panel negative. Reports: EKG- normal sinus, CXR- negative, Chest CTA- negative for PE, Left upper/lower lobe consolidation. 20g IV Right AC- He got 1L NS, he is getting IV Abx (ceftriaxone and azithromycin) He had a 103 oral temp--> PO tylenol was given, he has since been afebrile. Independent/Ambulatory at baseline- ambulating O2 done on RA, he desat to 91% and also felt weak while walking. He has not needed O2.
[2025-01-19] MEDS: Lipase/Prot/Amylase 12/38/60K CAPSULE.DR 1 CAP PO (20:48)
[2025-01-19] MEDS: 0.9 % Sodium Chloride Flush 3 ML SYRINGE IVFLUSH (20:49)
--- NOTE | 2025-01-20 | ECG_ITS ---
Test Reason : tachycardia Blood Pressure : */* mmHG Vent. Rate : 120 BPM Atrial Rate : 120 BPM P-R Int : 158 ms QRS Dur : 98 ms QT Int : 326 ms P-R-T Axes : 55 -38 43 degrees QTcB Int : 460 ms Sinus tachycardia Left axis deviation Abnormal ECG When compared with ECG of 19-Jan-2025 05:13, No significant change was found Referred By: Ariana Burns Electronically Signed By: ROGER BRUCE
[2025-01-20 03:40] VITALS: BP 160/83; PULSE 95; RESP 20; TEMP 37.2; O2SAT 95
[2025-01-20] MEDS: Albuterol/Iprat 2.5/0.5MG 3 ML AMPUL.NEB INHALE (03:58)
[2025-01-20 03:59] VITALS: PULSE 101; RESP 22; O2SAT 94
[2025-01-20] MEDS: Furosemide 20 MG/2 ML VIAL IVPUSH ×2 (04:28→12:59)
--- NOTE | 2025-01-20 04:32 | PM.EVENT ---
Event Note Date of Service: 01/20/25 Event Note: Received call from nursing that pt, Mr. Kline admitted for PNA, experiencing increasing SOB, chest tightness and BOWLES with HR elevated after breathing tx. Nursing suspects friction rub on auscultation. CXR ordered, BNP, Trop and AM labs with VBG ordered. Last echo 2022 normal with EF 60%. Time Spent With Patient Time: Total time managing care of this patient today ____ minutes.
[2025-01-20 04:54] LABS: Venous Blood Gas Refer to POC result
[2025-01-20 04:58] LABS: Hematocrit 41.6 % (42.0-52.0); Hemoglobin 13.9 g/dl (14.0-18.0); Mean Corpuscular HGB Conc 33.4 g/dl (31.0-36.0); Mean Corpuscular Hemoglobin 27.6 pg (27.0-33.0); Mean Corpuscular Volume 82.7 fL (80.0-98.0); NRBC Abs Auto 0.000 X10*3/uL (0.0-0.012); NRBC Pct Auto 0.0 /100WBC (0.0-0.2); Platelet Count 176 X10*3/uL (160-400); Red Blood Count 5.03 X10*6/uL (4.60-5.80); White Blood Count 13.0 X10*3/uL (4.8-10.8)
[2025-01-20 05:02] LABS: VBG HCO3 22 mmol/L (22-26); VBG O2 % Saturation 99.0 %
[2025-01-20 05:09] LABS: Anion Gap 12 (12-20); Blood Urea Nitrogen 9 mg/dL (9-16); Calcium 8.4 mg/dL (8.4-10.2); Carbon Dioxide 21 mmol/L (22-29); Chloride 108 mmol/L (96-108); Creatinine Clr Calc Pharmacy 120.1; Estimated Glomerular Filt Rate > 60; Potassium 3.4 mmol/L (3.3-5.1); Sodium 138 mmol/L (135-145)
[2025-01-20 05:10] LABS: Magnesium 1.9 mg/dL (1.6-2.6)
[2025-01-20] MEDS: guaiFENesin DM 200/20/10 ML 10 ML SYRUP PO ×4 (05:10→22:50)
[2025-01-20 05:13] LABS: NT Pro B Type Natriuretic Pept 62.2 pg/mL (<300)
[2025-01-20 05:24] LABS: Troponin-I High Sensitivity < 2.7 ng/L (<3.5-35.0)
--- NOTE | 2025-01-20 05:59 | PC.NURSE ---
At 0403 patient stated they felt tightness in their chest and expiratory wheezing was heard. Upon auscultation of their lungs plueral friction rub was heard and some fine crackles. Patient also complained of headache. [facility] notified. I called respiratory to do a PRN Duoneb treatment for the patient. Patient also requested his prn tylenol for his headache which was then given. Orders received from [facility] to obtain EKG, labs, VBG draw, and chest xray. Pt feeling much better after respiratory treatment.
--- NOTE | 2025-01-20 07:00 | PC.NURSE ---
At 0403 patient stated they felt tightness in their chest and expiratory wheezing was heard. Upon auscultation of their lungs pleural friction rub was heard and some fine crackles. Patient also complained of headache. Ariana Burns notified. This RN called respiratory to do a PRN Duoneb treatment for the patient. Patient also requested his prn tylenol for his headache which was then given. Orders received from Ariana Amorout to obtain EKG, labs, VBG draw, chest xray, and to administer 20mg IV lasix. Pt feeling much better after respiratory treatment.
[2025-01-20 07:39] VITALS: BP 132/79; PULSE 85; RESP 18; TEMP 37.1; O2SAT 93
[2025-01-20] MEDS: Lipase/Prot/Amylase 12/38/60K CAPSULE.DR 1 CAP PO ×2 (07:39→20:10)
[2025-01-20] MEDS: Milk of Magnesia 30 ML ORAL.SUSP PO (11:36)
--- NOTE | 2025-01-20 12:31 | P.PNIM_ITS ---
Subjective Subjective Date of Service: 01/20/25 Interval History: Is much improved today as compared to yesterday. Overnight events reviewed. The patient received IV dose of furosemide, with appropriate urinary output. Lab work relatively unchanged. Patient reports persistent cough, however no fevers chills or rigors. Still producing phlegm, however improved compared to yesterday Review of Systems Review of Systems: Yes all other systems are reviewed and are negative Physical Exam 2 Exam: Exam: General: A&O x3, oriented to time place person and situation, comfortable, no pain Cardiac: S1, S2 auscultated with no S3/4, no MRG. Well perfused. Mildly elevated JVP Respiratory: Slightly reduced bilateral breath sounds at the bases, with no crepitations, crackles, wheezing or end expiratory wheezing auscultated throughout all lung zones. No peripheral or central cyanosis noted GI/ : No abdominal pain on palpation, no masses or distentions. MSK: Normal ambulation without pain at bony prominences or musculature. No peripheral edema Neurological: Normal neurological examination on overview, without obvious CN II-XII abnormalities. Vital Signs: Vital Signs: Last Vital Signs Temp 98.8 F 01/20/25 07:39 Pulse 85 01/20/25 07:39 Resp 18 01/20/25 07:39 BP 132/79 01/20/25 07:39 Pulse Ox 93 01/20/25 07:39 O2 Del Method Room Air 01/20/25 07:39 BMI result Body Mass Index 28.2 Objective Data Active Medications Acetaminophen (Acetaminophen 325 Mg Tablet) 650 mg PO Q6H PRN PRN Reason: Pain, Mild 1-3,fever,headache Last Admin: 01/20/25 03:55 Dose: 650 mg Documented By: EILEEN Albuterol/Ipratropium (Albuterol/Iprat 2.5/0.5mg 3 Ml Ampul.Neb) 3 ml INHALE Q4H PRN PRN Reason: Shortness of Breath/Wheezing Last Admin: 01/20/25 03:58 Dose: 3 ml Documented By: BISI Lipase/Protease/Amylase (Lipase/Prot/Amylase 12/38/60k Capsule.) 1 cap PO BID RIZWANA Last Admin: 01/20/25 07:39 Dose: 1 cap Documented By: SUZIE Benzocaine (Throat Lozenge, Medicated Lozenge) 1 lozenge MUCOUS MEM Q2H PRN PRN Reason: Sore Throat Benzonatate (Benzonatate 100 Mg Capsule) 100 mg PO TID PRN PRN Reason: Cough Last Admin: 01/20/25 01:55 EDT Dose: 100 mg Documented By: EILEEN Calcium Carbonate (Calcium Carbonate 750 Mg Tab.Chew) 750 mg PO Q4H PRN PRN Reason: Heartburn Clonazepam (Clonazepam 1 Mg Tablet) 1 mg PO BEDTIME PRN PRN Reason: Anxiety Last Admin: 01/19/25 20:48 Dose: 1 mg Documented By: EILEEN Clonazepam (Clonazepam 0.5 Mg Tablet) 0.5 mg PO DAILY [facility] Last Admin: 01/20/25 07:40 Dose: 0.5 mg Documented By: SUZIE Clonidine HCl (Clonidine Hcl 0.1 Mg Tablet) 0.1 mg PO BID PRN; Protocol PRN Reason: for anxiety Last Admin: 01/19/25 17:25 Dose: 0.1 mg Documented By: MADI Docusate Sodium (Docusate Sodium 100 Mg Capsule) 100 mg PO BID [facility] Last Admin: 01/20/25 07:39 Dose: 100 mg Documented By: SUZIE Enoxaparin Sodium (Enoxaparin Sodium 40 Mg/0.4 Ml Syringe) 40 mg SUBCUT Q24H [facility] Last Admin: 01/20/25 11:28 Dose: 40 mg Documented By: JENS Finasteride (Finasteride 5 Mg Tablet) 5 mg PO DAILY [facility] Last Admin: 01/20/25 07:40 Dose: 5 mg Documented By: SUZIE Guaifenesin/Dextromethorphan (Guaifenesin Dm 200/20/10 Ml 10 Ml Syrup) 10 ml PO Q6H [facility] Last Admin: 01/20/25 11:28 Dose: 10 ml Documented By: JENS Hydrocortisone (Hydrocortisone 2.5 % Rectal Cr 30 Gm Tube) 1 appl VT BID PRN PRN Reason: Hemorrhoids Ceftriaxone Sodium 1 gm/ (Sodium Chloride) 50 mls @ 100 mls/hr IV Q24H [facility] Last Infusion: 01/20/25 12:00 Dose: Infused Documented By: JENS Doxycycline Hyclate 100 mg/ (Sodium Chloride) 250 mls @ 166.67 mls/hr IV Q12H [facility] Last Infusion: 01/20/25 08:28 Dose: Infused Documented By: SUZIE Lidocaine HCl (Lidocaine 4 % Cream Kit) 1 appl TOPICAL TID PRN PRN Reason: pain Magnesium Hydroxide (Milk Of Magnesia 30 Ml Oral.Susp) 30 ml PO DAILY PRN PRN Reason: Constipation Last Admin: 01/20/25 11:36 Dose: 30 ml Documented By: JENS Melatonin (Melatonin 3 Mg Tablet) 6 mg PO BEDTIME PRN PRN Reason: Insomnia Omeprazole (Omeprazole 20 Mg Capsule.Dr) 20 mg PO DAILY@0630 [facility] Last Admin: 01/20/25 05:55 Dose: 20 mg Documented By: EILEEN Polyethylene Glycol (Polyethylene Glycol 3350 17 Gm Powd.Pack) 17 gm PO DAILY [facility] Last Admin: 01/20/25 07:40 Dose: 17 gm Documented By: SUZIE Prednisone (Prednisone 20 Mg Tablet) 40 mg PO DAILY [facility] Last Admin: 01/20/25 08:26 Dose: 40 mg Documented By: SUZIE Quetiapine Fumarate (Quetiapine Fumarate 100 Mg Tablet) 100 mg PO DAILY@1700 [facility] Last Admin: 01/19/25 17:25 Dose: 100 mg Documented By: MADI Quetiapine Fumarate (Quetiapine Fumarate 50 Mg Tablet) 50 mg PO DAILY@1900 [facility] Last Admin: 01/19/25 19:28 Dose: 50 mg Documented By: AARON Ropinirole HCl (Ropinirole Hcl 0.5 Mg Tablet) 0.5 mg PO BEDTIME PRN PRN Reason: CRAMPING Senna (Sennosides 8.6 Mg Tablet) 17.2 mg PO BEDTIME [facility] Last Admin: 01/19/25 20:51 Dose: Not Given Documented By: EILEEN Non-Admin Reason: Patient Refused Simethicone (Simethicone 80 Mg Tab.Chew) 160 mg PO BID [facility] Last Admin: 01/20/25 07:40 Dose: 160 mg Documented By: SUZIE Sodium Chloride (0.9 % Sodium Chloride Flush 3 Ml Syringe) 3 ml IVFLUSH QSHIFT [facility] Last Admin: 01/20/25 07:36 Dose: Not Given Documented By: SUZIE Non-Admin Reason: IV Running Sucralfate (Sucralfate 1 Gm Tablet) 1 gm PO DAILY PRN PRN Reason: Abdominal Pain Tamsulosin HCl (Tamsulosin Hcl 0.4 Mg Capsule) 0.4 mg PO BEDTIME [facility] Last Admin: 01/19/25 20:47 Dose: 0.4 mg Documented By: EILEEN Tizanidine HCl (Tizanidine Hcl 4 Mg Tablet) 2 mg PO TID PRN PRN Reason: muscle spasticity Last Admin: 01/19/25 20:57 Dose: 2 mg Documented By: EILEEN Tramadol HCl (Tramadol Hcl 50 Mg Tablet) 50 mg PO BID [facility] Last Admin: 01/20/25 07:39 Dose: 50 mg Documented By: SUZIE Labs 01/20/25 04:39 01/20/25 04:39 Labs: Laboratory Results - last 24 hr 01/20/25 01/20/25 01/20/25 04:38 04:39 04:47 MCV 82.7 MCH 27.6 MCHC 33.4 RDW 13.2 Plt Count 176 MPV 10.4 Absolute Nucleated RBC 0.000 Nucleated RBC % (auto) 0.0 VBG pH 7.52 H VBG pCO2 27 VBG pO2 103 VBG HCO3 22 VBG O2 Saturation 99.0 VBG Base Excess 0.9 Anion Gap 12 Estim Creat Clear Calc 120.1 Estimated GFR > 60 Random Glucose 115 Lactic Acid 1.2 Calcium 8.4 Magnesium 1.9 Troponin I High Sens < 2.7 NT-Pro-B Natriuret Pep 62.2 Microbiology Microbiology Results: Microbiology 01/19/25 07:52 Blood Culture - Preliminary Blood - Venous No growth after 24 hours. 01/19/25 07:52 Blood Culture - Preliminary Blood - Venous No growth after 24 hours. Assessment and Plan (1) Depression with anxiety: Status: Acute (2) Benign essential hypertension: Status: Acute (3) CAP (community acquired pneumonia): Status: Acute (4) Acute exacerbation of CHF (congestive heart failure): Status: Acute Plan This is a 64-year-old male with a history of anxiety, hemorrhoids, BPH, IBS, GERD who presents to the emergency department with 2 days of shortness of breath and fever, admitted with community-acquired pneumonia c/b sepsis. Sepsis Community-acquired pneumonia Ex-smoker Meets sepsis criteria with leukocytosis, tachypnea, fever Lactic acid within normal limits, no severe features Respiratory viral panel -ve PLAN - ceftriaxone - doxycycline - supportive care and pulmonary toilet - prednisone 40 mg OD p.o. Mild acute CHF exacerbation Unknown EF BNP within normal limits, no demand ischemia. Clinically, the patient demonstrates some signs and symptoms potentially consistent with CHF exacerbation. Responded well to furosemide. We will administer 1 other dose of IV furosemide today, with monitoring of intake/output, daily weights. No need for cardiac telemetry at this time Outpatient echocardiography Chronic back pain on tizanidine, tramadol Anxiety Continue quetiapine, clonazepam, p.r.n. clonidine BPH Continue Proscar GERD Continue omeprazole, Carafate IBS with constipation and diarrhea Continue bowel regimen Unclear if for Creon as patient denies history of pancreatic surgery or pancreatitis QUALITY METRICS - VTE: Enoxaparin - CODE STATUS: Full code - DIET: Regular Total time managing care of this patient today: 35 minutes. Quality Stroke Does the patient have a stroke diagnosis?: No VTE Prior VTE?: No VTE Risk Level:: Medical - moderate - high VTE Device Contraindication: Treatment Not Indicated VTE Drug Contraindication: N/A - Med Ordered
--- NOTE | 2025-01-20 14:37 | MHC.CM.PN ---
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
[2025-01-20 15:01] VITALS: BP 151/77; PULSE 98; RESP 17; TEMP 36.3; O2SAT 95
[2025-01-20] MEDS: 0.9 % Sodium Chloride Flush 3 ML SYRINGE IVFLUSH (16:30)
[2025-01-20 18:55] VITALS: BP 129/80; PULSE 93; RESP 18; TEMP 36.4; O2SAT 93
[2025-01-20] MEDS: Throat Lozenge, Medicated LOZENGE 1 LOZENGE MUCOUS MEM (22:50)
--- NOTE | 2025-01-21 | ECG_ITS ---
Test Reason : Chest pain Blood Pressure : */* mmHG Vent. Rate : 101 BPM Atrial Rate : 101 BPM P-R Int : 164 ms QRS Dur : 98 ms QT Int : 340 ms P-R-T Axes : 55 -32 34 degrees QTcB Int : 440 ms Sinus tachycardia Possible Left atrial enlargement Left axis deviation Abnormal ECG When compared with ECG of 20-Jan-2025 04:19, No significant change was found Referred By: Margo Thomas Electronically Signed By: Giovani Cespedes
[2025-01-21 01:53] VITALS: BP 116/65; PULSE 81; RESP 20; TEMP 36.3; O2SAT 96
[2025-01-21] MEDS: Albuterol/Iprat 2.5/0.5MG 3 ML AMPUL.NEB INHALE (02:06)
[2025-01-21 02:07] VITALS: PULSE 74; RESP 20; O2SAT 94
[2025-01-21] MEDS: oxyCODONE HCl Immed Release 5 MG TABLET PO (02:40)
--- NOTE | 2025-01-21 03:04 | PC.NURSE ---
At 02:05 pt reported SOB and 10/10 bilateral chest pain. VSS. LS diminished on right side. Respiratory called for prn DuoNeb and MIKAYLA Thomas notified via [place]. EKG, troponin, CBC & CMP ordered and obtained. Lab results pending. Prn oxycodone 5 mg q6h ordered for pain 7-10; Administered. Pt reports feeling slightly better after DuoNeb. HOB elevated. Pt is currently laying in bed watching tv.
[2025-01-21 03:09] LABS: Hematocrit 43.0 % (42.0-52.0); Hemoglobin 14.6 g/dl (14.0-18.0); Imm Gran Abs Auto 0.05 X10*3/uL (0.00-0.03); Imm Gran Pct Auto 0.5 % (0.0-0.4); Lymphocytes Absolute Auto 2.9 X10*3/uL (1.2-4.9); MANUAL DIFF FLAG NO; Mean Corpuscular HGB Conc 34.0 g/dl (31.0-36.0); Mean Corpuscular Hemoglobin 27.8 pg (27.0-33.0); Mean Corpuscular Volume 81.9 fL (80.0-98.0); NRBC Abs Auto 0.000 X10*3/uL (0.0-0.012); NRBC Pct Auto 0.0 /100WBC (0.0-0.2); Platelet Count 197 X10*3/uL (160-400); Red Blood Count 5.25 X10*6/uL (4.60-5.80); White Blood Count 11.0 X10*3/uL (4.8-10.8)
[2025-01-21 03:30] LABS: Alanine Aminotransferase 22 U/L (0-40); Albumin Level 3.9 g/dL (3.5-5.0); Alkaline Phosphatase 92 U/L (39-117); Anion Gap 11 (12-20); Aspartate Amino Transferase 23 U/L (5-37); Blood Urea Nitrogen 13 mg/dL (9-16); Calcium 9.0 mg/dL (8.4-10.2); Carbon Dioxide 26 mmol/L (22-29); Chloride 105 mmol/L (96-108); Creatinine Clr Calc Pharmacy 108.7; Estimated Glomerular Filt Rate > 60; Potassium 3.3 mmol/L (3.3-5.1); Sodium 139 mmol/L (135-145); Total Protein 6.8 g/dL (6.5-8.0); Troponin-I High Sensitivity < 2.7 ng/L (<3.5-35.0)
--- NOTE | 2025-01-21 03:31 | PC.NURSE ---
Per pt, chest pain went away. No complaints of pain or SOB at this time.
[2025-01-21 04:00] VITALS: BP 128/69; PULSE 86; RESP 18; TEMP 36.5; O2SAT 94
[2025-01-21] MEDS: guaiFENesin DM 200/20/10 ML 10 ML SYRUP PO ×2 (04:44→11:21)
--- NOTE | 2025-01-21 05:52 | P.EN_ITS ---
Event Note Date of Service: 01/21/25 Event Note: around 2am pt's nurse reported that the patient is feeling short of breath with chest pain. He mentioned that he felt like this around the same time last night as well. He received a DuoNeb last night that helped. Vitals within normal limits. He reported his chest pain is across his whole chest and rated it a 10/10, same as last night. After receiving the DuoNeb he did have some improvement. EKG normal, troponin negative. Lungs clear to auscultation. Ch est pain resolved completely by 03:30. SOB improved with duoneb and elevating the head of bed slighlty. Time Spent With Patient Time: Total time managing care of this patient today ____ minutes.
[2025-01-21 07:50] VITALS: BP 137/79; PULSE 75; RESP 17; TEMP 36.4; O2SAT 94
[2025-01-21] MEDS: Lipase/Prot/Amylase 12/38/60K CAPSULE.DR 1 CAP PO (08:27)
[2025-01-21] MEDS: 0.9 % Sodium Chloride Flush 3 ML SYRINGE IVFLUSH (08:36)
[2025-01-21 11:55] VITALS: PULSE 74; O2SAT 96
--- NOTE | 2025-01-21 15:07 | MHC.CM.PN ---
per rounds pt might be dcd today pt is dcing pt from therapy as he has no pt needs dc plan home n/s
--- NOTE | 2025-01-21 15:22 | PM.DS ---
DS: Providers Provider Date of Service: 01/21/25 Date of admission: 01/19/25 10:02 Date of discharge: 01/21/25 Primary care physician: Marcial David MD DS: Diagnosis Discharge Diagnosis (1) Depression with anxiety: Status: Acute (2) Benign essential hypertension: Status: Acute (3) CAP (community acquired pneumonia): Status: Acute (4) Acute exacerbation of CHF (congestive heart failure): Status: Acute DS: Summary Hospital Course Hospital Course: From admission HPI: Date of Service: 01/19/25 Attending physician on admission: Jeana Lara Chief Complaint: shortness of breath This is a 64-year-old male who presents to the emergency department with shortness of breath. He states for the past 2 days he has been having shortness of breath, fever, headache. In addition he has had a dry cough and a sore throat. He denies any recent sick contacts. He was feeling so poorly that he came to the emergency department for evaluation. On arrival to the emergency department he was febrile with a temperature of 103.1, was tachypneic. Oxygen saturations were borderline low at 91% and reported dyspnea with exertion. Lab work was significant for leukocytosis of 13.5. Lactic acid within normal limits. He tested negative for influenza and COVID-19. Chest x-ray was unremarkable so he underwent a CTA which showed left upper and lower lobe consolidations. He was treated with IV ceftriaxone and azithromycin and admission was requested. Hospital Course Pt was admitted to the hospital for community acquired pneumonia meeting sepsis criteria with fever, leukocytosis, and tachypnea. Pt was treated with IV ceftriaxone and doxycycline. Hospital course was complicated by pt experienced increasing SOB and chest tightness during the night, CXR was ordered and showed possible pulmonary edema, though CTA of chest the day prior was negative for edema or effusions. Patient's troponins were negative and NT pro BNP WNL at 62.2. Echocardiogram 2 years prior on 08/02/2022 with normal left ventricular systolic function and no obvious valvular pathology. Pt was treated with furosemide 20 mg IV x2. Pt does not appear clinically overloaded. CXR findings likely secondary to pneumonia, CHF less likely. By time of discharge pt was walking in the halls without difficulty or SOB; has been afebrile x48 hours. Blood cultures negative @48 hours. Pt will be discharged on cefuroxime 500 mg b.i.d. and doxycycline 100 mg b.i.d. x4 days. He should resume all of his other home medications and follow up with his PCP in 1 week for routine post hospitalization visit. Time Attestation Discharge Coordination Time (in mins): 35 Quality: Safe Use of Opioids Does Pt have an Active Cancer Diagnosis on the Problem List?: No Quality: Stroke Does the patient have a stroke diagnosis?: No Physical Exam Exam: Exam: General: AOx3, no acute distress Resp: CTA bilaterally. No wheezing, rhonchi, or rales CVS: S1, S2, RRR GI: +BS, NT, no distention Skin: Warm, dry Neuro: Cranial nerves II-XII grossly intact bilaterally. Motor grossly intact bilaterally Extremities: No edema Psych: Appropriate affect Vital Signs: Vital Signs: Last Vital Signs Temp 97.5 F 01/21/25 07:50 Pulse 74 01/21/25 11:55 Resp 17 01/21/25 07:50 BP 137/79 01/21/25 07:50 Pulse Ox 96 01/21/25 11:55 O2 Del Method Room Air 01/21/25 07:50 BMI result Body Mass Index 28.2 DS: Data Data Completed and Pending Labs on day of discharge: Laboratory Results - last 24 hr 01/21/25 03:04 WBC 11.0 H RBC 5.25 Hgb 14.6 Hct 43.0 MCV 81.9 MCH 27.8 MCHC 34.0 RDW 13.3 Plt Count 197 MPV 10.3 Immature Gran % (Auto) 0.5 H Neut % (Auto) 61.8 Lymph % (Auto) 26.4 [place] % (Auto) 10.4 Eos % (Auto) 0.6 Baso % (Auto) 0.3 Lymph # (Auto) 2.9 [place] # (Auto) 1.1 Eos # (Auto) 0.1 Baso # (Auto) 0.0 Abs Immat Gran (auto) 0.05 H Absolute Neuts (auto) 6.8 Absolute Nucleated RBC 0.000 Nucleated RBC % (auto) 0.0 Sodium 139 Potassium 3.3 Chloride 105 Carbon Dioxide 26 Anion Gap 11 L BUN 13 Creatinine 0.84 Estim Creat Clear Calc 108.7 Estimated GFR > 60 Random Glucose 132 H Calcium 9.0 D Total Bilirubin 0.2 AST 23 ALT 22 Alkaline Phosphatase 92 Troponin I High Sens < 2.7 Total Protein 6.8 Albumin 3.9 Preliminary micro results at discharge 01/19/25 07:52 Blood Culture - Preliminary Blood - Venous No growth after 48 hours. 01/19/25 07:52 Blood Culture - Preliminary Blood - Venous No growth after 48 hours. Discharge Plan Discharge Anticipated Discharge Date/Time: 01/21/25 14:32 Patient Disposition: Home Health Service Discharge Diagnosis: Community-acquired pneumonia with sepsis Referrals: Marcial David MD [Primary Care Provider, Internal Medicine] - 1 Week Discharge Medications: New cefuroxime axetil 500 mg tablet 500 mg PO BID Qty: 8 0RF Rx Instructions: Take one tablet twice a day with food for the next 4 days, starting the morning on 01/22 and ending the evening of 01/25. doxycycline monohydrate 100 mg capsule 100 mg PO BID Qty: 9 0RF Rx Instructions: Take one tablet twice a day for the next 4 days, starting the evening of 01/21 and ending the evening of 01/25 codeine-guaifenesin [Guaifenesin AC] 10-100 mg/5 mL liquid 5 ml PO Q6H PRN (Reason: cough) Qty: 120 0RF Continued acetaminophen 500 mg tablet 500 mg PO TID PRN (Reason: for pain) Qty: 90 3RF tizanidine 2 mg tablet 2 mg PO TID PRN (Reason: muscle spasticity) 30 Days Qty: 90 2RF clonidine HCl 0.1 mg tablet 0.1 mg PO BID PRN (Reason: for anxiety) 90 Days Qty: 180 0RF tamsulosin [Flomax] 0.4 mg capsule 0.4 mg PO BEDTIME 30 Days Qty: 30 1RF clonazepam 1 mg tablet 1 mg PO BEDTIME PRN (Reason: anxiety) Qty: 30 0RF clonazepam 0.5 mg tablet 0.5 mg PO DAILY Qty: 30 0RF Rx Instructions: 1 tabl Q AM lidocaine 5 % cream 1 appl topical TID PRN (Reason: pain) Qty: 30 0RF quetiapine 50 mg tablet 100 mg PO DAILY@1700 Patient Comments: BEFORE DINNER simethicone 180 mg capsule 180 mg PO BID sucralfate 1 gram tablet 1 g PO DAILY PRN (Reason: Abdominal Pain) tramadol 50 mg tablet 50 mg PO BID hydrocortisone [Proctosol HC] 2.5 % cream with perineal applicator 1 appl IA BID PRN (Reason: hemorrhoids) Rx Instructions: BE SURE TO INCLUDE RECTAL APPICATOR!! Creon 12,000-38,000 -60,000 unit capsule,delayed release(DR/EC) 1 cap PO BID (DME) RAISED TOILET SEAT See Rx Instructions .Route .MEDSUPPLY Qty: 1 0RF Rx Instructions: As directed quetiapine 50 mg tablet 50 mg PO DAILY@1900 Rx Instructions: AFTER DINNER polyethylene glycol 3350 17 gram/dose powder 17 g PO DAILY 30 Days Qty: 510 6RF docusate sodium [Colace] 100 mg capsule 100 mg PO BID Qty: 60 6RF pantoprazole 20 mg tablet,delayed release (DR/EC) 20 mg PO DAILY 90 Days Qty: 90 1RF sennosides [Senna Laxative] 8.6 mg tablet 17.2 mg PO BEDTIME Qty: 60 6RF ropinirole 0.5 mg tablet 0.5 mg PO BEDTIME PRN (Reason: CRAMPING) ondansetron 4 mg tablet,disintegrating 4 mg PO BID-TID PRN (Reason: nausea and vomiting) Qty: 14 3RF finasteride 5 mg tablet 5 mg PO DAILY 90 Days Qty: 90 1RF Discharge Orders: Discharge Order (Routine); Ordered 01/21/25 Ordered By: Shila Banks Activity on Discharge: As tolerated Stand Alone Forms: Patient Portal Discharge page Print Language: Moz[place] Care Plan Goals: See below Health Concerns: Community-acquired pneumonia Sepsis Plan of Treatment: You were admitted to the hospital for community-acquired pneumonia meeting sepsis criteria with elevated white blood cell count, tachypnea, and fever.. You were treated with IV antibiotics to good effect. At time of discharge you report you were feeling much better with breathing approaching baseline. You has been afebrile for over 48 hours. You will be discharged home on oral antibiotics. -- take cefuroxime 500 mg twice a day with food for the next 4 days, starting in the morning of 01/22 and ending the evening of 01/25 -- take doxycycline 100 mg twice a day with food for the next 4 days, starting the evening of 01/21 and ending the evening of 01/25 -- who also be prescribed guaifenesin with codeine for help with cough -- follow up with PCP in 1 week for routine post hospitalization visit Assessment: See discharge summary
[2025-01-21 15:49] VITALS: BP 138/92; PULSE 95; RESP 18; TEMP 36.4; O2SAT 94
--- NOTE | 2025-01-21 15:59 | MHC.CM.PN ---
[place] [facility] [place]
== END 2025-01-21 16:17 | disposition home health service (06) | DRG 871 ==
LOC: HO.ED 10:04 → HO.EDOVER 10:08 → HO.S3 19:19
PROVIDERS: Hospitalist; Nurse Practitioner Family; Physician Assistant; Admitting Provider Physician Assistant Medical; Emergency Provider Emergency Medicine Emergency Medical Services; PCP Internal Medicine; Visit Provider Student in an Organized Health Care Education/Training Program
DX: A41.9 Sepsis, unspecified organism (principal); J18.9 Pneumonia, unspecified organism; I11.0 Hypertensive heart disease with heart failure; M54.9 Dorsalgia, unspecified; I50.9 Heart failure, unspecified; G89.29 Other chronic pain; F41.9 Anxiety disorder, unspecified; N40.0 Benign prostatic hyperplasia without lower urinary tract symptoms; K21.9 Gastro-esophageal reflux disease without esophagitis; K58.2 Mixed irritable bowel syndrome; Z20.822 Contact with and (suspected) exposure to COVID-19; Z87.891 Personal history of nicotine dependence; Z79.899 Other long term (current) drug therapy
CPT/HCPCS: 36415; 71045; 71275; 80048; 80053; 82803; 83605; 83735; 83880; 84484; 85025; 85027; 87040; 87502; 87633; 87635; 93005; 94640; 97161; 99285; J0696; J1271; J1650; J1885; J1938; Q9967

== ENCOUNTER → 2025-01-19 05:13 | Outpatient (BNV) | payer MEDICARE, MEDICAID, SELFPAY | PROVIDERS: Admitting Provider Physician Assistant Medical; Emergency Provider Emergency Medicine Emergency Medical Services; PCP Internal Medicine; Visit Provider Internal Medicine | DX: R00.0 Tachycardia, unspecified (principal) | CPT/HCPCS: 93010 ==

== ENCOUNTER → 2025-01-19 05:36 | Outpatient (BNV) | payer MEDICARE, MEDICAID, SELFPAY | PROVIDERS: Emergency Provider Emergency Medicine Emergency Medical Services; PCP Internal Medicine; Visit Provider Specialist | DX: R91.8 Other nonspecific abnormal finding of lung field (principal); R07.9 Chest pain, unspecified | CPT/HCPCS: 71045; 71275 ==

== ENCOUNTER 2025-01-19 10:02 | Outpatient (BNV) | payer MEDICARE, MEDICAID, SELFPAY | END 2025-01-21 02:23 | PROVIDERS: Admitting Provider Physician Assistant Medical; Emergency Provider Emergency Medicine Emergency Medical Services; PCP Internal Medicine; Visit Provider Internal Medicine Cardiovascular Disease | DX: R00.0 Tachycardia, unspecified (principal) | CPT/HCPCS: 93010 ==

== ENCOUNTER 2025-01-19 10:02 | Outpatient (BNV) | payer MEDICARE, MEDICAID, SELFPAY | END 2025-01-20 04:19 | PROVIDERS: Admitting Provider Physician Assistant Medical; Emergency Provider Emergency Medicine Emergency Medical Services; PCP Internal Medicine; Visit Provider Internal Medicine | DX: R00.0 Tachycardia, unspecified (principal) | CPT/HCPCS: 93010 ==

== ENCOUNTER → 2025-01-19 10:02 | Outpatient (BNV) | payer MEDICARE, MEDICAID, SELFPAY | PROVIDERS: Admitting Provider Physician Assistant Medical; Emergency Provider Emergency Medicine Emergency Medical Services; PCP Internal Medicine; Visit Provider Physician Assistant Medical | DX: F41.8 Other specified anxiety disorders (principal); I10 Essential (primary) hypertension; J18.9 Pneumonia, unspecified organism; I50.9 Heart failure, unspecified | CPT/HCPCS: 99239; 99499 ==

== ENCOUNTER 2025-03-15 14:17 | Outpatient (REF) | payer MEDICARE, MEDICAID, SELFPAY ==
--- NOTE | ~2025-03-15 | US_ITS ---
EXAMINATION: US BLADDER HISTORY: R39.14 - Feeling of incomplete bladder emptying COMPARISON: There are no prior studies available for comparison. FINDINGS: Sonographic examination of the urinary bladder was performed before and after voiding. Before voiding, the urinary bladder measured 12.3 x 9.1 x 9.6, for an estimated volume of 562 mL. After voiding, the urinary bladder measured 5.9 x 5.0 x 5.8, for an estimated volume of 89 mL. No intrinsic bladder abnormality is identified. Bilateral ureteral jets are identified. The prostate measures 3.3 x 3.0 x 4.3 cm, for an estimated volume of 22.2 mL. US/US bladder IMPRESSION: 1. Unremarkable ultrasound of the urinary bladder. 2. Post void bladder residual of 89 mL. 3. Prostate volume of 22.2 mL. Electronically signed by: Bro Auguste MD 03/15/2025 03:16 PM [facility]
[2025-03-15 17:01] LABS: PSA,Total (Free>4and<10) 3.20 ng/mL (0.00-4.00)
== END 2025-03-15 14:18 | disposition home or self-care (01) ==
LOC: HO.US 14:17
PROVIDERS: PCP Internal Medicine; Visit Provider Urology
DX: R39.14 Feeling of incomplete bladder emptying (principal); Z12.5 Encounter for screening for malignant neoplasm of prostate
CPT/HCPCS: 36415; 76857; 84153

== ENCOUNTER → 2025-03-15 14:44 | Outpatient (BNV) | payer MEDICARE, MEDICAID, SELFPAY | PROVIDERS: PCP Internal Medicine; Visit Provider Radiology Diagnostic Radiology | DX: R39.14 Feeling of incomplete bladder emptying (principal) | CPT/HCPCS: 76857 ==